=== PATIENT | male | born 1985 | race Caucasian/White ===

== ENCOUNTER 2017-11-11 13:06 | Emergency (ER) | payer BC ==
[2017-11-11 13:37] LABS: HEMATOCRIT 45.4 % (42.0-52.0); MEAN CORPUSCULAR HGB CONC 35.2 g/dl (32.0-36.5); MEAN CORPUSCULAR VOLUME 85.2 fl (80.0-96.0); PLATELET COUNT, AUTOMATED 325 10^3/uL (150-450); RED BLOOD COUNT 5.33 10^6/uL (4.30-6.10); RED CELL DISTRIBUTION WIDTH 12.7 % (11.5-14.5); WHITE BLOOD COUNT 10.6 10^3/uL (4.0-10.0)
[2017-11-11] MEDS: NS 1,000 ML IV ×4 (13:43→15:37)
[2017-11-11 14:16] LABS: ALBUMIN 4.2 GM/DL (3.2-5.2); ALKALINE PHOSPHATASE 101 U/L (45-117); ALT/SGPT 58 U/L (12-78); ANION GAP 7 MEQ/L (8-16); AST/SGOT 39 U/L (7-37); BILIRUBIN,TOTAL 0.4 MG/DL (0.2-1.0); BLOOD UREA NITROGEN 13 MG/DL (7-18); CALCIUM LEVEL 8.9 MG/DL (8.5-10.1); CARBON DIOXIDE LEVEL 27 MEQ/L (21-32); CHLORIDE LEVEL 105 MEQ/L (98-107); CREATININE FOR GFR 0.81 MG/DL (0.70-1.30); GLOMERULAR FILTRATION RATE > 60.0 (>60); GLUCOSE, FASTING 146 MG/DL (70-100); POTASSIUM SERUM 4.1 MEQ/L (3.5-5.1); SODIUM LEVEL 139 MEQ/L (136-145); TOTAL PROTEIN 7.2 GM/DL (6.4-8.2)
[2017-11-11 15:15] LABS: FREE THYROXINE INDEX 3.4 % (1.4-3.8); MAGNESIUM LEVEL 2.2 MG/DL (1.8-2.4); T UPTAKE 32 % (33-40); THYROXINE (T4) 10.7 UG/DL (4.5-12.0)
[2017-11-11 17:28] LABS: ESTIMATED AVERAGE GLUCOSE 123 MG/DL (60-110); HEMOGLOBIN A1c 5.9 %
== END 2017-11-11 17:09 | disposition home or self-care (01) ==
LOC: M ED 13:06
DX: I49.1 Atrial premature depolarization (principal); R42 Dizziness and giddiness; R94.31 Abnormal electrocardiogram [ECG] [EKG]; Z91.030 Bee allergy status; Z79.899 Other long term (current) drug therapy
CPT/HCPCS: 93005

== ENCOUNTER → 2017-11-13 | Outpatient (CLI) | payer BC | LOC: M EKG 10:58 | DX: R00.2 Palpitations (principal) | CPT/HCPCS: 93225 ==

== ENCOUNTER → 2018-10-01 | Outpatient (CLI) | payer BC ==
[~2018-10-01] MED LIST: AFRI0.056; ATOR40TA75 PO; FLON1SPR; LISI10TA4 PO
--- NOTE | 2018-10-01 15:42 | REP ---
THORACIC SPINE, THREE VIEWS: HISTORY: Upper back pain. There is no acute fracture or subluxation. There is loss of height of several mid and lower thoracic intervertebral discs. Osteophytes are present in the mid and lower thoracic spine. IMPRESSION: Degenerative change as described above. Electronically Signed by Julián Alaniz MD 10/01/2018 03:43 P
--- NOTE | 2018-10-01 15:42 | REP ---
CERVICAL SPINE, SEVEN VIEWS: HISTORY: Neck pain. The cervical spine is visualized from C1 to the C6-7 level in the lateral radiographs. There is no acute fracture or subluxation. The intervertebral discs are normal in height. The neural foramina are patent. IMPRESSION:There is no acute fracture or subluxation. Electronically Signed by Julián Alaniz MD 10/01/2018 03:44 P
== END ==
LOC: M WUC 14:27
PROVIDERS: ATTEND Physician Assistant
DX: M25.78 Osteophyte, vertebrae (principal); M51.34 Other intervertebral disc degeneration, thoracic region; M54.2 Cervicalgia; M54.5 Low back pain

== ENCOUNTER → 2018-11-27 | Outpatient (REF) | payer BC | LOC: M SFHCLERA 16:27 | PROVIDERS: ATTEND Physician Assistant | DX: R10.2 Pelvic and perineal pain (principal) ==

== ENCOUNTER 2019-04-11 11:21 | Emergency (ER) | payer BC, OTHER ==
[~2019-04-11] VITALS: Ht 193 cm; Wt 118.2 kg
[2019-04-11] MEDS ORDERED: CYCL10TA (11:27)
[2019-04-11 11:58] LABS: BASO # 0.1 10^3/uL (0.0-0.2); EOS # 0.1 10^3/uL (0.0-0.50); EOS % 1.6 % (0.0-3.0); HEMATOCRIT 45.3 % (42.0-52.0); HEMOGLOBIN 15.8 g/dl (13.5-17.5); LYMPH % 36.7 % (24.0-44.0); MEAN CORPUSCULAR HEMOGLOBIN 31.5 pg (27.0-33.0); MEAN CORPUSCULAR HGB CONC 34.9 g/dl (32.0-36.5); MEAN CORPUSCULAR VOLUME 90.2 fl (80.0-96.0); MONO # 0.8 10^3/uL (0.0-0.8); MONO % 9.4 % (0.0-5.0); NEUTROPHILS # 4.1 10^3/uL (1.8-7.7); NEUTROPHILS % 50.8 % (36.0-66.0); PLATELET COUNT, AUTOMATED 298 10^3/uL (150-450); RED BLOOD COUNT 5.02 10^6/uL (4.30-6.10); WHITE BLOOD COUNT 8.1 10^3/uL (4.0-10.0)
[2019-04-11 12:25] LABS: ALBUMIN 4.5 GM/DL (3.2-5.2); BILIRUBIN,DIRECT 0.1 MG/DL (0.0-0.2); BILIRUBIN,TOTAL 0.5 MG/DL (0.2-1.0); TOTAL PROTEIN 7.5 GM/DL (6.4-8.2)
[2019-04-11] MEDS ORDERED: KETOROLAC 30 MG/ML VIAL (J1885) IV ONE (14:00)
[2019-04-11] MEDS ORDERED: NS 1,000 ML IV ONE (14:00)
[2019-04-11] MEDS ORDERED: ISOVUE-370 76% 100ML VIAL (Q9967) As Ordered ONE (14:15)
[2019-04-11 14:29] VITALS: BP 136/87
[2019-04-11] MEDS ORDERED: CIPROFLOXACIN 500 MG TAB PO ONE (14:45)
[2019-04-11] MEDS ORDERED: metroNIDAZOLE (FLAGYL) 500 MG TAB PO ONE (14:45)
[2019-04-11] MEDS ORDERED: CIPR-249 PO (14:52)
[2019-04-11] MEDS ORDERED: FLAG500T PO (14:52)
--- NOTE | 2019-04-11 15:47 | REP ---
CT ABDOMEN AND PELVIS WITH IV CONTRAST: Visualized lung bases demonstrate no infiltrate. The liver, spleen, adrenals, pancreas, and kidneys are unremarkable. There is no abdominal aortic aneurysm. There is no adenopathy. There is no free air or free fluid. There is no appendicitis, a normal appendix is visualized. There are multiple sigmoid diverticula present. There is surrounding pericolonic inflammation of the fat, consistent with diverticulitis. The urinary bladder appears unremarkable. No abscess is seen. There does appear to be a 1 cm hypodensity in the upper right kidney and another in the lower left kidney probably representing cysts. Recommend renal ultrasound for further evaluation. IMPRESSION: Sigmoid diverticulitis. No free air or abscess. No other acute finding. There does appear to be a 1 cm hypodensity in the upper right kidney and another in the lower left kidney probably representing cysts. Recommend renal ultrasound for further evaluation. Electronically Signed by José Miguel Waterman MD 04/12/2019 11:31 P
--- NOTE | 2019-04-13 09:40 | ED PDOC ---
Post-Departure Follow-Up dr zayas faxed formal report of ct abd/p for fu Caryn Cueva MD Apr 13, 2019 09:40
== END 2019-04-11 15:28 | disposition home or self-care (01) ==
LOC: M ED 11:21
DX: K57.32 Diverticulitis of large intestine without perforation or abscess without bleeding (principal); N28.1 Cyst of kidney, acquired; I10 Essential (primary) hypertension; E78.5 Hyperlipidemia, unspecified; Z87.448 Personal history of other diseases of urinary system; J30.89 Other allergic rhinitis; Z79.899 Other long term (current) drug therapy; Z91.030 Bee allergy status
CPT/HCPCS: 74177; 80047; 80076; 81001; 83690; 85025; 96361; 96374; 99284; J1885; Q9967

== ENCOUNTER → 2019-05-16 | Outpatient (CLI) | payer OTHER ==
[~2019-05-16] MED LIST changes: +CIPR-249 PO; +CYCL10TA PO; +FLAG500T PO; +MULTCAP PO
--- NOTE | 2019-05-16 17:12 | REP ---
Renal ultrasound: Comparison is the abdomen/pelvis CT dated 04/11/2019. Identifying a right renal upper pole hypodensity and a left renal lower pole hypo density. The right kidney measures 12.2 x 6.7 x 6.9 cm. Left kidney measures 11.6 x 6.6 x 5.7 cm. The kidneys are normal size. There are two echogenic foci in the right kidney, one in the midline upper pole measuring 13.3 mm and the other in the lateral lower pole measuring 8.1 mm, likely nonobstructive renal calculi. There are too echogenic foci in the left kidney, one in the midline lower pole measuring 5.8 mm and the other in the medial lower pole measuring 6.9 mm, likely nonobstructive calculi. No solid renal masses are identified. There is a dromedary hump at the mid pole of the left kidney as an anatomic variant. There are two cysts in the right kidney. One is parapelvic measuring 2.5 x 2.2 x 1.5 cm. The other is parapelvic measuring 2.4 x 1.6 x 1.8 cm. No cysts are identified in the left kidney by ultrasound. Impression: Two right renal parapelvic cysts are identified by ultrasound. No left renal cysts are identified by ultrasound. There are no solid renal masses by ultrasound. There is a left renal dromedary hump as an anatomic variant. There are bilateral nonobstructive renal calculi as described. There is no hydronephrosis. Bladder: With color Doppler assessment of the left ureteral jet can be identified. The right ureteral jet cannot be identified, however, there is no hydronephrosis. Electronically Signed by José Miguel Bay MD 05/16/2019 05:04 P
== END ==
LOC: M RAD 16:05
PROVIDERS: ATTEND Nurse Practitioner Family
DX: N28.9 Disorder of kidney and ureter, unspecified (principal)

== ENCOUNTER 2019-09-02 06:37 | Day surgery (SDC) | payer OTHER ==
[~2019-09-02] VITALS: Ht 193 cm; Wt 128.8 kg
[~2019-09-02 06:37] MED LIST changes: +NS 1,000 ML IV ONE
[2019-09-02] MEDS ORDERED: NS 1,000 ML IV ONE (07:00)
[2019-09-02] MEDS ORDERED: CYCL10TA PO (07:09)
--- NOTE | 2019-09-02 08:12 | ROOR ---
Patient Name: Mekhi Madrid Procedure Date: 09/02/2019 7:37 AM Date of : 1985 Age: 34 Room: [facility] Gender: Male Note Status: Finalized Procedure: Colonoscopy Indications: Follow-up of diverticulitis Providers: Moisés Zacarias MD Referring MD: EMILEE HALL MD Requesting Provider: Medicines: Monitored Anesthesia Care Complications: No immediate complications. Procedure: Pre-Anesthesia Assessment: - Prior to the procedure, a History and Physical was performed, and patient medications and allergies were reviewed. The patient is competent. The risks and benefits of the procedure and the sedation options and risks were discussed with the patient. All questions were answered and informed consent was obtained. Patient identification and proposed procedure were verified by the physician, the nurse and the anesthesiologist in the procedure room. Mental Status Examination: alert and oriented. Airway Examination: normal oropharyngeal airway and neck mobility. Respiratory Examination: clear to auscultation. CV Examination: normal. Prophylactic Antibiotics: The patient does not require prophylactic antibiotics. Prior Anticoagulants: The patient has taken no previous anticoagulant or antiplatelet agents. ASA Grade Assessment: III - A patient with severe systemic disease. After reviewing the risks and benefits, the patient was deemed in satisfactory condition to undergo the procedure. The anesthesia plan was to use monitored anesthesia care (MAC). Immediately prior to administration of medications, the patient was re-assessed for adequacy to receive sedatives. The heart rate, respiratory rate, oxygen saturations, blood pressure, adequacy of pulmonary ventilation, and response to care were monitored throughout the procedure. The physical status of the patient was re-assessed after the procedure. The Colonoscope was introduced through the anus and advanced to the terminal ileum, with identification of the appendiceal orifice and IC valve. The colonoscopy was performed without difficulty. The patient tolerated the procedure well. The quality of the bowel preparation was good. The terminal ileum, ileocecal valve, appendiceal orifice, and rectum were photographed. Scope insertion time was 3 minutes. Scope withdrawal time was 9 minutes. The total duration of the procedure was 12 minutes. Findings: The perianal and digital rectal examinations were normal. The terminal ileum appeared normal. Multiple small and large-mouthed diverticula were found in the sigmoid colon. There was no evidence of diverticular bleeding. Moderate mucosal changes characterized by erosions, erythema, friability and granularity were found in the recto-sigmoid colon and in the descending colon. Biopsies were taken with a cold forceps for histology. Verification of patient identification for the specimen was done by the physician and nurse using the patient's name, date and medical record number. Estimated blood loss was minimal. Non-bleeding external and internal hemorrhoids were found during retroflexion. The hemorrhoids were small. Impression: - The examined portion of the ileum was normal. - Moderate diverticulosis in the sigmoid colon. There was no evidence of diverticular bleeding. - Moderate mucosal changes were found in the recto-sigmoid colon and in the descending colon secondary to left-sided colitis. Biopsied. - Non-bleeding external and internal hemorrhoids. Recommendation: - Patient has a contact number available for emergencies. The signs and symptoms of potential delayed complications were discussed with the patient. Return to normal activities tomorrow. Written discharge instructions were provided to the patient. - High fiber diet. - Continue present medications. - Use fiber, for example Citrucel, Fibercon, Konsyl or Metamucil. - Await pathology results. - Repeat colonoscopy at age 52 for screening purposes. - Telephone GI clinic for pathology results in 2 weeks. - Return to primary care physician. Moisés Zacarias MD Moisés Zacarias MD 09/02/2019 8:11:45 AM Electronically signed by Moisés Zacarias MD Number of Addenda: 0 Note Initiated On: 09/02/2019 7:37 AM Estimated Blood Loss: Estimated blood loss was minimal.
[2019-09-02 08:20] VITALS: BP 140/87
[2019-09-02] MEDS ORDERED: propofoL 200 MG/20 ML VIAL As Ordered ONE (08:54)
[2019-09-02] MEDS ORDERED: LIDOCAINE 2% INJ 100 MG/5 ML SDV (FOR ANES.) As Ordered ONE (08:54)
== END 2019-09-02 08:45 | disposition home or self-care (01) ==
LOC: M OPP 06:37
PROVIDERS: ATTEND Internal Medicine Gastroenterology
DX: K64.8 Other hemorrhoids (principal); K51.50 Left sided colitis without complications; K57.32 Diverticulitis of large intestine without perforation or abscess without bleeding; K57.30 Diverticulosis of large intestine without perforation or abscess without bleeding; Z79.891 Long term (current) use of opiate analgesic; Z79.899 Other long term (current) drug therapy; Z91.030 Bee allergy status; Z87.891 Personal history of nicotine dependence

== ENCOUNTER → 2020-01-20 | Outpatient (CLI) | payer OTHER ==
[~2020-01-20] MED LIST changes: +CYCL-707 PO; -CYCL10TA PO; -NS 1,000 ML IV ONE
[2020-01-20 17:21] LABS: BASO # 0.1 10^3/uL (0.0-0.2); BASO % 0.8 % (0.0-1.0); EOS # 0.1 10^3/uL (0.0-0.5); EOS % 0.7 % (0.0-3.0); HEMATOCRIT 44.7 % (42.0-52.0); LYMPH # 2.2 10^3/uL (1.5-5.0); LYMPH % 29.8 % (24.0-44.0); MEAN CORPUSCULAR HEMOGLOBIN 29.7 pg (27.0-33.0); MEAN CORPUSCULAR HGB CONC 33.6 g/dl (32.0-36.5); MEAN CORPUSCULAR VOLUME 88.5 fl (80.0-96.0); MONO # 0.5 10^3/uL (0.0-0.8); MONO % 6.4 % (0.0-5.0); NEUTROPHILS # 4.6 10^3/uL (1.5-8.5); NEUTROPHILS % 61.8 % (36.0-66.0); PLATELET COUNT, AUTOMATED 328 10^3/uL (150-450); RED BLOOD COUNT 5.05 10^6/uL (4.30-6.10); WHITE BLOOD COUNT 7.4 10^3/uL (4.0-10.0)
[2020-01-20 17:48] LABS: ALBUMIN 4.3 GM/DL (3.2-5.2); ALT/SGPT 52 U/L (12-78); BILIRUBIN,TOTAL 0.4 MG/DL (0.2-1.0); BLOOD UREA NITROGEN 11 MG/DL (7-18); CALCIUM LEVEL 9.1 MG/DL (8.5-10.1); CARBON DIOXIDE LEVEL 23 MEQ/L (21-32); CHLORIDE LEVEL 105 MEQ/L (98-107); CREATININE FOR GFR 0.93 MG/DL (0.70-1.30); FREE T4 1.19 NG/DL (0.76-1.46); GLOMERULAR FILTRATION RATE > 60.0 (>60); GLUCOSE, FASTING 128 MG/DL (70-100); POTASSIUM SERUM 4.4 MEQ/L (3.5-5.1); SODIUM LEVEL 139 MEQ/L (136-145); TOTAL PROTEIN 7.1 GM/DL (6.4-8.2)
[2020-01-20 18:29] LABS: ERYTHROCYTE SEDIMENTATION RATE 4 mm/hr (0-15)
== END ==
LOC: M WUC 13:38
PROVIDERS: ATTEND Physician Assistant
DX: R42 Dizziness and giddiness (principal)

== ENCOUNTER → 2020-03-07 | Outpatient (CLI) | payer OTHER ==
[~2020-03-07] MED LIST changes: +AUGM875T28 PO; +ENAL-36; +GABA-843; +KETO10TAB PO; +MELO15TA28; +ROSU10TA6; +TRAM100T36; +TRAZ1TAB11; +VITA50005
--- NOTE | 2020-03-07 09:43 | REPVR ---
PROCEDURE INFORMATION: Exam: MR Lumbar Spine Without Contrast. Exam date and time: 03/07/2020 7:53 AM Age: 35 years old Clinical indication: Low back pain; Patient HX: Lbp; Additional info: Disc disorders with radiculopathy TECHNIQUE: Imaging protocol: Multiplanar magnetic resonance images of the lumbar spine without intravenous contrast. COMPARISON: CR Spine. Lumbosacral, complete 07/31/2016 2:55 PM FINDINGS: Vertebrae: Vertebral body heights normal. There is minimal grade 1 retrolisthesis of L4 on L5. Straightening of lordosis may be positional or related to muscular spasm. Correlate clinically. Vertebral body marrow signal is unremarkable. Spinal cord: Conus terminates at T12-L1 and appears normal in signal intensity without intrinsic or extrinsic lesion. 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 L1-L2: There is no significant disc bulge. There is mild facet degeneration. There is no significant spinal stenosis. There is no significant neural foraminal narrowing. L2-L3: There is no significant disc bulge. There is mild facet degeneration. There is no significant spinal stenosis. There is no significant neural foraminal narrowing. L3-L4: There is mild to moderate generalized disc bulge. There is right posterior annular tear. There is approximately 3 mm anterior-posterior dimension broad-based protrusion extending from the right L4 subarticular recess into the right neural foramen. This moderately narrows the right L4 subarticular recess and moderately narrows the right L3 neural foramen. This appears to contact both nerve roots. There is mild facet degeneration. There is no significant overall spinal stenosis. There is no significant left neural foraminal narrowing. L4-L5: There is moderate to moderate generalized disc bulge. There is approximately 4.5 mm anterior-posterior dimension broad-based central disc protrusion with annular fissure. This lateralizes slightly to the left and extends slightly below the disc space level. This severely narrows left L5 subarticular recess and moderately narrows right L5 subarticular recess. There is mild thickening of ligamentum flavum and facet degeneration. There is no significant spinal stenosis. There is no significant neural foraminal narrowing. L5-S1: There is mild generalized disc bulge. There is approximately 5 mm anterior-posterior dimension central and left subarticular recess protrusion and annular fissure. This severely narrows the left S1 subarticular recess and S1 nerve root is posteriorly displaced. There is mild facet degeneration. There is no significant overall spinal stenosis. There is no significant neural foraminal narrowing. Soft tissues: Unremarkable. IMPRESSION: Multiple disc protrusions as above. Largest at L5-S1 compresses and displaces the left S1 nerve root at level subarticular recess. L3-L4 is broad-based protrusion extending from right L4 subarticular recess into right L3 neural foramen narrowing the subarticular recess and neural foramen. L4-L5 is broad-based central protrusion but slightly greater to left causing left greater than right L5 subarticular recess narrowing. Electronically signed by: Irene Peralta On 03/07/2020 09:42:38 AM
== END ==
LOC: M RAD 06:38
PROVIDERS: ATTEND Physician Assistant
DX: M51.17 Intervertebral disc disorders with radiculopathy, lumbosacral region (principal); M51.26 Other intervertebral disc displacement, lumbar region; M51.27 Other intervertebral disc displacement, lumbosacral region

== ENCOUNTER → 2020-03-14 | Outpatient (CLI) | payer OTHER ==
--- NOTE | 2020-04-30 08:46 | SLEEPHOME ---
[facility] DOWNTIME REPORT NAME: LINDA [facility] WT ID#: [id number] : 1985 JOB: [id number] NAVARRO: 03/14/2020 DOCTOR: Hiro Verdugo M.D. HOME SLEEP TEST DATE: 03/14/2020 ORDERED BY: PANKAJ Arellano Diagnostic home sleep testing was performed due to concern for the obstructive sleep apnea syndrome in this patient with a history of hypersomnia. For testing, a nocturnal T3 respiratory monitoring device was used. Continuous record was made of pulse, oxygen saturation, air flow, chest and abdominal strain, and body position. There was 9 hours and 28 minutes of data reviewed. There was 8 hours and 20 minutes marked as time in bed. During the interval marked time in bed, there were 145 respiratory events identified of 10 seconds in duration or greater for a respiratory event index of 17.4. The events were primarily obstructive. There were six mixed and central apneas. Baseline pulse rate 65 beats per minute. Pulse rate ranged 47-96. Baseline saturation was 92%. Saturations fell to 76%. Testing was performed in both the supine and non-supine positions. IMPRESSION: Abnormal home sleep testing with repetitive respiratory events and oxygen desaturations to 76% with a respiratory event index of 17.4 is consistent with the obstructive sleep apnea syndrome. RECOMMENDATION: The patient should be encouraged to undergo a formal sleep evaluation. /htsru cc: PANKAJ Arellano MTDD
== END ==
LOC: M SLEEP HO 10:20
PROVIDERS: ATTEND Physician Assistant
DX: G47.10 Hypersomnia, unspecified (principal)

== ENCOUNTER → 2020-04-06 | Outpatient (CLI) | payer OTHER ==
[2020-04-06 08:02] LABS: BASO # 0.1 10^3/uL (0.0-0.2); BASO % 0.8 % (0.0-1.0); EOS # 0.1 10^3/uL (0.0-0.5); EOS % 0.8 % (0.0-3.0); HEMATOCRIT 45.7 % (42.0-52.0); HEMOGLOBIN 15.5 g/dl (13.5-17.5); LYMPH # 3.1 10^3/uL (1.5-5.0); LYMPH % 31.4 % (24.0-44.0); MEAN CORPUSCULAR HEMOGLOBIN 29.5 pg (27.0-33.0); MEAN CORPUSCULAR HGB CONC 33.9 g/dl (32.0-36.5); MONO # 0.8 10^3/uL (0.0-0.8); MONO % 8.1 % (0.0-5.0); NEUTROPHILS # 5.9 10^3/uL (1.5-8.5); NEUTROPHILS % 58.7 % (36.0-66.0); PLATELET COUNT, AUTOMATED 321 10^3/uL (150-450); RED BLOOD COUNT 5.25 10^6/uL (4.30-6.10)
[2020-04-06 08:25] LABS: HEMOGLOBIN A1c 6.2 %
[2020-04-06 08:31] LABS: ALT/SGPT 40 U/L (12-78); BILIRUBIN,TOTAL 0.4 MG/DL (0.2-1.0); BLOOD UREA NITROGEN 14 MG/DL (7-18); CALCIUM LEVEL 9.3 MG/DL (8.5-10.1); CARBON DIOXIDE LEVEL 29 MEQ/L (21-32); CHLORIDE LEVEL 105 MEQ/L (98-107); CHOLESTEROL LEVEL 303 MG/DL (<200); CHOLESTEROL RISK RATIO 6.312 (<5); CREATININE FOR GFR 0.91 MG/DL (0.70-1.30); FREE T4 1.06 NG/DL (0.76-1.46); GLOMERULAR FILTRATION RATE > 60.0 (>60); GLUCOSE, FASTING 95 MG/DL (70-100); HDL CHOLESTEROL 48 MG/DL (>40); LDL CHOLESTEROL 212 MG/DL (<100); NON-HDL-C 255 MG/DL; POTASSIUM SERUM 4.3 MEQ/L (3.5-5.1); SODIUM LEVEL 138 MEQ/L (136-145); TOTAL PROTEIN 7.1 GM/DL (6.4-8.2); TRIGLYCERIDES LEVEL 216 MG/DL (<150)
[2020-04-06 10:01] LABS: TOTAL 25(OH) VITAMIN D 30.9 NG/ML (30.0-100.0)
== END ==
LOC: M LAB 06:34
PROVIDERS: ATTEND Physician Assistant
DX: E78.5 Hyperlipidemia, unspecified (principal); Z13.29 Encounter for screening for other suspected endocrine disorder

== ENCOUNTER 2020-05-26 06:59 | Emergency (ER) | payer OTHER ==
[~2020-05-26] VITALS: Ht 193 cm; Wt 132.4 kg
[~2020-05-26 06:59] MED LIST changes: -AUGM875T28 PO; -ENAL-36; -GABA-843; -KETO10TAB PO; -MELO15TA28; -ROSU10TA6; -TRAM100T36; -TRAZ1TAB11; -VITA50005
[2020-05-26] MEDS ORDERED: TRAM100T36 (07:09)
[2020-05-26] MEDS ORDERED: VITA50005 (07:09)
[2020-05-26] MEDS ORDERED: TRAZ1TAB11 (07:09)
[2020-05-26] MEDS ORDERED: MELO15TA28 (07:09)
[2020-05-26] MEDS ORDERED: GABA-843 (07:09)
[2020-05-26] MEDS ORDERED: ROSU10TA6 (07:09)
[2020-05-26] MEDS ORDERED: ENAL-36 (07:09)
[2020-05-26] MEDS ORDERED: ONDANSETRON 4MG/2ML VIAL IV ONE (07:30)
[2020-05-26] MEDS ORDERED: NS 1,000 ML IV ONE (07:30)
[2020-05-26] MEDS ORDERED: KETOROLAC 30 MG/ML 1ML VIAL IV ONE (07:45)
[2020-05-26 07:54] LABS: BASO # 0.1 10^3/uL (0.0-0.2); BASO % 0.9 % (0.0-1.0); EOS # 0.1 10^3/uL (0.0-0.5); EOS % 0.5 % (0.0-3.0); HEMATOCRIT 45.4 % (42.0-52.0); HEMOGLOBIN 15.2 g/dl (13.5-17.5); LYMPH # 1.9 10^3/uL (1.5-5.0); MEAN CORPUSCULAR HEMOGLOBIN 28.8 pg (27.0-33.0); MEAN CORPUSCULAR HGB CONC 33.5 g/dl (32.0-36.5); MEAN CORPUSCULAR VOLUME 86.1 fl (80.0-96.0); MONO # 0.9 10^3/uL (0.0-0.8); MONO % 7.4 % (0.0-5.0); NEUTROPHILS # 9.5 10^3/uL (1.5-8.5); NEUTROPHILS % 75.7 % (36.0-66.0); PLATELET COUNT, AUTOMATED 315 10^3/uL (150-450); RED BLOOD COUNT 5.27 10^6/uL (4.30-6.10); WHITE BLOOD COUNT 12.6 10^3/uL (4.0-10.0)
[2020-05-26] MEDS ORDERED: ISOVUE-370 76% 100ML VIAL As Ordered ONE (07:56)
[2020-05-26 08:16] LABS: ALBUMIN 4.2 GM/DL (3.2-5.2); BILIRUBIN,DIRECT 0.2 MG/DL (0.0-0.2); BILIRUBIN,TOTAL 0.8 MG/DL (0.2-1.0); TOTAL PROTEIN 7.3 GM/DL (6.4-8.2)
--- NOTE | 2020-05-26 08:38 | REPVR ---
PROCEDURE INFORMATION: Exam: CT Abdomen And Pelvis With Contrast Exam date and time: 05/26/2020 8:14 AM Age: 35 years old Clinical indication: Abdominal pain; Localized; Left lower quadrant (llq); Additional info: Llq abd pain, h/o diverticulitis TECHNIQUE: Imaging protocol: Computed tomography of the abdomen and pelvis with intravenous contrast. Radiation optimization: All CT scans at this facility use at least one of these dose optimization techniques: automated exposure control; mA and/or kV adjustment per patient size (includes targeted exams where dose is matched to clinical indication); or iterative reconstruction. Contrast material: ISOVUE 370; Contrast volume: 100 ml; Contrast route: INTRAVENOUS (IV); COMPARISON: CT ABD/PEL W/IV CONTRAST ONLY 04/11/2019 2:19 PM FINDINGS: Liver: Normal. No mass. Gallbladder and bile ducts: Normal. No calcified stones. No ductal dilation. Pancreas: Normal. No ductal dilation. Spleen: Normal. No splenomegaly. Adrenals: Normal. No mass. Kidneys and ureters: Circumscribed hypodense lesion in the lower pole of left kidney measuring 1.0 cm. No hydronephrosis bilaterally. Focal scarring in the midpole of the left kidney. Stomach and bowel: Segmental thickening of the sigmoid colon. Sigmoid diverticulosis associated mild pericolonic edema. No abnormal bowel dilatation. Appendix: Appendix is normal. Intraperitoneal space: Unremarkable. No free air. No significant fluid collection. Vasculature: Unremarkable. No abdominal aortic aneurysm. Lymph nodes: No enlarged lymph nodes. Multiple small perisigmoid nodes. Urinary bladder: Unremarkable as visualized. Reproductive: Prostate is normal in size. Bones/joints: Unremarkable. No acute fracture. Soft tissues: Small umbilical hernia containing fat. There is no evidence of strangulation. IMPRESSION: 1. Findings consistent with acute sigmoid diverticulitis. 2. No bowel perforation. 3. Circumscribed hypodense lesion in left kidney. Consistent with benign cyst. No follow-up is necessary. 4. Additional findings as described. Electronically signed by: Konstantin Laughlin On 05/26/2020 08:38:09 AM
[2020-05-26] MEDS ORDERED: MORPHINE 4 MG/ML 1ML VIAL/SYRINGE (J2270) IV ONE (08:45)
[2020-05-26 09:08] VITALS: BP 133/71
[2020-05-26] MEDS ORDERED: KETO10TAB PO (09:12)
[2020-05-26] MEDS ORDERED: AUGM875T28 PO (09:16)
== END 2020-05-26 09:25 | disposition home or self-care (01) ==
LOC: M ED 06:59
DX: K57.32 Diverticulitis of large intestine without perforation or abscess without bleeding (principal); N28.1 Cyst of kidney, acquired; K42.9 Umbilical hernia without obstruction or gangrene; I10 Essential (primary) hypertension; E78.5 Hyperlipidemia, unspecified; Z91.030 Bee allergy status; Z79.899 Other long term (current) drug therapy
CPT/HCPCS: 74177; 80047; 80076; 81001; 83690; 85025; 96361; 96374; 96375; 99284; J1885; J2270; J2405; Q9967

== ENCOUNTER 2020-07-06 13:51 | Emergency (ER) | payer OTHER ==
[~2020-07-06] VITALS: Ht 193 cm; Wt 127.9 kg
[~2020-07-06 13:51] MED LIST changes: +AUGM875T28 PO; +ENAL-36; +GABA-843; +KETO10TAB PO; +MELO15TA28; +ROSU10TA6; +TRAM100T36; +TRAZ1TAB11; +VITA50005
[2020-07-06] MEDS ORDERED: CYCLOBENZAPRINE 10MG TABLET PO ONE (14:45)
[2020-07-06] MEDS ORDERED: KETOROLAC 60MG 2ML VIAL IM ONE (14:45)
--- NOTE | 2020-07-06 15:33 | REP ---
INDICATION: injury. COMPARISON: 10/01/2018. TECHNIQUE: AP and lateral views obtained of the thoracic spine. FINDINGS: There is no compression fracture. There is normal thoracic kyphosis. There is mild diffuse spurring. The posterior elements appear intact. IMPRESSION: Mild spurring with no compression fracture. No malalignment. <Electronically signed by José Miguel Waterman > 07/06/20 [id number]
--- NOTE | 2020-07-06 15:33 | REP ---
INDICATION: injury COMPARISON: None. TECHNIQUE: AP, lateral, flexion/extension, bilateral oblique, and coned-down views. FINDINGS: Alignment and lordosis is maintained. The vertebral bodies including transverse process and spinous processes are intact and normal. There is no evidence for acute fracture / compression injury or subluxation. No evidence for spondylolysis or spondylolisthesis. No significant degenerative change is noted. IMPRESSION: Normal lumbosacral spine radiograph series. <Electronically signed by Camilo Polanco > 07/06/20 [id number]
[2020-07-06] MEDS ORDERED: CYCL5TAB PO (15:49)
[2020-07-06] MEDS ORDERED: NAPR-837 PO (15:49)
[2020-07-06 16:07] VITALS: BP 115/52
== END 2020-07-06 16:14 | disposition home or self-care (01) ==
LOC: M ED 13:51
DX: M54.42 Lumbago with sciatica, left side (principal); X50.0XXA Overexertion from strenuous movement or load, initial encounter; Y92.9 Unspecified place or not applicable; Y99.0 Civilian activity done for income or pay; I10 Essential (primary) hypertension; E78.5 Hyperlipidemia, unspecified; K57.32 Diverticulitis of large intestine without perforation or abscess without bleeding; Z91.030 Bee allergy status; Z79.899 Other long term (current) drug therapy
CPT/HCPCS: 72072; 72114; 96372; 99283; J1885

== ENCOUNTER → 2020-07-23 | Outpatient (CLI) | payer OTHER ==
[~2020-07-23] MED LIST changes: +CYCL5TAB PO; +NAPR-837 PO
--- NOTE | 2020-07-28 00:50 | ECWPNPC ---
PATIENT NAME: LINDA KENT : 1985 GENDER: MALE VISIT DATE: 07/23/2020 DISCHARGE DATE: 07/23/20 0959 VISIT LOCKED DATE TIME: PHYSICIAN: WENDY DINH RESOURCE: WENDY DINH REASON FOR APPOINTMENT 1. DDD/HERNIATED DISC/LOW BACK HISTORY OF PRESENT ILLNESS DEPRESSION SCREENING: PHQ-2 (2015 EDITION) LITTLE INTEREST OR PLEASURE IN DOING THINGS?NOT AT ALL FEELING DOWN, DEPRESSED, OR HOPELESS?NOT AT ALL TOTAL SCORE0 GENERAL: 35-YEAR-OLD GENTLEMAN BEING REFERRED BY PRIMARY CARE FOR EVALUATION OF PERSISTENT LOW BACK PAIN WITH BILATERAL LEG RADICULAR SYMPTOMS. 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 PAIN SEEMED TO GET BETTER WITH INTERMITTENT FLAREUPS THAT HE COULD HANDLE UP UNTIL ABOUT ONE YEAR AGO. BEGAN PHYSICAL THERAPY AND MEDICATION FOR INCREASING PAIN APPROXIMATELY ONE YEAR AGO. REPORTS 1 MONTH AGO HE WAS LIFTING A HEAVY PERSON AND BEGAN TO HAVE SEVERE LOW BACK PAIN AND BILATERAL LEG PAIN. HE WENT TO THE EMERGENCY ROOM. ALSO STATES THAT HE WAS A PATIENT OF DR. GENTILE AT [facility] IN [place] AND UNDERWENT LUMBAR EPIDURAL STEROID INJECTION WITH LAST INJECTION BEING DONE THIS PAST SUMMER. STATES LAST INJECTION WAS VERY PAINFUL AND REFUSES TO GO BACK TO THAT PRACTICE. STATES FIRST 2 INJECTIONS WERE VERY HELPFUL. REPORTS CHRONIC INTERMITTENT TESTICULAR PAIN RIGHT GREATER THAN LEFT. THIS HAS BEEN GOING ON FOR SEVERAL YEARS PER PATIENT. DENIES BOWEL OR BLADDER INCONTINENCE. CURRENTLY USING HYDROCODONE 5/325 AND FINDS IT INEFFECTIVE AT REDUCING PAIN. FEELS GABAPENTIN AND TIZANIDINE THAT HE IS TAKING IS HELPFUL. REVIEWED MRI OF THE LS-SPINE AND DISCUSSED TREATMENT PLAN. - - -. FALL RISK SCREENING: SCREENING :TWO OR MORE FALLS WITH INJURY IN THE PAST YEAR PAIN SCREENING: PATIENT HAS A COMPLAINT OF ACUTE OR CHRONIC PAIN :YES LOCATION OF PAIN:MID BACK, LOW BACK, LEG(S), THIGH(S) INTENSITY OF PAIN (SCALE OF 1 TO 10):4 WHAT DOES YOUR PAIN FEEL LIKE:SHARP, OTHER PULLING DURATION:INTERMITTENT PAIN IS INCREASED BY:ACTIVITIES, PROLONGED STANDING PAIN IS DECREASED BY:USE OF PAIN MEDICATIONS, OTHERS LYING DOWN NURSING NOTE: - - -. PAIN CENTER INTAKE QUESTIONS: DO YOU HAVE A HISTORY OF MRSA? :NO DO YOU TAKE A BLOOD THINNERS? :NO DO YOU HAVE ANY BLEEDING DISORDERS? :NO ANY NEW NUMBNESS OR WEAKNESS IN YOUR LEGS OR ARMS? :YES BOTH FEET AND CALVES FOR PAST 3 YEARS, WORSE PAST FEW MONTHS. STATES HAS NOTIFIED HIS PRIMARY CARE PROVIDER. ANY PACEMAKER,DEFIBRILLATOR, OR DORSAL COLUMN STIMULATOR? :NO DO YOU HAVE ANY RASHES OR OPEN SORES? :NO ARE YOU ALLERGIC TO IV DYE? :NO ARE YOU DIABETIC? :NO ANY NEW PROBLEMS WITH YOUR MEDICATIONS? :NO HAVE YOU RECEIVED A VACCINE IN THE PAST 30 DAYS? :NO DO YOU PLAN TO RECEIVE A VACCINE IN THE NEXT 21 DAYS? :NO DO YOU NEED ANY PRESCRIPTION? :NO DO YOU TAKE ANY IMMUNOSUPPRESSIVE MEDICATIONS? :NO CURRENT MEDICATIONS TAKING CRESTOR 10 MG TABLET 1 TABLET ORALLY ONCE A DAY TAKING CYMBALTA 30 MG CAPSULE DELAYED RELEASE PARTICLES 1 CAPSULE ORALLY ONCE A DAY AT BEDTIME TAKING ENALAPRIL MALEATE 10 MG TABLET 1 TABLET ORALLY ONCE A DAY TAKING GABAPENTIN 600 MG TABLET 1 TABLET ORALLY 3 TIMES A DAY TAKING MOBIC 15 MG TABLET 1 TABLET ORALLY ONCE A DAY TAKING HYDROCODONE-ACETAMINOPHEN 5-325 MG TABLET 1 TABLET NEEDED ORALLY EVERY 6 HRS TAKING TRAMADOL HCL 100 MG TABLET 1 TABLET NEEDED ORALLY EVERY 8 HOURS NEEDED TAKING TRAZODONE HCL 100 MG TABLET 1 TABLET AT BEDTIME ORALLY ONCE A DAY TAKING VITAMIN D (ERGOCALCIFEROL) 1.25 MG (06617 UT) CAPSULE 1 CAPSULE ORALLY ONCE A WEEK TAKING ZANAFLEX 4 MG CAPSULE 1 CAPSULE NEEDED ORALLY TWO TIMES A DAY TAKING ZOFRAN 4 MG TABLET 1 TABLET ORALLY EVERY 4 HOURS NEEDED TAKING EPINEPHRINE (ANAPHYLAXIS) 1 MG/ML SOLUTION DIRECTED INJECTION NOT-TAKING LISINOPRIL 10 MG TABLET 1 TABLET ORALLY ONCE A DAY NOT-TAKING SIMVASTATIN 20 MG TABLET 1 TABLET IN THE EVENING ORALLY ONCE A DAY NOT-TAKING MOTRIN 800 MG TABLET 1 TABLET WITH FOOD OR MILK NEEDED ORALLY THREE TIMES A DAY NOT-TAKING PENICILLIN V POTASSIUM 500 MG TABLET 1 TABLET ORALLY FOUR TIMES A DAY NOT-TAKING KETOROLAC TROMETHAMINE 10 MG TABLET 1 TABLET WITH FOOD OR MILK NEEDED ORALLY EVERY 6 HRS NOT-TAKING FLEXERIL 10 MG TABLET 1 TABLET ORALLY ONCE A DAY NOT-TAKING BACTRIM DS 800-160 MG TABLET 1 TABLET ORALLY TWICE A DAY NOT-TAKING VICODIN 5-500 MG TABLET 1 TABLET NEEDED ORALLY PRN, NOTES: PRN NOT-TAKING SUDAFED 30 MG TABLET 1 TABLET NEEDED ORALLY EVERY 6 HRS NOT-TAKING FLONASE 50 MCG/ACT SUSPENSION 1 SPRAY IN EACH NOSTRIL NASALLY TWICE A DAY NOT-TAKING SALINE NASAL SPRAY 0.65 % SOLUTION 2 DROPS IN EACH NOSTRIL NEEDED NASALLY EVERY 2 HRS NOT-TAKING GUAIFENESIN 200 MG TABLET 1 TABLET NEEDED ORALLY EVERY 4 HRS NOT-TAKING LIPITOR 20 MG TABLET 1 TABLET ORALLY ONCE A DAY NOT-TAKING ETODOLAC 500 MG TABLET 1 TABLET ORALLY TWICE A DAY MEDICATION LIST REVIEWED AND RECONCILED WITH THE PATIENT PAST MEDICAL HISTORY CYST ON LEFT AND RIGHT KIDNEY SLEEP APNEA HYPERCHOLESTEROLEMIA HYPERTENSION DEGENERATED DISC DISEASE PTSD ANXIETY DIVERTICULOSIS ALLERGIES BEE STING: ANAPHYLAXIS HORNETS: ANAPHYLAXIS SURGICAL HISTORY TONSILLECTOMY AND ADENOIDECTOMY 1993 COLONOSCOPY 08/2018 WISDOM TEETH EXTRACTION 2002 FAMILY HISTORY FATHER: 25 YRS, MVA MOTHER: ALIVE 51 YRS, DIVERTICULOSIS, ANXIETY 1 BROTHER(S) , 1 SISTER(S) - HEALTHY. 1DAUGHTER(S) - HEALTHY. NO KNOWN FAMILY UROLOGICAL ISSUES. SOCIAL HISTORY GENERAL: TOBACCO USE ARE YOU A:NEVER SMOKER LATEX QUESTIONNAIRE LATEX ALLERGY : HAVE YOU EVER DEVELOPED ANY TYPE OF REACTION AFTER HANDLING LATEX PRODUCTS SUCH RUBBER GLOVES, CONDOMS, DIAPHRAGMS, BALLOONS, SOCKS, OR UNDERWEAR?NO LATEX ALLERGY : HAVE YOU EVER DEVELOPED ANY TYPE OF REACTION DURING OR AFTER DENTAL APPOINTMENT, VAGINAL/RECTAL EXAMINATION, SURGICAL PROCEDURE, OR ANY OTHER EXPOSURE?NO LATEX RISK : HAVE YOU EVER HAD ANY DIFFICULTY BREATHING OR HIVES AFTER EATING OR HANDLING ANY FRUITS, OR VEGETABLES; SUCH KIWI, BANANAS, STONE FRUITS, OR CHESTNUTSNO LATEX RISK : DO YOU HAVE A PREVIOUS PERSONAL HISTORY OF MORE THAN NINE SURGERIES, SPINA BIFIDA, OR REPEATED CATHERIZATIONS? NO LATEX RISK : ARE YOU FREQUENTLY EXPOSED TO LATEX PRODUCTS IN YOUR OCCUPATION?NO DATE ASKED : 07/23/2020 BMI CARE GOAL FOLLOW-UP ABOVE NORMAL BMI FOLLOW-UPDIETARY MANAGEMENT EDUCATION, GUIDANCE, AND COUNSELING ALCOHOL SCREENING DID YOU HAVE A DRINK CONTAINING ALCOHOL IN THE PAST YEAR?YES HOW OFTEN DID YOU HAVE A DRINK CONTAINING ALCOHOL IN THE PAST YEAR?MONTHLY OR LESS (1 POINT) HOW MANY DRINKS DID YOU HAVE ON A TYPICAL DAY WHEN YOU WERE DRINKING IN THE PAST YEAR?1 OR 2 (0 POINTS) HOW OFTEN DID YOU HAVE SIX OR MORE DRINKS ON ONE OCCASION IN THE PAST YEAR?NEVER (0 POINTS) POINTS1 INTERPRETATIONNEGATIVE RECREATIONAL DRUG USE DRUG USE?NO CAFFEINE CAFFEINE USE?YES 1-2 CUPS / DAY HIV / HEP-C SCREENING HIV TEST OFFERED TO PATIENT:YES DATE OFFERED:02/10/2018 TEST ACCEPTED:NO HEP-C TEST OFFERED TO PATIENT:NO REASON:PATIENT DECLINED BROCHURE PROVIDED TO PATIENTYES LANGUAGE LANGUAGES SPOKEN:BRITISH VIRGIN ISLANDER LEARNING BARRIERS / SPECIAL NEEDS CHANGE FROM LAST VISIT?NO BARRIERS TO LEARNING?NO HEARING IMPAIRED?NO VISION IMPAIRED?YES :CORRECTIVE LENSES COGNITIVELY IMPAIRED?NO READINESS TO LEARN?YES LEARNING PREFERENCES?NO LEARNING CAPABILITIES PRESENT?YES EMOTIONAL BARRIERS?NO SPECIAL DEVICES?NO TEXTURE ARTIST NEEDED?NO 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 PAIN CLINIC PFS, CLERGY, PUBLIC HEALTH REFERRALS HAS THE PATIENT BEEN EDUCATED REGARDING HIS/HER PLAN OF CARE?YES HAS THE PATIENT BEEN EDUCATED REGARDING PAIN, THE RISK FOR PAIN, THE IMPORTANCE OF EFFECTIVE PAIN MANAGEMENT, AND THE PAIN ASSESSMENT PROCESS?YES ADVANCE DIRECTIVE ADVANCE DIRECTIVE DISCUSSED WITH PATIENT:YES INFORMATION OFFERED AND DECLINED. HOSPITALIZATION/MAJOR DIAGNOSTIC PROCEDURE DENIES PAST HOSPITALIZATION REVIEW OF SYSTEMS CONSTITUTIONAL: ANY RECENT FEVER NO . CHILLS NO . WEIGHT CHANGE OF UNKNOWN REASONS NO . MUSCULOSKELETAL: ANY UNUSUAL JOINT PAIN OR SWELLING NOT MENTIONED NO . SYSTEMIC LUPUS NO . ANY NEUROMUSCULAR DISORDER NOT MENTIONED NO . LYME DISEASE NO . GASTROENTEROLOGY: ANY NEW CHANGE IN BOWEL CONTROL? NO . HISTORY OF LIVER DISORDER NOT MENTIONED NO . HISTORY OF UNUSUAL ABDOMINAL PAIN OR CRAMPING NOT MENTIONED NO . NO CONSTIPATION. GENITOURINARY: ANY NEW CHANGE IN BLADDER CONTROL? NO . ANY RENAL/KIDNEY CONDITON NOT MENTIONED NO . NEUROLOGY: HISTORY OF TBI NOT MENTIONED NO . OTHER NEW NUMBNESS OR PAIN PATTERNS NOT MENTIONED NO . NEW ONSET DIZZINESS OR NEUROLOGICAL CHANGES NOT MENTIONED NO . HISTORY OF SEVERE HEADACHES NOT MENTIONED NO . HISTORY OF STROKE OR NEUROLOGICAL DISORDER NOT MENTIONED NO . CARDIOLOGY: HEART SURGERY NO . CONGESTIVE HEART FAILURE/FLUID OVERLOAD NOT MENTIONED NO . HISTORY OF CHEST PAIN,IRREGULAR HEART BEAT NOT MENTIONED NO . RESPIRATORY: SHORTNESS OF BREATH ON EXERTION, WHEEZES, UNUSUAL COUGH NOT MENTIONED NO . ENDOCRINOLOGY: ADRENAL GLAND OR THYROID DISORDERS NOT MENTIONED NO . UNUSUAL URINATION, DIZZINESS OR LETHARGY NOT MENTIONED NO . VITAL SIGNS WT 288 LBS, HT 76 IN, BMI 35.05 INDEX, BP 143/75 MM HG, HR 78 /MIN, RR 18 /MIN, TEMP 97.1 F, OXYGEN SAT % 96%, SAFE IN ENV? (Y/N) YES, NA INITIALS [place] 08:[id number] 0914 REVIEWED. Ana HANCOCK RN. EXAMINATION GENERAL EXAMINATION: GENERALNO ACUTE DISTRESS, WELL NOURISHED AND HYDRATED. PSYCHFLAT AFFECT . FACE:UNREMARKABLE. NECK:NO LYMPHADENOPATHY, SUPPLE. LUNGS:CLEAR TO AUSCULTATION BILATERALLY, NO WHEEZES, RHONCHI, RALES. HEART:NO MURMURS, REGULAR RATE AND RHYTHM. MUSCULOSKELETAL: MUSCLE STRENGTH TESTING 5/5 BILATERAL LOWER EXTREMITIES, TRIGGER POINTS:, ELICITED WITH PALPATION OVER LUMBAR PARAVERTEBRAL MUSCLES R>L. INCREASED PAIN NOTED WITH RANGE OF JOINT MOTION OF THE SPINE.. DIAGNOSTIC TESTS REVIEWEDMRI L/S SPINE 02/2020 . ASSESSMENTS MYALGIA, OTHER SITE - M79.18 (PRIMARY) PROTRUSION OF LUMBAR INTERVERTEBRAL DISC - M51.26 TREATMENT MYALGIA, OTHER SITE CONTINUE MOBIC TABLET, 15 MG, 1 TABLET, ORALLY, ONCE A DAY STOP HYDROCODONE-ACETAMINOPHEN TABLET, 5-325 MG, 1 TABLET NEEDED, ORALLY, EVERY 6 HRS STOP TRAMADOL HCL TABLET, 100 MG, 1 TABLET NEEDED, ORALLY, EVERY 8 HOURS NEEDED CONTINUE ZANAFLEX CAPSULE, 4 MG, 1 CAPSULE NEEDED, ORALLY, TWO TIMES A DAY START PERCOCET TABLET, 5-325 MG, 1 TABLET NEEDED, ORALLY, Q8H PRN MDD3 #45 TABS SHOULD LAST 30 DAYS, 30 DAYS, 45, REFILLS 0 NOTES: SIGNED RECORDS RELEASE TO GET INFORMATION FROM DR. GENTILE, PAIN SOLUTIONS, [facility] TRIGGER POINT INJECTION BILATERAL LOWER BACK RIGHT GREATER THAN LEFT , [facility] NARCOTIC AGREEMENT WAS REVIEWED AND SIGNED TODAY BY THE PATIENT. SEE ATTACHED DOCUMENT FOR FULL DETAILS; SPECIFIC ISSUES WERE REVIEWED: 1) KEEP PAIN MEDS IN THEIR ORIGINAL BOTTLES AND ANY WEEKLY PLANNERS ARE TO BE BROUGHT TO THE PAIN CENTER AT EVERY VISIT. 2) THE PATIENT IS NOT TO INCREASE DOSING OR TIMING OF THEIR PAIN MEDICATION WITHOUT SPECIFIC DIRECTION OF THEIR PAIN CENTERPROVIDER (NOT ER OR OTHER PROVIDERS). 3) ALL PAIN MEDS ARE TO BE KEPT SECURED, IN A LOCKED BOX. 4) NO PAIN MEDS ARE TO BE SHARED WITH ANY OTHER PERSON FOR ANY REASON. 5) NO PAIN MEDS MAY BE TAKEN FROM ANY FRIENDS OR RELATIVES FOR ANY REASON 6) NO MEDS OR SUBSTANCES WHICH ARE NOT LEGAL ARE TO BE USED- NO MARIJUANA, NO COCAINE, AMPHETAMINES, HEROIN, OR OTHERS ARE EVER TO BE USED. 7)URINE TESTING IS DONE TO ACCOUNT FOR MEDS AND SUBSTANCES BEING TAKEN AND WILL BE DONE RANDOMLY. , RISKS OF NARCOTIC/OPIOD MEDICATIONS INCLUDES BUT IS NOT LIMITED TO RISK OF DEPENDANCE/DEVELOPMENT OF ADDICTION, MOOD DISTURBANCE AND DEPRESSION, OSTEOPOROSIS, HORMONAL AND LABIDAL CHANGES, RESPIRATORY DEPRESSION AND . PATIENT IS ADVISED NOT TO DRIVE OR DRINK ALCOHOL WHILE ON THESE MEDICATIONS. PROCEDURE CODES FA211 ESTABILISHED PATIENT [facility] CHARGE DISPOSITION & COMMUNICATION FOLLOW UP POSTPROCEDURE (REASON: TRIGGER POINT INJECTION BILATERAL LOWER BACK RIGHT GREATER THAN LEFT) ELECTRONICALLY SIGNED BY KATHLEEN DAMON ON 07/27/2020 AT 11:02 AM EST DISCLAIMER : THIS IS A VISIT SUMMARY EXTRACTED FROM THE [employer] CHART. IT IS NOT A COPY OF THE [employer] PROGRESS NOTE. LUCAS
== END ==
LOC: M PAIN 08:30
PROVIDERS: ATTEND Nurse Practitioner Family
DX: M79.18 Myalgia, other site (principal); M51.26 Other intervertebral disc displacement, lumbar region; G47.30 Sleep apnea, unspecified; Z86.59 Personal history of other mental and behavioral disorders; Z91.030 Bee allergy status; Z79.899 Other long term (current) drug therapy

== ENCOUNTER → 2020-08-22 | Outpatient (CLI) | payer OTHER ==
--- NOTE | 2020-08-22 20:11 | REPVR ---
PROCEDURE INFORMATION: Exam: MR Thoracic Spine Without Contrast Exam date and time: 08/22/2020 7:40 PM Age: 35 years old Clinical indication: Pain in thoracic spine; With radiculopathy; Bilateral TECHNIQUE: Imaging protocol: Multiplanar magnetic resonance images of the thoracic spine without contrast. COMPARISON: CR Spine, Thoracic 3 VIEWS 07/06/2020 2:45 PM FINDINGS: Vertebrae: Unremarkable. Spinal cord: Small posterior disc protrusion T8-T9 effaces the ventral subarachnoid space with mild cord impingement. Broad posterior disc protrusion at T9-10 effaces the ventral subarachnoid space with mild cord impingement. Discs/Spinal canal/Neural foramina: No significant disc disease. No significant spinal canal stenosis. Soft tissues: Unremarkable. IMPRESSION: Small posterior disc protrusions at T8-9 and T9-10 mild cord impingement. Electronically signed by: Nilay Alvarado On 08/22/2020 20:11:40 PM
--- NOTE | 2020-08-22 20:18 | REPVR ---
PROCEDURE INFORMATION: Exam: MR Lumbar Spine Without Contrast. Exam date and time: 08/22/2020 7:40 PM Age: 35 years old Clinical indication: Low back pain; Additional info: Intervertebral disc disorder w/ radiculopathy, l/s region TECHNIQUE: Imaging protocol: Multiplanar magnetic resonance images of the lumbar spine without intravenous contrast. COMPARISON: MRI-Spine, L.S. without con 03/07/2020 7:08 AM FINDINGS: Vertebrae: See "L4-L5" finding. Spinal cord: Normal signal. No cord compression. L1-L2: Mild diffuse annular bulge L1-L2 without neural compromise. L2-L3: No significant disc disease. No significant spinal canal stenosis. No neural foraminal stenosis. L3-L4: There is a moderate central spinal stenosis at L3-L4 secondary to diffuse annular bulging, thickened ligamentum flavum with mild age facet joint arthropathy. Disc desiccation demonstrated. A foraminal protrusion on the right may compress the exiting ipsilateral L3 nerve root and mildly posterior displaces the traversing L4 nerve root. Fluid in both facet joints consistent with synovitis. L4-L5: Diffusely bulging annulus with a central disc protrusion at L4-L5 effaces the ventral subarachnoid space and results in a moderate to severe central spinal stenosis. Disc desiccation and loss of disc height demonstrated. There is compression of both L5 traversing nerve roots. Fluid in both facet joints consistent with a synovitis. L5-S1: Bulging annulus and left posterolateral disc protrusion at L5-S1 asymmetrically effaces the left side of the thecal sac, impinges on the exiting L5 nerve root and posteriorly displaces the S1 nerve root as it arises from the thecal sac. Disc desiccation and loss of disc height demonstrated. Bilateral facet joint arthropathy. Soft tissues: Unremarkable. IMPRESSION: 1. Moderate central spinal stenosis L3-L4. 2. Bulging annulus and central disc protrusion L4-L5 resulting in a moderate to severe central spinal stenosis with compression of the L5 traversing nerve roots. 3. Large left posterolateral disc protrusion L5-S1 impinges on the ipsilateral exiting L5 nerve root and ipsilateral S1 nerve root as well. 4. Bilateral synovitis at L3-L4 and L4-L5. Electronically signed by: Nilay Alvarado On 08/22/2020 20:18:27 PM
== END ==
LOC: M RAD 17:28
PROVIDERS: ATTEND Physician Assistant
DX: M51.17 Intervertebral disc disorders with radiculopathy, lumbosacral region (principal); M48.061 Spinal stenosis, lumbar region without neurogenic claudication; M51.26 Other intervertebral disc displacement, lumbar region; M51.27 Other intervertebral disc displacement, lumbosacral region; M51.24 Other intervertebral disc displacement, thoracic region

== ENCOUNTER → 2020-08-25 | Outpatient (CLI) | payer OTHER | LOC: M LABSMTC 11:32 | PROVIDERS: ATTEND Anesthesiology | DX: Z20.822 Contact with and (suspected) exposure to COVID-19 (principal) ==

== ENCOUNTER → 2020-08-30 | Outpatient (CLI) | payer OTHER ==
[~2020-08-30] MED LIST changes: +BUPIVACAINE HCL 0.25% 10ML VIAL As Ordered ONE; +BUPIVACAINE HCL 0.25% 30ML VIAL As Ordered ONE; +GABA-282; -GABA-843; +TRIAMCINOLONE ACETONIDE SUSP 40 MG/ML VIAL (J3301) As Ordered ONE; +diazePAM 5MG TABLET As Ordered ONE; +oxyCODONE 5MG TAB As Ordered ONE
--- NOTE | 2020-09-01 02:31 | ECWPNPC ---
PATIENT NAME: LINDA KENT : 1985 GENDER: MALE VISIT DATE: 08/30/2020 DISCHARGE DATE: 08/30/20 1603 VISIT LOCKED DATE TIME: PHYSICIAN: LAZARO CAMPOS MD RESOURCE: LAZARO CAMPOS MD REASON FOR APPOINTMENT 1. TRIGGER POINT INJECTIONS BILATERAL LOWER BACK HISTORY OF PRESENT ILLNESS GENERAL: -. FALL RISK SCREENING: SCREENING :ONE FALL WITH INJURY IN THE PAST YEAR PAIN SCREENING: PATIENT HAS A COMPLAINT OF ACUTE OR CHRONIC PAIN :YES LOCATION OF PAIN:LOW BACK, LEFT HIP, RIGHT HIP, LEG(S) INTENSITY OF PAIN (SCALE OF 1 TO 10):9 WHAT DOES YOUR PAIN FEEL LIKE:ACHING, CONTINOUS, SHARP, THROBBING DURATION:CONTINOUS, CONSTANT PAIN IS INCREASED BY:ACTIVITIES, PROLONGED STANDING PAIN IS DECREASED BY:USE OF PAIN MEDICATIONS, OTHERS TENS UNIT NURSING NOTE: -. PAIN CENTER INTAKE QUESTIONS: DO YOU HAVE A HISTORY OF MRSA? :NO DO YOU TAKE A BLOOD THINNERS? :NO DO YOU HAVE ANY BLEEDING DISORDERS? :NO ANY NEW NUMBNESS OR WEAKNESS IN YOUR LEGS OR ARMS? :YES PAIN IN LOW BACK, NUMBNESS HAS INCREASED BACK TO ANY PACEMAKER,DEFIBRILLATOR, OR DORSAL COLUMN STIMULATOR? :NO DO YOU HAVE ANY RASHES OR OPEN SORES? :NO ARE YOU ALLERGIC TO IV DYE? :NO ARE YOU DIABETIC? :NO ANY NEW PROBLEMS WITH YOUR MEDICATIONS? :NO HAVE YOU RECEIVED A VACCINE IN THE PAST 30 DAYS? :YES IF SO WHAT VACCINE AND WHEN? COVID 08/15 DO YOU PLAN TO RECEIVE A VACCINE IN THE NEXT 21 DAYS? :NO DO YOU TAKE ANY IMMUNOSUPPRESSIVE MEDICATIONS? :NO ANY HISTORY OF SEIZURES? :NO ANY HISTORY OF CARDIAC ISSUES OR EVENTS? :NO DO YOU HAVE SLEEP APNEA? :YES DO YOU WEAR A CPAP?YES ANY RECENT HEAD INJURY? :NO DO YOU HAVE ANY NEW INFECTIONS? :NO IS THERE A CHANCE YOU COULD BE ? :NO ARE YOU BREAST FEEDING? :NO WHEN DID YOU LAST EAT? : -08/30 0800 WHEN DID YOU LAST DRINK? : -08/30 1000 WHAT DID YOU LAST DRINK? : -WATER NAME OF PERSON DRIVING YOU HOME? : -RENITA DO YOU HAVE ANY OTHER QUESTIONS OR CONCERNS? : - CURRENT MEDICATIONS TAKING CRESTOR 10 MG TABLET 1 TABLET ORALLY ONCE A DAY TAKING CYMBALTA 60 MG CAPSULE DELAYED RELEASE PARTICLES 1 CAPSULE ORALLY ONCE A DAY AT BEDTIME TAKING ENALAPRIL MALEATE 10 MG TABLET 1 TABLET ORALLY ONCE A DAY, NOTES: 08/30 0800 TAKING GABAPENTIN 600 MG TABLET 1 TABLET ORALLY 3 TIMES A DAY TAKING TRAZODONE HCL 100 MG TABLET 1 TABLET AT BEDTIME ORALLY ONCE A DAY, NOTES: 08/30 299 TAKING VITAMIN D (ERGOCALCIFEROL) 1.25 MG (01013 UT) CAPSULE 1 CAPSULE ORALLY ONCE A WEEK TAKING ZOFRAN 4 MG TABLET 1 TABLET ORALLY EVERY 4 HOURS NEEDED TAKING EPINEPHRINE (ANAPHYLAXIS) 1 MG/ML SOLUTION DIRECTED INJECTION TAKING MOBIC 15 MG TABLET 1 TABLET ORALLY ONCE A DAY TAKING ZANAFLEX 4 MG CAPSULE 1 CAPSULE NEEDED ORALLY TWO TIMES A DAY, NOTES: 08/30 299 TAKING PERCOCET 5-325 MG TABLET 1 TABLET NEEDED ORALLY Q8H PRN MDD3 #45 TABS SHOULD LAST 30 DAYS, NOTES: 08/30 0800 NOT-TAKING LISINOPRIL 10 MG TABLET 1 TABLET ORALLY ONCE A DAY NOT-TAKING SIMVASTATIN 20 MG TABLET 1 TABLET IN THE EVENING ORALLY ONCE A DAY NOT-TAKING MOTRIN 800 MG TABLET 1 TABLET WITH FOOD OR MILK NEEDED ORALLY THREE TIMES A DAY NOT-TAKING PENICILLIN V POTASSIUM 500 MG TABLET 1 TABLET ORALLY FOUR TIMES A DAY NOT-TAKING KETOROLAC TROMETHAMINE 10 MG TABLET 1 TABLET WITH FOOD OR MILK NEEDED ORALLY EVERY 6 HRS NOT-TAKING FLEXERIL 10 MG TABLET 1 TABLET ORALLY ONCE A DAY NOT-TAKING BACTRIM DS 800-160 MG TABLET 1 TABLET ORALLY TWICE A DAY NOT-TAKING VICODIN 5-500 MG TABLET 1 TABLET NEEDED ORALLY PRN, NOTES: PRN NOT-TAKING SUDAFED 30 MG TABLET 1 TABLET NEEDED ORALLY EVERY 6 HRS NOT-TAKING FLONASE 50 MCG/ACT SUSPENSION 1 SPRAY IN EACH NOSTRIL NASALLY TWICE A DAY NOT-TAKING SALINE NASAL SPRAY 0.65 % SOLUTION 2 DROPS IN EACH NOSTRIL NEEDED NASALLY EVERY 2 HRS NOT-TAKING GUAIFENESIN 200 MG TABLET 1 TABLET NEEDED ORALLY EVERY 4 HRS NOT-TAKING LIPITOR 20 MG TABLET 1 TABLET ORALLY ONCE A DAY NOT-TAKING ETODOLAC 500 MG TABLET 1 TABLET ORALLY TWICE A DAY MEDICATION LIST REVIEWED AND RECONCILED WITH THE PATIENT PAST MEDICAL HISTORY CYST ON LEFT AND RIGHT KIDNEY SLEEP APNEA HYPERCHOLESTEROLEMIA HYPERTENSION DEGENERATED DISC DISEASE PTSD ANXIETY DIVERTICULOSIS ALLERGIES BEE STING: ANAPHYLAXIS HORNETS: ANAPHYLAXIS SURGICAL HISTORY TONSILLECTOMY AND ADENOIDECTOMY 1993 COLONOSCOPY 08/2018 WISDOM TEETH EXTRACTION 2002 FAMILY HISTORY FATHER: 25 YRS, MVA MOTHER: ALIVE 51 YRS, DIVERTICULOSIS, ANXIETY 1 BROTHER(S) , 1 SISTER(S) - HEALTHY. 1DAUGHTER(S) - HEALTHY. NO KNOWN FAMILY UROLOGICAL ISSUES. SOCIAL HISTORY GENERAL: TOBACCO USE ARE YOU A:NEVER SMOKER LATEX QUESTIONNAIRE LATEX ALLERGY : HAVE YOU EVER DEVELOPED ANY TYPE OF REACTION AFTER HANDLING LATEX PRODUCTS SUCH RUBBER GLOVES, CONDOMS, DIAPHRAGMS, BALLOONS, SOCKS, OR UNDERWEAR?NO LATEX ALLERGY : HAVE YOU EVER DEVELOPED ANY TYPE OF REACTION DURING OR AFTER DENTAL APPOINTMENT, VAGINAL/RECTAL EXAMINATION, SURGICAL PROCEDURE, OR ANY OTHER EXPOSURE?NO LATEX RISK : HAVE YOU EVER HAD ANY DIFFICULTY BREATHING OR HIVES AFTER EATING OR HANDLING ANY FRUITS, OR VEGETABLES; SUCH KIWI, BANANAS, STONE FRUITS, OR CHESTNUTSNO LATEX RISK : DO YOU HAVE A PREVIOUS PERSONAL HISTORY OF MORE THAN NINE SURGERIES, SPINA BIFIDA, OR REPEATED CATHERIZATIONS? NO LATEX RISK : ARE YOU FREQUENTLY EXPOSED TO LATEX PRODUCTS IN YOUR OCCUPATION?NO DATE ASKED : 08/29/2020 BMI CARE GOAL FOLLOW-UP ABOVE NORMAL BMI FOLLOW-UPDIETARY MANAGEMENT EDUCATION, GUIDANCE, AND COUNSELING ALCOHOL SCREENING DID YOU HAVE A DRINK CONTAINING ALCOHOL IN THE PAST YEAR?YES HOW OFTEN DID YOU HAVE SIX OR MORE DRINKS ON ONE OCCASION IN THE PAST YEAR?NEVER (0 POINTS) HOW MANY DRINKS DID YOU HAVE ON A TYPICAL DAY WHEN YOU WERE DRINKING IN THE PAST YEAR?1 OR 2 (0 POINTS) HOW OFTEN DID YOU HAVE A DRINK CONTAINING ALCOHOL IN THE PAST YEAR?MONTHLY OR LESS (1 POINT) POINTS1 INTERPRETATIONNEGATIVE RECREATIONAL DRUG USE DRUG USE?NO CAFFEINE CAFFEINE USE?YES 1-2 CUPS / DAY HIV / HEP-C SCREENING HIV TEST OFFERED TO PATIENT:YES DATE OFFERED:02/10/2018 TEST ACCEPTED:NO HEP-C TEST OFFERED TO PATIENT:NO REASON:PATIENT DECLINED BROCHURE PROVIDED TO PATIENTYES LANGUAGE LANGUAGES SPOKEN:SWEDISH LEARNING BARRIERS / SPECIAL NEEDS CHANGE FROM LAST VISIT?NO BARRIERS TO LEARNING?NO HEARING IMPAIRED?NO VISION IMPAIRED?YES :CORRECTIVE LENSES COGNITIVELY IMPAIRED?NO READINESS TO LEARN?YES LEARNING PREFERENCES?NO LEARNING CAPABILITIES PRESENT?YES EMOTIONAL BARRIERS?NO SPECIAL DEVICES?NO DATABASE TESTER NEEDED?NO 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 PAIN CLINIC PFS, CLERGY, PUBLIC HEALTH REFERRALS HAS THE PATIENT BEEN EDUCATED REGARDING HIS/HER PLAN OF CARE?YES HAS THE PATIENT BEEN EDUCATED REGARDING PAIN, THE RISK FOR PAIN, THE IMPORTANCE OF EFFECTIVE PAIN MANAGEMENT, AND THE PAIN ASSESSMENT PROCESS?YES ADVANCE DIRECTIVE ADVANCE DIRECTIVE DISCUSSED WITH PATIENT:YES INFORMATION OFFERED AND DECLINED. HOSPITALIZATION/MAJOR DIAGNOSTIC PROCEDURE NO HOSPITALIZATION HISTORY. VITAL SIGNS WT 289.8 LBS, HT 76 IN, BMI 35.27 INDEX, BP 141/95 MM HG, HR 103 /MIN, RR 16 /MIN, TEMP 97.5 F, OXYGEN SAT % 94%, SAFE IN ENV? (Y/N) YES, REVIEWED BY: GUME RN. ASSESSMENTS MYALGIA, OTHER SITE - M79.18 (PRIMARY) TREATMENT MYALGIA, OTHER SITE MEDICATION: VALIUM TAB 10MG ORALLY (DIAZEPAM)NERY CRUZ 08/30/2020 3:13:10 PM > LOT# [id number]. EXPIRATION DATE 04/06. BONIFACIO LIM 08/30/2020 3:15:55 PM > VERIFIED NERY CRUZ 08/30/2020 3:18:29 PM > ADMINISTERED MEDICATION: OXYCODONE HCL TAB 10MG ORALLYCHERYLTYRA,NERY 08/30/2020 3:14:27 PM > LOT# [id number]. EXPIRATION DATE 09/2021 BONIFACIO LIM 08/30/2020 3:16:11 PM > VERIFIED NERY CRUZ 08/30/2020 3:19:01 PM > ADMINISTERED NOTES: DISCHARGE INSTRUCTIONS REVIEWED AND PATIENT VERBALIZED UNDERSTANDING,. OTHERS NOTES: PAT COMPLETED 08/29/20 Sonia CRUZ RN. PROCEDURES PAIN NURSING RECORD PROCEDURE IN ROOM 1440, PHYSICIAN IN ROOM 1535, START 1538, FINISH 1541, PHYSICIAN OUT OF ROOM 1543, ECG N/A, PATIENT SHIELDED N/A, SAFETY STRAP N/A, PREP ALCOHOL BY DR CAMPOS, DRESSING TEGADERM BY Sonia CRUZ RN LOC: NERY CRUZ 08/30/2020 3:06:04 PM > , 1. ALERT, ORIENTED RESP: NERY CRUZ 08/30/2020 3:06:09 PM > , 1. REGULAR, NO DYSPNEA COLOR: NEYR CRUZ 08/30/2020 3:06:15 PM > , 1. PINK SKIN: NERY CRUZ 08/30/2020 3:06:20 PM > , 1. WARM, DRY POSITION: NERY CRUZ 08/30/2020 3:06:26 PM > , 5. SITTING VITALS: NERY CRUZ 08/30/2020 3:47:55 PM > 143/87 92 16 96% R/A D/C V/S DISCHARGE: POST PAIN 6, DRESSING SITE DRY AND INTACT, IV N/A, GAIT STEADY, TEACHING COMPLETED, PATIENT ACKNOWLEDGES UNDERSTANDING YES, PATIENT DISCHARGED AT 1555 PN TRIGGER POINT INJECTION WITH STEROIDS PRE PROCEDURE DIAGNOSIS 1. MYALGIA 2. PAIN AT BILATERAL LOWER BACK AREA POST PROCEDURE DIAGNOSIS 1. MYALGIA 2. PAIN AT BILATERAL LOWER BACK AREA PROCEDURE TRIGGER POINT INJECTION AT BILATERAL LOWER BACK AREA SURGEON DR. LAZARO CAMPOS CONTRACT ADMINISTRATION SPECIALIST NONE ANESTHESIA LOCAL PRE PROCEDURE NOTE THE PATIENT HAS A HISTORY OF CHRONIC PAIN AT THE RIGHT AND LEFT LOWER BACK AREA. I EVALUATED THE PATIENT AND REVIEWED THE CHART. THERE IS EVIDENCE OF BANDS OF TISSUE WITH RESTRICTION OF MOVEMENT AND PRESENCE OF TRIGGER POINT AT THE RIGHT AND LEFT LOWER BACK AREA. I WENT OVER THE RISKS, ALTERNATIVES, AND BENEFITS ASSOCIATED WITH THIS PROCEDURE. THE PATIENT WOULD LIKE TO PROCEED AND GIVE CONSENT TO PERFORMED THE PROCEDURE. THE PATIENT DENIES UNEXPLAINABLE WEIGHT LOSS, FEVER, CHILLS, OR NEW CHANGES IN URINARY OR BOWEL CONTROL. THE PATIENT IS COVID-19 NEGATIVE DESCRIPTION OF PROCEDURE THE PATIENT WAS BROUGHT TO THE PROCEDURE ROOM AND PLACED IN THE SITTING POSITION. THE AREA WAS CLEANED WITH ALCOHOL. THE PROCEDURE WAS DONE USING ASEPTIC STERILE TECHNIQUE. A TIMEOUT WAS PERFORMED WHERE LATERALITY AND THE SITE OF THE PROCEDURE WERE CHECKED AND CONFIRMED WITH EVERYONE IN THE ROOM. USING A 25-GAUGE NEEDLE, TRIGGER POINTS WERE INJECTED AT THE RIGHT AND LEFT LOWER BACK AREA WITH A TOTAL OF 40 ML OF BUPIVACAINE 0.25% AND KENALOG 40 MG. THE MEDICATIONS WERE VERIFIED WITH THE NURSE. THERE WAS NO EVIDENCE OF BLOOD OR PARESTHESIA DURING THE PROCEDURE. THE PATIENT WAS SENT TO THE RECOVERY ROOM. THE PATIENT WAS MOVING THE EXTREMITIES AND DOING WELL. THERE WERE NO COMPLICATIONS DURING THE PROCEDURE. ESTIMATED BLOOD LOSS WAS LESS THAN 5 ML POST PROCEDURE NOTE DEPENDING ON THE RESULTS, CONSIDER A LUMBAR EPIDURAL STEROID INJECTION. THE PROCEDURE DONE WAS DISCUSSED WITH THE PATIENT. THE PATIENT WILL BE SEEN IN A FOLLOW UP IN THE NEXT FEW WEEKS. I AM LOOKING FOR LONG LASTING PAIN RELIEF FOR THE PATIENT WITH THIS INTERVENTION. INSTRUCTIONS WERE GIVEN, QUESTIONS WERE ANSWERED, AND THE PATIENT EXPRESSED UNDERSTANDING AND AGREES WITH THE PLAN. I, MARIE RUANO, DOCUMENTED THE ABOVE INFORMATION ACTING A SCRIBE FOR DR. CAMPOS. I HAVE REVIEWED THE ABOVE DOCUMENT, WRITTEN BY MARIE RUANO, DEPUTY CHIEF EXECUTIVE, AND I VERIFY THAT IT IS ACCURATE PROCEDURE CODES 72309 INJ TRIGGER POINT 08/18 MUSCL DISPOSITION & COMMUNICATION FOLLOW UP FOLLOW UP WITH SPACE AND MISSILE OPERATIONS (REASON: POST TRIGGER POINT INJECTIONS BILATERAL LOWER BACK) ELECTRONICALLY SIGNED BY LAZARO CAMPOS MD, MD ON 08/31/2020 AT 01:24 PM EST DISCLAIMER : THIS IS A VISIT SUMMARY EXTRACTED FROM THE [employer] CHART. IT IS NOT A COPY OF THE [employer] PROGRESS NOTE. MTDD
== END ==
LOC: M PAIN 14:30
PROVIDERS: ATTEND Anesthesiology
DX: M79.18 Myalgia, other site (principal); G47.30 Sleep apnea, unspecified; Z86.59 Personal history of other mental and behavioral disorders; Z91.030 Bee allergy status; Z79.899 Other long term (current) drug therapy
CPT/HCPCS: 20552; J3301

== ENCOUNTER → 2020-09-04 | Outpatient (CLI) | payer OTHER ==
[~2020-09-04] MED LIST changes: -BUPIVACAINE HCL 0.25% 10ML VIAL As Ordered ONE; -BUPIVACAINE HCL 0.25% 30ML VIAL As Ordered ONE; +CYMB60CA3 PO; +LISI10TA22 PO; -LISI10TA4 PO; +TRAZ1TAB11 PO; -TRIAMCINOLONE ACETONIDE SUSP 40 MG/ML VIAL (J3301) As Ordered ONE; -diazePAM 5MG TABLET As Ordered ONE; -oxyCODONE 5MG TAB As Ordered ONE
--- NOTE | 2020-09-07 00:28 | ECWPNPC ---
PATIENT NAME: LINDA KENT : 1985 GENDER: MALE VISIT DATE: 09/04/2020 DISCHARGE DATE: 09/04/20 1203 VISIT LOCKED DATE TIME: PHYSICIAN: WENDY DINH RESOURCE: WENDY DINH REASON FOR APPOINTMENT 1. 30 MIN NBP THORACIC BACK HISTORY OF PRESENT ILLNESS GENERAL: HERE FOR EVALUATION OF PERSISTENT MID THORACIC BACK PAIN THAT RADIATES ANTERIORLY. PAIN IS INCREASED IN THIS AREA WITH USE OF HIS ARMS ABOVE HIS HEAD OR PUSHING WITH HIS ARMS. MRI OF THE THORACIC SPINE THAT WAS DONE RECENTLY IS REVIEWED. SHOWING DISC PROTRUSION WITH POTENTIAL NERVE IMPINGEMENT. DISCUSSED THORACIC EPIDURAL STEROID INJECTION. PATIENT CONTINUES TO BENEFIT FROM TRIGGER POINT INJECTIONS ACROSS HIS LOWER BACK ALTHOUGH HE FEELS PAIN MAY BE RETURNING. STATES INTENSITY OF PAIN IN HIS LOWER BACK IS NOT BAD IT WAS BEFORE THE PROCEDURE. STATES DR. CAMPOS HAD TALKED TO HIM ABOUT POSSIBLY DOING A LUMBAR EPIDURAL STEROID INJECTION IN THE FUTURE. -. FALL RISK SCREENING: SCREENING :ONE FALL WITHOUT INJURY IN THE PAST YEAR PAIN SCREENING: PATIENT HAS A COMPLAINT OF ACUTE OR CHRONIC PAIN :YES LOCATION OF PAIN:MID BACK INTENSITY OF PAIN (SCALE OF 1 TO 10):5 WHAT DOES YOUR PAIN FEEL LIKE:SHARP, THROBBING DURATION:CONTINOUS, CONSTANT PAIN IS INCREASED BY:ACTIVITIES PAIN IS DECREASED BY:USE OF PAIN MEDICATIONS TREATMENT/MEDICATIONS USED TO MANAGE PAIN:OPIOIDS LEVEL OF RELIEF FROM PAIN TREATMENTS IN THE PAST:75% PAIN HAS INTERFERED WITH THE FOLLOWING:BATHING/DRESSING, WALKING ABILITY, HOUSEWORK, SLEEP, TRANSPORTATION, TOILETING NURSING NOTE: -. PAIN CENTER INTAKE QUESTIONS: DO YOU HAVE A HISTORY OF MRSA? :NO DO YOU TAKE A BLOOD THINNERS? :NO DO YOU HAVE ANY BLEEDING DISORDERS? :NO ANY NEW NUMBNESS OR WEAKNESS IN YOUR LEGS OR ARMS? :NO ANY PACEMAKER,DEFIBRILLATOR, OR DORSAL COLUMN STIMULATOR? :NO DO YOU HAVE ANY RASHES OR OPEN SORES? :NO ARE YOU ALLERGIC TO IV DYE? :NO ARE YOU DIABETIC? :NO ANY NEW PROBLEMS WITH YOUR MEDICATIONS? :YES PT ASKING FOR MORE DOSES IN THE DAY FOR OXY, IT CONTROLS PAIN X 2 HOURS ON BAD DAYS, ON GOOD DAYS, MAYBE NEED IT ONCE OR TWICE/DAY HAVE YOU RECEIVED A VACCINE IN THE PAST 30 DAYS? :YES IF SO WHAT VACCINE AND WHEN? COVID VACCINE 12/30/20 DO YOU PLAN TO RECEIVE A VACCINE IN THE NEXT 21 DAYS? :YES IF SO WHAT VACCINE AND WHEN? 09/12/20 COVID VACCINE DO YOU NEED ANY PRESCRIPTION? :NO DO YOU TAKE ANY IMMUNOSUPPRESSIVE MEDICATIONS? :NO IS THERE A CHANCE YOU COULD BE ? :NO ARE YOU BREAST FEEDING? :NO CURRENT MEDICATIONS TAKING CRESTOR 10 MG TABLET 1 TABLET ORALLY ONCE A DAY TAKING CYMBALTA 60 MG CAPSULE DELAYED RELEASE PARTICLES 1 CAPSULE ORALLY ONCE A DAY AT BEDTIME TAKING ENALAPRIL MALEATE 10 MG TABLET 1 TABLET ORALLY ONCE A DAY TAKING GABAPENTIN 600 MG TABLET 1 TABLET ORALLY 3 TIMES A DAY TAKING TRAZODONE HCL 100 MG TABLET 1 TABLET AT BEDTIME ORALLY ONCE A DAY TAKING VITAMIN D (ERGOCALCIFEROL) 1.25 MG (04039 UT) CAPSULE 1 CAPSULE ORALLY ONCE A WEEK TAKING ZOFRAN 4 MG TABLET 1 TABLET ORALLY EVERY 4 HOURS NEEDED TAKING EPINEPHRINE (ANAPHYLAXIS) 1 MG/ML SOLUTION DIRECTED INJECTION TAKING MOBIC 15 MG TABLET 1 TABLET ORALLY ONCE A DAY TAKING ZANAFLEX 4 MG CAPSULE 1 CAPSULE NEEDED ORALLY TWO TIMES A DAY TAKING PERCOCET 5-325 MG TABLET 1 TABLET NEEDED ORALLY Q8H PRN MDD3 #45 TABS SHOULD LAST 30 DAYS NOT-TAKING LISINOPRIL 10 MG TABLET 1 TABLET ORALLY ONCE A DAY NOT-TAKING SIMVASTATIN 20 MG TABLET 1 TABLET IN THE EVENING ORALLY ONCE A DAY NOT-TAKING MOTRIN 800 MG TABLET 1 TABLET WITH FOOD OR MILK NEEDED ORALLY THREE TIMES A DAY NOT-TAKING PENICILLIN V POTASSIUM 500 MG TABLET 1 TABLET ORALLY FOUR TIMES A DAY NOT-TAKING KETOROLAC TROMETHAMINE 10 MG TABLET 1 TABLET WITH FOOD OR MILK NEEDED ORALLY EVERY 6 HRS NOT-TAKING FLEXERIL 10 MG TABLET 1 TABLET ORALLY ONCE A DAY NOT-TAKING BACTRIM DS 800-160 MG TABLET 1 TABLET ORALLY TWICE A DAY NOT-TAKING VICODIN 5-500 MG TABLET 1 TABLET NEEDED ORALLY PRN, NOTES: PRN NOT-TAKING SUDAFED 30 MG TABLET 1 TABLET NEEDED ORALLY EVERY 6 HRS NOT-TAKING FLONASE 50 MCG/ACT SUSPENSION 1 SPRAY IN EACH NOSTRIL NASALLY TWICE A DAY NOT-TAKING SALINE NASAL SPRAY 0.65 % SOLUTION 2 DROPS IN EACH NOSTRIL NEEDED NASALLY EVERY 2 HRS NOT-TAKING GUAIFENESIN 200 MG TABLET 1 TABLET NEEDED ORALLY EVERY 4 HRS NOT-TAKING LIPITOR 20 MG TABLET 1 TABLET ORALLY ONCE A DAY NOT-TAKING ETODOLAC 500 MG TABLET 1 TABLET ORALLY TWICE A DAY MEDICATION LIST REVIEWED AND RECONCILED WITH THE PATIENT PAST MEDICAL HISTORY CYST ON LEFT AND RIGHT KIDNEY SLEEP APNEA HYPERCHOLESTEROLEMIA HYPERTENSION DEGENERATED DISC DISEASE PTSD ANXIETY DIVERTICULOSIS ALLERGIES BEE STING: ANAPHYLAXIS HORNETS: ANAPHYLAXIS SURGICAL HISTORY TONSILLECTOMY AND ADENOIDECTOMY 1994 COLONOSCOPY 08/2018 WISDOM TEETH EXTRACTION 2002 REVIEW OF SYSTEMS CONSTITUTIONAL: ANY RECENT FEVER NO . CHILLS NO . WEIGHT CHANGE OF UNKNOWN REASONS NO . GASTROENTEROLOGY: NEW UNEXPLAINABLE CHANGES IN BOWEL CONTROL NO . CONSTIPATION NO . GENITOURINARY: ANY NEW CHANGE IN BLADDER CONTROL? NO . NEUROLOGY: NEW ONSET DIZZINESS OR NEUROLOGICAL CHANGES NOT MENTIONED NO . NEW NUMBNESS OR PAIN PATTERNS NOT MENTIONED AND PERTINENT TO TODAY'S VISIT NO . CARDIOLOGY: NEW CHEST PRESSURE NO . NEW CHEST PAIN NO . RESPIRATORY: UNEXPLAINABLE COUGH NO . NEW SHORTNESS OF BREATH NO . VITAL SIGNS WT 291 LBS, HT 76 IN, BMI 35.42 INDEX, BP 145/80 MM HG, HR 89 /MIN, RR 16 /MIN, TEMP 97.6 F, OXYGEN SAT % 96, SAFE IN ENV? (Y/N) Y, REVIEWED BY: EM. EXAMINATION GENERAL EXAMINATION: GENERALNO ACUTE DISTRESS, WELL NOURISHED AND HYDRATED. PSYCHAPPROPRIATE MOOD AND AFFECT . LUNGS:CLEAR TO AUSCULTATION BILATERALLY, NO WHEEZES, RHONCHI, RALES. HEART:NO MURMURS, REGULAR RATE AND RHYTHM. THORACIC SPINE:TENDERNESS WITH PALPATION OVER THORACIC SPINE T6-7. THROUGH T11/12. REPORTS DISCOMFORT OVER THORACIC PARASPINAL WHICH IS AGGRAVATED BY RANGE OF JOINT MOTION OF HIS ARMS.. 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 ADVISED HIM TO USE THIS PERIODICALLY AND NOT DAILY FOR SEVERE PAIN EPISODES. BRINGS IN PAIN MEDICATION WHICH IS APPROPRIATE FOR WHAT WAS DISPENSED. URINE FOR TOXICOLOGY TODAY THORACIC EPIDURAL STEROID INJECTION T8-9 ISTOP REGISTRY REVIEWED-DEMONSTRATES COMPLIANCE. PROCEDURE CODES FA211 ESTABILISHED PATIENT [facility] F[facility] CHARGE DISPOSITION & COMMUNICATION FOLLOW UP POST PROCEDURE (REASON: THORACIC EPIDURAL STEROID INJECTION T8-9) ELECTRONICALLY SIGNED BY KATHLEEN DAMON ON 09/06/2020 AT 11:32 AM EST DISCLAIMER : THIS IS A VISIT SUMMARY EXTRACTED FROM THE [employer] CHART. IT IS NOT A COPY OF THE [employer] PROGRESS NOTE. JENNIFERD
== END ==
LOC: M PAIN 11:00
PROVIDERS: ATTEND Nurse Practitioner Family
DX: M51.24 Other intervertebral disc displacement, thoracic region (principal); G89.29 Other chronic pain; G47.30 Sleep apnea, unspecified; Z86.59 Personal history of other mental and behavioral disorders; Z91.030 Bee allergy status; Z79.899 Other long term (current) drug therapy

== ENCOUNTER 2020-09-15 19:39 | Emergency (ER) | payer OTHER ==
[~2020-09-15] VITALS: Ht 193 cm; Wt 122.7 kg
[~2020-09-15 19:39] MED LIST changes: -CYMB60CA3 PO; -TRAZ1TAB11 PO
--- OUTSIDE RECORDS SUMMARY | 2020-09-15 19:47 | CCD ---
Author Author [facility] Organization [facility] Address Unknown Phone Unavailable Care Team Providers Care Fire Ranger Name Role Phone Brooks Maria Unavailable PROBLEMS Type Condition ICD9-CM Code [id number] Code Onset Dates Condition S tatus SNOMED Code Notes Problem Protrusion of lumbar intervertebral disc M51.26 Active [id number] ALLERGIES Allergen (clinical drug ingredient) Drug/Non Drug Allergy do cumented on EMR Reaction Allergy Type Onset Date Status Hornets Anaphylaxis Non Drug Allergy Active Bee sting Anaphylaxis Non Drug Allergy Active ENCOUNTERS from 1985 to 2020-08-30 Encounter Location Date Provider Diagnosis [facility] [address] [place] [phone] Aug, Brooks Maria IMMUNIZATIONS Vaccine Route Administration Date Status Influenza (6mo & up) Fluzone Unknown Sep 22, 2014 Adm inistered SOCIAL HISTORY Tobacco Use: Social History Observation Description Date Details (start date - stop date) never smoker Sex Assigned At : Social History Observation Description Sex Assigned At Unknown Language: Question Answer Notes Languages spoken: Citizen Of [place] Alcohol Screening: Question Answer Notes Did you have a drink containing alcohol in the past year? Ye s Points 1 Interpretation Negative How often did you have six or more drinks on one occas ion in the past year? Never (0 points) How many drinks did you have on a typica l day when you were drinking in the past year? 1 or 2 (0 points) How often did you have a drink containing alcohol in t he past year? Monthly or less (1 point) BMI Care Goal Follow-Up Question Answer Notes Above Normal BMI Follow-Up Dietary management educatio n, guidance, and counseling Tobacco Use: Question Answer Notes Are you a: never smoker REASON FOR REFERRAL No Information VITAL SIGNS No information MEDICATIONS Medication SIG (Take, Route, Frequency, Duration) Notes Start Da te End Date Status Zanaflex 4 MG 1 capsule as needed Orally two times a day Active Flexeril 10 MG 1 tablet Orally Once a day for 30 day(s) Not-Taking EPINEPHrine (Anaphylaxis) 1 MG/ML as directed Injection Active Penicillin V Potassium 500 MG 1 tablet Orally Four times a day f or 10 day(s) Oct, Not-Taking Lisinopril 10 mg 1 tablet Orally Once a day Not-Taking Mobic 15 MG 1 tablet Orally Once a day Active Crestor 10 MG 1 tablet Orally Once a day for 30 day(s) Active Percocet 5-325 MG 1 tablet as needed Orally q8 h prn mdd3 #45 tabs should last 30 days for 30 Days Aug, Active Bactrim DS 800-160 MG 1 tablet Orally Twice a day for 10 day(s) Nov, Not-Taking Zofran 4 MG 1 tablet Orally every 4 hours as needed Active Enalapril Maleate 10 MG 1 tablet Orally Once a day for 30 day(s) Active Sudafed 30 MG 1 tablet as needed Orally every 6 hrs for 10 days May, Not-Taking Simvastatin 20 MG 1 tablet in the evening Orally Once a day Not-Taking TraZODone HCl 100 MG 1 tablet at bedtime Orally Once a day for 30 day (s) Active Vitamin D (Ergocalciferol) 1.25 MG (78127 UT) 1 capsule Orally once a week Active Motrin 800 MG 1 tablet with food or milk a s needed Orally Three times a day for 7 day(s) Nov, Not-Taking Ketorolac Tromethamine 10 MG 1 tablet with food or mil k as needed Orally every 6 hrs for 5 day(s) Oct, Not-Taking Cymbalta 60 MG 1 capsule Orally Once a day at bedtime Active Vicodin 5-500 MG 1 tablet as needed Orally prn Not-Taking Gabapentin 600 MG 1 tablet Orally 3 times a day Active Etodolac 500 mg 1 tablet Orally Twice a day for 5 days Sep, Not-Taking Lipitor 20 mg 1 tablet Orally Once a day Not-Taking Guaifenesin 200 MG 1 tablet as needed Orally every 4 hrs for 10 days May, Not-Taking Flonase 50 MCG/ACT 1 spray in each nostril Nasally twice a day f or 30 day(s) May, Not-Taking Saline Nasal [place] 0.65 % 2 drops in each nostril as n eeded Nasally every 2 hrs for 10 days May, Not-Taking PROCEDURES No Information RESULTS No Results REASON FOR VISIT PAT MEDICAL (GENERAL) HISTORY Type Description Date Medical History cyst on left and right kidney Medical History sleep apnea Medical History hypercholesterolemia Medical History hypertension Medical History degenerated disc disease Medical History PTSD Medical History anxiety Medical History diverticulosis Surgical History Tonsillectomy and adenoidectomy 1993 Surgical History colonoscopy 08/2018 Surgical History wisdom teeth extraction 2003 Goals Section No Information Health Concerns No Information MEDICAL EQUIPMENT No Information MENTAL STATUS No Information FUNCTIONAL STATUS No Information ASSESSMENTS No Information PLAN OF TREATMENT Next Appt Details Provider Name:Jennifer Mackey, 2020-09-04 11 :00:00 AM, [address] [place] [address], [phone], Provider Name:Jennifer Mackey, 2020-09-13 11 :30:00 AM, [address] [place] [address], [phone], Insurance Providers Payer Name Payer Address Payer Phone Insured Name Patient Relati onship to Insured Coverage Start Date Coverage End Date [facility] [place] [address] [facility] [id number] KENT self
--- OUTSIDE RECORDS SUMMARY | 2020-09-15 19:47 | CCD | Continuity of Care Document ---
Author Author Mekhi MIRANDA [place] [address] Phone [phone] Care Team Providers Care Tubing Tester Name Role Phone Pina Thompson D.O. 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 PANKAJ Johnson Onset: 02/29/2020 Hyperlipidemia PANKAJ Johnson Onset: 02/29/2020 Posttraumatic stress disorder PANKAJ Johnson Onset: Obstructive sleep apnea syndrome PANKAJ Johnson Onset: 04/09/2020 Generalized anxiety disorder PANKAJ Johnson Onset: 06/18 Social History Type Date Description Comments Sex Unknown ETOH Use Denies alcohol use Tobacco Use Start: Unknown End: Unknown Patient is a former smoker Recreational Drug Use Denies Drug Use Exercise Type/Frequency Exercises regularly Sun Exposure Does not use sunscreen Seat Belt/Car Seat Always uses seat belt Allergies, Adverse Reactions, Alerts Active Allergies Reaction Severity Comments Date Honey Bee Venom anaphylaxis 02/23/2020 Medications Active Medications SIG Qnty Indications Ordering Provide r Date Cymbalta 30mg Caps DR Part 1 by mouth every night 90caps F41.1 Pina Thompson D.O. 07/10 [place] 5-325mg Tablets take 1 tablets every six hours as needed for pain 90tabs K57.32 Johnson DyerOPablo 06/01/2020 Zofran 4mg Tablets 1-2 tablets by mouth every 6 hours as needed for nausea 45tabs K57.32 Iveth Saleh.OPablo 06/01/2020 Tramadol HCL 100mg Tablets one tablet by mouth every 8 hours as needed for pain 90tabs Johnson WaltersOPablo 05/08/2020 Vitamin D (Ergocalciferol) 1.25mg (71241 Ut) Capsules 1 capsule weekly for 12 weeks 12caps Johnson PerezOPablo 04/15/2020 Crestor 10mg Tablets 1 by mouth every day 90tabs Johnson ElOPablo 04/15/2020 Trazodone HCL 100mg Tablets take 1 tablet by mouth every night at bedtime 90tabs F43.12 Johnson SappOPablo 04/09/2020 Apap With [facility] [place] Supplies/Equipment Duration: 99 Pr ognosis: good. Pressure 4 cm h20 - 20 cm h20 1units G47.33 Johnson ElOPablo Gabapentin 600mg Tablets take one tablet by mouth three times a day 270tabs M51.17 Johnson ElOPablo 03/08/2020 Enalapril Maleate 10mg Tablets 1 by mouth every day 90tabs I10 Johnson ElOPablo 02/28 Meloxicam 15mg Tablets take one tablet by mouth daily as needed 90tabs M51.17 Iveth El.OPablo 02/29/2020 Zanaflex 4mg Capsules 1 tab by mouth two times a day muscle spasm 60caps Iveth El .O. History Medications Lipitor 40mg Tablets 1 by mouth every night 90tabs E78.5 Johnson ElOPablo 04/09 - 06/01/2020 Prednisone 20mg Tablets take two tablets once a day by mouth for five days 10tabs M51.17 Pina Dawkins D.O. 04/05/2020 - 04/09/2020 Cpap With Mask, Humidifier And Other Neccessary Suppli es. Duration: 99 Prognosis: good. 1units G47.33 Pina Thompson D.O. 08/0 02/2020 - 03/23/2020 Tramadol HCL 50mg Tablets take one tablet by mouth every 6 hours for pain 120tabs Pina rendon D.O. 03/15/2020 - 05/08/2020 Prednisone 10mg Tablets -take 6 tab for 7 days, -then to take 5 tab for 2 days, -4 tab for 2 days, -then 3 tabs for 1 day, -2 tab for 1 day, 65tabs M51.17 Pina Thompson D.O. - 04/05/2020 Gabapentin 300mg Capsules one cap by mouth every 8 hours 270caps M51.17 Pina Thmopson D.O. 02/28 - 03/08/2020 Trazodone HCL 50mg Tablets take 1-2 tablet by mouth every night at bedtime 180tabs F43.12 Pina rendon D.O. 02/29/2020 - 04/09/2020 [facility] Home Sleep Study Increased daytime fatigue 1units G47.10 Pina Dawkins D.O. 02/29/2020 - 04/09/2020 Immunizations Description No Information Available Vital Signs Date Vital Result Comment 07/10/2020 1:55pm BP Systolic 124 mmHg BP Diastolic 88 mmHg Height 74.6 inches 6'2.60" Weight 284.25 lb BMI (Body Mass Index) 35.9 kg/m2 Heart Rate 106 /min Respiratory Rate 18 /min Body Temperature 97.8 F O2 % BldC Oximetry 98 % [place] Body Weight 190 lb 06/01/2020 9:57am BP Systolic 128 mmHg BP Diastolic 78 mmHg Height 74.6 inches 6'2.60" Weight 285.38 lb BMI (Body Mass Index) 36.0 kg/m2 Heart Rate 86 /min Respiratory Rate 18 /min Body Temperature 98.0 F O2 % BldC Oximetry 98 % [place] Body Weight 190 lb Results Test Acquired Date Facility Test Result H/L Range Note Istat Chem8+ Panel 05/26/2020 [facility] Outpatient Testi ng (Registration) [address] [place] [address] [phone] iSTAT HCT 46.0 % Normal 38.0-51.0 iSTAT Glucose 131 mg/dL High 70-105 iSTAT Sodium 137 mEq/L Normal 136-145 iSTAT Potassium 4.2 mEq/L Normal 3.5-5.1 iSTAT CA++ 4.9 mg/dL Normal 4.5-5.3 iSTAT Chloride 101 mEq/L Normal 98-109 iSTAT Co2 22.0 MM/L Low 23.0-27.0 iSTAT BUN 14 mg/dL Normal 8-26 iSTAT Creatinine 0.9 mg/dL Normal 0.6-1.3 CBC With Differential 04/06/[address] [address] [phone] White Blood Count 10.0 10 Normal 4.0-10.0 Red Blood Count 5.25 10 Normal 4.30-6.10 Hemoglobin 15.5 g/dL Normal 13.5-17.5 Hematocrit 45.7 % Normal 42.0-52.0 Mean Corpuscular Volume 87.0 fl Normal 80.0-96.0 Mean Corpuscular Hemoglobin 29.5 pg Normal 27.0-33.0 Mean Corpuscular HGB Conc 33.9 g/dL Normal 32.0-36.5 Red Cell Distribution Width 12.2 % Normal 11.5-14.5 Platelet Count, Automated 321 10 Normal 150-450 Neutrophils % 58.7 % Normal 36.0-66.0 Lymph % 31.4 % Normal 24.0-44.0 [place] % 8.1 % High 0.0-5.0 Eos % 0.8 % Normal 0.0-3.0 Baso % 0.8 % Normal 0.0-1.0 Immature Granulocyte % 0.2 % Normal 0-3.0 Nucleated Red Blood Cell % 0.0 % Normal 0-0 Neutrophils # 5.9 10 Normal 1.5-8.5 Lymph # 3.1 10 Normal 1.5-5.0 [place] # 0.8 10 Normal 0.0-0.8 Eos # 0.1 10 Normal 0.0-0.5 Baso # 0.1 10 Normal 0.0-0.2 Comprehensive Metabolic Profil 04/06/[address] [address] [phone] Glucose, Fasting 95 mg/dL Normal 70-100 Blood Urea Nitrogen 14 mg/dL Normal 7-18 Creatinine For GFR 0.91 mg/dL Normal 0.70-1.30 Glomerular Filtration Rate > 60.0 Normal >60 1 Sodium Level 138 mEq/L Normal 136-145 Potassium Serum 4.3 mEq/L Normal 3.5-5.1 Chloride Level 105 mEq/L Normal 98-107 Carbon Dioxide Level 29 mEq/L Normal 21-32 Anion Gap 4 mEq/L Low 8-16 Calcium Level 9.3 mg/dL Normal 8.5-10.1 Ast/Sgot 19 U/L Normal 7-37 Alt/SGPT 40 U/L Normal 12-78 Alkaline Phosphatase 93 U/L Normal 45-117 Bilirubin,Total 0.4 mg/dL Normal 0.2-1.0 Total Protein 7.1 GM/DL Normal 6.4-8.2 Albumin 4.0 GM/DL Normal 3.2-5.2 Albumin/Globulin Ratio 1.3 Normal Lipid Panel 04/06/[address] [address] [phone] Triglycerides Level 216 mg/dL High <150 Cholesterol Level 303 mg/dL High <200 HDL Cholesterol 48 mg/dL Normal >40 LDL Cholesterol 212 mg/dL High <100 Non-HDL-C 255 mg/dL Normal Cholesterol Risk Ratio 6.312 High <5 FT4&TSH Panel 04/06/2020 [facility] [address] [place] [address] [phone] Thyroid Stimulating Hormone 1.190 uIU/ML Normal 0. 358-3.740 Free T4 1.06 ng/dL Normal 0.76-1.46 Hemoglobin A1c 04/06/[address] [facility] [address] [address] [phone] Hemoglobin A1c 6.2 % Normal 2 Estimated Average Glucose 131 mg/dL High 60-110 Laboratory test finding 04/06/[address] [place] [address] [phone] Total 25(Oh) Vitamin D 30.9 NG/ML Normal 30.0-100. 0 1 Units are mL/min/1.73 m2 Chronic Kidney Disease Staging per NKF: Stage I & II GFR >=60 Normal to Mildly Decreased Stage III GFR 30-59 Moderately Decreased Stage IV GFR 15-29 Severely Decreased Stage V GFR <15 Very Little GFR Left ESRD GFR <15 on DOOR CLOSER MECHANIC 2 REFERENCE RANGES: <=5.6% NORMAL 5.7-6.4% SUGGESTS IMPAIRED GLUCOSE META BOLISM/PREDIABETIC >= 6.5% ABNORMAL Procedures Description No Information Available Medical Devices Description No Information Available Encounters Type Date Location Provider Dx Diagnosis Office Visit 07/10/2020 1:45p Family [facility] PANKAJ Johnson M51.17 Intvrt disc disorders w radi culopathy, lumbosacral region E78.5 Hyperlipidemia, unspecified I10 Essential (primary) hyperten karime G47.33 Obstructive sleep apnea (prosper lt) (pediatric) F43.12 Post-traumatic stress disord er, chronic F41.1 Generalized anxiety disorder Office Visit 06/01/2020 9:40a Family [facility] PANKAJ Johnson K57.32 Dvtrcli of lg int w/o perfor ation or abscess w/o bleeding Office Visit 04/09/2020 2:30p [facility] PANKAJ Johnson M51.17 Intvrt disc disorders w radi culopathy, lumbosacral region E78.5 Hyperlipidemia, unspecified I10 Essential (primary) hyperten karime G47.33 Obstructive sleep apnea (prosper lt) (pediatric) Office Visit 03/08/2020 2:40p Family [facility] PANKAJ Johnson M51.17 Intvrt disc disorders w radi culopathy, lumbosacral region Office Visit 02/29/2020 10:30a [facility] PANKAJ Johnson M51.17 Intvrt disc disorders w radi culopathy, lumbosacral region E78.5 Hyperlipidemia, unspecified I10 Essential (primary) hyperten karime G47.10 Hypersomnia, unspecified F43.12 Post-traumatic stress disord er, chronic Z13.29 Encounter for screening for oth suspected endocrine disorder Assessments Date Code Description Provider 07/10/2020 M51.17 Intervertebral disc disorders with radiculopathy, lumbosacral region PANKAJ Johnson 07/10/2020 E78.5 Hyperlipidemia, unspecified PANKAJ Mccall 07/10/2020 I10 Essential (primary) hypertension PANKAJ Johnson 07/10/2020 G47.33 Obstructive sleep apnea (adult) (pediatric) PANKAJ Johnson 07/10/2020 F43.12 Post-traumatic stress disorder, chronic PANKAJ Johnson 07/10/2020 F41.1 Generalized anxiety disorder PANKAJ Copeland 06/01/2020 K57.32 Diverticulitis of la rge intestine without perforation or abscess without bleeding PANKAJ Johnson 04/09/2020 M51.17 Intervertebral disc disorders with radiculopathy, lumbosacral region PANKAJ Johnson 04/09/2020 E78.5 Hyperlipidemia, unspecified PANKAJ Mccall 04/09/2020 I10 Essential (primary) hypertension PANKAJ Johnson 04/09/2020 G47.33 Obstructive sleep apnea (adult) (pediatric) PANKAJ Johnson 03/08/2020 M51.17 Intervertebral disc disorders with radiculopathy, lumbosacral region PANKAJ Johnson 02/29/2020 M51.17 Intervertebral disc disorders with radiculopathy, lumbosacral region PANKAJ Johnson 02/29/2020 E78.5 Hyperlipidemia, unspecified PANKAJ Mccall 02/29/2020 I10 Essential (primary) hypertension PANKAJ Johnson 02/29/2020 G47.10 Hypersomnia, unspecified PANKAJ Johnson 02/29/2020 F43.12 Post-traumatic stress disorder, chronic PANKAJ Johnson 02/29/2020 Z13.29 Encounter for screen ing for other suspected endocrine disorder PANKAJ Johnson Plan of Treatment Future Appointment(s):* 10/10/2020 2:30 pm - PANKAJ Johnson at [facility] Functional Status Description No Information Available Mental Status Description No Information Available Referrals Refer to Reason for Referral Status Appt Date Brooks Rahman MD Matt has DDD and herniated d isc in the lower back 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 please evaluate for pain control [facility] [address] [place] [address] [phone] Mohan Tovar MD Closed [address] [place] [address] [phone]
--- OUTSIDE RECORDS SUMMARY | 2020-09-15 19:47 | CCD ---
Author Author [facility] Syst ems Organization [facility] Syst ems Address Unknown Phone Unavailable Care Team Providers Care Stone Gang Sawyer Name Role Phone MackeyGinger yon Unavailable PROBLEMS Type Condition ICD9-CM Code [id number] Code Onset Dates Condition S tatus SNOMED Code Notes Problem Protrusion of lumbar intervertebral disc M51.26 Active 790760489 ALLERGIES Allergen (clinical drug ingredient) Drug/Non Drug Allergy do cumented on EMR Reaction Allergy Type Onset Date Status Hornets Anaphylaxis Non Drug Allergy Active Bee sting Anaphylaxis Non Drug Allergy Active ENCOUNTERS from 1987 to 2020-08-22 Encounter Location Date Provider Diagnosis [facility] [address] [place] [phone] Aug, Jennifer Mackey IMMUNIZATIONS Vaccine Route Administration Date Status Influenza (6mo & up) Fluzone Unknown Sep 22, 2014 Adm inistered SOCIAL HISTORY Tobacco Use: Social History Observation Description Date Details (start date - stop date) never smoker Sex Assigned At : Social History Observation Description Sex Assigned At Unknown Language: Question Answer Notes Languages spoken: Sierra Leonean Alcohol Screening: Question Answer Notes Did you [...] Notes Start Da te End Date Status Enalapril Maleate 10 MG 1 tablet Orally Once a day for 30 day(s) Active Vicodin 5-500 MG 1 tablet as needed Orally prn Not-Taking Etodolac 500 mg 1 tablet Orally Twice a day for 5 days Sep, Not-Taking Sudafed 30 MG 1 tablet as needed Orally every 6 hrs for 10 days May, Not-Taking Cymbalta 30 MG 1 capsule Orally Once a day at bedtime Active Lipitor 20 mg 1 tablet Orally Once a day Not-Taking Bactrim DS 800-160 MG 1 tablet Orally Twice a day for 10 day(s) Nov, Not-Taking Guaifenesin 200 MG 1 tablet as needed Orally every 4 hrs for 10 days May, Not-Taking Vitamin D (Ergocalciferol) 1.25 MG (69458 UT) 1 capsule Orally once a week Active Mobic 15 MG 1 tablet Orally Once a day Active Lisinopril 10 mg 1 tablet Orally Once a day Not-Taking Zanaflex 4 MG 1 capsule as needed Orally two times a day Active Saline Nasal [place] 0.65 % 2 drops in each nostril as n eeded Nasally every 2 hrs for 10 days May, Not-Taking EPINEPHrine (Anaphylaxis) 1 MG/ML as directed Injection Active TraZODone HCl 100 MG 1 tablet at bedtime Orally Once a day for 30 day (s) Active Crestor 10 MG 1 tablet Orally Once a day for 30 day(s) Active Flonase 50 MCG/ACT 1 spray in each nostril Nasally twice a day f or 30 day(s) May, Not-Taking Percocet 5-325 MG 1 tablet as needed Orally q8 h prn mdd3 #45 tabs should last 30 days for 30 Days Aug, Active Gabapentin 600 MG 1 tablet Orally 3 times a day Active Zofran 4 MG 1 tablet Orally every 4 hours as needed Active Simvastatin 20 MG 1 tablet in the evening Orally Once a day Not-Taking Penicillin V Potassium 500 MG 1 tablet Orally Four times a day f or 10 day(s) Oct, Not-Taking Motrin 800 MG 1 tablet with food or milk a s needed Orally Three times a day for 7 day(s) Nov, Not-Taking Ketorolac Tromethamine 10 MG 1 tablet with food or mil k as needed Orally every 6 hrs for 5 day(s) Oct, Not-Taking Flexeril 10 MG 1 tablet Orally Once a day for 30 day(s) Not-Taking PROCEDURES No Information RESULTS No Results REASON FOR VISIT New Refill Request MEDICAL (GENERAL) HISTORY Type Description Date Medical [...] Information ASSESSMENTS No Information PLAN OF TREATMENT Medication Medication Name Sig Start Date Stop Date Mobic 15 MG 1 tablet Orally Once a day Percocet 5-325 MG 1 tablet as needed Orally q8 h prn mdd3 #45 tabs should last 30 days for 30 Days Aug, Zanaflex 4 MG 1 capsule as needed Orally two times a day Next Appt Details Provider Name:Brooks Maria, 2020-08-30 02:30:00 PM, [address] [place] [address], [phone], Provider Name:Jennifer Mackey, 2020-09-13 11 :30:00 AM, [address] [place] [address], [phone], Insurance Providers Payer Name Payer Address Payer Phone Insured Name Patient Relati onship to Insured Coverage Start Date Coverage End Date [facility] [employer] [address] [address] [facility] [id number] self
--- OUTSIDE RECORDS SUMMARY | 2020-09-15 19:47 | CCD ---
Author Author [facility] Syst ems Organization [facility] Syst ems Address Unknown Phone Unavailable Care Team Providers Care Flight Control Tower Operator Name Role Phone Brooks Maria Unavailable PROBLEMS Type Condition ICD9-CM Code [id number] Code Onset Dates Condition S tatus SNOMED Code Notes Problem Protrusion of lumbar intervertebral disc M51.26 Active 657365099 ALLERGIES Allergen (clinical drug ingredient) Drug/Non Drug Allergy do cumented on EMR Reaction Allergy Type Onset Date Status Hornets Anaphylaxis Non Drug Allergy Active Bee sting Anaphylaxis Non Drug Allergy Active ENCOUNTERS from 1987 to 2020-08-31 Encounter Location Date Provider Diagnosis [facility] [address] [place] [address] Aug, Brooks Maria Myalgia, other site M79.18 IMMUNIZATIONS Vaccine Route Administration Date Status Influenza (6mo & up) Fluzone Unknown Sep 22, 2014 Adm inistered SOCIAL HISTORY Tobacco Use: Social History Observation Description Date Details (start date - stop date) never smoker Sex Assigned At : Social History Observation Description Sex Assigned At Unknown Language: Question Answer Notes Languages spoken: Senegalese Alcohol Screening: Question Answer Notes Did you [...] REASON FOR REFERRAL No Information VITAL SIGNS Weight 289.8 lbs Aug, Height 76 in Aug, BMI 35.27 kg/m2 Aug, Heart Rate 103 /min Aug, Respiratory Rate 16 /min Aug, Temperature 97.5 degrees Fahrenheit Aug, Oximetry 94% Aug, Blood pressure systolic 141 mm Hg Aug, Blood pressure diastolic 95 mm Hg Aug, MEDICATIONS Medication SIG (Take, Route, Frequency, Duration) [...] (s) Active Vitamin D (Ergocalciferol) 1.25 MG (54538 UT) 1 capsule Orally once a week [...] or 30 day(s) May, Not-Taking Saline Nasal [place] 0.65 % 2 drops in each nostril as n eeded Nasally every 2 hrs for 10 days May, Not-Taking PROCEDURES from 1987 to 2020-08-31 Procedure Date Ordered Result Body Site Medication: Valium Tab 10mg Orally (Diazepam) 2020-08-30 N/ A Medication: Oxycodone HCL Tab 10mg Orally 2020-08-30 N/A RESULTS No Results REASON FOR VISIT Trigger point injections bilateral lower back MEDICAL (GENERAL) HISTORY Type Description Date Medical [...] No Information FUNCTIONAL STATUS No Information ASSESSMENTS Encounter Date Diagnosis Assessment Notes Treatment Notes Treatm ent Clinical Notes Aug, Myalgia, other site (ICD-10 - M79.18) Discharge instructions reviewed and patient verbalized understanding, Aug, Other PAT completed 08/29/20 Sonia romeo RN PLAN OF TREATMENT Treatment Notes Assessment Notes Clinical Notes Myalgia, other site Discharge instructions revie wed and patient verbalized understanding, Next Appt Details Follow up with HYDROMETEOROLOGY TEACHER Reason:Post trigger po int injections bilateral lower back Provider Name:Jennifer Mackey, 2020-09-04 11 :00:00 AM, [address] [place] [address], [phone], Provider Name:Jennifer Mackey 2020-09-13 11 :30:00 AM, [address] [place], [phone], Follow Up:Follow up with NPPost trigger point injections bilateral lower back Insurance Providers Payer Name Payer Address Payer Phone Insured Name Patient Relati onship to Insured Coverage Start Date Coverage End Date [facility] [id number] [facility] [id number] self
--- OUTSIDE RECORDS SUMMARY | 2020-09-15 19:47 | CCD ---
Author Author [facility] Organization [employer] [facility] Address Unknown Phone Unavailable Care Team Providers Care Fight Manager Name Role Phone Jennifer Mackey Unavailable PROBLEMS Type Condition ICD9-CM Code [id number] Code Onset Dates Condition S tatus SNOMED Code Notes Problem Protrusion of lumbar intervertebral disc M51.26 Active [id number] ALLERGIES Allergen (clinical drug ingredient) Drug/Non Drug Allergy do cumented on EMR Reaction Allergy Type Onset Date Status Hornets Anaphylaxis Non Drug Allergy Active Bee sting Anaphylaxis Non Drug Allergy Active ENCOUNTERS from 1987 to 2020-08-23 Encounter Location Date Provider Diagnosis [facility] [address] [place] [phone] Aug, Jennifer Mackey Myalgia, other site M79.18 IMMUNIZATIONS Vaccine Route Administration Date Status Influenza (6mo & up) Fluzone Unknown Sep 22, 2014 Adm inistered SOCIAL HISTORY Tobacco Use: Social History Observation Description Date Details (start date - stop date) never smoker Sex Assigned At : Social History Observation Description Sex Assigned At Unknown Language: Question Answer Notes Languages spoken: Armenian Alcohol Screening: Question Answer Notes Did you [...] May, Not-Taking Vitamin D (Ergocalciferol) 1.25 MG (46738 UT) 1 capsule Orally once a week Active Mobic 15 MG 1 tablet Orally Once a day Active Lisinopril 10 mg 1 tablet Orally Once a day Not-Taking Zanaflex 4 MG 1 capsule as needed Orally two times a day Active Saline Nasal [place] 0.65 % 2 drops in each nostril [...] Three times a day for 7 day(s) 13 Nov, 2018 Not-Taking Ketorolac Tromethamine 10 MG 1 tablet with food or mil k as needed Orally every 6 hrs for 5 day(s) Oct, Not-Taking Flexeril 10 MG 1 tablet Orally Once a day for 30 day(s) Not-Taking PROCEDURES No Information RESULTS No Results REASON FOR VISIT refill Percocet MEDICAL (GENERAL) HISTORY Type Description Date Medical History cyst on left and right kidney Medical History sleep apnea Medical History hypercholesterolemia Medical History hypertension Medical History degenerated disc disease Medical History PTSD Medical History anxiety Medical History diverticulosis Surgical History Tonsillectomy and adenoidectomy 1993 Surgical History colonoscopy 08/2018 Surgical History wisdom teeth extraction 2002 Goals Section No Information Health Concerns No Information MEDICAL EQUIPMENT No Information MENTAL STATUS No Information FUNCTIONAL STATUS No Information ASSESSMENTS Encounter Date Diagnosis Assessment Notes Treatment Notes Treatm ent Clinical Notes Aug, Myalgia, other site (ICD-10 - M79.18) PLAN OF TREATMENT Medication Medication Name Sig Start Date Stop Date Mobic 15 MG 1 tablet Orally Once a day Percocet 5-325 MG 1 tablet as needed Orally q8 h prn mdd3 #45 tabs should last 30 days for 30 Days Aug, Zanaflex 4 MG 1 capsule as needed Orally two times a day Next Appt Details Provider Name:Brooks Maria, 2020-08-30 02:30:00 PM, [address] [place] [address], [phone], Provider Name:Jennifer Mackey, 2020-09-13 11 :30:00 AM, [address] [place] [address], [phone], Insurance Providers Payer Name Payer Address Payer Phone Insured Name Patient Relati onship to Insured Coverage Start Date Coverage End Date [facility] [address] [id number] [facility] [id number] self
--- OUTSIDE RECORDS SUMMARY | 2020-09-15 19:47 | CCD ---
Author Author [facility] Organization [facility] Address Unknown Phone Unavailable Care Team Providers Care Printer Technician Name Role Phone Brooks Maria Unavailable PROBLEMS Type Condition ICD9-CM Code [id number] Code Onset Dates Condition S tatus SNOMED Code Notes Problem Protrusion of thoracic intervertebral disc M51.24 Active 42265824 Problem Other chronic pain G89.29 Active 17571098 Problem Protrusion of lumbar intervertebral disc M51.26 Active 967815529 ALLERGIES Allergen (clinical drug ingredient) Drug/Non Drug Allergy do cumented on EMR Reaction Allergy Type Onset Date Status Hornets Anaphylaxis Non Drug Allergy Active Bee sting Anaphylaxis Non Drug Allergy Active ENCOUNTERS from 1987 to 2020-09-12 Encounter Location Date Provider Diagnosis [facility] [address] [place] [phone] Aug, Brooks Maria IMMUNIZATIONS Vaccine Route Administration Date Status Influenza (6mo & up) Fluzone Unknown Sep 22, 2014 Adm inistered SOCIAL HISTORY Tobacco Use: Social History Observation Description Date Details (start date - stop date) never smoker Sex Assigned At : Social History Observation Description Sex Assigned At Unknown Language: Question Answer Notes Languages spoken: Guamanian Alcohol Screening: Question Answer Notes Did you [...] Notes Start Da te End Date Status Saline Nasal [place] 0.65 % 2 drops in each nostril as n eeded Nasally every 2 hrs for 10 days May, Not-Taking Simvastatin 20 MG 1 tablet in the evening Orally Once a day Not-Taking Flonase 50 MCG/ACT 1 spray in each nostril Nasally twice a day f or 30 day(s) May, Not-Taking Lisinopril 10 mg 1 tablet Orally Once a day Not-Taking Penicillin V Potassium 500 MG 1 tablet Orally Four times a day f or 10 day(s) Oct, Not-Taking Motrin 800 MG 1 tablet with food or milk a s needed Orally Three times a day for 7 day(s) Nov, Not-Taking Zanaflex 4 MG 1 capsule as needed Orally two times a day Active EPINEPHrine (Anaphylaxis) 1 MG/ML as directed Injection Active Crestor 10 MG 1 tablet Orally Once a day for 30 day(s) Active Bactrim DS 800-160 MG 1 tablet Orally Twice a day for 10 day(s) Nov, Not-Taking Vicodin 5-500 MG 1 tablet as needed Orally prn Not-Taking Cymbalta 60 MG 1 capsule Orally Once a day at bedtime Active Vitamin D (Ergocalciferol) 1.25 MG (41674 UT) 1 capsule Orally once a week Active Percocet 5-325 MG 1 tablet as needed Orally q8 h prn mdd3 #45 tabs should last 30 days for 30 Days Aug, Active Guaifenesin 200 MG 1 tablet as needed Orally every 4 hrs for 10 days May, Not-Taking Mobic 15 MG 1 tablet Orally Once a day Active Zofran 4 MG 1 tablet Orally every 4 hours as needed Active Sudafed 30 MG 1 tablet as needed Orally every 6 hrs for 10 days May, Not-Taking Lipitor 20 mg 1 tablet Orally Once a day Not-Taking Flexeril 10 MG 1 tablet Orally Once a day for 30 day(s) Not-Taking Ketorolac Tromethamine 10 MG 1 tablet with food or mil k as needed Orally every 6 hrs for 5 day(s) Oct, Not-Taking Etodolac 500 mg 1 tablet Orally Twice a day for 5 days Sep, Not-Taking Gabapentin 600 MG 1 tablet Orally 3 times a day Active Enalapril Maleate 10 MG 1 tablet Orally Once a day for 30 day(s) Active TraZODone HCl 100 MG 1 tablet at bedtime Orally Once a day for 30 day (s) Active PROCEDURES No Information RESULTS No Results REASON FOR VISIT PUSH PROCEDURE APPT D/T COVID VACCINE MEDICAL (GENERAL) HISTORY Type Description Date Medical [...] Medication Name Sig Start Date Stop Date Percocet 5-325 MG 1 tablet as needed Orally q8 h prn mdd3 #45 tabs should last 30 days for 30 Days Aug, Next Appt Details Provider Name:Brooks Maria, 2020-10-02 02:00:00 PM, [address] [place] [address], [phone], Provider Name:Jennifer Mackey, 2020-10-18 10 :15:00 AM, [address] [place] [address], [phone], Insurance Providers Payer Name Payer Address Payer Phone Insured Name Patient Relati onship to Insured Coverage Start Date Coverage End Date [facility] [address] [address] [place] [address] self
--- OUTSIDE RECORDS SUMMARY | 2020-09-15 19:47 | CCD ---
Author Author [facility] Organization [facility] Address Unknown Phone Unavailable Care Team Providers Care Health Equipment Servicer Name Role Phone Jennifer Mackey Unavailable PROBLEMS Type Condition ICD9-CM Code VPV02-GT Code Onset Dates Condition S tatus SNOMED Code Notes Problem Protrusion of lumbar intervertebral disc M51.26 Active 325179419 ALLERGIES Allergen (clinical drug ingredient) Drug/Non Drug Allergy do cumented on EMR Reaction Allergy Type Onset Date Status Hornets Anaphylaxis Non Drug Allergy Active Bee sting Anaphylaxis Non Drug Allergy Active ENCOUNTERS from 1987 to 2020-07-28 Encounter Location Date Provider Diagnosis [facility] [address] [place] [phone] Jul, Jennifer Mackey Myalgia, other site M79.18 and Protrusio n of lumbar intervertebral disc M51.26 IMMUNIZATIONS Vaccine Route Administration Date Status Influenza (6mo & up) Fluzone Unknown Sep 22, 2014 Adm inistered SOCIAL HISTORY Tobacco Use: Social History Observation Description Date Details (start date - stop date) never smoker Sex Assigned At : Social History Observation Description Sex Assigned At Unknown Language: Question Answer Notes Languages spoken: American Alcohol Screening: Question Answer Notes Did you [...] FOR REFERRAL No Information VITAL SIGNS Weight 288 lbs Jul, Height 76 in Jul, BMI 35.05 kg/m2 Jul, Heart Rate 78 /min Jul, Respiratory Rate 18 /min Jul, Temperature 97.1 degrees Fahrenheit Jul, Oximetry 96% Jul, Blood pressure systolic 143 mm Hg Jul, Blood pressure diastolic 75 mm Hg Jul, MEDICATIONS Medication SIG (Take, Route, Frequency, Duration) Notes Start Da te End Date Status Lipitor 20 mg 1 tablet Orally Once a day Not-Taking Percocet 5-325 MG 1 tablet as needed Orally q8 h prn mdd3 #45 tabs should last 30 days for 30 Days Jul, Active Enalapril Maleate 10 MG 1 tablet Orally Once a day for 30 day(s) Active Vicodin 5-500 MG 1 tablet as needed Orally prn Not-Taking Guaifenesin 200 MG 1 tablet as needed Orally every 4 hrs for 10 days May, Not-Taking Cymbalta 30 MG 1 capsule Orally Once a day at bedtime Active Bactrim DS 800-160 MG 1 tablet Orally Twice a day for 10 day(s) Nov, Not-Taking Crestor 10 MG 1 tablet Orally Once a day for 30 day(s) Active TraZODone HCl 100 MG 1 tablet at bedtime Orally Once a day for 30 day (s) Active Vitamin D (Ergocalciferol) 1.25 MG (13960 UT) 1 capsule Orally once a week Active Lisinopril 10 mg 1 tablet Orally Once a day Not-Taking Gabapentin 600 MG 1 tablet Orally 3 times a day Active Flonase 50 MCG/ACT 1 spray in each nostril Nasally twice a day f or 30 day(s) May, Not-Taking Zofran 4 MG 1 tablet Orally every 4 hours as needed Active Zanaflex 4 MG 1 capsule as needed Orally two times a day Active Saline Nasal [place] 0.65 % 2 drops in each nostril as n eeded Nasally every 2 hrs for 10 days May, Not-Taking Sudafed 30 MG 1 tablet as needed Orally every 6 hrs for 10 days May, Not-Taking EPINEPHrine (Anaphylaxis) 1 MG/ML as directed Injection Active Etodolac 500 mg 1 tablet Orally Twice a day for 5 days Sep, Not-Taking Mobic 15 MG 1 tablet Orally Once a day Active Simvastatin 20 MG 1 tablet in [...] Information RESULTS No Results REASON FOR VISIT DDD/HERNIATED DISC/LOW BACK MEDICAL (GENERAL) HISTORY Type Description Date Medical [...] Notes Treatment Notes Treatm ent Clinical Notes Jul, Myalgia, other site (ICD-10 - M79.18) Signed records release to get information from Dr. Sanders, [facility], [facility] Trigger point injection bilateral lower back right greater than left , [facility] Narcotic agreement was reviewed and signed today by the patient. See attached document for full details; Specific issues were reviewed: 1) Keep pain meds in their original bottles and any weekly planners are to be brought to the pain center at EVERY VISIT. 2) The patient is NOT to increase dosing or timing of their pain medication without specific direction of their Pain CenterProvider (not ER or other providers). 3) All pain meds are to be kept secured, in a locked box. 4) No pain meds are to be shared with any other person for any reason. 5) No pain meds may be taken from any friends or relatives for any reason 6) No meds or substances which are not legal are to be used- no marijuana, no cocaine, amphetamines, heroin, or others are ever to be used. 7)Urine testing is done to account for meds and substances being taken and will be done randomly. , Risks of narcotic/opiod medications includes but is not limited to risk of dependance/development of addiction, mood disturbance and depression, osteoporosis, hormonal and labidal changes, respiratory depression and . Patient is advised NOT to DRIVE or drink ALCOHOL while on these medications Jul, Protrusion of lumbar intervertebral disc (ICD-10 - M51.26) PLAN OF TREATMENT Medication Medication Name Sig Start Date Stop Date Zanaflex 4 MG 1 capsule as needed Orally two times a day Mobic 15 MG 1 tablet Orally Once a day Percocet 5-325 MG 1 tablet as needed Orally q8 h prn mdd3 #45 tabs should last 30 days for 30 Days Jul, Treatment Notes Assessment Notes Clinical Notes Myalgia, other site Signed records release to [email or web address] information [facility] Dr. Sanders, [facility], [facility] lower back right greater than left, [facility] Narcotic agreement was reviewed and signed today by the patient. See attached document for full details; Specific issues were reviewed: 1) Keep pain meds in their original bottles and any weekly planners are to be brought to the pain center at EVERY VISIT. 2) The patient is NOT to increase dosing or timing of their pain medication without specific direction of their Pain CenterProvider (not ER or other providers). 3) All pain meds are to be kept secured, in a locked box. 4) No pain meds are to be shared with any other person for any reason. 5) No pain meds may be taken from any friends or relatives for any reason 6) No meds or substances which are not legal are to be used- no marijuana, no cocaine, amphetamines, heroin, or others are ever to be used. 7)Urine testing is done to account for meds and substances being taken and will be done randomly., Risks of narcotic/opiod medications includes but is not limited to risk of dependance/development of addiction, mood disturbance and depression, osteoporosis, hormonal and labidal changes, respiratory depression and . Patient is advised NOT to DRIVE or drink ALCOHOL while on these medications Next Appt Details postprocedure Reason:Trigger point injec tion bilateral lower back right greater than left Follow Up:postprocedureTrigger point injection bilateral lower back right greater than left Insurance Providers Payer Name Payer Address Payer Phone Insured Name Patient Relati onship to Insured Coverage Start Date Coverage End Date [facility] [id number] [facility] [phone] self
--- OUTSIDE RECORDS SUMMARY | 2020-09-15 19:47 | CCD | Continuity of Care Document ---
Author Author [facility] [place] [address] Phone [phone] Care Team Providers Care Upper Inspector Name Role Phone Pina Thompson D.O. AUTM Mohan Tovar MD AUTM [phone] [place] AUTM [phone] Brooks Rahman MD AUTM [phone] Problems Active Problems Provider Date Essential hypertension [...] Qnty Indications Ordering Provide r Date Cymbalta 60mg Caps DR Part 1 by mouth every night 90caps F41.1 Pina Thompson D.O. 08/01 Zofran 4mg Tablets 1-2 tablets by mouth every 6 hours as needed for nausea 45tabs K57.32 Johnson SalehOPablo 06/01/2020 Vitamin D (Ergocalciferol) 1.25mg (27532 Ut) Capsules 1 capsule weekly for 12 weeks 12caps Johnson PerezOPablo 04/15/2020 Crestor 10mg Tablets 1 by mouth every day 90tabs Johnson ElOPablo 04/15/2020 Trazodone HCL 100mg Tablets take 1 tablet by mouth every night at bedtime 90tabs F43.12 Johnson SappOPablo 04/09/2020 [facility] Supplies/Equipment Duration: 99 Pr ognosis: good. Pressure 4 cm h20 - 20 cm h20 1units G47.33 Johnson ElOPablo Gabapentin 600mg Tablets take one tablet by mouth three times a day 270tabs M51.17 Johnson ElOPablo 03/08/2020 Meloxicam 15mg Tablets take one tablet by mouth daily as needed 90tabs M51.17 Johnson ElOPablo 02/29/2020 Enalapril Maleate 10mg Tablets 1 by mouth every day 90tabs I10 Johnson ElOPablo 02/28 Zanaflex 4mg Capsules 1 tab by mouth two times a day muscle spasm 60caps Iveth ElOPablo Oxycodone-Acetaminophen 5-325mg Tablets Jennifer Mackey Crna History Medications Cymbalta 30mg Caps DR [place] 1 by mouth every night 90caps F41.1 Johnson ElOPablo 07/10 - 08/01/2020 [place] 5-325mg Tablets take 1 tablets every six hours as needed for pain 90tabs K57.32 Pina casarez D.O. 06/01/2020 - 08/01/2020 Tramadol HCL 100mg Tablets one tablet by mouth every 8 hours as needed for pain 90tabs Johnson WaltersOPablo 05/08/2020 - 08/01/2020 Lipitor 40mg Tablets 1 by mouth every night 90tabs E78.5 Pina Thompson D.O. 04/09 - 06/01/2020 Prednisone 20mg Tablets take two tablets once a day by mouth for five days 10tabs M51.17 Johnson BennettOPablo 04/05/2020 - 04/09/2020 Cpap With Mask, Humidifier [...] by mouth every 8 hours 270caps M51.17 Pian Thompson D.O. 02/28 - 03/08/2020 Trazodone HCL 50mg Tablets take 1-2 tablet by mouth every night at bedtime 180tabs F43.12 Pina rendon D.O. 02/29/2020 - 04/09/2020 [facility] Home Sleep Study Increased daytime fatigue 1units G47.10 Pina Dawkins D.O. 02/29/2020 - 04/09/2020 Immunizations Description No Information Available Vital Signs Date Vital Result Comment 08/01/2020 1:06pm BP Systolic 132 mmHg BP Diastolic 84 mmHg Height 74.6 inches 6'2.60" Weight 256.06 lb BMI (Body Mass Index) 32.3 kg/m2 Heart Rate 78 /min Respiratory Rate 18 /min Body Temperature 98.3 F O2 % BldC Oximetry 98 % [place] Body Weight 190 lb 07/10/2020 1:55pm BP Systolic 124 mmHg BP Diastolic 88 mmHg Height 74.6 inches 6'2.60" Weight 284.25 lb BMI (Body Mass Index) 35.9 kg/m2 Heart Rate 106 /min Respiratory Rate 18 /min Body Temperature 97.8 F O2 % BldC Oximetry 98 % [place] Body Weight 190 lb Results Test Acquired Date Facility Test Result H/L Range Note Istat Chem8+ Panel 05/26/2020 [facility] Outpatient Testi ng (Registration) [address] [place] [address] [phone] iSTAT HCT 46.0 % Normal 38.0-51.0 iSTAT Glucose 131 mg/dL High 70-105 iSTAT Sodium 137 mEq/L Normal 136-145 iSTAT Potassium 4.2 mEq/L Normal 3.5-5.1 iSTAT CA++ 4.9 mg/dL Normal 4.5-5.3 iSTAT Chloride 101 mEq/L Normal 98-109 iSTAT Co2 22.0 MM/L Low 23.0-27.0 iSTAT BUN 14 mg/dL Normal 8-26 iSTAT Creatinine 0.9 mg/dL Normal 0.6-1.3 CBC With Differential 04/06/[address] [address] [phone] White Blood Count 10.0 10 Normal 4.0-10.0 [...] 36.0-66.0 Lymph % 31.4 % Normal 24.0-44.0 [place] % 8.1 % High 0.0-5.0 Eos % 0.8 % Normal 0.0-3.0 Baso % 0.8 % Normal 0.0-1.0 Immature Granulocyte % 0.2 % Normal 0-3.0 Nucleated Red Blood Cell % 0.0 % Normal 0-0 Neutrophils # 5.9 10 Normal 1.5-8.5 Lymph # 3.1 10 Normal 1.5-5.0 [place] # 0.8 10 Normal 0.0-0.8 Eos # 0.1 10 Normal 0.0-0.5 Baso # 0.1 10 Normal 0.0-0.2 Comprehensive Metabolic Profil 04/06/[address] [address] [phone] Glucose, Fasting 95 mg/dL Normal 70-100 Blood [...] Albumin/Globulin Ratio 1.3 Normal Lipid Panel 04/06/2020 [facility] [address] [address] [phone] Triglycerides Level 216 mg/dL High <150 Cholesterol Level 303 mg/dL High <200 HDL Cholesterol 48 mg/dL Normal >40 LDL Cholesterol 212 mg/dL High <100 Non-HDL-C 255 mg/dL Normal Cholesterol Risk Ratio 6.312 High <5 FT4&TSH Panel 04/06/[address] [address] [phone] Thyroid Stimulating Hormone 1.190 uIU/ML Normal 0. 358-3.740 Free T4 1.06 ng/dL Normal 0.76-1.46 Hemoglobin A1c 04/06/2020 [facility] [address]ter [address] [place] [address] [phone] Hemoglobin A1c 6.2 % Normal 2 Estimated Average Glucose 131 mg/dL High 60-110 Laboratory test finding 04/06/2020 [facility] [address] [place] [address] [phone] Total 25(Oh) Vitamin D 30.9 NG/ML Normal 30.0-100. 0 1 Units are mL/min/1.73 m2 Chronic Kidney Disease Staging per NKF: Stage I & II GFR >=60 Normal to Mildly Decreased Stage III GFR 30-59 Moderately Decreased Stage IV GFR 15-29 Severely Decreased Stage V GFR <15 Very Little GFR Left ESRD GFR <[address]ANT [address] REFERENCE RANGES: <=5.6% NORMAL 5.7-6.4% SUGGESTS IMPAIRED GLUCOSE META BOLISM/PREDIABETIC >= 6.5% ABNORMAL Procedures Description No Information Available Medical Devices Description No Information Available Encounters Type Date Location Provider Dx Diagnosis Office Visit 07/10/2020 1:45p Family [facility] PANKAJ Johnson M51.17 Intvrt disc disorders w radi culopathy, lumbosacral region E78.5 Hyperlipidemia, unspecified I10 Essential (primary) hyperten karime G47.33 Obstructive sleep apnea (prosper lt) (pediatric) F43.12 Post-traumatic stress disord er, chronic F41.1 Generalized anxiety disorder Office Visit 06/01/2020 9:40a Family [facility] PANKAJ Johnson K57.32 Dvtrcli of lg int w/o perfor ation or abscess w/o bleeding Office Visit 04/09/2020 2:30p Family [facility] PANKAJ Johnson M51.17 Intvrt disc disorders w radi culopathy, lumbosacral region E78.5 Hyperlipidemia, unspecified I10 Essential (primary) hyperten karime G47.33 Obstructive sleep apnea (prosper lt) (pediatric) Office Visit 03/08/2020 2:40p [facility] PANKAJ Johnson M51.17 Intvrt disc disorders w radi culopathy, lumbosacral region Office Visit 02/29/2020 10:30a [facility] PANKAJ Johnson M51.17 Intvrt disc disorders w radi culopathy, lumbosacral region E78.5 Hyperlipidemia, unspecified I10 Essential (primary) hyperten karime G47.10 Hypersomnia, unspecified F43.12 Post-traumatic stress disord er, chronic Z13.29 Encounter for screening for oth suspected endocrine disorder Assessments Date Code Description Provider 08/01/2020 M51.17 Intervertebral disc disorders with radiculopathy, lumbosacral region PANKAJ Johnson 08/01/2020 F41.1 Generalized anxiety disorder PANKAJ Copeland 08/01/2020 M54.6 Pain in thoracic spine PANKAJ Archer 07/10/2020 M51.17 Intervertebral disc disorders with radiculopathy, [...] region PANKAJ Johnson 02/29/2020 E78.5 Hyperlipidemia, unspecified Jermaine ael PANKAJ Valerio 02/29/2020 I10 Essential (primary) hypertension PANKAJ Johnson 02/29/2020 G47.10 Hypersomnia, unspecified PANKAJ Johnson 02/29/2020 F43.12 Post-traumatic stress disorder, chronic PANKAJ Johnson 02/29/2020 Z13.29 Encounter for screen ing for other suspected endocrine disorder PANKAJ Johnson Plan of Treatment Future Appointment(s):* 10/10/2020 2:30 pm - PANKAJ Johnson at [facility] 08/01/2020 - PANKAJ Johnson* M51.17 Intervertebral disc disorders with radiculopathy, lumbosacral region* New Xrays:* MRI Lumbar Spine W/O Contrast, Scheduled: 08/01/20 * F41.1 Generalized anxiety disorder* New Medication:* Cymbalta 60 mg - 1 by mouth every night * Comments:* We will increase your Cymbalta from 30 mg to 60 mg to help with your anxiety and other neurological pain. 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 please evaluate for pain control Patient Notified 07/23/2020 [facility] [address] [place] [address] [phone] Mohan Tovar MD Closed [address] [facility] [place] [address] [phone]
--- OUTSIDE RECORDS SUMMARY | 2020-09-15 19:47 | CCD ---
Author Author [facility] Organization [facility] Address Unknown Phone Unavailable Care Team Providers Care Endoscopy Support Specialist Name Role Phone Jennifer Mackey Unavailable PROBLEMS Type Condition ICD9-CM Code TWD40-AS Code Onset Dates Condition S tatus SNOMED Code Notes Problem Protrusion of thoracic intervertebral disc M51.24 Active 46333454 Problem Other chronic pain G89.29 Active 61211251 Problem Protrusion of lumbar intervertebral disc M51.26 Active 078069843 ALLERGIES Allergen (clinical drug ingredient) Drug/Non Drug Allergy do cumented on EMR Reaction Allergy Type Onset Date Status Hornets Anaphylaxis Non Drug Allergy Active Bee sting Anaphylaxis Non Drug Allergy Active ENCOUNTERS from 1987 to 2020-09-08 Encounter Location Date Provider Diagnosis [facility] [address] [place] [phone] Aug, Jennifer Mackey Other chronic pain G89.29 and Protrusion of thoracic intervertebral disc M51.24 IMMUNIZATIONS Vaccine Route Administration Date Status Influenza (6mo & up) Fluzone Unknown Sep 22, 2014 Adm inistered SOCIAL HISTORY Tobacco Use: Social History Observation Description Date Details (start date - stop date) never smoker Sex Assigned At : Social History Observation Description Sex Assigned At Unknown Language: Question Answer Notes Languages spoken: Syriac Alcohol Screening: Question Answer Notes Did you [...] FOR REFERRAL No Information VITAL SIGNS Weight 291 lbs Aug, Height 76 in Aug, BMI 35.42 kg/m2 Aug, Heart Rate 89 /min Aug, Respiratory Rate 16 /min Aug, Temperature 97.6 degrees Fahrenheit Aug, Oximetry 96 Aug, Blood pressure systolic 145 mm Hg Aug, Blood pressure diastolic 80 mm Hg Aug, MEDICATIONS Medication SIG (Take, Route, Frequency, Duration) Notes Start Da te End Date Status Saline Nasal [place] 0.65 % 2 drops in each nostril [...] bedtime Active Vitamin D (Ergocalciferol) 1.25 MG (38414 UT) 1 capsule Orally once a week [...] day for 30 day (s) Active PROCEDURES from 1987 to 2020-09-08 Procedure Date Ordered Result Body Site Pain Procedure Log 2020-09-04 N/A RESULTS No Results REASON FOR VISIT 30 MIN NBP THORACIC BACK MEDICAL (GENERAL) HISTORY Type Description Date [...] Treatment Notes Treatm ent Clinical Notes Aug, Other chronic pain (ICD-10 - G89.29) Finds oxycodone 5/325 effective at reducing pain. Advised him to use this periodically and not daily for severe pain episodes. Brings in pain medication which is appropriate for what was dispensed. Urine for Toxicology Today Thoracic epidural steroid injection T8-9 ISTOP REGISTRY REVIEWED-DEMONSTRATES COMPLIANCE Aug, Protrusion of thoracic intervertebral disc (ICD- 10 - M51.24) PLAN OF TREATMENT Medication Medication Name Sig Start Date Stop Date Percocet 5-325 MG 1 tablet as needed Orally q8 h prn mdd3 #45 tabs should last 30 days for 30 Days Aug, Treatment Notes Assessment Notes Clinical Notes Other chronic pain Finds oxycodone 5/325 effec tive at reducing pain. Advised him to use this periodically and not daily for severe pain episodes. Brings in pain medication which is appropriate for what was dispensed.Urine for Toxicology TodayThoracic epidural steroid injection T8-9ISTOP REGISTRY REVIEWED- DEMONSTRATES COMPLIANCE Next Appt Details post procedure Reason:Thoracic epidural steroid injection T8-9 Provider Name:Jennifer Mackey, 2020-09-13 11 :30:00 AM, [address] [place] [address], [phone], Follow Up:post procedureThoracic epidural steroid injection T8-9 Insurance Providers Payer Name Payer Address Payer Phone Insured Name Patient Relati onship to Insured Coverage Start Date Coverage End Date [facility] [place] [address] [facility] [id number] self
--- OUTSIDE RECORDS SUMMARY | 2020-09-15 19:48 | CCD ---
Author Author [facility] Organization [facility] Address Unknown Phone Unavailable Care Team Providers Care Broadcast Operations Manager Name Role Phone Jumalon, M Becca WRAPPER HAND Unavailable Unavailable Jumalon, M Becca WRAPPER HAND Unavailable Unavailable Jumalon, M Becca WRAPPER HAND Unavailable Unavailable Jumalon, M Becca WRAPPER HAND Unavailable Unavailable Jumalon, M Becca WRAPPER HAND Unavailable Unavailable Jumalon, M Becca WRAPPER HAND Unavailable Unavailable Jumalon, M Becca WRAPPER HAND Unavailable Unavailable Jumalon, M Becca WRAPPER HAND Unavailable Unavailable Jumalon, M Becca WRAPPER HAND Unavailable Unavailable Jumalon, M Becca WRAPPER HAND Unavailable Unavailable Jumalon, M Becca WRAPPER HAND Unavailable Unavailable Jumalon, M Becca WRAPPER HAND Unavailable Unavailable Jumalon, M Becca WRAPPER HAND Unavailable Unavailable Jumalon, M Becca WRAPPER HAND Unavailable Unavailable Jumalon, M Becca WRAPPER HAND Unavailable Unavailable Jumalon, M Becca WRAPPER HAND Unavailable Unavailable Jumalon, M Becca WRAPPER HAND Unavailable Unavailable Jumalon, M Becca WRAPPER HAND Unavailable Unavailable Jumalon, M Becca WRAPPER HAND Unavailable Unavailable Jumalon, M Becca WRAPPER HAND Unavailable Unavailable Jumalon, M Becca WRAPPER HAND Unavailable Unavailable Jumalon, M Becca WRAPPER HAND Unavailable Unavailable Jumalon, M Becca WRAPPER HAND Unavailable Unavailable Jumalon, M Becca WRAPPER HAND Unavailable Unavailable Jumalon, M Becca WRAPPER HAND Unavailable Unavailable Jumalon, M Becca WRAPPER HAND Unavailable Unavailable Jumalon, M Becca WRAPPER HAND Unavailable Unavailable Jumalon, M Becca WRAPPER HAND Unavailable Unavailable Iveth Bojorquez MD Unavailable Unavailable Vaneenaleshiaam, Iveth Nava MD Unavailable Unavailable Vaneenenaam, Iveth Nava MD Unavailable Unavailable Vaneenaleshiaam, Iveth Nava MD Unavailable Unavailable VanIveth melo MD Unavailable Unavailable Vanlorie, Iveth Nava MD Unavailable Unavailable Vanlorie, Iveth Nava MD Unavailable Unavailable Vanlorie, Iveth Nava MD Unavailable Unavailable Vanlorie, Iveth Nava MD Unavailable Unavailable Vanlorie, Iveth Nava MD Unavailable Unavailable Iveth Bojorquez MD Unavailable Unavailable Iveth Bojorquez MD Unavailable Unavailable Iveth Bojorquez MD Unavailable Unavailable Vanlorie, Iveth Nava MD Unavailable Unavailable VanIveth melo MD Unavailable Unavailable VanIveth melo MD Unavailable Unavailable Iveth Bojorquez MD Unavailable Unavailable Iveth Bojorquez MD Unavailable Unavailable Iveth Bojorquez MD Unavailable Unavailable Iveth Bojorquez MD Unavailable Unavailable Iveth Bojorquez MD Unavailable Unavailable Iveth Bojorquez MD Unavailable Unavailable Iveth Bojorquez MD Unavailable Unavailable Iveth Bojorquez MD Unavailable Unavailable Iveth Bojorquez MD Unavailable Unavailable Iveth Bojorquez MD Unavailable Unavailable Iveth Bojorquez MD Unavailable Unavailable Iveth Bojorquez MD Unavailable Unavailable VanIveth melo MD Unavailable Unavailable Iveth Bojorquez MD Unavailable Unavailable Iveth Bojorquez MD Unavailable Unavailable Iveth Bojorquez MD Unavailable Unavailable Iveth Bojorquez MD Unavailable Unavailable Iveth Bojorquez MD Unavailable Unavailable Iveth Bojorquez MD Unavailable Unavailable Iveth Bojorquez MD Unavailable Unavailable Iveth Bojorquez MD Unavailable Unavailable Iveth Bojorquez MD Unavailable Unavailable Iveth Bojorquez MD Unavailable Unavailable VanIveth melo MD Unavailable Unavailable VanbeckIveth baldwin MD Unavailable Unavailable Vansaraenaam, D Peter MD Unavailable Unavailable Umanzor, Yeny SENIOR BEHAVIORAL SCIENTIST Unavailable Unavailable Umanzor, Yeny SENIOR BEHAVIORAL SCIENTIST Unavailable Unavailable Umanzor, Yeny SENIOR BEHAVIORAL SCIENTIST Unavailable Unavailable Umanzor, Yeny SENIOR BEHAVIORAL SCIENTIST Unavailable Unavailable Umanzor, Yeny SENIOR BEHAVIORAL SCIENTIST Unavailable Unavailable Umanzor, Yeny SENIOR BEHAVIORAL SCIENTIST Unavailable Unavailable Umanzor, Yeny SENIOR BEHAVIORAL SCIENTIST Unavailable Unavailable Umanzor, Yeny SENIOR BEHAVIORAL SCIENTIST Unavailable Unavailable Umanzor, Yeny SENIOR BEHAVIORAL SCIENTIST Unavailable Unavailable Umanzor, Yeny SENIOR BEHAVIORAL SCIENTIST Unavailable Unavailable Umanzor, Yeny SENIOR BEHAVIORAL SCIENTIST Unavailable Unavailable BolNiyah gonzalez MD Unavailable Unavailable BolNiyah gonzalez MD Unavailable Unavailable BolNiyah gonzalez MD Unavailable Unavailable BolNiyah gonzalez MD Unavailable Unavailable BolNiyah gonzalez MD Unavailable Unavailable Niyah Sanders MD Unavailable Unavailable BolNiyah gonzalez MD Unavailable Unavailable Niyah Sanders MD Unavailable Unavailable BolNiyah gonzalez MD Unavailable Unavailable BolNiyah gonzalez MD Unavailable Unavailable BolNiyah gonzalez MD Unavailable Unavailable Niyah Sanders MD Unavailable Unavailable BolNiyah gonzalez MD Unavailable Unavailable Niyah Sanders MD Unavailable Unavailable BolNiyah gonzalez MD Unavailable Unavailable Niyah Sanders MD Unavailable Unavailable Niyah Sanders MD Unavailable Unavailable Niyah Sanders MD Unavailable Unavailable Niyah Sanders MD Unavailable Unavailable Niyah Sanders MD Unavailable Unavailable Niyah Sanders MD Unavailable Unavailable Niyah Sanders MD Unavailable Unavailable Niyah Sanders MD Unavailable Unavailable Niyah Sanders MD Unavailable Unavailable Niyah Sanders MD Unavailable Unavailable BolNiyah gonzalez MD Unavailable Unavailable Niyah Sanders MD Unavailable Unavailable Niyah Sanders MD Unavailable Unavailable Niyah Sanders MD Unavailable Unavailable Niyah Sanders MD Unavailable Unavailable Niyah Sanders MD Unavailable Unavailable Niyah Sanders MD Unavailable Unavailable BolNiyah gonzalez MD Unavailable Unavailable Niyah Sanders MD Unavailable Unavailable BolNiyah gonzalez MD Unavailable Unavailable BolNiyah gonzalez MD Unavailable Unavailable BolNiyah gonzalez MD Unavailable Unavailable BolNiyah gonzalez MD Unavailable Unavailable Bolcarlos, S Lloyd GALLO Unavailable Unavailable Bolla, S Lloyd GALLO Unavailable Unavailable Bolla, S Lloyd GALLO Unavailable Unavailable Bolla, S Lloyd GALLO Unavailable Unavailable Bolla, S Lloyd GALLO Unavailable Unavailable Bolla, S Lloyd GALLO Unavailable Unavailable Bolla, S Lloyd GALLO Unavailable Unavailable Bolla, S Lloyd GALLO Unavailable Unavailable Bolla, S Llyod GALLO Unavailable Unavailable Bolla, S Lloyd GALLO Unavailable Unavailable O'katelynn, A Carlita PA Unavailable Unavailable O'katelynn, A Carlita PA Unavailable Unavailable O'katelynn, A Carlita PA Unavailable Unavailable O'katelynn, A Carlita PA Unavailable Unavailable O'katelynn, A Carlita PA Unavailable Unavailable O'katelynn, A Carlita PA Unavailable Unavailable O'katelynn, A Carlita PA Unavailable Unavailable O'katelynn, A Carlita PA Unavailable Unavailable O'katelynn, A Carlita PA Unavailable Unavailable O'katelynn, A Carlita PA Unavailable Unavailable O'katelynn, A Carlita PA Unavailable Unavailable O'katelynn, A Carlita PA Unavailable Unavailable O'katelynn, A Carlita PA Unavailable Unavailable O'katelynn, A Carlita PA Unavailable Unavailable O'katelynn, A Carlita PA Unavailable Unavailable O'katelynn, A Carlita PA Unavailable Unavailable O'katelynn, A Carlita PA Unavailable Unavailable O'katelynn, A Carlita PA Unavailable Unavailable O'katelynn, A Carlita PA Unavailable Unavailable O'katelynn, A Carlita PA Unavailable Unavailable O'katelynn, A Carlita PA Unavailable Unavailable O'katelynn, A Carlita PA Unavailable Unavailable O'katelynn, A Carlita PA Unavailable Unavailable O'katelynn, A Carlita PA Unavailable Unavailable O'katelynn, A Carlita PA Unavailable Unavailable O'katelynn, A Carlita PA Unavailable Unavailable O'katelynn, A Carlita PA Unavailable Unavailable O'katelynn, A Carlita PA Unavailable Unavailable O'kaetlynn, A Carlita PA Unavailable Unavailable O'katelynn, A Carlita PA Unavailable Unavailable O'katelynn, A Carlita PA Unavailable Unavailable O'katelynn, A Carlita PA Unavailable Unavailable LETTIERE, A CARLITA PA Unavailable Unavailable LETTIERE, A CARLITA PA Unavailable Unavailable LETTIERE, A CARLITA PA Unavailable Unavailable LETTIERE, A CARLITA PA Unavailable Unavailable LETTIERE, A CARLITA PA Unavailable Unavailable LETTIERE, A CARLITA PA Unavailable Unavailable LETTIERE, A CARLITA PA Unavailable Unavailable LETTIERE, A CARLITA PA Unavailable Unavailable LETTIERE, A CARLITA PA Unavailable Unavailable LETTIERE, A CARLITA PA Unavailable Unavailable LETTIERE, A CARLITA PA Unavailable Unavailable LETTIERE, A CARLITA PA Unavailable Unavailable LETTIERE, A CARLITA PA Unavailable Unavailable LETTIERE, A CARLITA PA Unavailable Unavailable LETTIERE, A CARLITA PA Unavailable Unavailable LETTIERE, A CARLITA PA Unavailable Unavailable LETTIERE, A CARLITA PA Unavailable Unavailable LETTIERE, A CARLITA PA Unavailable Unavailable LETTIERE, A CARLITA PA Unavailable Unavailable LETTIERE, A CARLITA PA Unavailable Unavailable LETTIERE, A CARLITA PA Unavailable Unavailable LETTIERE, A CARLITA PA Unavailable Unavailable LETTIERE, A CARLITA PA Unavailable Unavailable LETTIERE, A CARLITA PA Unavailable Unavailable LETTIERE, A CARLITA PA Unavailable Unavailable LETTIERE, A CARLITA PA Unavailable Unavailable LETTIERE, A CARLITA PA Unavailable Unavailable LETTIERE, A CARLITA PA Unavailable Unavailable LETTIERE, A CARLITA PA Unavailable Unavailable Adam BAY MD Unavailable Unavailable Adam BAY MD Unavailable Unavailable Adam BAY MD Unavailable Unavailable Adam BAY MD Unavailable Unavailable Adam BAY MD Unavailable Unavailable Adam BAY MD Unavailable Unavailable Adam BAY MD Unavailable Unavailable Adam BAY MD Unavailable Unavailable Adam BAY MD Unavailable Unavailable Adam BAY MD Unavailable Unavailable Adam BAY MD Unavailable Unavailable Adam BAY MD Unavailable Unavailable Adam BAY MD Unavailable Unavailable Adam BAY MD Unavailable Unavailable Adam BAY MD Unavailable Unavailable Adam BAY MD Unavailable Unavailable Adam BAY MD Unavailable Unavailable Adam BAY MD Unavailable Unavailable Adam BAY MD Unavailable Unavailable Adam BAY MD Unavailable Unavailable Adam BAY MD Unavailable Unavailable Adam BAY MD Unavailable Unavailable Adam BAY MD Unavailable Unavailable Adam BAY MD Unavailable Unavailable Adam BAY MD Unavailable Unavailable Adam BAY MD Unavailable Unavailable Adam BAY MD Unavailable Unavailable Adam BAY MD Unavailable Unavailable Adam BAY MD Unavailable Unavailable Adam BAY MD Unavailable Unavailable Adam BAY MD Unavailable Unavailable Adam BAY MD Unavailable Unavailable Adam BAY MD Unavailable Unavailable Adam BAY MD Unavailable Unavailable Adam BAY MD Unavailable Unavailable Adam BAY MD Unavailable Unavailable Adam BAY MD Unavailable Unavailable Adam BAY MD Unavailable Unavailable Adam BAY MD Unavailable Unavailable Adam BAY MD Unavailable Unavailable Adam BAY MD Unavailable Unavailable Adam BAY MD Unavailable Unavailable Adam BAY MD Unavailable Unavailable Adam BAY MD Unavailable Unavailable Adam BAY MD Unavailable Unavailable Adam BAY MD Unavailable Unavailable Adam BAY MD Unavailable Unavailable Adam BAY MD Unavailable Unavailable Adam BAY MD Unavailable Unavailable Adam BAY MD Unavailable Unavailable Adam BAY MD Unavailable Unavailable Adam BAY MD Unavailable Unavailable Adam BAY MD Unavailable Unavailable Adam BAY MD Unavailable Unavailable Adam BAY MD Unavailable Unavailable Adam BAY MD Unavailable Unavailable Adam BAY MD Unavailable Unavailable Adam BAY MD Unavailable Unavailable Adam BAY MD Unavailable Unavailable Adam BAY MD Unavailable Unavailable Adam BAY MD Unavailable Unavailable Adam BAY MD Unavailable Unavailable Adam BAY MD Unavailable Unavailable Adma BAY MD Unavailable Unavailable Adam BAY MD Unavailable Unavailable Adam BAY MD Unavailable Unavailable Adam BAY MD Unavailable Unavailable Adam BAY MD Unavailable Unavailable Adam BAY MD Unavailable Unavailable Adam BAY MD Unavailable Unavailable Adam BAY MD Unavailable Unavailable Adam BAY MD Unavailable Unavailable Adam BAY MD Unavailable Unavailable Adam BAY MD Unavailable Unavailable Adam BAY MD Unavailable Unavailable Adam BAY MD Unavailable Unavailable Adam BAY MD Unavailable Unavailable Adam BAY MD Unavailable Unavailable Adam BAY MD Unavailable Unavailable Adam BAY MD Unavailable Unavailable Adam BAY MD Unavailable Unavailable Adam BAY MD Unavailable Unavailable Adam BAY MD Unavailable Unavailable Adam BAY MD Unavailable Unavailable Adam BAY MD Unavailable Unavailable Adam BAY MD Unavailable Unavailable Adam BAY MD Unavailable Unavailable Adam BAY MD Unavailable Unavailable Adam BAY MD Unavailable Unavailable Adam BAY MD Unavailable Unavailable Adam BAY MD Unavailable Unavailable Adam BAY MD Unavailable Unavailable Adam BAY MD Unavailable Unavailable Adam BAY MD Unavailable Unavailable Adam BAY MD Unavailable Unavailable Adam BAY MD Unavailable Unavailable Re-disclosure Warning The records that you are about to access may contain information from federally-assisted alcohol or drug abuse programs. If such information is present, then the following federally mandated warning applies: This information has been disclosed to you from records protected by federal confidentiality rules (42 CFR part 2). The federal rules prohibit you from making any further disclosure of this information unless further disclosure is expressly permitted by the written consent of the person to whom it pertains or as otherwise permitted by 42 CFR part 2. A general authorization for the release of medical or other information is NOT sufficient for this purpose. The Federal rules restrict any use of the information to criminally investigate or prosecute any alcohol or drug abuse patient.The records that you are about to access may contain highly sensitive health information, the redisclosure of which is protected by Article 27-F of the [facility] Public Health law. If you continue you may have access to information: Regarding HIV / AIDS; Provided by facilities licensed or operated by the [facility] Office of Mental Health; or Provided by the [facility] Office for People With Developmental Disabilities. If such information is present, then the following [facility] mandated warning applies: This information has been disclosed to you from confidential records which are protected by state law. State law prohibits you from making any further disclosure of this information without the specific written consent of the person to whom it pertains, or as otherwise permitted by law. Any unauthorized further disclosure in violation of state law may result in a fine or chcf sentence or both. A general authorization for the release of medical or other information is NOT sufficient authorization for further disc losure. Allergies and Adverse Reactions Type Description Substance Reaction Status Data Source(s ) Bee sting Bee sting Bee sting Unknown Active eCW1 ([facility]) Family History Family Member Name Family Member Gender Family Member Status Date o f Status Description Data Source(s) Unknown Unknown Problem MEDENT ([facility]) Unknown Male Problem MEDENT ([facility]) at age late 20's Unknown Female Problem MEDENT ([facility]) Encounters Encounter Providers Location Date Indications Data Source(s ) Recurring Patient Referrer: Carlita LIRA 09/13/2020 06:31:45 AM EST [facility] Recurring Patient Referrer: Carlita LIRA 09/12/2020 03:50:46 PM EST [facility] Unknown [address] [facility] [id number] 09/10/2020 12:00:00 AM EST eCW1 ([facility]) Outpatient Attender: MOHAN BAY MDReferrer: Carlita LIRA 09/06/2020 05:17:31 PM EST [facility] Outpatient [address] [facility] [id number] 09/04/2020 12:00:00 AM EST eCW1 ([facility]) (PN Proc 45) Pain Procedure 45 [address] [place] [address] 08/30/2020 12:00:00 AM EST eCW1 ([facility]) Unknown [address] [facility] [id number] 08/29/2020 12:00:00 AM EST eCW1 ([facility]) Unknown [address] [facility] [id number] 08/21/2020 12:00:00 AM EST eCW1 ([facility]) Unknown [address] [facility] [id number] 08/21/2020 12:00:00 AM EST eCW1 ([facility]) Outpatient [address] [facility] [id number] 07/23/2020 12:00:00 AM EST eCW1 ([facility]) Outpatient Attender: Carlita LIRA [facility] 07/10/2020 12:45:00 PM EST MEDENT ([facility]) Outpatient Attender: MOHAN BAY MDReferrer: Carlita LIRA 06/08/2020 07:49:33 AM EDT [facility] Recurring Patient Referrer: Carlita LIRA 06/07/2020 01:36:17 PM EDT [facility] Outpatient Attender: Carlita LIRA [facility] 06/01/2020 09:40:00 AM EDT MEDENT ([facility]) Outpatient Attender: Carlita LIRA [facility] 04/09/2020 02:30:00 PM EDT MEDENT ([facility]) Recurring Patient Referrer: Carlita LIRA 04/06/2020 08:20:56 AM EDT [facility] Recurring Patient Referrer: Carlita LIRA 03/29/2020 01:20:32 PM EDT [facility] Outpatient Attender: MOHAN BAY MDReferrer: Carlita LIRA 03/29/2020 11:54:51 AM EDT [facility] Recurring Patient Referrer: Carlita LIRA 03/29/2020 10:51:03 AM EDT [facility] Recurring Patient Referrer: Carlita LIRA 03/16/2020 01:09:41 PM EDT [facility] Recurring Patient Referrer: Carlita LIRA 03/15/2020 02:04:51 PM EDT [facility] Recurring Patient Referrer: Carlita LIRA 03/14/2020 02:02:57 PM EDT [facility] Outpatient Attender: Carlita LIRA [facility] 03/08/2020 02:40:00 PM EDT MEDENT ([facility]) Outpatient Attender: Carlita LIRA [facility] 02/29/2020 10:30:00 AM EDT MEDENT ([facility]) Outpatient Attender: CARLITA anthony 01/20/2020 12:45:00 PM EDT MEDENT ([facility] [address] [address] 11/05/2019 12:00:00 AM EDT eCW1 ([facility]) OFFICE OUTPATIENT NEW 30 MINUTES Attender: Iveth Arechiga am, MD Physical Therapy 10/25/2019 09:00:00 AM EDT MEDENT ([facility] ) Outpatient Attender: Yeny fisher 10/20/2019 10:30:00 AM EST MEDENT ([facility] Lloyd Sanders MD: [id number], [place] [address], Ph. Attender: Lloyd Sanders MD DC - [facility] Office 10/05/2019 12:00:00 AM EST NAVJOT ([facility]) Lloyd Sanders MD: [address], [address], [place] [address], Ph. Attender: Lloyd Sanders MD DC - [facility] Office 08/25/2019 12:00:00 AM EST NAVJOT ([facility]) Lloyd Sanders MD: [address], [address], [place] [address], Ph. Attender: Lloyd Sanders MD DC - [facility] Office 08/25/2019 12:00:00 AM EST NAVJOT ([facility]) Lloyd Sanders MD: [address], [place], [place] [phone], Ph. Attender: Lloyd Sanders MD DC - [facility] Office 08/25/2019 12:00:00 AM EST NAVJOT ([facility]) Becca Dunham, LEONILA: [address], [place] [address], Ph. Attender: Becca WANG DC - [facility] 07/26/2019 12:00:00 AM EST ATHE NA ([facility]) Becca Dunham SENIOR BEHAVIORAL SCIENTIST: [address], [place] [address], Ph. Attender: Becca Dunham [facility] 07/26/2019 12:00:00 AM EST ATHE NA ([facility]) Becca Dunham, SENIOR BEHAVIORAL SCIENTIST: [address], [place] [address], Ph. Attender: Becca Dunham [facility] 07/26/2019 12:00:00 AM EST ATHE NA ([facility]) Becca Dunham, SENIOR BEHAVIORAL SCIENTIST: [address], [place] [address], Ph. Attender: [facility] 07/26/2019 12:00:00 AM EST ATHE NA ([facility]) Medications Medication Brand Name Start Date Product Form Dose Route Admi nistrative Instructions Pharmacy Instructions Status Indications Reaction Description Data Source(s) Acetaminophen 325 MG / Oxycodone Hydroch loride 5 MG Oral Tablet [Percocet] Percocet 5-325 MG Percocet 5-325 MG 09/04/2020 12:00:00 AM EST 1 .0 {tablet_as_needed} active Percocet 5-32 5 MG eCW1 ([facility]) Acetaminophen 325 MG / Oxycodone Hydroch loride 5 MG Oral Tablet [Percocet] Percocet 5-325 MG Percocet 5-325 MG 09/04/2020 12:00:00 AM EST 1 .0 {tablet_as_needed} active Percocet 5-32 5 MG eCW1 ([facility]) Acetaminophen 325 MG / Oxycodone Hydroch loride 5 MG Oral Tablet [Percocet] Percocet 5-325 MG Percocet 5-325 MG 08/22/2020 12:00:00 AM EST 1 .0 {tablet_as_needed} active Percocet 5-32 5 MG eCW1 ([facility]) Acetaminophen 325 MG / Oxycodone Hydroch loride 5 MG Oral Tablet [Percocet] Percocet 5-325 MG Percocet 5-325 MG 08/22/2020 12:00:00 AM EST 1 .0 {tablet_as_needed} active Percocet 5-32 5 MG eCW1 ([facility]) Acetaminophen 325 MG / Oxycodone Hydroch loride 5 MG Oral Tablet [Percocet] Percocet 5-325 MG Percocet 5-325 MG 08/22/2020 12:00:00 AM EST 1 .0 {tablet_as_needed} active Percocet 5-32 5 MG eCW1 ([facility]) Acetaminophen 325 MG / Oxycodone Hydroch loride 5 MG Oral Tablet [Percocet] Percocet 5-325 MG Percocet 5-325 MG 08/22/2020 12:00:00 AM EST 1 .0 {tablet_as_needed} active Percocet 5-32 5 MG eCW1 ([facility]) duloxetine 60 MG Delayed Release Oral Capsule [Cymbalta] Cym michelle 08/01/2020 12:00:00 AM EST ORAL active M EDENT ([facility]) Acetaminophen 325 MG / Oxycodone Hydroch loride 5 MG Oral Tablet [Percocet] Percocet 5-325 MG Percocet 5-325 MG 07/23/2020 12:00:00 AM EST 1 .0 {tablet_as_needed} active Percocet 5-32 5 MG eCW1 ([facility]) duloxetine 30 MG Delayed Release Oral Capsule [Cymbalta] [facility]ym michelle 07/10/2020 12:00:00 AM EST ORAL completed MEDENT ([facility]) Ondansetron 4 MG Oral Tablet [Zofran] Zofran 06/01/2020 12:00:00 AM EDT ORAL active MEDENT ([facility]) Acetaminophen 325 MG / Hydrocodone Bitartrate 5 MG Oral Tabl et [Monroe] Monroe 06/01/2020 12:00:00 AM EDT completed MEDENT ([facility]) Tramadol HCL Tramadol HCL 05/08/2020 12:00:00 AM EDT ORAL completed MEDENT ([facility]) Ergocalciferol 56075 UNT Oral Capsule Vitamin D (Ergocalcife rol) 04/15/2020 12:00:00 AM EDT active EDENT ([facility]) Rosuvastatin calcium 10 MG Oral Tablet [Crestor] Crestor 04/15/2020 12:00:00 AM EDT ORAL active MEDENT ([facility]) Trazodone Hydrochloride 100 MG Oral Tablet Trazodone HCL 04/09/2020 12:00:00 AM EDT ORAL active MEDENT ([facility]) atorvastatin 40 MG Oral Tablet [Lipitor] Lipitor 04/09/2020 12:00: 00 AM EDT ORAL completed MEDENT ([facility]) Prednisone 20 MG Oral Tablet Prednisone 04/05/2020 12:00:00 AM EDT ORAL completed MEDENT ([facility]) Apap With Neccesary Supplies/Equipment 03/23/2020 12:00:00 AM ED T active [facility] ([facility]) Cpap With Mask, Humidifier And Other Neccessary Supplies. 03/23/2020 12:00:00 AM EDT completed [facility] ([facility]) tramadol hydrochloride 50 MG Oral Tablet Tramadol HCL 03/15/2020 12:00:00 AM EDT ORAL completed [facility] ([facility]) gabapentin 600 MG Oral Tablet Gabapentin 03/08/2020 12:00:00 AM EDT ORAL active [facility] ([facility]) Prednisone 10 MG Oral Tablet Prednisone 03/08/2020 12:00:00 AM EDT completed [facility] ([facility]) gabapentin 300 MG Oral Capsule Gabapentin 02/29/2020 12:00:00 AM EDT ORAL completed [facility] ([facility]) Trazodone Hydrochloride 50 MG Oral Tablet Trazodone HCL 02/29/2020 12:00:00 AM EDT ORAL completed [facility] ([facility]) Enalapril Maleate 10 MG Oral Tablet Enalapril Maleate 02/14 12:00:00 AM EDT ORAL active [facility] ([facility]) meloxicam 15 MG Oral Tablet Meloxicam 02/29/2020 12:00:00 AM EDT ORAL active [facility] ([facility]) [facility] Home Sleep Study 02/29/2020 12:00:00 AM EDT completed [facility] ([facility]) Ketorolac Tromethamine 10 MG Oral Tablet Ketorolac Trometham ine 10 MG 11/05/2019 12:00:00 AM EDT suspended Keto rolac Tromethamine 10 MG eCW1 ([facility]) Penicillin V Potassium 500 MG Oral Tablet Penicillin V Potas sium 500 MG 11/05/2019 12:00:00 AM EDT 1.0 {tablet} suspende d Penicillin V Potassium 500 MG eCW1 ([facility]) Ketorolac Tromethamine 10 MG Oral Tablet Ketorolac Trometham ine 10 MG 11/05/2019 12:00:00 AM EDT suspended Keto rolac Tromethamine 10 MG eCW1 ([facility]) Ketorolac Tromethamine 10 MG Oral Tablet Ketorolac Trometham ine 10 MG 11/05/2019 12:00:00 AM EDT active 1 table t with food or milk as needed eCW1 ([facility]) Penicillin V Potassium 500 MG Oral Tablet Penicillin V Potas sium 500 MG 11/05/2019 12:00:00 AM EDT 1.0 {tablet} suspende d Penicillin V Potassium 500 MG eCW1 ([facility]) Penicillin V Potassium 500 MG Oral Tablet Penicillin V Potas sium 500 MG 11/05/2019 12:00:00 AM EDT 1.0 {tablet} suspende d Penicillin V Potassium 500 MG eCW1 ([facility]) Penicillin V Potassium 500 MG Oral Tablet Penicillin V Potas sium 500 MG 11/05/2019 12:00:00 AM EDT active 1 tablet eCW1 ([facility]) Ketorolac Tromethamine 10 MG Oral Tablet Ketorolac Trometham ine 10 MG 11/05/2019 12:00:00 AM EDT suspended Keto rolac Tromethamine 10 MG eCW1 ([facility]) Penicillin V Potassium 500 MG Oral Tablet Penicillin V Potas sium 500 MG 11/05/2019 12:00:00 AM EDT 1.0 {tablet} suspende d Penicillin V Potassium 500 MG eCW1 ([facility]) Ketorolac Tromethamine 10 MG Oral Tablet Ketorolac Trometham ine 10 MG 11/05/2019 12:00:00 AM EDT suspended Keto rolac Tromethamine 10 MG eCW1 ([facility]) Ketorolac Tromethamine 10 MG Oral Tablet Ketorolac Trometham ine 10 MG 11/05/2019 12:00:00 AM EDT suspended Keto rolac Tromethamine 10 MG eCW1 ([facility]) Penicillin V Potassium 500 MG Oral Tablet Penicillin V Potas sium 500 MG 11/05/2019 12:00:00 AM EDT 1.0 {tablet} suspende d Penicillin V Potassium 500 MG eCW1 ([facility]) Penicillin V Potassium 500 MG Oral Tablet Penicillin V Potas sium 500 MG 11/05/2019 12:00:00 AM EDT 1.0 {tablet} suspende d Penicillin V Potassium 500 MG eCW1 ([facility]) Ketorolac Tromethamine 10 MG Oral Tablet Ketorolac Trometham ine 10 MG 11/05/2019 12:00:00 AM EDT suspended Keto rolac Tromethamine 10 MG eCW1 ([facility]) Penicillin V Potassium 500 MG Oral Tablet Penicillin V Potas sium 500 MG 11/05/2019 12:00:00 AM EDT 1.0 {tablet} suspende d Penicillin V Potassium 500 MG eCW1 ([facility]) Ketorolac Tromethamine 10 MG Oral Tablet Ketorolac Trometham ine 10 MG 11/05/2019 12:00:00 AM EDT suspended Keto rolac Tromethamine 10 MG eCW1 ([facility]) Medrol Medrol 10/24/2019 12:00:00 AM EDT completed [facility] ([facility]) Ibuprofen 800 MG Oral Tablet Ibuprofen 10/20/2019 12:00:00 AM EST ORAL completed [facility] ([facility]) tizanidine 4 MG Oral Capsule Tizanidine HCL 10/20/2019 12:00:00 AM EST ORAL completed [facility] ([facility]) Prednisone 20 MG Oral Tablet Prednisone 10/20/2019 12:00:00 AM EST completed [facility] ([facility]) Acetaminophen 325 MG / Oxycodone Hydroch loride 5 MG Oral Tablet oxycodone- acetaminophen 5 mg-325 mg tablet oxycodone-acetaminophen 5 mg-325 mg tablet completed Acetaminop hen 325 MG / Oxycodone Hydrochloride 5 MG Oral Tablet [facility] ([facility]) Amoxicillin 500 MG Oral Capsule amoxicillin 500 mg cap grisel amoxicillin 500 mg capsule completed Amoxicillin 50 0 MG Oral Capsule [facility] ([facility]) Acetaminophen 325 MG / Hydrocodone Shannon trate 5 MG Oral Tablet hydrocodone 5 mg- acetaminophen 325 mg tablet as needed ( very rarely uses) hydrocodone 5 mg- acetaminophen 325 mg tablet as needed ( very rarely uses) completed Acetaminophen 325 MG / Hydrocodone Shannon trate 5 MG Oral Tablet [facility] ([facility]) Amoxicillin 500 MG Oral Capsule amoxicillin 500 mg cap grisel amoxicillin 500 mg capsule completed Amoxicillin 50 0 MG Oral Capsule [facility] ([facility]) Acetaminophen 325 MG / Oxycodone Hydroch loride 5 MG Oral Tablet oxycodone- acetaminophen 5 mg-325 mg tablet oxycodone-acetaminophen 5 mg-325 mg tablet completed Acetaminop hen 325 MG / Oxycodone Hydrochloride 5 MG Oral Tablet [facility] ([facility]) Amoxicillin 500 MG Oral Capsule amoxicillin 500 mg cap grisel amoxicillin 500 mg capsule completed Amoxicillin 50 0 MG Oral Capsule [facility] ([facility]) Acetaminophen 325 MG / Oxycodone Hydroch loride 5 MG Oral Tablet oxycodone- acetaminophen 5 mg-325 mg tablet oxycodone-acetaminophen 5 mg-325 mg tablet completed Acetaminop hen 325 MG / Oxycodone Hydrochloride 5 MG Oral Tablet [facility] ([facility]) Acetaminophen 325 MG / Hydrocodone Shannon trate 5 MG Oral Tablet hydrocodone 5 mg- acetaminophen 325 mg tablet as needed ( very rarely uses) hydrocodone 5 mg- acetaminophen 325 mg tablet as needed ( very rarely uses) completed Acetaminophen 325 MG / Hydrocodone Shannon trate 5 MG Oral Tablet [facility] ([facility]) Acetaminophen 325 MG / Hydrocodone Shannon trate 5 MG Oral Tablet hydrocodone 5 mg- acetaminophen 325 mg tablet as needed ( very rarely uses) hydrocodone 5 mg- acetaminophen 325 mg tablet as needed ( very rarely uses) completed Acetaminophen 325 MG / Hydrocodone Shannon trate 5 MG Oral Tablet [facility] ([facility]) Insurance Providers Payer name Policy type / Coverage type Policy ID Covered alliance party ID Covered alliance party's relationship to wiley Policy Wiley Plan Information [employer] [place] CHOICE PLUS [id number] SP [id number] [facility] Gage Health Plans F [id number] SPOUSE [id number] [facility] O [id number] S [id number] [facility] INSURANCE [facility] [id number] SP [id number] EXCELLUS BCBS B [id number] P VYS [id number] [facility] Health Plans F [id number] SPOUSE [id number] [facility] Services F [id number] SPOUS E [id number] [facility] COMMERCIAL [id number] BC[place] 306/806 [id number] [place] [id number] [facility] Commercial Health Maintenance Organization (HMO) [id number] Self [id number] Blue Cross Blue Shield CL Commercial [id number] Family Dep endent [id number] BLUE CROSS BLUE SHIELD CL BS [id number] 01 [id number] BLUE CROSS BLUE SHIELD -O/P BS [id number] 01 [id number] Blue Cross Blue Shield CL Commercial [id number] Self [id number] ANSI-Commercial [id number] BCBS [place] PPO 302/307 [id number] [place] [id number] Blue Cross Blue Shield CL Commercial [id number] Self [id number] BCBS/[place]cellus Medigap Part B [id number] Family Dependent [id number] [place] Commercial [id number] Self [id number] [facility] Commercial 500 Self 500 ANSI-Commercial [id number] BCBS [place] Ppo U/W Commercial [id number] Family Depende nt [id number] Blue Cross Blue Shield CL Commercial [id number] Self [id number] Blue Cross Blue Shield CL Commercial [id number] Self [id number] BCBS [place] PPO 302/307 [id number] [place] [id number] BC[place] 306/806 [id number] [place] [id number] BLUE CROSS BLUE SHIELD-CLINIC [id number] 01 [id number] BLUE CROSS BLUE SHIELD-CLINIC [id number] 01 [id number] Blue Cross Blue Shield CL Commercial Self BCBS Federal Plan Medigap Part B Family Dependent [place] Commercial Self [facility] Commercial Self BS/W/Id#Prefix/W ALL #'S Commercial Family Depende nt SELF PAY UNAVAILABLE SP UNAVAILA BLE PGBA [facility] [id number] [place]2 [id number] PGBA [facility] [id number] [facility] PARTB [id number] WI2 [id number] ACTIVE DUTY [id number] SP [id number] Problems, Conditions, and Diagnoses Code Display Name Description Problem Type Effective Dates Data Source(s) G89.29 Chronic pain Other chronic pain Problem 09/04/2020 12:0 0:00 AM EST eCW1 ([facility]) M51.24 96691740 Protrusion of thoracic intervertebral dis c Problem 09/04/2020 12:00:00 AM EST eCW1 ([facility]) M51.26 [id number] Protrusion of lumbar intervertebral disc Problem 07/23/2020 12:00:00 AM EST eCW1 ([facility]) [id number] Generalized anxiety disorder Generalized anxiety disor alexei Problem 07/10/2020 12:00:00 AM EST [facility] ([facility]) [id number] Obstructive sleep apnea syndrome Obstructive sle ep apnea syndrome Problem 04/09/2020 12:00:00 AM EDT [facility] ([facility]) 29529948 Posttraumatic stress disorder Posttraumatic stress dis order Problem 02/29/2020 12:00:00 AM EDT [facility] ([facility]) [id number] Hyperlipidemia Hyperlipidemia Problem 02/29/2020 12:00: 00 AM EDT [facility] (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) 87353172 Essential hypertension Essential hypertension Problem 02/20/2020 12:00:00 AM EDT [facility] ([facility]) 07449606 Essential hypertension Essential hypertension Problem 10/25/2019 12:00:00 AM EDT [facility] ([facility] ) [id number] Pure hypercholesterolemia Pure hypercholesterolemia Pr oblem 10/25/2019 12:00:00 AM EDT [facility] ([facility] ) Surgeries/Procedures Procedure Description Date Indications Data Source(s) Pain Procedure Log 09/04/2020 12:00:00 AM EST eCW1 ([facility]) Medication: Oxycodone HCL Tab 10mg Orally 08/30/2020 1 2:00:00 AM EST eCW1 ([facility]) Unclassified drugs 08/30/2020 12:00:00 AM EST eCW1 ([facility]) RADEX SHOULDER COMPLETE MINIMUM 2 VIEWS 10/25/2019 12: 00:00 AM EDT [facility] ([facility] ) X-Ray Humerus Two Views 10/25/2019 12:00:00 AM EDT [facility] ([facility] ) Results ID Date Data Source [id number] 09/06/2020 05:17:31 PM EST [facility] PCName: Linda KentDOB: 1985Provider: Verena Bay: 09/06/2020 Reason For VisitMattsung Kent is an established patient here for follow up and Linda Kent is here for evaluation of MRI results. MRI's and Xrays were transferred from [facility]. Other DOI/DOO: 2007. Patient states the injury occurred from lifting. (EMT). 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 History of Present IllnessThoracic back painLower back painBilateral L5 radiculopathyLeft S1 radiculopathyMain problem is his radicular symptoms/painPhysical therapy May 2020 through August 2020-minimal benefit The patient complains of pain in the thoracic spine. The pain does not radiate to the chest wall. The patient denies signs of bladder dysfunction, bowel dysfunction, cancer/metastasis, infection and myelopathy . Patient's pain is achy . The pain severity is rated 3-4 out of 10. The pain is aggravated by activity . There is no numbness or weakness. The patient complains of pain in the lumbar spine . The pain radiates to both, buttock(s), thigh(s), leg(s) and L5 distribution . The pain radiates to the left, posterior, lateral, buttock(s), thigh(s), leg(s) and S1 distribution . The patient denies signs of bladder dysfunction, bowel dysfunction, cancer/metastasis, infection and myelopathy . The pain is achy . The pain severity is rated 5-9 out of 10. Pain is aggravated by periods of activity . There is numbness involving both and anterior leg(s). The numbness is intermittent. Results/Data OtherBelow diagnostic testing were independently reviewed as well as reviewed the official corresponding reports:MRI thoracic [facility] 08/22/2020: Small T8-9 and T9-10 protrusions. No significant stenosis to my review.MRI lumbar [facility] 08/22/2020: L3-4 moderate stenosis. L4-5 central protrusion with moderate to severe stenosis; large left L5-S1 protrusionReviewed in detail the results of the diagnostic testing. Reviewed the pertinent applicable clinical implications relating to the patient. Also provided a copy of the results for their personal records. Assessment 1. Herniated nucleus pulposus, L5-S1 (722.10) (M51.27) 2. Low back pain (724.2) (M54.5) 3. Spinal stenosis of lumbar region with neurogenic claudication (724.03) (M48.062) Condition: Chronicetiology: age-related spine/joint degenerationlevels: L3-4, L4-5 and L5-S1 PlanLong discussion reviewing the different treatment conservative options(observation, medication(s), physical therapy, nonfarm animal caretaker, acupuncture, pain clinic, home exercise program, another Orthopedic/spine opinion, additional testing, etc.)--- with pros and cons, potential risks/potential benefits of each option, as well as the chances of successes/failures of each option.Also discussed the option of surgery with pros and cons, risks and benefits as well as the risks of not having surgery. Also discussed the option of getting a second surgical opinion, if desired.At this time, they wish to proceed with:Lumbar surgery-lumbar decompression This document was dictated and electronically signed using [employer] software. A reasonable attempt at proof reading has been made to minimize errors. Please call with any questions. Signatures Electronically signed by : Mohan Bay M.D.; Sep 06 2020 5:17PM EST (Author) Name Value Range Interpretation Code Description Data Lorri rce(s) Supporting Document(s) ID Date Data Source [id number] 08/25/2020 12:00:00 PM EST [facility] Name Value Range Interpretation Code Description Data Lorri rce(s) Supporting Document(s) SARS coronavirus 2 RNA Not Detected [facility] This lab was ordered by [facility] and reported by [facility]. ID Date Data Source [id number] 06/08/2020 07:49:33 AM EDT [facility] PCName: Linda KentAYESHA: 1985Provider: Verena Bay: 06/07/2020 Reason For VisitMattsung Kent is here today for Lumbar Spine. Linda Kent is an established patient here for follow up. Pt. states he has had 3-4 sessions of PT so far - seeing some improvement. Other DOI/DOO: 2007. Patient states the injury occurred from lifting. The patient has not had a course of physical therapy for greater than 4 weeks. The patient has had a course of NSAIDs for greater than 4 weeks. NSAIDs usage has been effective. NSAID Name: Mobic. The patient's pain is managed by PCP - PANKAJ Nicole. (EMT). 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 History of Present IllnessHas started physical therapy-approximate 4 visits thus far, seeing some improvement Also states now seeing Dr. Maria for pain management Recent history of diverticulitis with hospitalization Chronic low back painEpisodic left L5 radiculopathyAlso episodic left S1 radiculopathy[address] seeing Dr. Sanders for pain managementInjections 2018 and 2019-temporary relief The patient complains of pain in the lumbar spine . The patient states that the timing of the pain is continuous . The pain radiates to the left, lateral, buttock(s), thigh(s), leg(s) and L5 distribution . The patient states that the timing of the pain is intermittent . The patient denies signs of bladder dysfunction, bowel dysfunction, cancer/metastasis, infection and myelopathy . The pain is achy . The pain severity is rated 2-8 out of 10. Pain is aggravated by periods of activity . There is numbness involving the left foot. The numbness is intermittent. --Heel and sole of the foot Results/Data [facility] 03/07/2020: L3-4 DDD with small right L3-4 protrusion; left L4-5 protrusion; left L5-S1 protrusionReviewed in detail the results of the diagnostic testing. Reviewed the pertinent applicable clinical implications relating to the patient. Also provided a copy of the results for their personal records. Assessment 1. Herniated nucleus pulposus, L5-S1 (722.10) (M51.27) 2. Low back pain (724.2) (M54.5) 3. HNP (herniated nucleus pulposus), lumbar (722.10) (M51.26) Condition: Chronicetiology: age-related spine/joint degenerationlevels: L3-4 and L4-5 and L5-S1 PlanPlan, Assessment and Recommendation(s) Return if conservative measures have not been successful and wishes to discuss surgical options. The various alternatives and treatment options were discussed with pros and cons, risks, and potential benefits of each option reviewed. He wishes to proceed with physical therapy and pain manage ment. I will continue with current therapy program. The patient will continue with pain management for pain management. This document was dictated and electronically signed using [employer] software. A reasonable attempt at proof reading has been made to minimize errors. Please call with any questions. Signatures Electronically signed by : Mohan Bay M.D.; Jun 08 2020 7:49AM EST (Author) Name Value Range Interpretation Code Description Data Lorri rce(s) Supporting Document(s) ID Date Data Source [id number] 05/26/2020 07:37:00 AM EDT [facility]) Name Value Range Interpretation Code Description Data Lorri rce(s) Supporting Document(s) Laboratory test finding (navigational concept) 46.0 % 3 8.0-51.0 Normal (applies to non-numeric results) [facility] ([facility]) Laboratory test finding (navigational concept) 131 mg/dL 7 0-105 Above high normal [facility] ([facility]) Laboratory test finding (navigational concept) 4.2 meq/L 3 .5-5.1 Normal (applies to non-numeric results) [facility] ([facility]) Laboratory test finding (navigational concept) 4.9 mg/dL 4 .5-5.3 Normal (applies to non-numeric results) [facility] ([facility]) Laboratory test finding (navigational concept) 137 meq/L 1 36-145 Normal (applies to non-numeric results) [facility] ([facility]) Laboratory test finding (navigational concept) 22.0 MM/L 2 3.0-27.0 Below low normal [facility] ([facility]) Laboratory test finding (navigational concept) 14 mg/dL 8 -26 Normal (applies to non-numeric results) [facility]) Laboratory test finding (navigational concept) 101 meq/L 9 8-109 Normal (applies to non-numeric results) [facility] ([facility]) Laboratory test finding (navigational concept) 0.9 mg/dL 0 .6-1.3 Normal (applies to non-numeric results) [facility] ([facility]) ID Date Data Source [id number] 04/06/2020 06:43:00 AM EDT [facility] ([facility]) Name Value Range Interpretation Code Description Data Lorri rce(s) Supporting Document(s) Calcidiol [Mass/volume] in Serum or Plasma 30.9 ng/mL 30.0- 100.0 Normal (applies to non-numeric results) [facility] ([facility]) ID Date Data Source [id number] 04/06/2020 06:43:00 AM EDT [facility] ([facility]) Name Value Range Interpretation Code Description Data Lorri rce(s) Supporting Document(s) Hemoglobin A1c 6.2 % Normal (applies to non-numeric r esults) [facility] ([facility]) <content>REFERENCE RANGES:</content><br/ ><content></content>
<content><=5.6% NORMAL</content>
<content>5.7-6.4% SUGGESTS IMPAIRED GLUCOSE METABOLISM/PREDIABETIC</content>
<content>>= 6.5% ABNORMAL</content>
<content></content> Estimated Average Glucose 131 mg/dL 60-110 Above high normal [facility] ID Date Data Source [id number] 04/06/2020 06:43:00 AM EDT [facility] ([facility]) Name Value Range Interpretation Code Description Data Lorri rce(s) Supporting Document(s) Thyroid Stimulating Hormone 1.190 uIU/ML 0.358-3.740 Norm al (applies to non- numeric results) [facility]) Free T4 1.06 ng/dL 0.76-1.46 Normal (applies to non-numeric resul ts) [facility] ([facility]) ID Date Data Source [id number] 04/06/2020 06:43:00 AM EDT [facility] ([facility]) Name Value Range Interpretation Code Description Data Lorri rce(s) Supporting Document(s) Triglycerides Level 216 mg/dL Above high normal [facility] ([facility]) HDL Cholesterol 48 mg/dL Normal (applies to non-numeric results) [facility] ([facility]) LDL Cholesterol 212 mg/dL Above high normal [facility] ([facility]) Cholesterol Level 303 mg/dL Above high normal [facility] Cholesterol Risk Ratio 6.312 Above high normal [facility] ([facility]) Non-HDL-C 255 mg/dL Normal (applies to non-numeric resul ts) [facility] ([facility]) ID Date Data Source [id number] 04/06/2020 06:43:00 AM EDT [facility] ([facility]) Name Value Range Interpretation Code Description Data Lorri rce(s) Supporting Document(s) Creatinine For GFR 0.91 mg/dL 0.70-1.30 Normal (applies to non -numeric results) [facility] ([facility]) Glucose, Fasting 95 mg/dL 70-100 Normal (applies to non-numeric results) [facility] ([facility]) Blood Urea Nitrogen 14 mg/dL 7-18 Normal (applies to non-nume usama results) [facility] ([facility]) Sodium Level 138 meq/L 136-145 Normal (applies to non-numeric res ults) [facility] ([facility]) Glomerular Filtration Rate Laboratory test result Normal (applies to non- numeric results) [facility] ([facility]) <content>Units are mL/min/1.73 m2</content>
<content></content>
<content>Chronic Kidney Disease Staging per NKF:</content>
<content></content>
<content>Stage I & II GFR >=60 Normal to Mildly Decreased</content>
<content>Stage III GFR 30- 59 Moderately Decreased</content>
<content>Stage IV GFR 15-29 Severely Decreased</content>
<content>Stage V GFR <15 Very Little GFR Left</content>
<content>ESRD GFR <15 on DIRECTOR OF ANNUAL GIVING</content>
<content></content> Potassium Serum 4.3 meq/L 3.5-5.1 Normal (applies to non-numeric results) [facility] Chloride Level 105 meq/L 98-107 Normal (applies to non-numeric r esults) [facility] ([facility]) Calcium Level 9.3 mg/dL 8.5-10.1 Normal (applies to non-numeric re sults) [facility] ([facility]) Carbon Dioxide Level 29 meq/L 21-32 Normal (applies to non-num keon results) [facility] ([facility]) Anion Gap 4 meq/L 8-16 Below low normal [facility] ( [facility]) Ast/Sgot 19 U/L 7-37 Normal (applies to non-numeric resul ts) [facility] ([facility]) Alkaline Phosphatase 93 U/L 45-117 Normal (applies to non-num keon results) [facility] ([facility]) Alt/SGPT 40 U/L 12-78 Normal (applies to non-numeric resul ts) [facility] ([facility]) Albumin 4.0 GM/DL 3.2-5.2 Normal (applies to non-numeric resul ts) [facility] ([facility]) Bilirubin,Total 0.4 mg/dL 0.2-1.0 Normal (applies to non-numeric results) [facility] ([facility]) Total Protein 7.1 GM/DL 6.4-8.2 Normal (applies to non-numeric re sults) [facility] ([facility]) Albumin/Globulin Ratio 1.3 Normal (applies to non-n umeric results) [facility] ([facility]) ID Date Data Source [id number] 04/06/2020 06:43:00 AM EDT [facility] ([facility]) Name Value Range Interpretation Code Description Data Lorri rce(s) Supporting Document(s) White Blood Count 10.0 10 4.0-10.0 Normal (applies to non-numeri c results) [facility] ([facility]) Red Blood Count 5.25 10 4.30-6.10 Normal (applies to non-numeric results) [facility] ([facility]) Hemoglobin 15.5 g/dL 13.5-17.5 Normal (applies to non-numeric resul ts) [facility] ([facility]) Hematocrit 45.7 % 42.0-52.0 Normal (applies to non-numeric resul ts) [facility] ([facility]) Mean Corpuscular Hemoglobin 29.5 pg 27.0-33.0 Norm al (applies to non-numeric results) [facility] ([facility]) Mean Corpuscular HGB Conc 33.9 g/dL 32.0-36.5 Normal (applies to non-numeric results) [facility] ([facility]) Mean Corpuscular Volume 87.0 fl 80.0-96.0 Normal ( applies to non-numeric results) [facility] ([facility]) Platelet Count, Automated 321 10 150-450 Normal (applies to non-numeric results) [facility] ([facility]) Neutrophils % 58.7 % 36.0-66.0 Normal (applies to non-numeric re sults) [facility] ([facility]) Red Cell Distribution Width 12.2 % 11.5-14.5 Norm al (applies to non-numeric results) [facility] ([facility]) Eos % 0.8 % 0.0-3.0 Normal (applies to non-numeric resul ts) [facility] ([facility]) Lymph % 31.4 % 24.0-44.0 Normal (applies to non-numeric resul ts) [facility] ([facility]) [place] % 8.1 % 0.0-5.0 Above high normal [facility] ([facility]) Baso % 0.8 % 0.0-1.0 Normal (applies to non-numeric resul ts) [facility] ([facility]) Immature Granulocyte % 0.2 % 0-3.0 Normal (applies to non-n umeric results) [facility] ([facility]) Nucleated Red Blood Cell % 0.0 % 0-0 Normal (applies to n on-numeric results) [facility] ([facility]) Neutrophils # 5.9 10 1.5-8.5 Normal (applies to non-numeric re sults) [facility] ([facility]) Eos # 0.1 10 0.0-0.5 Normal (applies to non-numeric resul ts) [facility] ([facility]) [place] # 0.8 10 0.0-0.8 Normal (applies to non-numeric resul ts) [facility] ([facility]) Lymph # 3.1 10 1.5-5.0 Normal (applies to non-numeric resul ts) [facility] ([facility]) Baso # 0.1 10 0.0-0.2 Normal (applies to non-numeric resul ts) [facility] ([facility]) ID Date Data Source [id number] 03/29/2020 11:54:51 AM EDT [facility] PCName: Linda KellerB: 1985Provider: Mohan BayDOS: 03/29/2020 History of Present IllnessChronic low back painEpisodic left L5 radiculopathyAlso episodic left S1 radiculopathySeeing Dr. Sanders for pain managementInjections 2018 and 2019-temporary relief The patient complains of pain in the lumbar spine . The patient states that the timing of the pain is continuous . The pain radiates to the left, lateral, buttock(s), thigh(s), leg(s) and L5 distribution . The patient states that the timing of the pain is intermittent . The patient denies signs of bladder dysfunction, bowel dysfunction, cancer/metastasis, infection and myelopathy . The pain is achy . The pain severity is rated 2-8 out of 10. Pain is aggravated by periods of activity . There is numbness involving the left foot. The numbness is intermittent. --Heel and sole of the foot Results/Data [facility] 03/07/2020: L3-4 DDD with small right L3-4 protrusion; left L4-5 protrusion; left L5-S1 protrusionReviewed in detail the results of the diagnostic testing. Reviewed the pertinent applicable clinical implications relating to the patient. Also provided a copy of the results for their personal records. Assessment 1. Low back pain (724.2) (M54.5) 2. Herniated nucleus pulposus, L5-S1 (722.10) (M51.27) 3. HNP (herniated nucleus pulposus), lumbar (722.10) (M51.26) Condition: Chronicetiology: age-related spine/joint degenerationlevels: L3-4 and L4-5 and L5-S1 Plan Physical Therapy (SOS) - Spinal Physical Therapy Evaluation and Treatment Status:Complete Done: 13Aug2 020 Ordered;For: Low back pain, Lumbar hernia; Ordered By: Mohan Bay Performed: Due: [id number]; Last Updated By: Nicole Rider; 03/29/2020 11:13:16 AMDuration: : Four WeeksPT Frequency : Two or three times a weekSOS ROM and Strength : Range of motion and strengthening exercises.Heat Ultra and Modalities : Heat Ultrasound and modalities as indicatedEvaluate and Treat: : Please evaluate and treat as indicated. Plan, Assessment and Recommendation(s) Schedule appointment: in 4-6 weeks. The various alternatives and treatment options were discussed with pros and cons, risks, and potential benefits of each option reviewed. He wishes to proceed with physical therapy and pain management. I will send the patient for formal physical therapy. The patient will continue with pain management for pain management. This document was dictated and electronically signed using [employer] software. A reasonable attempt at proof reading has been made to minimize errors. Please call with any questions. Signatures Electronically signed by : Mohan Bay M.D.; Mar 29 2020 11:54AM EST (Author) Name Value Range Interpretation Code Description Data Lorri rce(s) Supporting Document(s) ID Date Data Source [id number] 01/20/2020 01:41:00 PM EDT [facility] ([facility]) Name Value Range Interpretation Code Description Data Lorri rce(s) Supporting Document(s) Thyrotropin [Units/volume] in Serum or Plasma 2.050 uIU/ML 0.358-3.74 0 [facility] ([facility]) See Progress note Erythrocyte sedimentation rate by 2H Westergren method 4 mm/hr 0-1 5 [facility] ([facility]) See Progress note Thyroxine (T4) free [Mass/volume] in Serum or Plasma 1.19 ng/dL 0.76- 1.46 [facility] ([facility]) See Progress note ID Date Data Source [id number] 01/20/2020 01:41:00 PM EDT [facility] ([facility]) Name Value Range Interpretation Code Description Data [facility] rce(s) Supporting Document(s) Glucose, Fasting 128 mg/dL 70-100 [facility] ([facility]) See Progress note Blood Urea Nitrogen 11 mg/dL 7-18 [facility] ([facility]) See Progress note Creatinine For GFR 0.93 mg/dL 0.70-1.30 [facility] ([facility]) See Progress note Glomerular Filtration Rate Laboratory test result [facility] ([facility]) See Progress note Sodium Level 139 meq/L 136-145 [facility] ([facility]) See Progress note Potassium Serum 4.4 meq/L 3.5-5.1 [facility] See Progress note Chloride Level 105 meq/L 98-107 [facility] ([facility], [facility]) See Progress note Carbon Dioxide Level 23 meq/L 21-32 [facility] See Progress note Calcium Level 9.1 mg/dL 8.5-10.1 [facility] See Progress note Anion Gap 11 meq/L 8-16 [facility] ([facility]) See Progress note Ast/Sgot 29 U/L 7-37 [facility] ([facility]) See Progress note Alt/SGPT 52 U/L 12-78 [facility] ([facility]) See Progress note Alkaline Phosphatase 98 U/L 45-117 [facility] ( [facility] See Progress note Bilirubin,Total 0.4 mg/dL 0.2-1.0 [facility] ([facility] See Progress note Albumin 4.3 GM/DL 3.2-5.2 [facility] ([facility], [facility]) See Progress note Total Protein 7.1 GM/DL 6.4-8.2 [facility] ([facility], [facility]) See Progress note Albumin/Globulin Ratio 1.5 [facility] ([facility], [facility]) See Progress note ID Date Data Source [id number] 01/20/2020 01:41:00 PM EDT [facility] ([facility], [facility]) Name Value Range Interpretation Code Description Data Lorri rce(s) Supporting Document(s) Hemoglobin 15.0 g/dL 13.5-17.5 [facility] ([facility]) See Progress note White Blood Count 7.4 10 4.0-10.0 [facility] See Progress note Red Blood Count 5.05 10 4.30-6.10 [facility] ([facility] See Progress note Mean Corpuscular Volume 88.5 fl 80.0-96.0 M EDENT ([facility], [facility]) See Progress note Hematocrit 44.7 % 42.0-52.0 [facility] ([facility]) See Progress note Mean Corpuscular Hemoglobin 29.7 pg 27.0-33.0 [facility] ([facility], [facility]) See Progress note Mean Corpuscular HGB Conc 33.6 g/dL 32.0-36.5 [facility] ([facility], [facility]) See Progress note Red Cell Distribution Width 12.6 % 11.5-14.5 [facility] ([facility], [facility]) See Progress note Neutrophils % 61.8 % 36.0-66.0 [facility] ([facility], [facility]) See Progress note Platelet Count, Automated 328 10 150-450 [facility] ([facility], [facility]) See Progress note Lymph % 29.8 % 24.0-44.0 [facility] ([facility], [facility]) See Progress note [place] % 6.4 % 0.0-5.0 [facility] ([facility], [facility]) See Progress note Eos % 0.7 % 0.0-3.0 [facility] ([facility], [facility]) See Progress note Baso % 0.8 % 0.0-1.0 [facility] ([facility], [facility]) See Progress note Immature Granulocyte % 0.5 % 0-3.0 [facility] ([facility], [facility]) See Progress note Nucleated Red Blood Cell % 0.0 % 0-0 [facility] ([facility], [facility]) See Progress note Neutrophils # 4.6 10 1.5-8.5 [facility] See Progress note Lymph # 2.2 10 1.5-5.0 [facility] ([facility], [facility]) See Progress note [place] # 0.5 10 0.0-0.8 [facility] ([facility], [facility]) See Progress note Eos # 0.1 10 0.0-0.5 [facility] ([facility], [facility]) See Progress note Baso # 0.1 10 0.0-0.2 [facility] ([facility], [facility]) See Progress note Procedure Social History Code Duration Value Status Description Data Source(s ) Smoking 09/04/2020 12:00:00 AM EST UNK completed eCW1 ([facility]) Smoking 09/04/2020 12:00:00 AM EST UNK completed eCW1 ([facility]) Smoking 08/30/2020 12:00:00 AM EST UNK completed eCW1 ([facility]) Smoking 08/30/2020 12:00:00 AM EST UNK completed eCW1 ([facility]) Smoking 07/23/2020 12:00:00 AM EST UNK completed eCW1 ([facility]) Smoking 07/23/2020 12:00:00 AM EST UNK completed eCW1 ([facility]) Smoking 07/23/2020 12:00:00 AM EST UNK completed eCW1 ([facility]) Smoking 01/20/2020 12:00:00 AM EDT Patient has never smoked co mpleted Patient has never smoked [facility] ([facility]) Vital Signs ID Date Data Source UNK Name Value Range Interpretation Code Description Data Source(s) Diastolic blood pressure 80 mm[Hg] 80 mm[Hg] eCW1 ([facility]) Systolic blood pressure 145 mm[Hg] 145 mm[Hg] e CW1 ([facility]) Body temperature 97.6 [degF] 97.6 [degF] eCW1 ( [facility]) Respiratory rate 16 /min 16 /min eCW1 ([facility]) Heart rate 89 /min 89 /min eCW1 ([facility]) Body mass index (BMI) [Ratio] 35.42 kg/m2 35.42 kg/m2 eCW1 ([facility]) Body height 76 [in_i] 76 [in_i] W1 ([facility]) Body weight 291 [lb_av] 291 [lb_av] eCW1 ([facility]) Diastolic blood pressure 95 mm[Hg] 95 mm[Hg] eCW1 ([facility]) Systolic blood pressure 141 mm[Hg] 141 mm[Hg] e CW1 ([facility]) Body temperature 97.5 [degF] 97.5 [degF] eCW1 ( [facility]) Respiratory rate 16 /min 16 /min eCW1 ([facility]) Heart rate 103 /min 103 /min eCW1 ([facility]) Body mass index (BMI) [Ratio] 35.27 kg/m2 35.27 kg/m2 eCW1 ([facility]) Body height 76 [in_i] 76 [in_i] eCW1 ([facility]) Body weight 289.8 [lb_av] 289.8 [lb_av] eCW1 ([facility]) [place] body weight 190 [lb_av] 190 [lb_av] [facility] ([facility]) Oxygen saturation in Arterial blood by Pulse oximetry 98 % 98 % [facility] ([facility]) Body temperature 98.3 [degF] 98.3 [degF] [facility] ([facility]) Respiratory rate 18 /min 18 /min [facility] ( [facility]) Heart rate 78 /min 78 /min [facility] ([facility]) Body mass index (BMI) [Ratio] 32.3 kg/m2 32.3 k g/m2 [facility] ([facility]) Body weight 256.06 [lb_av] 256.06 [lb_av] [facility] ([facility]) Body height 74.6 [in_i] 74.6 [in_i] [facility] ([facility]) 6'2.60" Diastolic blood pressure 84 mm[Hg] 84 mm[Hg] [facility] ([facility]) Systolic blood pressure 132 mm[Hg] 132 mm[Hg] M EDENT ([facility]) Diastolic blood pressure 75 mm[Hg] 75 mm[Hg] eCW1 ([facility]) Systolic blood pressure 143 mm[Hg] 143 mm[Hg] e CW1 ([facility]) Body temperature 97.1 [degF] 97.1 [degF] eCW1 ( [facility]) Respiratory rate 18 /min 18 /min eCW1 ([facility]) Heart rate 78 /min 78 /min eCW1 ([facility]) Body mass index (BMI) [Ratio] 35.05 kg/m2 35.05 kg/m2 eCW1 ([facility]) Body height 76 [in_i] 76 [in_i] eCW1 ([facility]) Body weight 288 [lb_av] 288 [lb_av] eCW1 ([facility]) [place] body weight 190 [lb_av] 190 [lb_av] [facility] ([facility]) Oxygen saturation in Arterial blood by Pulse oximetry 98 % 98 % [facility] ([facility]) Body temperature 97.8 [degF] 97.8 [degF] [facility] ([facility]) Respiratory rate 18 /min 18 /min [facility] ( [facility]) Heart rate 106 /min 106 /min [facility] ([facility]) Body mass index (BMI) [Ratio] 35.9 kg/m2 35.9 k g/m2 [facility] ([facility]) Body weight 284.25 [lb_av] 284.25 [lb_av] [facility] T ([facility]) Body height 74.6 [in_i] 74.6 [in_i] [facility] ([facility]) 6'2.60" Diastolic blood pressure 88 mm[Hg] 88 mm[Hg] [facility] ([facility]) Systolic blood pressure 124 mm[Hg] 124 mm[Hg] M EDENT ([facility]) [place] body weight 190 [lb_av] 190 [lb_av] [facility] ([facility]) Oxygen saturation in Arterial blood by Pulse oximetry 98 % 98 % [facility] ([facility]) Body temperature 98.0 [degF] 98.0 [degF] [facility] ([facility]) Respiratory rate 18 /min 18 /min [facility] ( [facility]) Heart rate 86 /min 86 /min [facility] ([facility]) Body mass index (BMI) [Ratio] 36.0 kg/m2 36.0 k g/m2 [facility] ([facility]) Body weight 285.38 [lb_av] 285.38 [lb_av] [facility] ([facility]) Body height 74.6 [in_i] 74.6 [in_i] [facility] ([facility]) 6'2.60" Diastolic blood pressure 78 mm[Hg] 78 mm[Hg] [facility] ([facility]) Systolic blood pressure 128 mm[Hg] 128 mm[Hg] M [facility]ENT ([facility]) [place] body weight 190 [lb_av] 190 [lb_av] [facility] ([facility]) Oxygen saturation in Arterial blood by Pulse oximetry 96 % 96 % [facility] ([facility]) Body temperature 97.9 [degF] 97.9 [degF] [facility] ([facility]) Heart rate 105 /min 105 /min [facility] ([facility]) Body mass index (BMI) [Ratio] 36.4 kg/m2 36.4 k g/m2 [facility] ([facility]) Body weight 288.38 [lb_av] 288.38 [lb_av] [facility] ([facility]) Body height 74.6 [in_i] 74.6 [in_i] [facility] ([facility]) 6'2.60" Diastolic blood pressure 78 mm[Hg] 78 mm[Hg] [facility] ([facility]) Systolic blood pressure 126 mm[Hg] 126 mm[Hg] M EDENT ([facility]) Oxygen saturation in Arterial blood by Pulse oximetry 96 % 96 % [facility] ([facility]) Body temperature 98.9 [degF] 98.9 [degF] [facility] ([facility]) Respiratory rate 20 /min 20 /min [facility] ( [facility]) Heart rate 113 /min 113 /min [facility] ([facility]) Body mass index (BMI) [Ratio] 36.4 kg/m2 36.4 k g/m2 [facility] ([facility]) Body weight 288.00 [lb_av] 288.00 [lb_av] [facility] T ([facility]) Body height 74.6 [in_i] 74.6 [in_i] [facility] ([facility]) 6'2.60" Diastolic blood pressure 90 mm[Hg] 90 mm[Hg] [facility] ([facility]) Systolic blood pressure 138 mm[Hg] 138 mm[Hg] M [facility]ENT ([facility]) Oxygen saturation in Arterial blood by Pulse oximetry 98 % 98 % [facility] ([facility]) Body temperature 97.9 [degF] 97.9 [degF] [facility] ([facility]) Respiratory rate 18 /min 18 /min [facility] ( [facility]) Heart rate 89 /min 89 /min [facility] ([facility]) Body mass index (BMI) [Ratio] 35.7 kg/m2 35.7 k g/m2 [facility] ([facility]) Body weight 283.00 [lb_av] 283.00 [lb_av] [facility] T ([facility]) Body height 74.6 [in_i] 74.6 [in_i] [facility] ([facility]) 6'2.60" Diastolic blood pressure 80 mm[Hg] 80 mm[Hg] [facility] ([facility]) Systolic blood pressure 138 mm[Hg] 138 mm[Hg] M [facility]ENT ([facility]) Body mass index (BMI) [Ratio] 32.9 kg/m2 32.9 k g/m2 [facility] ([facility]) Body height 76 [in_i] 76 [in_i] [facility] ([facility] 6'4" Body weight 270.00 [lb_av] 270.00 [lb_av] [facility] T ([facility], [facility]) Body temperature 98.2 [degF] 98.2 [degF] [facility] ([facility], [facility]) Oxygen saturation in Arterial blood by Pulse oximetry 98 % 98 % [facility] ([facility], [facility]) Respiratory rate 17 /min 17 /min [facility] ( [facility]) Heart rate 98 /min 98 /min [facility] ([facility], [facility]) Diastolic blood pressure 90 mm[Hg] 90 mm[Hg] [facility] ([facility], [facility]) Systolic blood pressure 148 mm[Hg] 148 mm[Hg] M EDENT ([facility] [facility], [facility]) Diastolic blood pressure 100 mm[Hg] 100 mm[Hg] eCW1 ([facility]) Systolic blood pressure 158 mm[Hg] 158 mm[Hg] e CW1 ([facility]) Body temperature 97.8 [degF] 97.8 [degF] eCW1 ( [facility]) Respiratory rate 18 /min 18 /min eCW1 ([facility]) Heart rate 77 /min 77 /min eCW1 ([facility]) Body mass index (BMI) [Ratio] 35.30 kg/m2 35.30 kg/m2 eCW1 ([facility]) Body height 76 [in_us] 76 [in_us] eCW1 ([facility]) Body weight Measured 290 [lb_av] 290 [lb_av] eC W1 ([facility]) Body mass index (BMI) [Ratio] 36.9 kg/m2 36.9 k g/m2 [facility] ([facility] Body weight 287.25 [lb_av] 287.25 [lb_av] MED[facility] T ([facility] ) Body height 74 [in_i] 74 [in_i] [facility] ([facility] ) 6'2" Body temperature 97.2 [degF] 97.2 [degF] [facility] ([facility] ) Body mass index (BMI) [Ratio] 33.5 kg/m2 33.5 k g/m2 [facility] ([facility], [facility]) Body height 76 [in_i] 76 [in_i] [facility] ([facility], [facility]) 6'4" Body weight 275.00 [lb_av] 275.00 [lb_av] MED[facility] T ([facility], [facility]) Body temperature 98.3 [degF] 98.3 [degF] [facility] ([facility], [facility]) Oxygen saturation in Arterial blood by Pulse oximetry 97 % 97 % MEDENT ([facility], [facility]) Respiratory rate 16 /min 16 /min MEDENT ( [facility], [facility]) Heart rate 90 /min 90 /min MEDENT ([facility], [facility]) Diastolic blood pressure 101 mm[Hg] 101 mm[Hg] MEDENT ([facility], [facility]) Systolic blood pressure 147 mm[Hg] 147 mm[Hg] M EDENT ([facility], [facility]) Body weight 280 [lb_av] 280 [lb_av] NAVJOT ([facility]) Systolic blood pressure 155 mm[Hg] 155 mm[Hg] A THENA ([facility]) Body mass index (BMI) [Ratio] 34.1 kg/m2 34.1 k g/m2 NAVJOT ([facility]) Body height 76 [in_i] 76 [in_i] NAVJOT ([facility]) Diastolic blood pressure 94 mm[Hg] 94 mm[Hg] NAVJOT ([facility]) Body weight 280 [lb_av] 280 [lb_av] NAVJOT ([facility]) Systolic blood pressure 155 mm[Hg] 155 mm[Hg] A THENA ([facility]) Body mass index (BMI) [Ratio] 34.1 kg/m2 34.1 k g/m2 NAVJOT ([facility]) Body height 76 [in_i] 76 [in_i] NAVJOT ([facility]) Diastolic blood pressure 94 mm[Hg] 94 mm[Hg] NAVJOT ([facility]) Body weight 280 [lb_av] 280 [lb_av] NAVJOT ([facility]) Systolic blood pressure 155 mm[Hg] 155 mm[Hg] A THENA ([facility]) Body mass index (BMI) [Ratio] 34.1 kg/m2 34.1 k g/m2 NAVJOT ([facility]) Body height 76 [in_i] 76 [in_i] NAVJOT ([facility]) Diastolic blood pressure 94 mm[Hg] 94 mm[Hg] NAVJOT ([facility]) Body weight 280 [lb_av] 280 [lb_av] NAVJOT ([facility]) Systolic blood pressure 155 mm[Hg] 155 mm[Hg] A THENA ([facility]) Body mass index (BMI) [Ratio] 34.1 kg/m2 34.1 k g/m2 NAVJOT ([facility]) Body height 76 [in_i] 76 [in_i] NAVJOT ([facility]) Diastolic blood pressure 94 mm[Hg] 94 mm[Hg] NAVJOT ([facility]) Patient Treatment Plan of Care Planned Activity Planned Date Details Description Data Source (s) Acetaminophen 325 MG / Oxycodone Hydrochloride 5 MG Or al Tablet [Percocet] 09/04/2020 12:00:00 AM EST eCW1 ([facility]) Acetaminophen 325 MG / Oxycodone Hydrochloride 5 MG Or al Tablet [Percocet] 09/04/2020 12:00:00 AM EST eCW1 ([facility]) Acetaminophen 325 MG / Oxycodone Hydrochloride 5 MG Or al Tablet [Percocet] 08/22/2020 12:00:00 AM EST eCW1 ([facility]) Acetaminophen 325 MG / Oxycodone Hydrochloride 5 MG Or al Tablet [Percocet] 08/22/2020 12:00:00 AM EST eCW1 ([facility]) Acetaminophen 325 MG / Oxycodone Hydrochloride 5 MG Or al Tablet [Percocet] 07/23/2020 12:00:00 AM EST eCW1 ([facility]) Penicillin V Potassium 500 MG Oral Tablet 11/05/2019 12:00:00 AM ED T eCW1 ([facility]) Ketorolac Tromethamine 10 MG Oral Tablet 11/05/2019 12:00:00 AM EDT eCW1 ([facility]) Acetaminophen 325 MG / Oxycodone Hydrochloride 5 MG Oral Tablet NAVJOT ([facility]) Acetaminophen 325 MG / Hydrocodone Bitartrate 5 MG Oral Tablet NAVJOT ([facility]) Amoxicillin 500 MG Oral Capsule NAVJOT ([facility]) Acetaminophen 325 MG / Oxycodone Hydrochloride 5 MG Oral Tablet NAVJOT ([facility]) Acetaminophen 325 MG / Hydrocodone Bitartrate 5 MG Oral Tablet NAVJOT ([facility]) Amoxicillin 500 MG Oral Capsule NAVJOT ([facility]) Acetaminophen 325 MG / Oxycodone Hydrochloride 5 MG Oral Tablet NAVJOT ([facility]) Acetaminophen 325 MG / Hydrocodone Bitartrate 5 MG Oral Tablet NAVJOT ([facility]) Amoxicillin 500 MG Oral Capsule NAVJOT ([facility])
--- OUTSIDE RECORDS SUMMARY | 2020-09-15 19:48 | CCD | Continuity of Care Document ---
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 AUTM Mohan Tovar MD AUTM [phone] [place] AUTM [phone] Brooks Rahman MD AUTM [phone] Problems Active Problems Provider Date Essential hypertension [...] night 90caps F41.1 Pina Thompson D.O. 07/10 Hewlett 5-325mg Tablets take 1 tablets every six hours as needed for pain 90tabs K57.32 Johnson DyerOPablo 06/01/2020 Zofran 4mg Tablets 1-2 tablets by mouth every 6 hours as needed for nausea 45tabs K57.32 Iveth Saleh.OPablo 06/01/2020 Tramadol HCL 100mg Tablets one tablet by mouth every 8 hours as needed for pain 90tabs Johnson WaltersOPablo 05/08/2020 Vitamin D (Ergocalciferol) 1.25mg (59087 Ut) Capsules 1 capsule weekly for 12 weeks 12caps Johnson PerezOPablo 04/15/2020 Crestor 10mg Tablets 1 by mouth every day 90tabs Johnson ElOPablo 04/15/2020 Trazodone HCL 100mg Tablets take 1 tablet by mouth every night at bedtime 90tabs F43.12 Johnson SappOPablo 04/09/2020 Apap With [facility] Supplies/Equipment Duration: 99 Pr ognosis: good. Pressure [...] mouth every 8 hours 270caps M51.17 Pina Thompson D.O. 02/28 - 03/08/2020 Trazodone HCL 50mg Tablets take 1-2 tablet by mouth every night at bedtime 180tabs F43.12 Pina rendon D.O. 02/29/2020 - 04/09/2020 [facility] Home Sleep Study Increased daytime fatigue [...] F O2 % BldC Oximetry 98 % [place] Body Weight 190 lb 06/01/2020 9:57am BP Systolic 128 mmHg BP Diastolic 78 mmHg Height 74.6 inches 6'2.60" Weight 285.38 lb BMI (Body Mass Index) 36.0 kg/m2 Heart Rate 86 /min Respiratory Rate 18 /min Body Temperature 98.0 F O2 % BldC Oximetry 98 % [place] Body Weight 190 lb Results Test Acquired Date Facility Test Result H/L Range Note Istat Chem8+ Panel 05/26/2020 [facility] Outpatient Testi ng (Registration) [address] [place] [address] [phone] iSTAT HCT 46.0 % Normal 38.0-51.0 iSTAT Glucose 131 mg/dL High 70-105 iSTAT Sodium 137 mEq/L Normal 136-145 iSTAT Potassium 4.2 mEq/L Normal 3.5-5.1 iSTAT CA++ 4.9 mg/dL Normal 4.5-5.3 iSTAT Chloride 101 mEq/L Normal 98-109 iSTAT Co2 22.0 MM/L Low 23.0-27.0 iSTAT BUN 14 mg/dL Normal 8-26 iSTAT Creatinine 0.9 mg/dL Normal 0.6-1.3 CBC With Differential 04/06/[address] [address] [phone] White Blood Count 10.0 10 Normal 4.0-10.0 [...] 36.0-66.0 Lymph % 31.4 % Normal 24.0-44.0 [place] % 8.1 % High 0.0-5.0 Eos % 0.8 % Normal 0.0-3.0 Baso % 0.8 % Normal 0.0-1.0 Immature Granulocyte % 0.2 % Normal 0-3.0 Nucleated Red Blood Cell % 0.0 % Normal 0-0 Neutrophils # 5.9 10 Normal 1.5-8.5 Lymph # 3.1 10 Normal 1.5-5.0 [place] # 0.8 10 Normal 0.0-0.8 Eos # 0.1 10 Normal 0.0-0.5 Baso # 0.1 10 Normal 0.0-0.2 Comprehensive Metabolic Profil 04/06/[address] [address] [phone] Glucose, Fasting 95 mg/dL Normal 70-100 Blood [...] Albumin/Globulin Ratio 1.3 Normal Lipid Panel 04/06/[address] [address] [phone] Triglycerides Level 216 mg/dL High <150 Cholesterol Level 303 mg/dL High <200 HDL Cholesterol 48 mg/dL Normal >40 LDL Cholesterol 212 mg/dL High <100 Non-HDL-C 255 mg/dL Normal Cholesterol Risk Ratio 6.312 High <5 FT4&TSH Panel 04/06/2020 [facility] nter [address] [place] [address] [phone] Thyroid Stimulating Hormone 1.190 uIU/ML Normal 0. 358-3.740 Free T4 1.06 ng/dL Normal 0.76-1.46 Hemoglobin A1c 04/06/2020 [facility] [address] [address] [phone] Hemoglobin A1c 6.2 % Normal 2 Estimated Average Glucose 131 mg/dL High 60-110 Laboratory test finding 04/06/[address] [place] [address] [phone] Total 25(Oh) Vitamin D 30.9 NG/ML Normal 30.0-100. 0 1 Units are mL/min/1.73 m2 Chronic Kidney Disease Staging per NKF: Stage I & II GFR >=60 Normal to Mildly Decreased Stage III GFR 30-59 Moderately Decreased Stage IV GFR 15-29 Severely Decreased Stage V GFR <15 Very Little GFR Left ESRD GFR <15 on DENIAL RESOLUTION SPECIALIST 2 REFERENCE RANGES: <=5.6% NORMAL 5.7-6.4% SUGGESTS IMPAIRED GLUCOSE META BOLISM/PREDIABETIC >= 6.5% ABNORMAL Procedures Description No Information Available Medical Devices Description No Information Available Encounters Type Date Location Provider Dx Diagnosis Office Visit 06/01/2020 9:40a Family [facility] PANKAJ Johnson K57.32 Dvtrcli of 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 perfor ation or abscess w/o bleeding Office Visit 04/09/2020 2:30p [facility] PANKAJ Johnson M51.17 Intvrt disc disorders w radi culopathy, lumbosacral region E78.5 Hyperlipidemia, unspecified I10 Essential (primary) hyperten karime G47.33 Obstructive sleep apnea (prosper lt) (pediatric) Office Visit 03/08/2020 2:40p [facility] PANKAJ Johnson M51.17 Intvrt disc disorders w radi culopathy, lumbosacral region Office Visit 02/29/2020 10:30a [facility] PANKAJ Johnson M51.17 Intvrt disc disorders w radi culopathy, lumbosacral region E78.5 Hyperlipidemia, unspecified I10 Essential (primary) hyperten karime G47.10 Hypersomnia, unspecified F43.12 Post-traumatic stress disord er, chronic Z13.29 Encounter for screening for oth suspected endocrine disorder Assessments Date Code Description Provider 07/10/2020 M51.17 Intervertebral disc disorders with radiculopathy, lumbosacral region PANKAJ Johnson 07/10/2020 E78.5 Hyperlipidemia, unspecified Jermaine aePANKAJ Peterson 07/10/2020 I10 Essential (primary) hypertension PANKAJ Johnson [...] 10/10/2020 2:30 pm - PANKAJ Johnson at [facility] 07/10/2020 - PANKAJ Johnson* M51.17 Intervertebral disc disorders with radiculopathy, lumbosacral region * E78.5 Hyperlipidemia, unspecified * I10 Essential (primary) hypertension * G47.33 Obstructive sleep apnea (adult) (pediatric) * F43.12 Post-traumatic stress disorder, chronic* Comments:* Trazodone is effective at helping you fall asleep. 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 please evaluate for pain control [facility] [address] [place] [address] [phone] Mohan Tovar MD Closed [address] [facility] [place] [address] [phone]
[2020-09-15] MEDS ORDERED: TRAZ1TAB11 PO (19:58)
[2020-09-15] MEDS ORDERED: CYMB60CA3 PO (19:58)
[2020-09-15] MEDS ORDERED: ONDANSETRON 4MG/2ML VIAL IV ONE (20:00)
[2020-09-15] MEDS ORDERED: NS 1,000 ML IV ONE ×2 (20:00)
[2020-09-15 20:08] LABS: BASO # 0.1 10^3/uL (0.0-0.2); BASO % 0.8 % (0.0-1.0); EOS # 0.2 10^3/uL (0.0-0.5); EOS % 2.3 % (0.0-3.0); HEMATOCRIT 46.9 % (42.0-52.0); HEMOGLOBIN 15.5 g/dl (13.5-17.5); LYMPH # 3.4 10^3/uL (1.5-5.0); LYMPH % 31.7 % (24.0-44.0); MEAN CORPUSCULAR HEMOGLOBIN 28.4 pg (27.0-33.0); MEAN CORPUSCULAR VOLUME 85.9 fl (80.0-96.0); MONO # 1.1 10^3/uL (0.0-0.8); MONO % 10.1 % (0.0-5.0); NEUTROPHILS # 5.8 10^3/uL (1.5-8.5); NEUTROPHILS % 54.6 % (36.0-66.0); PLATELET COUNT, AUTOMATED 305 10^3/uL (150-450); RED BLOOD COUNT 5.46 10^6/uL (4.30-6.10); WHITE BLOOD COUNT 10.6 10^3/uL (4.0-10.0)
--- OUTSIDE RECORDS SUMMARY | 2020-09-15 20:21 | CCD ---
Author Author [facility] Organization [facility] Address Unknown Phone Unavailable Care Team Providers Care Unloader Name Role Phone Jumalon, M Becca CAR DROPPER Unavailable Unavailable Jumalon, M Becca CAR DROPPER Unavailable Unavailable Jumalon, M Becca CAR DROPPER Unavailable Unavailable Jumalon, M Becca CAR DROPPER Unavailable Unavailable Jumalon, M Becca CAR DROPPER Unavailable Unavailable Jumalon, M Becca CAR DROPPER Unavailable Unavailable Jumalon, M Becca CAR DROPPER Unavailable Unavailable Jumalon, M Becca CAR DROPPER Unavailable Unavailable Jumalon, M Becca CAR DROPPER Unavailable Unavailable Jumalon, M Becca CAR DROPPER Unavailable Unavailable Jumalon, M Becca CAR DROPPER Unavailable Unavailable Jumalon, M Becca CAR DROPPER Unavailable Unavailable Jumalon, M Becca CAR DROPPER Unavailable Unavailable Jumalon, M Becca CAR DROPPER Unavailable Unavailable Jumalon, M Becca CAR DROPPER Unavailable Unavailable Jumalon, M Becca CAR DROPPER Unavailable Unavailable Jumalon, M Becca CAR DROPPER Unavailable Unavailable Jumalon, M Becca CAR DROPPER Unavailable Unavailable Jumalon, M Becca CAR DROPPER Unavailable Unavailable Jumalon, M Becca CAR DROPPER Unavailable Unavailable Jumalon, M Becca CAR DROPPER Unavailable Unavailable Jumalon, M Becca CAR DROPPER Unavailable Unavailable Jumalon, M Becca CAR DROPPER Unavailable Unavailable Jumalon, M Becca CAR DROPPER Unavailable Unavailable Jumalon, M Becca CAR DROPPER Unavailable Unavailable Jumalon, M Becca CAR DROPPER Unavailable Unavailable Jumalon, M Becca CAR DROPPER Unavailable Unavailable Jumalon, M Becca CAR DROPPER Unavailable Unavailable Iveth Bojorquez MD Unavailable Unavailable [...] Unavailable Iveth Bojorquez MD Unavailable Unavailable Iveth Bojroquez MD Unavailable Unavailable Iveth Bojorquez MD Unavailable Unavailable Iveth Bojorquez MD Unavailable Unavailable Iveth Bojorquez MD Unavailable Unavailable Iveth Bojorquez MD Unavailable Unavailable Iveth Bojorquez MD Unavailable Unavailable Iveth Bojorquez MD Unavailable Unavailable VanIveth melo MD Unavailable Unavailable VanbeckIveth baldwin MD Unavailable Unavailable Vansaraenaam, D Peter MD Unavailable Unavailable Umanzor, Yeny METAL FINISHER Unavailable Unavailable Umanzor, Yeny METAL FINISHER Unavailable Unavailable Umanzor, Yeny METAL FINISHER Unavailable Unavailable Umanzor, Yeny METAL FINISHER Unavailable Unavailable Umanzor, Yeny METAL FINISHER Unavailable Unavailable Umanzor, Yeny METAL FINISHER Unavailable Unavailable Umanzor, Yeny METAL FINISHER Unavailable Unavailable Umanzor, Yney METAL FINISHER Unavailable Unavailable Umanzor, Yeny METAL FINISHER Unavailable Unavailable Umanzor, Yeny METAL FINISHER Unavailable Unavailable Umanzor, Yeny METAL FINISHER Unavailable Unavailable BolNiyah gonzalez MD Unavailable Unavailable [...] Unavailable O'katelynn, A Carlita PA Unavailable Unavailable O'kateylnn, A Carlita PA Unavailable Unavailable O'katelynn, A [...] A CARLITA PA Unavailable Unavailable LETTIERE, A CARLTIA PA Unavailable Unavailable LETTIERE, A CARLITA PA [...] Unavailable Adam BAY MD Unavailable Unavailable Adam ABY MD Unavailable Unavailable Adam BAY MD Unavailable [...] is protected by Article 27-F of the [facility] Public Health law. If you continue you may have access to information: Regarding HIV / AIDS; Provided by facilities licensed or operated by the [facility] Office of Mental Health; or Provided by the [facility] Office for People With Developmental Disabilities. If such information is present, then the following [facility] mandated warning applies: This information has been [...] law may result in a fine or halfway sentence or both. A general authorization for the release of medical or other information is NOT sufficient authorization for further disc losure. Allergies and Adverse Reactions Type Description Substance Reaction Status Data Source(s ) Bee sting Bee sting Bee sting Unknown Active eCW1 ([facility]) Family History Family Member Name Family Member Gender Family Member Status Date o f Status Description Data Source(s) Unknown Unknown Problem MEDENT ([facility]) Unknown Male Problem MEDENT ([facility]) at age late 20's Unknown Female Problem MEDENT ([facility]) Encounters Encounter Providers Location Date Indications Data Source(s ) Recurring Patient Referrer: Carlita LIRA 09/13/2020 06:31:45 AM EST [facility] Recurring Patient Referrer: Carlita LIRA 09/12/2020 03:50:46 PM EST [facility] Unknown [address] [facility] [id number] 09/10/2020 12:00:00 AM EST eCW1 ([facility]) Outpatient Attender: MOHAN BAY MDReferrer: Carlita LIRA 09/06/2020 05:17:31 PM EST [facility] Outpatient [address] [facility] [address] 09/04/2020 12:00:00 AM EST eCW1 ([facility]) (PN Proc 45) Pain Procedure 45 [address] [place] [address] 08/30/2020 12:00:00 AM EST eCW1 ([facility]) Unknown [address] [facility] [address] 08/29/2020 12:00:00 AM EST eCW1 ([facility]) Unknown [address] [facility] [address] 08/21/2020 12:00:00 AM EST eCW1 ([facility]) Unknown [address] [facility] [address] 08/21/2020 12:00:00 AM EST eCW1 ([facility]) Outpatient [address] [facility] [address] 07/23/2020 12:00:00 AM EST eCW1 ([facility]) Outpatient Attender: Carlita LIRA [facility] 07/10/2020 12:45:00 PM EST MEDENT ([facility]) Outpatient Attender: MOHAN BAY MDReferrer: Carlita LIRA 06/08/2020 07:49:33 AM EDT [facility] Recurring Patient Referrer: Carlita LIRA 06/07/2020 01:36:17 PM EDT [facility] Outpatient Attender: Carlita LIRA [facility] 06/01/2020 09:40:00 AM EDT MEDENT ([facility]) Outpatient Attender: Carlita LIRA [facility] 04/09/2020 02:30:00 PM EDT MEDENT ([facility]) Recurring Patient Referrer: Carlita LIRA 04/06/2020 08:20:56 AM EDT [facility] Recurring Patient Referrer: Carlita LIRA 03/29/2020 01:20:32 PM EDT [facility] Outpatient Attender: MOHAN BAY MDReferrer: Carlita LIRA 03/29/2020 11:54:51 AM EDT [facility] Recurring Patient Referrer: Carlita LIRA 03/29/2020 10:51:03 AM EDT [facility] Recurring Patient Referrer: Carlita LIRA 03/16/2020 01:09:41 PM EDT [facility] Recurring Patient Referrer: Carlita LIRA 03/15/2020 02:04:51 PM EDT [facility] Recurring Patient Referrer: Carlita LIRA 03/14/2020 02:02:57 PM EDT [facility] Outpatient Attender: Carlita LIRA [facility] 03/08/2020 02:40:00 PM EDT MEDENT ([facility]) Outpatient Attender: Carlita LIRA [facility] 02/29/2020 10:30:00 AM EDT MEDENT ([facility]) Outpatient Attender: CARLITA anthony 01/20/2020 12:45:00 PM EDT MEDENT ([facility] [address] [address] 11/05/2019 12:00:00 AM EDT eCW1 ([facility]) OFFICE OUTPATIENT NEW 30 MINUTES Attender: Iveth Arechiga am, MD Physical Therapy 10/25/2019 09:00:00 AM EDT MEDENT ([facility] ) Outpatient Attender: Yeny fisher 10/20/2019 10:30:00 AM EST MEDENT ([facility] Lloyd Sanders MD: [address], [place] [address], Ph. Attender: Lloyd Sanders MD [place] - [facility] - [facility] Office 10/05/2019 12:00:00 AM EST NAVJOT ([facility]) Lloyd Sanders MD: [address], [address], [place] [address], Ph. Attender: Lloyd Sanders MD [place] - [facility] Office 08/25/2019 12:00:00 AM EST NAVJOT ([facility]) Lloyd Sanders MD: [address], [address], [place] [address], Ph. Attender: Lloyd Sanders MD [place] [facility] Office 08/25/2019 12:00:00 AM EST NAVJOT ([facility]) Lloyd Sanders MD: [address], [address] [place], [place] [phone], Ph. Attender: Lloyd Sanders MD [place] [facility] Office 08/25/2019 12:00:00 AM EST NAVJOT ([facility]) Becca Dunham, LEONILA: [address], [place] [address], Ph. Attender: Becca WANG [place] - [facility] Office 07/26/2019 12:00:00 AM EST ATHE NA ([facility]) Becca Dunham METAL FINISHER: [address], [place] [address], Ph. Attender: Becca Dunham [facility] 07/26/2019 12:00:00 AM EST ATHE NA ([facility]) Becca Dunham, METAL FINISHER: [address], [place] [address], Ph. Attender: Becca Dunham [facility] 07/26/2019 12:00:00 AM EST ATHE NA ([facility]) Becca Dunham, METAL FINISHER: [address], [place] [address], Ph. [facility] 07/26/2019 12:00:00 AM EST ATHE NA ([facility]) Medications Medication Brand Name Start Date Product Form Dose Route Admi nistrative Instructions Pharmacy Instructions Status Indications Reaction Description Data Source(s) Acetaminophen 325 MG / Oxycodone Hydroch loride 5 MG Oral Tablet [Percocet] Percocet 5-325 MG Percocet 5-325 MG 09/04/2020 12:00:00 AM EST 1 .0 {tablet_as_needed} active Percocet 5-32 5 MG eCW1 ([facility]) Acetaminophen 325 MG / Oxycodone Hydroch loride 5 MG Oral Tablet [Percocet] Percocet 5-325 MG Percocet 5-325 MG 09/04/2020 12:00:00 AM EST 1 .0 {tablet_as_needed} active Percocet 5-32 5 MG eCW1 ([facility]) Acetaminophen 325 MG / Oxycodone Hydroch loride 5 MG Oral Tablet [Percocet] Percocet 5-325 MG Percocet 5-325 MG 08/22/2020 12:00:00 AM EST 1 .0 {tablet_as_needed} active Percocet 5-32 5 MG eCW1 ([facility]) Acetaminophen 325 MG / Oxycodone Hydroch loride 5 MG Oral Tablet [Percocet] Percocet 5-325 MG Percocet 5-325 MG 08/22/2020 12:00:00 AM EST 1 .0 {tablet_as_needed} active Percocet 5-32 5 MG eCW1 ([facility]) Acetaminophen 325 MG / Oxycodone Hydroch loride 5 MG Oral Tablet [Percocet] Percocet 5-325 MG Percocet 5-325 MG 08/22/2020 12:00:00 AM EST 1 .0 {tablet_as_needed} active Percocet 5-32 5 MG eCW1 ([facility]) Acetaminophen 325 MG / Oxycodone Hydroch loride 5 MG Oral Tablet [Percocet] Percocet 5-325 MG Percocet 5-325 MG 08/22/2020 12:00:00 AM EST 1 .0 {tablet_as_needed} active Percocet 5-32 5 MG eCW1 ([facility]) duloxetine 60 MG Delayed Release Oral Capsule [Cymbalta] Cym michelle 08/01/2020 12:00:00 AM EST ORAL active M EDENT ([facility]) Acetaminophen 325 MG / Oxycodone Hydroch loride 5 MG Oral Tablet [Percocet] Percocet 5-325 MG Percocet 5-325 MG 07/23/2020 12:00:00 AM EST 1 .0 {tablet_as_needed} active Percocet 5-32 5 MG eCW1 ([facility]) duloxetine 30 MG Delayed Release Oral Capsule [Cymbalta] Cym michelle 07/10/2020 12:00:00 AM EST ORAL completed MEDENT ([facility]) Ondansetron 4 MG Oral Tablet [Zofran] Zofran 06/01/2020 12:00:00 AM EDT ORAL active MEDENT ([facility]) Acetaminophen 325 MG / Hydrocodone Bitartrate 5 MG Oral Tabl et [[place]] [place] 06/01/2020 12:00:00 AM EDT completed MEDENT ([facility]) Tramadol HCL Tramadol HCL 05/08/2020 12:00:00 AM EDT ORAL completed MEDENT ([facility]) Ergocalciferol 88855 UNT Oral Capsule Vitamin D (Ergocalcife rol) 04/15/2020 12:00:00 AM EDT active EDENT ([facility]) Rosuvastatin calcium 10 MG Oral Tablet [Crestor] Crestor 04/15/2020 12:00:00 AM EDT ORAL active MEDENT ([facility]) Trazodone Hydrochloride 100 MG Oral Tablet Trazodone HCL 04/09/2020 12:00:00 AM EDT ORAL active MEDENT ([facility]) atorvastatin 40 MG Oral Tablet [Lipitor] Lipitor 04/09/2020 12:00: 00 AM EDT ORAL completed MEDENT ([facility]) Prednisone 20 MG Oral Tablet Prednisone 04/05/2020 12:00:00 AM EDT ORAL completed MEDENT ([facility]) Apap With Neccesary Supplies/Equipment 03/23/2020 12:00:00 AM ED T active MEDENT ([facility]) Cpap With Mask, Humidifier And Other Neccessary Supplies. 03/23/2020 12:00:00 AM EDT completed MEDENT ([facility]) tramadol hydrochloride 50 MG Oral Tablet Tramadol HCL 03/15/2020 12:00:00 AM EDT ORAL completed MEDENT ([facility]) gabapentin 600 MG Oral Tablet Gabapentin 03/08/2020 12:00:00 AM EDT ORAL active MEDENT ([facility]) Prednisone 10 MG Oral Tablet Prednisone 03/08/2020 12:00:00 AM EDT completed MEDENT ([facility]) gabapentin 300 MG Oral Capsule Gabapentin 02/29/2020 12:00:00 AM EDT ORAL completed MEDENT ([facility]) Trazodone Hydrochloride 50 MG Oral Tablet Trazodone HCL 02/29/2020 12:00:00 AM EDT ORAL completed MEDENT ([facility]) Enalapril Maleate 10 MG Oral Tablet Enalapril Maleate 02/14 12:00:00 AM EDT ORAL active MEDENT ([facility]) meloxicam 15 MG Oral Tablet Meloxicam 02/29/2020 12:00:00 AM EDT ORAL active MEDENT ([facility]) [facility] Home Sleep Study 02/29/2020 12:00:00 AM EDT completed MEDENT ([facility]) Ketorolac Tromethamine 10 MG Oral Tablet Ketorolac Trometham ine 10 MG 11/05/2019 12:00:00 AM EDT suspended Keto rolac Tromethamine 10 MG eCW1 ([facility]) Penicillin V Potassium 500 MG Oral Tablet Penicillin V Potas sium 500 MG 11/05/2019 12:00:00 AM EDT 1.0 {tablet} suspende d Penicillin V Potassium 500 MG eCW1 ([facility]) Ketorolac Tromethamine 10 MG Oral Tablet Ketorolac Trometham ine 10 MG 11/05/2019 12:00:00 AM EDT suspended Keto rolac Tromethamine 10 MG eCW1 ([facility]) Ketorolac Tromethamine 10 MG Oral Tablet Ketorolac Trometham ine 10 MG 11/05/2019 12:00:00 AM EDT active 1 table t with food or milk as needed eCW1 ([facility]) Penicillin V Potassium 500 MG Oral Tablet Penicillin V Potas sium 500 MG 11/05/2019 12:00:00 AM EDT 1.0 {tablet} suspende d Penicillin V Potassium 500 MG eCW1 ([facility]) Penicillin V Potassium 500 MG Oral Tablet Penicillin V Potas sium 500 MG 11/05/2019 12:00:00 AM EDT 1.0 {tablet} suspende d Penicillin V Potassium 500 MG eCW1 ([facility]) Penicillin V Potassium 500 MG Oral Tablet Penicillin V Potas sium 500 MG 11/05/2019 12:00:00 AM EDT active 1 tablet eCW1 ([facility]) Ketorolac Tromethamine 10 MG Oral Tablet Ketorolac Trometham ine 10 MG 11/05/2019 12:00:00 AM EDT suspended Keto rolac Tromethamine 10 MG eCW1 ([facility]) Penicillin V Potassium 500 MG Oral Tablet Penicillin V Potas sium 500 MG 11/05/2019 12:00:00 AM EDT 1.0 {tablet} suspende d Penicillin V Potassium 500 MG eCW1 ([facility]) Ketorolac Tromethamine 10 MG Oral Tablet Ketorolac Trometham ine 10 MG 11/05/2019 12:00:00 AM EDT suspended Keto rolac Tromethamine 10 MG eCW1 ([facility]) Ketorolac Tromethamine 10 MG Oral Tablet Ketorolac Trometham ine 10 MG 11/05/2019 12:00:00 AM EDT suspended Keto rolac Tromethamine 10 MG eCW1 ([facility]) Penicillin V Potassium 500 MG Oral Tablet Penicillin V Potas sium 500 MG 11/05/2019 12:00:00 AM EDT 1.0 {tablet} suspende d Penicillin V Potassium 500 MG eCW1 ([facility]) Penicillin V Potassium 500 MG Oral Tablet Penicillin V Potas sium 500 MG 11/05/2019 12:00:00 AM EDT 1.0 {tablet} suspende d Penicillin V Potassium 500 MG eCW1 ([facility]) Ketorolac Tromethamine 10 MG Oral Tablet Ketorolac Trometham ine 10 MG 11/05/2019 12:00:00 AM EDT suspended Keto rolac Tromethamine 10 MG eCW1 ([facility]) Penicillin V Potassium 500 MG Oral Tablet Penicillin V Potas sium 500 MG 11/05/2019 12:00:00 AM EDT 1.0 {tablet} suspende d Penicillin V Potassium 500 MG eCW1 ([facility]) Ketorolac Tromethamine 10 MG Oral Tablet Ketorolac Trometham ine 10 MG 11/05/2019 12:00:00 AM EDT suspended Keto rolac Tromethamine 10 MG eCW1 ([facility]) Medrol Medrol 10/24/2019 12:00:00 AM EDT completed MEDENT ([facility]) Ibuprofen 800 MG Oral Tablet Ibuprofen 10/20/2019 12:00:00 AM EST ORAL completed MEDENT ([facility]) tizanidine 4 MG Oral Capsule Tizanidine HCL 10/20/2019 12:00:00 AM EST ORAL completed MEDENT ([facility]) Prednisone 20 MG Oral Tablet Prednisone 10/20/2019 12:00:00 AM EST completed MEDENT ([facility]) Acetaminophen 325 MG / Oxycodone Hydroch loride 5 MG Oral Tablet oxycodone- acetaminophen 5 mg-325 mg tablet oxycodone-acetaminophen 5 mg-325 mg tablet completed Acetaminop hen 325 MG / Oxycodone Hydrochloride 5 MG Oral Tablet NAVJOT ([facility]) Amoxicillin 500 MG Oral Capsule amoxicillin 500 mg cap grisel amoxicillin 500 mg capsule completed Amoxicillin 50 0 MG Oral Capsule NAVJOT ([facility]) Acetaminophen 325 MG / Hydrocodone Shannon trate 5 MG Oral Tablet hydrocodone 5 mg- acetaminophen 325 mg tablet as needed ( very rarely uses) hydrocodone 5 mg- acetaminophen 325 mg tablet as needed ( very rarely uses) completed Acetaminophen 325 MG / Hydrocodone Shannon trate 5 MG Oral Tablet NAVJOT ([facility]) Amoxicillin 500 MG Oral Capsule amoxicillin 500 mg cap grisel amoxicillin 500 mg capsule completed Amoxicillin 50 0 MG Oral Capsule NAVJOT ([facility]) Acetaminophen 325 MG / Oxycodone Hydroch loride 5 MG Oral Tablet oxycodone- acetaminophen 5 mg-325 mg tablet oxycodone-acetaminophen 5 mg-325 mg tablet completed Acetaminop hen 325 MG / Oxycodone Hydrochloride 5 MG Oral Tablet NAVJOT ([facility]) Amoxicillin 500 MG Oral Capsule amoxicillin 500 mg cap grisel amoxicillin 500 mg capsule completed Amoxicillin 50 0 MG Oral Capsule NAVJOT ([facility]) Acetaminophen 325 MG / Oxycodone Hydroch loride 5 MG Oral Tablet oxycodone- acetaminophen 5 mg-325 mg tablet oxycodone-acetaminophen 5 mg-325 mg tablet completed Acetaminop hen 325 MG / Oxycodone Hydrochloride 5 MG Oral Tablet NAVJOT ([facility]) Acetaminophen 325 MG / Hydrocodone Shannon trate 5 MG Oral Tablet hydrocodone 5 mg- acetaminophen 325 mg tablet as needed ( very rarely uses) hydrocodone 5 mg- acetaminophen 325 mg tablet as needed ( very rarely uses) completed Acetaminophen 325 MG / Hydrocodone Shannon trate 5 MG Oral Tablet NAVJOT ([facility]) Acetaminophen 325 MG / Hydrocodone Shannon trate 5 MG Oral Tablet hydrocodone 5 mg- acetaminophen 325 mg tablet as needed ( very rarely uses) hydrocodone 5 mg- acetaminophen 325 mg tablet as needed ( very rarely uses) completed Acetaminophen 325 MG / Hydrocodone Shannon trate 5 MG Oral Tablet NAVJOT ([facility]) Insurance Providers Payer name Policy type / Coverage type Policy ID Covered republican ID Covered republican's relationship to wiley Policy Wiley Plan Information [employer] [place] CHOICE PLUS [id number] SP [id number] [facility] [facility] Plans F [id number] SPOUSE [id number] [facility] PL[facility] O [id number] S [id number] [facility] INSURANCE [facility] [id number] SP [id number] [place] BCBS B [id number] P VYS [id number] [facility] Health Plans F [id number] SPOUSE [id number] [facility] Services F [id number] SPOUS E [id number] [facility] COMMERCIAL [id number] BC[place] OF [place] 306/[id number] [place] [id number] [facility] Commercial Health Maintenance Organization (HMO) [id number] Self [id number] Blue Cross Blue Shield CL Commercial [id number] Family Dep endent [id number] BLUE CROSS BLUE SHIELD CL BS [id number] 01 [id number] BLUE CROSS BLUE SHIELD -O/P BS [id number] 01 [id number] Blue Cross Blue Shield CL Commercial [id number] Self [id number] ANSI-Commercial [id number] BCBS [place] PPO 302/307 [id number] [place] [id number] Blue Cross Blue Shield CL Commercial [id number] Self [id number] BCBS/[place]cell[place] Medigap Part B [id number] Family Dependent [id number] [place] [employer] Commercial [id number] Self [id number] [facility] Commercial 500 Self 500 ANSI-Commercial [id number] BCBS [place] Ppo U/W Commercial [id number] Family Depende nt [id number] Blue Cross Blue Shield CL Commercial [id number] Self [id number] Blue Cross Blue Shield CL Commercial [id number] Self [id number] [place]BS [place] PPO 302/307 [id number] [place] [id number] [place] 306/806 [id number] [place] [id number] BLUE CROSS BLUE SHIELD-CLINIC [id number] 01 [id number] BLUE CROSS BLUE SHIELD-CLINIC [id number] 01 [id number] Blue Cross Blue Shield CL Commercial Self BCBS Federal Plan Medigap Part B Family Dependent [place] [employer] Commercial Self [facility] Commercial Self BS/W/Id#Prefix/W ALL #'S Commercial Family Depende nt SELF PAY UNAVAILABLE SP UNAVAILA BLE PGBA [facility] [id number] WI2 [id number] PGBA [facility] [id number] [facility] PARTB [id number] WI2 [id number] ACTIVE DUTY [id number] SP [id number] Problems, Conditions, and Diagnoses Code Display Name Description Problem Type Effective Dates Data Source(s) G89.29 Chronic pain Other chronic pain Problem 09/04/2020 12:0 0:00 AM EST eCW1 ([facility]) M51.24 98826928 Protrusion of thoracic intervertebral dis c Problem 09/04/2020 12:00:00 AM EST eCW1 ([facility]) M51.26 [id number] Protrusion of lumbar intervertebral disc Problem 07/23/2020 12:00:00 AM EST eCW1 ([facility]) 99473295 Generalized anxiety disorder Generalized anxiety disor alexei Problem 07/10/2020 12:00:00 AM EST MEDENT ([facility]) 93593501 Obstructive sleep apnea syndrome Obstructive sle ep apnea syndrome Problem 04/09/2020 12:00:00 AM EDT MEDENT ([facility]) 54689903 Posttraumatic stress disorder Posttraumatic stress dis order Problem 02/29/2020 12:00:00 AM EDT MEDENT ([facility]) 82696439 Hyperlipidemia Hyperlipidemia Problem 02/29/2020 12:00: 00 AM EDT MEDENT ([facility]) 06502855 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 Problem 02/29/2020 12:00:00 AM EDT MEDENT ([facility]) 70290616 Essential hypertension Essential hypertension Problem 02/20/2020 12:00:00 AM EDT MEDENT ([facility]) 25971256 Essential hypertension Essential hypertension Problem 10/25/2019 12:00:00 AM EDT MEDENT ([facility] ) 367627160 Pure hypercholesterolemia Pure hypercholesterolemia Pr oblem 10/25/2019 12:00:00 AM EDT MEDENT ([facility] ) Surgeries/Procedures Procedure Description Date Indications Data Source(s) Pain Procedure Log 09/04/2020 12:00:00 AM EST eCW1 ([facility]) Medication: Oxycodone HCL Tab 10mg Orally 08/30/2020 1 2:00:00 AM EST eCW1 ([facility]) Unclassified drugs 08/30/2020 12:00:00 AM EST eCW1 ([facility]) RADEX SHOULDER COMPLETE MINIMUM 2 VIEWS 10/25/2019 12: 00:00 AM EDT MEDENT ([facility] ) X-Ray Humerus Two Views 10/25/2019 12:00:00 AM EDT MEDENT ([facility] ) Results ID Date Data Source [id number] 09/06/2020 05:17:31 PM EST [facility] PCName: Linda KentDOB: 1985Provider: Verena Bay: 09/06/2020 Reason For VisitMattsung Kent is an established patient here for follow up and Linda Kent is here for evaluation of MRI results. MRI's and Xrays were transferred from [facility]. Other DOI/DOO: 2007. Patient states the injury [...] as reviewed the official corresponding reports:MRI thoracic [facility] 08/22/2020: Small T8-9 and T9-10 protrusions. No significant stenosis to my review.MRI lumbar [facility] 08/22/2020: L3-4 moderate stenosis. L4-5 central [...] different treatment conservative options(observation, medication(s), physical therapy, medicare insurance specialist, acupuncture, pain clinic, home exercise program, another [...] document was dictated and electronically signed using [employer]ora[employer] software. A reasonable attempt at proof reading has been made to minimize errors. Please call with any questions. Signatures Electronically signed by : Mohan Bay M.D.; Sep 06 2020 5:17PM EST (Author) Name Value Range Interpretation Code Description Data Lorri rce(s) Supporting Document(s) ID Date Data Source [id number] 08/25/2020 12:00:00 PM EST [facility] Name Value Range Interpretation Code Description Data Lorri rce(s) Supporting Document(s) SARS coronavirus 2 RNA Not Detected [facility] This lab was ordered by [facility] and reported by [facility]. ID Date Data Source [id number] 06/08/2020 07:49:33 AM EDT [facility] PCName: Linda KentAYESHA: 1985Provider: Verena [...] --Heel and sole of the foot Results/Data [facility] 03/07/2020: L3-4 DDD with small right L3-4 [...] document was dictated and electronically signed using [employer] software. A reasonable attempt at proof reading has been made to minimize errors. Please call with any questions. Signatures Electronically signed by : Mohan Bay M.D.; Jun 08 2020 7:49AM EST (Author) Name Value Range Interpretation Code Description Data Lorri rce(s) Supporting Document(s) ID Date Data Source [id number] 05/26/2020 07:37:00 AM EDT [facility] Name Value Range Interpretation Code Description Data Lorri rce(s) Supporting Document(s) Laboratory test finding (navigational concept) 46.0 % 3 8.0-51.0 Normal (applies to non-numeric results) MEDENT ([facility]) Laboratory test finding (navigational concept) 131 mg/dL 7 0-105 Above high normal MEDENT ([facility]) Laboratory test finding (navigational concept) 4.2 meq/L 3 .5-5.1 Normal (applies to non-numeric results) MEDENT ([facility]) Laboratory test finding (navigational concept) 4.9 mg/dL 4 .5-5.3 Normal (applies to non-numeric results) [facility] Laboratory test finding (navigational concept) 137 meq/L 1 36-145 Normal (applies to non-numeric results) [facility] ([facility]) Laboratory test finding (navigational concept) 22.0 MM/L 2 3.0-27.0 Below low normal [facility] ([facility]) Laboratory test finding (navigational concept) 14 mg/dL 8 -26 Normal (applies to non-numeric results) [facility] Laboratory test finding (navigational concept) 101 meq/L 9 8-109 Normal (applies to non-numeric results) [facility] Laboratory test finding (navigational concept) 0.9 mg/dL 0 .6-1.3 Normal (applies to non-numeric results) [facility] ID Date Data Source [id number] 04/06/2020 06:43:00 AM EDT [facility] Name Value Range Interpretation Code Description Data Lorri rce(s) Supporting Document(s) Calcidiol [Mass/volume] in Serum or Plasma 30.9 ng/mL 30.0- 100.0 Normal (applies to non-numeric results) [facility] ID Date Data Source [id number] 04/06/2020 06:43:00 AM EDT [facility] Name Value Range Interpretation Code Description Data Lorri rce(s) Supporting Document(s) Hemoglobin A1c 6.2 % Normal (applies to non-numeric r esults) [facility] <content>REFERENCE RANGES:</content><br/ ><content></content>
<content><=5.6% NORMAL</content>
<content>5.7-6.4% SUGGESTS IMPAIRED GLUCOSE METABOLISM/PREDIABETIC</content>
<content>>= 6.5% ABNORMAL</content>
<content></content> Estimated Average Glucose 131 mg/dL 60-110 Above high normal [facility] ID Date Data Source [id number] 04/06/2020 06:43:00 AM EDT MEDENT ([facility]) Name Value Range Interpretation Code Description Data Lorri rce(s) Supporting Document(s) Thyroid Stimulating Hormone 1.190 uIU/ML 0.358-3.740 Norm al (applies to non- numeric results) [facility] Free T4 1.06 ng/dL 0.76-1.46 Normal (applies to non-numeric resul ts) MEDENT ([facility]) ID Date Data Source [id number] 04/06/2020 06:43:00 AM EDT MEDENT ([facility]) Name Value Range Interpretation Code Description Data Lorri rce(s) Supporting Document(s) Triglycerides Level 216 mg/dL Above high normal MED[facility] ([facility]) HDL Cholesterol 48 mg/dL Normal (applies to non-numeric results) [facility] ([facility]) LDL Cholesterol 212 mg/dL Above high normal [facility] ([facility]) Cholesterol Level 303 mg/dL Above high normal [facility] Cholesterol Risk Ratio 6.312 Above high normal MED[facility] ([facility]) Non-HDL-C 255 mg/dL Normal (applies to non-numeric resul ts) [facility] ([facility]) ID Date Data Source [id number] 04/06/2020 06:43:00 AM EDT MEDENT ([facility]) Name Value Range Interpretation Code Description Data Lorri rce(s) Supporting Document(s) Creatinine For GFR 0.91 mg/dL 0.70-1.30 Normal (applies to non -numeric results) [facility] ([facility]) Glucose, Fasting 95 mg/dL 70-100 Normal (applies to non-numeric results) [facility] ([facility]) Blood Urea Nitrogen 14 mg/dL 7-18 Normal (applies to non-nume usama results) MEDENT ([facility]) Sodium Level 138 meq/L 136-145 Normal (applies to non-numeric res ults) [facility] Glomerular Filtration Rate Laboratory test result Normal (applies to non- numeric results) [facility] ([facility]) <content>Units are mL/min/1.73 m2</content>
<content></content>
<content>Chronic Kidney Disease Staging per NKF:</content>
<content></content>
<content>Stage I & II GFR >=60 Normal to Mildly Decreased</content>
<content>Stage III GFR 30- 59 Moderately Decreased</content>
<content>Stage IV GFR 15-29 Severely Decreased</content>
<content>Stage V GFR <15 Very Little GFR Left</content>
<content>ESRD GFR <15 on SENIOR TECHNICAL RECRUITER</content>
<content></content> Potassium Serum 4.3 meq/L 3.5-5.1 Normal (applies to non-numeric results) [facility] Chloride Level 105 meq/L 98-107 Normal (applies to non-numeric r esults) [facility] ([facility]) Calcium Level 9.3 mg/dL 8.5-10.1 Normal (applies to non-numeric re sults) [facility] ([facility]) Carbon Dioxide Level 29 meq/L 21-32 Normal (applies to non-num keon results) [facility] ([facility]) Anion Gap 4 meq/L 8-16 Below low normal [facility] Ast/Sgot 19 U/L 7-37 Normal (applies to non-numeric resul ts) [facility] ([facility]) Alkaline Phosphatase 93 U/L 45-117 Normal (applies to non-num keon results) [facility] Alt/SGPT 40 U/L 12-78 Normal (applies to non-numeric resul ts) [facility]) Albumin 4.0 GM/DL 3.2-5.2 Normal (applies to non-numeric resul ts) [facility]) Bilirubin,Total 0.4 mg/dL 0.2-1.0 Normal (applies to non-numeric results) [facility] Total Protein 7.1 GM/DL 6.4-8.2 Normal (applies to non-numeric re sults) [facility] ([facility]) Albumin/Globulin Ratio 1.3 Normal (applies to non-n umeric results) [facility] ([facility]) ID Date Data Source [id number] 04/06/2020 06:43:00 AM EDT [facility] Name Value Range Interpretation Code Description Data Lorri rce(s) Supporting Document(s) White Blood Count 10.0 10 4.0-10.0 Normal (applies to non-numeri c results) [facility] ([facility]) Red Blood Count 5.25 10 4.30-6.10 Normal (applies to non-numeric results) [facility] ([facility]) Hemoglobin 15.5 g/dL 13.5-17.5 Normal (applies to non-numeric resul ts) [facility] Hematocrit 45.7 % 42.0-52.0 Normal (applies to non-numeric resul ts) [facility] ([facility]) Mean Corpuscular Hemoglobin 29.5 pg 27.0-33.0 Norm al (applies to non-numeric results) [facility] ([facility]) Mean Corpuscular HGB Conc 33.9 g/dL 32.0-36.5 Normal (applies to non-numeric results) [facility] ([facility]) Mean Corpuscular Volume 87.0 fl 80.0-96.0 Normal ( applies to non-numeric results) [facility] ([facility]) Platelet Count, Automated 321 10 150-450 Normal (applies to non-numeric results) [facility] ([facility]) Neutrophils % 58.7 % 36.0-66.0 Normal (applies to non-numeric re sults) [facility] ([facility]) Red Cell Distribution Width 12.2 % 11.5-14.5 Norm al (applies to non-numeric results) [facility] ([facility]) Eos % 0.8 % 0.0-3.0 Normal (applies to non-numeric resul ts) [facility] ([facility]) Lymph % 31.4 % 24.0-44.0 Normal (applies to non-numeric resul ts) [facility] ([facility]) Martin % 8.1 % 0.0-5.0 Above high normal [facility] ([facility]) Baso % 0.8 % 0.0-1.0 Normal (applies to non-numeric resul ts) [facility] ([facility]) Immature Granulocyte % 0.2 % 0-3.0 Normal (applies to non-n umeric results) [facility] ([facility]) Nucleated Red Blood Cell % 0.0 % 0-0 Normal (applies to n on-numeric results) [facility] ([facility]) Neutrophils # 5.9 10 1.5-8.5 Normal (applies to non-numeric re sults) [facility] ([facility]) Eos # 0.1 10 0.0-0.5 Normal (applies to non-numeric resul ts) [facility] ([facility]) Martin # 0.8 10 0.0-0.8 Normal (applies to non-numeric resul ts) [facility] ([facility]) Lymph # 3.1 10 1.5-5.0 Normal (applies to non-numeric resul ts) [facility] ([facility]) Baso # 0.1 10 0.0-0.2 Normal (applies to non-numeric resul ts) [facility] ([facility]) ID Date Data Source [id number] 03/29/2020 11:54:51 AM EDT [facility] PCName: Linda KellerB: 1985Provider: Mohan [...] --Heel and sole of the foot Results/Data [facility] 03/07/2020: 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 A reasonable attempt at proof reading has been made to minimize errors. Please call with any questions. Signatures Electronically signed by : Mohan Bay M.D.; Mar 29 2020 11:54AM EST (Author) Name Value Range Interpretation Code Description Data Lorri rce(s) Supporting Document(s) ID Date Data Source [id number] 01/20/2020 01:41:00 PM EDT [facility] ([facility]) Name Value Range Interpretation Code Description Data Lorri rce(s) Supporting Document(s) Thyrotropin [Units/volume] in Serum or Plasma 2.050 uIU/ML 0.358-3.74 0 MEDENT ([facility]) See Progress note Erythrocyte sedimentation rate by 2H Westergren method 4 mm/hr 0-1 5 [facility] ([facility]) See Progress note Thyroxine (T4) free [Mass/volume] in Serum or Plasma 1.19 ng/dL 0.76- 1.46 [facility] ([facility]) See Progress note ID Date Data Source [id number] 01/20/2020 01:41:00 PM EDT [facility] ([facility]) Name Value Range Interpretation Code Description Data [facility] rce(s) Supporting Document(s) Glucose, Fasting 128 mg/dL 70-100 [facility] ([facility]) See Progress note Blood Urea Nitrogen 11 mg/dL 7-18 MED[facility] ([facility]) See Progress note Creatinine For GFR 0.93 mg/dL 0.70-1.30 [facility] ([facility]) See Progress note Glomerular Filtration Rate Laboratory test result MED[facility] ([facility]) See Progress note Sodium Level 139 meq/L 136-145 [facility] ([facility]) See Progress note Potassium Serum 4.4 meq/L 3.5-5.1 [facility] See Progress note Chloride Level 105 meq/L 98-107 [facility] ([facility], [facility]) See Progress note Carbon Dioxide Level 23 meq/L 21-32 [facility] See Progress note Calcium Level 9.1 mg/dL 8.5-10.1 [facility] See Progress note Anion Gap 11 meq/L 8-16 [facility] ([facility], [facility]) See Progress note Ast/Sgot 29 U/L 7-37 [facility] ([facility], [facility]) See Progress note Alt/SGPT 52 U/L 12-78 [facility] ([facility], [facility]) See Progress note Alkaline Phosphatase 98 U/L 45-117 [facility] ( [facility] See Progress note Bilirubin,Total 0.4 mg/dL 0.2-1.0 [facility]) See Progress note Albumin 4.3 GM/DL 3.2-5.2 [facility] ([facility], [facility]) See Progress note Total Protein 7.1 GM/DL 6.4-8.2 [facility] ([facility], [facility]) See Progress note Albumin/Globulin Ratio 1.5 [facility] ([facility], [facility]) See Progress note ID Date Data Source [id number] 01/20/2020 01:41:00 PM EDT [facility] ([facility], [facility]) Name Value Range Interpretation Code Description Data Lorri rce(s) Supporting Document(s) Hemoglobin 15.0 g/dL 13.5-17.5 [facility] ([facility]) See Progress note White Blood Count 7.4 10 4.0-10.0 [facility] See Progress note Red Blood Count 5.05 10 4.30-6.10 [facility] ([facility]) See Progress note Mean Corpuscular Volume 88.5 fl 80.0-96.0 M EDENT ([facility], [facility]) See Progress note Hematocrit 44.7 % 42.0-52.0 [facility] ([facility], [facility]) See Progress note Mean Corpuscular Hemoglobin 29.7 pg 27.0-33.0 [facility] ([facility], [facility]) See Progress note Mean Corpuscular HGB Conc 33.6 g/dL 32.0-36.5 [facility] ([facility], [facility]) See Progress note Red Cell Distribution Width 12.6 % 11.5-14.5 MED[facility] ([facility], [facility]) See Progress note Neutrophils % 61.8 % 36.0-66.0 [facility] ([facility], [facility]) See Progress note Platelet Count, Automated 328 10 150-450 MED[facility] ([facility], [facility]) See Progress note Lymph % 29.8 % 24.0-44.0 MED[facility] ([facility], [facility]) See Progress note Martin % 6.4 % 0.0-5.0 MED[facility] ([facility], [facility]) See Progress note Eos % 0.7 % 0.0-3.0 [facility] ([facility], [facility]) See Progress note Baso % 0.8 % 0.0-1.0 MED[facility] ([facility], [facility]) See Progress note Immature Granulocyte % 0.5 % 0-3.0 MED[facility] ([facility], [facility]) See Progress note Nucleated Red Blood Cell % 0.0 % 0-0 MED ENT ([facility], [facility]) See Progress note Neutrophils # 4.6 10 1.5-8.5 [facility]) See Progress note Lymph # 2.2 10 1.5-5.0 [facility] ([facility], [facility]) See Progress note Martin # 0.5 10 0.0-0.8 MED[facility] ([facility], [facility]) See Progress note Eos # 0.1 10 0.0-0.5 [facility] ([facility], [facility]) See Progress note Baso # 0.1 10 0.0-0.2 [facility] ([facility], [facility]) See Progress note Procedure Social History Code Duration Value Status Description Data Source(s ) Smoking 09/04/2020 12:00:00 AM EST UNK completed eCW1 ([facility]) Smoking 09/04/2020 12:00:00 AM EST UNK completed eCW1 ([facility]) Smoking 08/30/2020 12:00:00 AM EST UNK completed eCW1 ([facility]) Smoking 08/30/2020 12:00:00 AM EST UNK completed eCW1 ([facility]) Smoking 07/23/2020 12:00:00 AM EST UNK completed eCW1 ([facility]) Smoking 07/23/2020 12:00:00 AM EST UNK completed eCW1 ([facility]) Smoking 07/23/2020 12:00:00 AM EST UNK completed eCW1 ([facility]) Smoking 01/20/2020 12:00:00 AM EDT Patient has never smoked co mpleted Patient has never smoked MED[facility] ([facility]) Vital Signs ID Date Data Source UNK Name Value Range Interpretation Code Description Data Source(s) Diastolic blood pressure 80 mm[Hg] 80 mm[Hg] eCW1 ([facility]) Systolic blood pressure 145 mm[Hg] 145 mm[Hg] e CW1 ([facility]) Body temperature 97.6 [degF] 97.6 [degF] eCW1 ( [facility]) Respiratory rate 16 /min 16 /min eCW1 ([facility]) Heart rate 89 /min 89 /min eCW1 ([facility]) Body mass index (BMI) [Ratio] 35.42 kg/m2 35.42 kg/m2 eCW1 ([facility]) Body height 76 [in_i] 76 [in_i] W1 ([facility]) Body weight 291 [lb_av] 291 [lb_av] eCW1 ([facility]) Diastolic blood pressure 95 mm[Hg] 95 mm[Hg] eCW1 ([facility]) Systolic blood pressure 141 mm[Hg] 141 mm[Hg] e CW1 ([facility]) Body temperature 97.5 [degF] 97.5 [degF] eCW1 ( [facility]) Respiratory rate 16 /min 16 /min eCW1 ([facility]) Heart rate 103 /min 103 /min eCW1 ([facility]) Body mass index (BMI) [Ratio] 35.27 kg/m2 35.27 kg/m2 eCW1 ([facility]) Body height 76 [in_i] 76 [in_i] eCW1 ([facility]) Body weight 289.8 [lb_av] 289.8 [lb_av] eCW1 ([facility]) [place] body weight 190 [lb_av] 190 [lb_av] MEDEN T ([facility]) Oxygen saturation in Arterial blood by Pulse oximetry 98 % 98 % [facility] ([facility]) Body temperature 98.3 [degF] 98.3 [degF] MED[facility] ([facility]) Respiratory rate 18 /min 18 /min MED[facility] ( [facility]) Heart rate 78 /min 78 /min [facility] ([facility]) Body mass index (BMI) [Ratio] 32.3 kg/m2 32.3 k g/m2 [facility] Body weight 256.06 [lb_av] 256.06 [lb_av] MEDEN T ([facility]) Body height 74.6 [in_i] 74.6 [in_i] MED[facility] ([facility]) 6'2.60" Diastolic blood pressure 84 mm[Hg] 84 mm[Hg] MEDENT ([facility]) Systolic blood pressure 132 mm[Hg] 132 mm[Hg] M EDENT ([facility]) Diastolic blood pressure 75 mm[Hg] 75 mm[Hg] eCW1 ([facility]) Systolic blood pressure 143 mm[Hg] 143 mm[Hg] e CW1 ([facility]) Body temperature 97.1 [degF] 97.1 [degF] eCW1 ( [facility]) Respiratory rate 18 /min 18 /min eCW1 ([facility]) Heart rate 78 /min 78 /min eCW1 ([facility]) Body mass index (BMI) [Ratio] 35.05 kg/m2 35.05 kg/m2 eCW1 ([facility]) Body height 76 [in_i] 76 [in_i] eCW1 ([facility]) Body weight 288 [lb_av] 288 [lb_av] eCW1 ([facility]) [place] body weight 190 [lb_av] 190 [lb_av] MEDEN T ([facility]) Oxygen saturation in Arterial blood by Pulse oximetry 98 % 98 % [facility] ([facility]) Body temperature 97.8 [degF] 97.8 [degF] MED[facility] ([facility]) Respiratory rate 18 /min 18 /min MED[facility] ( [facility]) Heart rate 106 /min 106 /min [facility] ([facility]) Body mass index (BMI) [Ratio] 35.9 kg/m2 35.9 k g/m2 MED[facility] ([facility]) Body weight 284.25 [lb_av] 284.25 [lb_av] MEDEN T ([facility]) Body height 74.6 [in_i] 74.6 [in_i] MED[facility] ([facility]) 6'2.60" Diastolic blood pressure 88 mm[Hg] 88 mm[Hg] MEDENT ([facility]) Systolic blood pressure 124 mm[Hg] 124 mm[Hg] M EDENT ([facility]) [place] body weight 190 [lb_av] 190 [lb_av] MEDEN T ([facility]) Oxygen saturation in Arterial blood by Pulse oximetry 98 % 98 % [facility] ([facility]) Body temperature 98.0 [degF] 98.0 [degF] MED[facility] ([facility]) Respiratory rate 18 /min 18 /min MED[facility] ( [facility]) Heart rate 86 /min 86 /min MED[facility] ([facility]) Body mass index (BMI) [Ratio] 36.0 kg/m2 36.0 k g/m2 MED[facility] ([facility]) Body weight 285.38 [lb_av] 285.38 [lb_av] MEDEN T ([facility]) Body height 74.6 [in_i] 74.6 [in_i] MED[facility] ([facility]) 6'2.60" Diastolic blood pressure 78 mm[Hg] 78 mm[Hg] MED[facility] ([facility]) Systolic blood pressure 128 mm[Hg] 128 mm[Hg] M EDENT ([facility]) [place] body weight 190 [lb_av] 190 [lb_av] MEDEN T ([facility]) Oxygen saturation in Arterial blood by Pulse oximetry 96 % 96 % [facility] ([facility]) Body temperature 97.9 [degF] 97.9 [degF] MED[facility] ([facility]) Heart rate 105 /min 105 /min MED[facility] ([facility]) Body mass index (BMI) [Ratio] 36.4 kg/m2 36.4 k g/m2 MED[facility] ([facility]) Body weight 288.38 [lb_av] 288.38 [lb_av] MEDEN T ([facility]) Body height 74.6 [in_i] 74.6 [in_i] MEDENT ([facility]) 6'2.60" Diastolic blood pressure 78 mm[Hg] 78 mm[Hg] MED[facility] ([facility]) Systolic blood pressure 126 mm[Hg] 126 mm[Hg] M EDENT ([facility]) Oxygen saturation in Arterial blood by Pulse oximetry 96 % 96 % [facility] ([facility]) Body temperature 98.9 [degF] 98.9 [degF] MEDENT ([facility]) Respiratory rate 20 /min 20 /min MEDENT ( [facility]) Heart rate 113 /min 113 /min MEDENT ([facility]) Body mass index (BMI) [Ratio] 36.4 kg/m2 36.4 k g/m2 MEDENT ([facility]) Body weight 288.00 [lb_av] 288.00 [lb_av] MEDEN T ([facility]) Body height 74.6 [in_i] 74.6 [in_i] MEDENT ([facility]) 6'2.60" Diastolic blood pressure 90 mm[Hg] 90 mm[Hg] MEDENT ([facility]) Systolic blood pressure 138 mm[Hg] 138 mm[Hg] M EDENT ([facility]) Oxygen saturation in Arterial blood by Pulse oximetry 98 % 98 % MEDENT ([facility]) Body temperature 97.9 [degF] 97.9 [degF] MEDENT ([facility]) Respiratory rate 18 /min 18 /min MEDENT ( [facility]) Heart rate 89 /min 89 /min MEDENT ([facility]) Body mass index (BMI) [Ratio] 35.7 kg/m2 35.7 k g/m2 MEDENT ([facility]) Body weight 283.00 [lb_av] 283.00 [lb_av] MEDEN T ([facility]) Body height 74.6 [in_i] 74.6 [in_i] MEDENT ([facility]) 6'2.60" Diastolic blood pressure 80 mm[Hg] 80 mm[Hg] MEDENT ([facility]) Systolic blood pressure 138 mm[Hg] 138 mm[Hg] M EDENT ([facility]) Body mass index (BMI) [Ratio] 32.9 kg/m2 32.9 k g/m2 MEDENT ([facility]) Body height 76 [in_i] 76 [in_i] MEDENT ([facility]) 6'4" Body weight 270.00 [lb_av] 270.00 [lb_av] MEDEN T ([facility], [facility]) Body temperature 98.2 [degF] 98.2 [degF] MEDENT ([facility], [facility]) Oxygen saturation in Arterial blood by Pulse oximetry 98 % 98 % MEDENT ([facility], [facility]) Respiratory rate 17 /min 17 /min MEDENT ( [facility], [facility]) Heart rate 98 /min 98 /min MEDENT ([facility], [facility]) Diastolic blood pressure 90 mm[Hg] 90 mm[Hg] MEDENT ([facility], [facility]) Systolic blood pressure 148 mm[Hg] 148 mm[Hg] M EDENT ([facility], [facility]) Diastolic blood pressure 100 mm[Hg] 100 mm[Hg] eCW1 ([facility]) Systolic blood pressure 158 mm[Hg] 158 mm[Hg] e CW1 ([facility]) Body temperature 97.8 [degF] 97.8 [degF] eCW1 ( [facility]) Respiratory rate 18 /min 18 /min eCW1 ([facility]) Heart rate 77 /min 77 /min eCW1 ([facility]) Body mass index (BMI) [Ratio] 35.30 kg/m2 35.30 kg/m2 eCW1 ([facility]) Body height 76 [in_us] 76 [in_us] eCW1 ([facility]) Body weight Measured 290 [lb_av] 290 [lb_av] eC W1 ([facility]) Body mass index (BMI) [Ratio] 36.9 kg/m2 36.9 k g/m2 MEDENT ([facility] ) Body weight 287.25 [lb_av] 287.25 [lb_av] MEDEN T ([facility] ) Body height 74 [in_i] 74 [in_i] MEDENT ([facility] ) 6'2" Body temperature 97.2 [degF] 97.2 [degF] MEDENT ([facility] ) Body mass index (BMI) [Ratio] 33.5 kg/m2 33.5 k g/m2 MEDENT ([facility], [facility]) Body height 76 [in_i] 76 [in_i] MEDENT ([facility], [facility]) 6'4" Body weight 275.00 [lb_av] 275.00 [lb_av] MEDEN T ([facility], [facility]) Body temperature 98.3 [degF] 98.3 [degF] MEDENT ([facility], [facility]) Oxygen saturation in Arterial blood by Pulse oximetry 97 % 97 % MEDENT ([facility], [facility]) Respiratory rate 16 /min 16 /min MEDENT ( [facility], [facility]) Heart rate 90 /min 90 /min MEDENT ([facility], [facility]) Diastolic blood pressure 101 mm[Hg] 101 mm[Hg] MEDENT ([facility], [facility]) Systolic blood pressure 147 mm[Hg] 147 mm[Hg] M EDENT ([facility], [facility]) Body weight 280 [lb_av] 280 [lb_av] NAVJOT ([facility]) Systolic blood pressure 155 mm[Hg] 155 mm[Hg] A THENA ([facility]) Body mass index (BMI) [Ratio] 34.1 kg/m2 34.1 k g/m2 NAVJOT ([facility]) Body height 76 [in_i] 76 [in_i] NAVJOT ([facility]) Diastolic blood pressure 94 mm[Hg] 94 mm[Hg] NAVJOT ([facility]) Body weight 280 [lb_av] 280 [lb_av] NAVJOT ([facility]) Systolic blood pressure 155 mm[Hg] 155 mm[Hg] A THENA ([facility]) Body mass index (BMI) [Ratio] 34.1 kg/m2 34.1 k g/m2 NAVJOT ([facility]) Body height 76 [in_i] 76 [in_i] NAVJOT ([facility]) Diastolic blood pressure 94 mm[Hg] 94 mm[Hg] NAVJOT ([facility]) Body weight 280 [lb_av] 280 [lb_av] NAVJOT ([facility]) Systolic blood pressure 155 mm[Hg] 155 mm[Hg] A THENA ([facility]) Body mass index (BMI) [Ratio] 34.1 kg/m2 34.1 k g/m2 NAVJOT ([facility]) Body height 76 [in_i] 76 [in_i] NAVJOT ([facility]) Diastolic blood pressure 94 mm[Hg] 94 mm[Hg] NAVJOT ([facility]) Body weight 280 [lb_av] 280 [lb_av] NAVJOT ([facility]) Systolic blood pressure 155 mm[Hg] 155 mm[Hg] A THENA ([facility]) Body mass index (BMI) [Ratio] 34.1 kg/m2 34.1 k g/m2 NAVJOT ([facility]) Body height 76 [in_i] 76 [in_i] NAVJOT ([facility]) Diastolic blood pressure 94 mm[Hg] 94 mm[Hg] NAVJOT ([facility]) Patient Treatment Plan of Care Planned Activity Planned Date Details Description Data Source (s) Acetaminophen 325 MG / Oxycodone Hydrochloride 5 MG Or al Tablet [Percocet] 09/04/2020 12:00:00 AM EST eCW1 ([facility]) Acetaminophen 325 MG / Oxycodone Hydrochloride 5 MG Or al Tablet [Percocet] 09/04/2020 12:00:00 AM EST eCW1 ([facility]) Acetaminophen 325 MG / Oxycodone Hydrochloride 5 MG Or al Tablet [Percocet] 08/22/2020 12:00:00 AM EST eCW1 ([facility]) Acetaminophen 325 MG / Oxycodone Hydrochloride 5 MG Or al Tablet [Percocet] 08/22/2020 12:00:00 AM EST eCW1 ([facility]) Acetaminophen 325 MG / Oxycodone Hydrochloride 5 MG Or al Tablet [Percocet] 07/23/2020 12:00:00 AM EST eCW1 ([facility]) Penicillin V Potassium 500 MG Oral Tablet 11/05/2019 12:00:00 AM ED T eCW1 ([facility]) Ketorolac Tromethamine 10 MG Oral Tablet 11/05/2019 12:00:00 AM EDT eCW1 ([facility]) Acetaminophen 325 MG / Oxycodone Hydrochloride 5 MG Oral Tablet NAVJOT ([facility]) Acetaminophen 325 MG / Hydrocodone Bitartrate 5 MG Oral Tablet NAVJOT ([facility]) Amoxicillin 500 MG Oral Capsule NAVJOT ([facility]) Acetaminophen 325 MG / Oxycodone Hydrochloride 5 MG Oral Tablet NAVJOT ([facility]) Acetaminophen 325 MG / Hydrocodone Bitartrate 5 MG Oral Tablet NAVJOT ([facility]) Amoxicillin 500 MG Oral Capsule NAVJOT ([facility]) Acetaminophen 325 MG / Oxycodone Hydrochloride 5 MG Oral Tablet NAVJOT ([facility]) Acetaminophen 325 MG / Hydrocodone Bitartrate 5 MG Oral Tablet NAVJOT ([facility]) Amoxicillin 500 MG Oral Capsule NAVJOT ([facility])
[2020-09-15 20:37] LABS: ALBUMIN 4.4 GM/DL (3.2-5.2); ALT/SGPT 63 U/L (12-78); BILIRUBIN,DIRECT < 0.1 MG/DL (0.0-0.2); BILIRUBIN,TOTAL 0.4 MG/DL (0.2-1.0); BLOOD UREA NITROGEN 18 MG/DL (7-18); CALCIUM LEVEL 9.4 MG/DL (8.5-10.1); CARBON DIOXIDE LEVEL 28 MEQ/L (21-32); CHLORIDE LEVEL 103 MEQ/L (98-107); CK-MB VALUE MASS 1.5 NG/ML (<3.6); CPK CREATINE PHOSPHOKINASE 136 U/L (39-308); GLOMERULAR FILTRATION RATE > 60.0 (>60); GLUCOSE, FASTING 94 MG/DL (70-100); LIPASE 161 U/L (73-393); POTASSIUM SERUM 4.4 MEQ/L (3.5-5.1); SODIUM LEVEL 138 MEQ/L (136-145); TOTAL PROTEIN 7.5 GM/DL (6.4-8.2); TROPONIN I < 0.02 NG/ML (< 0.10)
[2020-09-15] MEDS ORDERED: ISOVUE-370 76% 100ML VIAL As Ordered ONE (22:02)
--- NOTE | 2020-09-15 22:58 | REPVR ---
PROCEDURE INFORMATION: Exam: CT Abdomen And Pelvis With Contrast Exam date and time: 09/15/2020 10:05 PM Age: 35 years old Clinical indication: Abdominal pain; Localized; Left lower quadrant (llq); Additional info: Llq pain; R/O diverticulitis TECHNIQUE: Imaging protocol: Computed tomography of the abdomen and pelvis with contrast. Radiation optimization: All CT scans at this facility use at least one of these dose optimization techniques: automated exposure control; mA and/or kV adjustment per patient size (includes targeted exams where dose is matched to clinical indication); or iterative reconstruction. Contrast material: ISOVUE 370; Contrast volume: 100 ml; Contrast route: INTRAVENOUS (IV); COMPARISON: CT ABD/PEL W/IV CONTRAST ONLY 05/26/2020 8:00 AM FINDINGS: Lungs: There is mild atelectasis in both lower lobes. The lungs were not fully imaged. Heart: No cardiomegaly or pericardial effusion. Diaphragm: The right hemidiaphragm is elevated. Liver: The attenuation of the liver is lower compared to the spleen, which can be seen with fatty liver infiltration. No liver lesion is seen. The contour of the liver is smooth. No hepatomegaly is noted. Gallbladder and bile ducts: No calcified gallstones are noted. No gallbladder wall thickening, pericholecystic fluid, or pericholecystic inflammatory changes are identified. No dilation of the bile ducts is noted. No calcified stones are seen in the common bile duct. Pancreas: Normal. No dilation of the main pancreatic duct is noted. There is no inflammatory fat stranding around the pancreas to suggest acute pancreatitis. Spleen: Normal. No splenomegaly is noted. Incidental note is made of 2 small accessory spleens. Adrenal glands: Normal. No adrenal mass is noted. Kidneys and ureters: There is chronic left renal cortical scarring. There is a 1 cm benign-appearing simple cyst in the upper pole of the right kidney, which is stable compared to the prior CT abdomen and pelvis on 06/05/2020 and for which further follow-up is not necessary. No stones are noted in the kidneys or ureters. There is no hydronephrosis or hydroureter. There are no wedge-shaped areas of low attenuation in the kidneys to suggest pyelonephritis. There is no renal abscess or perinephric fluid collection. Stomach and bowel: The stomach and small bowel are unremarkable. There is colonic diverticulosis and inflammatory fat stranding around a diverticulum arising from the proximal sigmoid colon in the left lower quadrant of the abdomen, which is consistent with sigmoid diverticulitis. No fistula or bowel obstruction is noted. Appendix: Normal. There is no evidence for appendicitis. Intraperitoneal space: No free air. No ascites. No abscess. Retroperitoneal space: No fluid collection. No mass. Vasculature: The abdominal aorta is patent, normal in caliber, and there is no dissection. The iliac arteries, common femoral arteries, renal arteries, celiac artery, superior mesenteric artery, and inferior mesenteric artery are patent. The iliac veins, inferior vena cava, portal veins, splenic vein, superior mesenteric vein, inferior mesenteric vein, and renal veins are patent. Lymph nodes: Normal. No enlarged lymph nodes. Urinary bladder: The distended urinary bladder is normal in appearance. No stones or masses are seen in the bladder. Reproductive: The prostate gland and seminal vesicles are unremarkable. Bones/joints: There is no fracture or dislocation. No suspicious osteolytic or osteoblastic lesion. There are degenerative changes involving the lumbar spine. Soft tissues: There is a small fat containing umbilical hernia, which is similar in appearance compared to the prior CT abdomen and pelvis on 05/26/2020. IMPRESSION: Acute sigmoid diverticulitis. No free air, fistula, or abscess. Electronically signed by: Avery Garcia On 09/15/2020 22:58:25 PM
[2020-09-15] MEDS ORDERED: FLAG500T PO (23:06)
[2020-09-15] MEDS ORDERED: CIPR-249 PO (23:06)
[2020-09-15 23:15] VITALS: BP 147/85
[2020-09-15] MEDS ORDERED: metroNIDAZOLE (FLAGYL) 500MG TABLET PO ONE (23:15)
[2020-09-15] MEDS ORDERED: CIPROFLOXACIN 500MG TABLET PO ONE (23:15)
--- NOTE | 2020-09-16 08:54 | ECGEPIP ---
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
== END 2020-09-15 23:21 | disposition home or self-care (01) ==
LOC: M ED 19:39
DX: K57.92 Diverticulitis of intestine, part unspecified, without perforation or abscess without bleeding (principal); I10 Essential (primary) hypertension; F43.10 Post-traumatic stress disorder, unspecified; Z91.030 Bee allergy status; Z79.899 Other long term (current) drug therapy
CPT/HCPCS: 74177; 80048; 80076; 82550; 82553; 83690; 84484; 85025; 93005; 93041; 96361; 96374; 99285; J2405; Q9967

== ENCOUNTER → 2020-09-27 | Outpatient (CLI) | payer OTHER ==
[~2020-09-27] MED LIST changes: +CYMB60CA3 PO; +TRAZ1TAB11 PO
[2020-09-27 12:51] LABS: APPEARANCE, URINE CLEAR (CLEAR); BACTERIA, URINE AUTO NEGATIVE (NEGATIVE); BILIRUBIN, URINE AUTO NEGATIVE (NEGATIVE); BLOOD, URINE BLOOD NEGATIVE (NEGATIVE); COLOR, URINE YELLOW (YELLOW); GLUCOSE, URINE (UA) AUTO NEGATIVE (NEGATIVE); KETONE, URINE AUTO NEGATIVE (NEGATIVE); LEUKOCYTE ESTERASE, URINE AUTO TRACE (NEGATIVE); MUCUS, URINE SMALL (NEGATIVE); NITRITE, URINE AUTO NEGATIVE (NEGATIVE); PROTEIN, URINE AUTO NEGATIVE (NEGATIVE); RBC, URINE AUTO 0 /HPF (0-3); SPECIFIC GRAVITY URINE AUTO 1.009 (1.002-1.035); SQUAMOUS EPITHELIAL CELL UR AU 0 /HPF (0-6); UROBILINOGEN, URINE AUTO 0.2 mg/dL (0.0-2.0); WBC, URINE AUTO 1 /HPF (0-3)
[2020-09-27 12:53] LABS: BASO # 0.1 10^3/uL (0.0-0.2); BASO % 0.9 % (0.0-1.0); EOS # 0.1 10^3/uL (0.0-0.5); EOS % 0.9 % (0.0-3.0); HEMATOCRIT 45.6 % (42.0-52.0); HEMOGLOBIN 15.6 g/dl (13.5-17.5); LYMPH # 2.5 10^3/uL (1.5-5.0); LYMPH % 28.3 % (24.0-44.0); MEAN CORPUSCULAR HEMOGLOBIN 29.4 pg (27.0-33.0); MEAN CORPUSCULAR HGB CONC 34.2 g/dl (32.0-36.5); MEAN CORPUSCULAR VOLUME 85.9 fl (80.0-96.0); MONO # 0.8 10^3/uL (0.0-0.8); MONO % 8.8 % (0.0-5.0); NEUTROPHILS # 5.3 10^3/uL (1.5-8.5); NEUTROPHILS % 60.8 % (36.0-66.0); PLATELET COUNT, AUTOMATED 347 10^3/uL (150-450); RED BLOOD COUNT 5.31 10^6/uL (4.30-6.10); WHITE BLOOD COUNT 8.7 10^3/uL (4.0-10.0)
[2020-09-27 13:05] LABS: PARTIAL THROMBOPLASTIN TIME 27.3 SECONDS (24.2-38.5)
[2020-09-27 13:09] LABS: INR 0.96
[2020-09-27 13:17] LABS: ALBUMIN 4.4 GM/DL (3.2-5.2); ALT/SGPT 61 U/L (12-78); BILIRUBIN,TOTAL 0.4 MG/DL (0.2-1.0); BLOOD UREA NITROGEN 14 MG/DL (7-18); CALCIUM LEVEL 8.9 MG/DL (8.5-10.1); CARBON DIOXIDE LEVEL 26 MEQ/L (21-32); CHLORIDE LEVEL 104 MEQ/L (98-107); CHOLESTEROL LEVEL 150 MG/DL (<200); CHOLESTEROL RISK RATIO 3.333 (<5); CREATININE FOR GFR 0.88 MG/DL (0.70-1.30); GLOMERULAR FILTRATION RATE > 60.0 (>60); GLUCOSE, FASTING 110 MG/DL (70-100); HDL CHOLESTEROL 45 MG/DL (>40); LDL CHOLESTEROL 68 MG/DL (<100); NON-HDL-C 105 MG/DL; POTASSIUM SERUM 4.4 MEQ/L (3.5-5.1); SODIUM LEVEL 137 MEQ/L (136-145); TOTAL PROTEIN 7.1 GM/DL (6.4-8.2); TRIGLYCERIDES LEVEL 184 MG/DL (<150)
== END ==
LOC: M LAB 11:47
PROVIDERS: ATTEND Physician Assistant
DX: Z01.818 Encounter for other preprocedural examination (principal)

== ENCOUNTER 2021-01-30 21:29 | Emergency (ER) | payer OTHER ==
[~2021-01-30] VITALS: Ht 193 cm; Wt 122.7 kg
[~2021-01-30 21:29] MED LIST changes: +ERGO500029; -VITA50005
[2021-01-30 21:31] VITALS: BP 144/93
[2021-01-30] MEDS ORDERED: TRAZ1TAB14 PO (21:38)
[2021-01-30] MEDS ORDERED: DULO1CAP6 PO (21:38)
[2021-01-30] MEDS ORDERED: KETOROLAC 60MG 2ML VIAL IM ONE (22:35)
--- NOTE | 2021-01-30 22:46 | REPVR ---
PROCEDURE INFORMATION: Exam: XR Right Wrist Exam date and time: 01/30/2021 10:01 PM Age: 36 years old Clinical indication: Other: Trauma; Additional info: Pain after a fall TECHNIQUE: Imaging protocol: XR Right wrist. Views: 3 or more views. COMPARISON: No relevant prior studies available. FINDINGS: Bones/joints: Normal. Soft tissues: Normal. IMPRESSION: No acute findings. Electronically signed by: Jaziel Simon On 01/30/2021 22:45:50 PM
== END 2021-01-30 23:04 | disposition home or self-care (01) ==
LOC: M ED 21:29
DX: S63.521A Sprain of radiocarpal joint of right wrist, initial encounter (principal); S60.211A Contusion of right wrist, initial encounter; W10.8XXA Fall (on) (from) other stairs and steps, initial encounter; Y92.019 Unspecified place in single-family (private) house as the place of occurrence of the external cause; Y93.9 Activity, unspecified; Y99.9 Unspecified external cause status; I10 Essential (primary) hypertension; E78.5 Hyperlipidemia, unspecified; Z87.891 Personal history of nicotine dependence; Z91.030 Bee allergy status; Z79.899 Other long term (current) drug therapy
CPT/HCPCS: 73110; 96372; 99282; J1885

== ENCOUNTER → 2021-04-01 | Outpatient (CLI) | payer OTHER ==
[~2021-04-01] MED LIST changes: +DULO1CAP6 PO; +TRAZ1TAB14 PO
[2021-04-01 15:14] LABS: BLOOD UREA NITROGEN 12 MG/DL (7-18); CREATININE FOR GFR 0.87 MG/DL (0.70-1.30); GLOMERULAR FILTRATION RATE > 60.0 (>60)
== END ==
LOC: M LAB 13:51
PROVIDERS: ATTEND Physician Assistant Medical
DX: Z00.00 Encounter for general adult medical examination without abnormal findings (principal)

== ENCOUNTER 2021-06-12 21:37 | Emergency (ER) | payer BC, OTHER ==
[~2021-06-12] VITALS: Ht 193 cm; Wt 127.3 kg
[~2021-06-12 21:37] MED LIST changes: -CYMB60CA3 PO; +CYMB60CA4 PO
--- OUTSIDE RECORDS SUMMARY | 2021-06-12 21:44 | CCD | Continuity of Care Document ---
Author Author Mekhi VALERIO PA Organization [place] [address] Phone [phone] Care Team Providers Care Sales Service Coordinator Name Role Phone Pina Thompson D.O. AUTM Mohan Tovar MD AUTM [phone] Deep AUTM [phone] Brooks Rahman MD AUTM [phone] [facility]M Problems Active Problems Provider Date Essential hypertension [...] belt Allergies, Adverse Reactions, Alerts Active Allergies Criticality Reaction | Severity Comments Date Honey Bee Venom Unable to assess criticality anaphylaxis 02/23/2020 Steri-Strips Unable to assess criticality Hives, Itching 10/25/2020 Medications Active Medications SIG Qnty Indications Ordering Provide r Date Gabapentin 600mg Tablets Take 1 Capsule By Mouth Every 8 Hours 90tabs M51.17 Pina Thompson D.O. 0 04/10/2021 Morphine Sulfate ER 15mg Tablets E R take one tablet by mouth every 12 hours as needed. 14tabs M25.531 Johnson BennettOPablo 04/10/2021 Epipen 2-Audi 0.3mg/0 .3ML Solution Auto-Inject inject once in anterolateral thigh may r epeat after 5-15 min if symptoms persist 2units Iveth El.OPablo 02/06 Tizanidine HCL 4mg Capsules Take 1 Capsule By Mouth Twice Daily For Muscle Spasm 60caps Iveth Santiago.O. 01/08/[address] [place] 1 by mouth every day 90caps Iveth El.OPablo 12/26 Trazodone HCL 150mg Tablets Take 1 Tablet By Mouth Every Night AT Bedtime 90tabs F43.12 Iveth Sapp.OPablo 10/25/2020 Rosuvastatin Calcium 10mg Tablets Take 1 Tablet By Mouth Every Day 90tabs Johnson ElOPablo 10/21/[address] [place] 1 by mouth every night 90caps F41.1 Johnson ElOPablo 08/01 Zofran 4mg Tablets 1-2 tablets by mouth every 6 hours as needed for nausea 45tabs K57.32 Iveth Saleh.OPablo 06/01/2020 Apap With [facility] Supplies/Equipment Duration: 99 Pr ognosis: good. Pressure 4 cm h20 - 20 cm h20 1units G47.33 Johnson ElOPablo Meloxicam 15mg Tablets Take 1 Tablet Daily as Needed 90tabs M51.17 Johnson ElOPablo 02/28 Enalapril Maleate 10mg Tablets Take 1 Tablet Daily 90tabs I10 Johnson ElOPablo 02/28 History Medications Oxycodone HCL 10mg Tablets take 1 tablets by mouth every 6 hours as needed for pain 28tabs M25.531 Pina Thompson D.O. 02/01/2021 - 04/10/2021 Gabapentin 300mg Capsules Take 1 Capsule By Mouth Every 8 Hours 270caps M51.17 Edmar El 10/25/2020 - 04/10/2021 Immunizations Description No Information Available Vital Signs Date Vital Result Comment 04/10/2021 8:17am BP Systolic 130 mmHg BP Diastolic 78 mmHg Height 74.6 inches 6'2.60" Weight 296.25 lb BMI (Body Mass Index) 37.4 kg/m2 Heart Rate 82 /min Respiratory Rate 14 /min Body Temperature 97.2 F O2 % BldC Oximetry 96 % [place] Body Weight 190 lb 02/01/2021 8:14am BP Systolic 128 mmHg BP Diastolic 74 mmHg Height 74.6 inches 6'2.60" Weight 294.00 lb BMI (Body Mass Index) 37.1 kg/m2 Heart Rate 94 /min Respiratory Rate 18 /min Body Temperature 96.8 F O2 % BldC Oximetry 98 % [place] Body Weight 190 lb Results Test Acquired Date Facility Test Result H/L Range Note Laboratory test finding 04/01/2021 [facility] Outpatient T joseing (Registration) [address] [place] [address] [id number] [phone] Blood Urea Nitrogen 12 mg/dL Normal 7-18 Creatinine With GFR 04/01/2021 [facility] Outpatient Testi ng (Registration) [address] [place] [id number] [phone] Creatinine For GFR 0.87 mg/dL Normal 0.70-1.30 Glomerular Filtration Rate > 60.0 Normal >60 1 1 Units are mL/min/1.73 m2 Chronic Kidney Disease Staging per NKF: Stage I & II GFR >=60 Normal to Mildly Decreased Stage III GFR 30-59 Moderately Decreased Stage IV GFR 15-29 Severely Decreased Stage V GFR <15 Very Little GFR Left ESRD GFR <15 on BACK TENDER FOURDRINIER Procedures Date Code Description Status 04/10/2021 85650 Office/Outpatient Established Mo d MDM 30-39 Min Completed 02/01/2021 96148 Office/Outpatient Established Lo w MDM 20-29 Min Completed 12/11/2020 67610 Office/Outpatient Established Lo w MDM 20-29 Min Completed 10/25/2020 73018 Office/Outpatient Established Mo d MDM 30-39 Min Completed Medical Devices Description No Information Available Encounters Type Date Location Provider Dx Diagnosis Office Visit 04/10/2021 8:15a [facility] PANKAJ Johnson M51.17 Intvrt disc disorders w radi culopathy, lumbosacral region F43.12 Post-traumatic stress disord er, chronic F41.1 Generalized anxiety disorder G47.33 Obstructive sleep apnea (prosper lt) (pediatric) I10 Essential (primary) hyperten karime E78.5 Hyperlipidemia, unspecified Office Visit 02/01/2021 8:15a [facility] PANKAJ Johnson M25.531 Pain in right wrist Office Visit 12/11/2020 10:30a [facility] PANKAJ Johnson M25.572 Pain in left ankle and joint s of left foot Office Visit 10/25/2020 2:30p [facility] PANKAJ Johnson F43.12 Post-traumatic stress disord er, chronic M51.17 Intvrt disc disorders w radi culopathy, lumbosacral region F41.1 Generalized anxiety disorder G47.33 Obstructive sleep apnea (prosper lt) (pediatric) I10 Essential (primary) hyperten karime E78.5 Hyperlipidemia, unspecified Assessments Date Code Description Provider 04/10/2021 M51.17 Intervertebral disc disorders with radiculopathy, lumbosacral region PANKAJ Johnson 04/10/2021 F43.12 Post-traumatic stress disorder, chronic PANKAJ Johnson 04/10/2021 F41.1 Generalized anxiety disorder [facility] PANKAJ Atkinson 04/10/2021 G47.33 Obstructive sleep apnea (adult) (pediatric) PANKAJ Johnson 04/10/2021 I10 Essential (primary) hypertension PANKAJ Johnson 04/10/2021 E78.5 Hyperlipidemia, unspecified Jermaine ael PANKAJ Valerio 02/01/2021 M25.531 Pain in right wrist PANKAJ Spencer 12/11/2020 M25.572 Pain in left ankle and joints of left foot PANKAJ Johnson 10/25/2020 F43.12 Post-traumatic stress disorder, chronic PANKAJ Johnson 10/25/2020 M51.17 Intervertebral disc disorders with radiculopathy, lumbosacral region PANKAJ Johnson 10/25/2020 F41.1 Generalized anxiety disorder [facility] PANKAJ Atkinson 10/25/2020 G47.33 Obstructive sleep apnea (adult) (pediatric) PANKAJ Johnson 10/25/2020 I10 Essential (primary) hypertension PANKAJ Johnson 10/25/2020 E78.5 Hyperlipidemia, unspecified Jermaine ael PANKAJ Valerio Plan of Treatment Future Appointment(s):* 05/01/2021 2:40 pm - PANKAJ Johnson at [facility] Functional Status Description No Information Available Mental Status Description No Information Available Referrals Refer to Reason for Referral Status Appt Date [facility] Shaq Jair has chronic ba ck pain and has failed surgery of his lumbar disc with continued pain. He is following up with [facility] with a plan for a possible fusion of his lumbar spine. Sent [phone]
--- OUTSIDE RECORDS SUMMARY | 2021-06-12 21:44 | CCD | Continuity of Care Document ---
Author Author Mekhi MIRANDA PA Organization [place] [address] Phone [phone] Care Team Providers Care Renewable Energy Project Manager Name Role Phone Pina Thompson D.O. AUTM [phone] Mohan Tovar MD AUTM [phone] [place] AUTM [phone] Brooks Rahman MD AUTM [phone] Problems Active Problems Provider Date Essential hypertension [...] after 5-15 min if symptoms persist 2units Johnson ElOPablo 02/06 Tizanidine HCL 4mg Capsules Take 1 Capsule By Mouth Twice Daily For Muscle Spasm 60caps Iveth Santiago.OPablo 01/08/[address] Pietro Chase by mouth every day 90caps Iveth El.O. 12/26 Trazodone HCL 150mg Tablets Take 1 Tablet By Mouth Every Night AT Bedtime 90tabs F43.12 Johnson SappOPablo 10/25/2020 Rosuvastatin Calcium 10mg Tablets Take 1 Tablet By Mouth Every Day 90tabs Iveth El.OPablo 10/21/[address] Pietro Chase by mouth every night 90caps F41.1 Johnson ElOPablo 08/01 Zofran 4mg Tablets 1-2 tablets by mouth every 6 hours as needed for nausea 45tabs K57.32 Johnson SalehOPablo 06/01/2020 Apap With [facility] Supplies/Equipment Duration: 99 Pr ognosis: good. Pressure [...] hours as needed for pain 28tabs M25.531 Johnson ElO. 02/01/2021 - 04/10/2021 Gabapentin 300mg Capsules Take 1 Capsule By Mouth Every 8 Hours 270caps M51.17 Pina Thompson D.O . 10/25/2020 - 04/10/2021 Immunizations Description No Information Available Vital Signs Date Vital Result Comment 04/10/2021 8:17am BP Systolic 130 mmHg BP Diastolic 78 mmHg Height 74.6 inches 6'2.60" Weight 296.25 lb BMI (Body Mass Index) 37.4 kg/m2 Heart Rate 82 /min Respiratory Rate 14 /min Body Temperature 97.2 F O2 % BldC Oximetry 96 % [place] Body Weight 190 lb 02/01/2021 8:14am BP Systolic 128 mmHg BP Diastolic 74 mmHg Height 74.6 inches 6'2.60" Weight 294.00 lb BMI (Body Mass Index) 37.1 kg/m2 Heart Rate 94 /min Respiratory Rate 18 /min Body Temperature 96.8 F O2 % BldC Oximetry 98 % [place] Body Weight 190 lb Results Test Acquired Date Facility Test Result H/L Range Note Laboratory test finding 04/01/2021 [facility] Outpatient T esting (Registration) [address] [place] [address] [phone] Blood Urea Nitrogen 12 mg/dL Normal 7-18 Creatinine With GFR 04/01/2021 [facility] Outpatient Testi ng (Registration) [address] [place] [address] [id number] [phone] Creatinine For GFR 0.87 mg/dL Normal 0.70-1.30 Glomerular Filtration Rate > 60.0 Normal >60 1 1 Units are mL/min/1.73 m2 Chronic Kidney Disease Staging per NKF: Stage I & II GFR >=60 Normal to Mildly Decreased Stage III GFR 30-59 Moderately Decreased Stage IV GFR 15-29 Severely Decreased Stage V GFR <15 Very Little GFR Left ESRD GFR <15 on CLINICAL SCIENTIST Procedures Date Code Description Status 04/10/2021 16129 Office/Outpatient Established Mo d MDM 30-39 Min Completed 02/01/2021 08173 Office/Outpatient Established Lo w MDM 20-29 Min Completed 12/11/2020 71409 Office/Outpatient Established Lo w MDM 20-29 Min Completed 10/25/2020 39289 Office/Outpatient Established Mo d MDM 30-39 Min Completed Medical Devices Description No Information Available Encounters Type Date Location Provider Dx Diagnosis Office Visit 04/10/2021 8:15a Family [facility] PANKAJ Johnson M51.17 Intvrt disc disorders w radi culopathy, lumbosacral region F43.12 Post-traumatic stress disord er, chronic F41.1 Generalized anxiety disorder G47.33 Obstructive sleep apnea (prosper lt) (pediatric) I10 Essential (primary) hyperten karime E78.5 Hyperlipidemia, unspecified Office Visit 02/01/2021 8:15a Family [facility] PANKAJ Johnson M25.531 Pain in right wrist Office Visit 12/11/2020 10:30a [facility] PANKAJ Johnson M25.572 Pain in left ankle and joint s of left foot Office Visit 10/25/2020 2:30p [facility] PANKAJ Johnson F43.12 Post-traumatic stress disord er, [...] PANKAJ Johnson 04/10/[address]21 F41.[address] [facility] PANKAJ Atkinson 04/10/2021 G47.33 Obstructive sleep apnea (adult) (pediatric) PANKAJ Johnson 04/10/2021 I10 Essential (primary) hypertension PANKAJ Johnson 04/10/2021 E78.5 Hyperlipidemia, unspecified [facility] PANKAJ Huerta 02/01/2021 M25.531 Pain in right wrist PANKAJ Spencer 12/11/2020 M25.572 Pain in left ankle and joints of left foot PANKAJ Johnson 10/25/2020 F43.12 Post-traumatic stress disorder, chronic PANKAJ Johnson 10/25/2020 M51.17 Intervertebral disc disorders with radiculopathy, lumbosacral region PANKAJ Johnson 10/25/2020 F41.1 Generalized anxiety disorder PANKAJ Copeland 10/25/2020 G47.33 Obstructive sleep apnea (adult) (pediatric) PANKAJ Johnson 10/25/2020 I10 Essential (primary) hypertension PANKAJ Johnson 10/25/2020 E78.5 Hyperlipidemia, unspecified [facility] PANKAJ Huerta Plan of Treatment Future Appointment(s):* 05/01/2021 2:40 pm - PANKAJ Johnson at [facility] 04/10/2021 - PANKJA Johnson* M51.17 Intervertebral disc disorders with radiculopathy, lumbosacral region* New Medication:* Gabapentin 600 mg - Take 1 Capsule By Mouth Every 8 Hours * Comments:* Follow up with Dr. Tovar for a possible lumbar fusion after you have tried and failed PT and other pain management options. Follow up with Dr. Rahman, PT and Carol at [facility] for further management of your pain * Referral:* [facility], * F43.12 Post-traumatic stress disorder, chronic* Comments:* Continue with your Trazodone to 150 mg. Consider Prazosin if this does not work. * F41.1 Generalized anxiety disorder* Comments:* Continue with Cymbalta 90 mg to help control your anxiety. * G47.33 Obstructive sleep apnea (adult) (pediatric)* Comments:* Complaint with APAP for at least 6-7 hours with improved fatigue, blood pressure and day time drowsiness. * I10 Essential (primary) hypertension* Comments:* Blood pressure improved with use of Enalapril * E78.5 Hyperlipidemia, unspecified* Comments:* Taking Crestor 10 mg and tolerating well. Functional Status Description No Information Available Mental Status Description No Information Available Referrals Refer to Reason for Referral Status Appt Date [facility] has chronic ba ck pain and has failed surgery of his lumbar disc with continued pain. He is following up with [facility] with a plan for a possible fusion of his lumbar spine. Created [phone]
--- OUTSIDE RECORDS SUMMARY | 2021-06-12 21:44 | CCD ---
Author Author [facility] Organization [facility] Address Unknown Phone Unavailable Care Team Providers Care Machine Cell Tuber Name Role Phone Candace Brooks Unavailable PROBLEMS Type Condition ICD9-CM Code [id number] Code Onset Dates Condition S tatus W/U Status Risk SNOMED Code Notes Problem Protrusion of thoracic intervertebral disc M51.24 Active confirmed [id number] Problem Other chronic pain G89.29 Active confirmed [id number] Problem Protrusion of lumbar intervertebral disc M51.26 Active confirmed [id number] ALLERGIES Allergen (clinical drug ingredient) Drug/Non Drug Allergy do cumented on EMR Reaction Allergy Type Onset Date Status Hornets Anaphylaxis Non Drug Allergy Active Bee sting Anaphylaxis Non Drug Allergy Active ENCOUNTERS from 1987 to 2021-05-17 Encounter Location Date Provider Diagnosis [facility] [address] [phone] [place] [address] May, Brooks Maria IMMUNIZATIONS Vaccine Route Administration Date Status Influenza 6mo & up Fluzone Unknown Sep 22, 2014 Admin istered SOCIAL HISTORY Tobacco Use: Social History Observation Description Date Details (start date - stop date) never smoker Sex Assigned At : Social History Observation Description Sex Assigned At Unknown Language: Question Answer Notes Languages spoken: Estonian Alcohol Screening: Question Answer Notes Did you [...] Notes Start Da te End Date Status Motrin 800 MG 1 tablet with food or milk a s needed Orally Three times a day for 7 day(s) Nov, Not-Taking Percocet 5-325 MG 1 to 2 tab Orally q4-6hr prn pain mdd6 for 10 day(s) Sep, Active Saline Nasal [place] 0.65 % 2 drops in each nostril as n eeded Nasally every 2 hrs for 10 days May, Not-Taking Simvastatin 20 MG 1 tablet in the evening Orally Once a day Not-Taking EPINEPHrine (Anaphylaxis) 1 MG/ML as directed Injection Active Penicillin V Potassium 500 MG 1 tablet Orally Four times a day f or 10 day(s) Oct, Not-Taking Zanaflex 4 MG 1 capsule as needed Orally two times a day Active Mobic 15 MG 1 tablet Orally Once a day Active guaiFENesin 200 MG 1 tablet as needed Orally every 4 hrs for 10 days May, Not-Taking Crestor 10 MG 1 tablet Orally Once a day for 30 day(s) Active Vicodin 5-500 MG 1 tablet as needed Orally prn prn Not-Taking Lipitor 20 mg 1 tablet Orally Once a day Not-Taking Zofran 4 MG 1 tablet Orally every 4 hours as needed Active Flexeril 10 MG 1 tablet Orally Once a day for 30 day(s) Not-Taking Cymbalta 60 MG 1 capsule Orally Once a day at bedtime Active Vitamin D (Ergocalciferol) 1.25 MG (95160 UT) 1 capsule Orally once a week Active Lisinopril 10 mg 1 tablet Orally Once a day Not-Taking Sudafed 30 MG 1 tablet as needed Orally every 6 hrs for 10 days May, Not-Taking Flonase 50 MCG/ACT 1 spray in each nostril Nasally twice a day f or 30 day(s) May, Not-Taking Bactrim DS 800-160 MG 1 tablet Orally Twice a day for 10 day(s) Nov, Not-Taking Ketorolac Tromethamine 10 MG [...] Once a day for 30 day(s) Active traZODone HCl 100 MG 1 tablet at bedtime Orally Once a day for 30 day (s) Active PROCEDURES No Information RESULTS No Results REASON FOR VISIT Cancel Appointment Request MEDICAL (GENERAL) HISTORY Type Description Date [...] Date Stop Date Percocet 5-325 MG 1 to 2 tab Orally q4-6hr prn pain mdd6 f or 10 day(s) 11 Sep, 2020 Insurance Providers Payer Name Payer Address Payer Phone Insured Name Patient Relati onship to Insured Coverage Start Date Coverage End Date [facility] [address] [address] [id number] [facility] [id number] [place] self
--- OUTSIDE RECORDS SUMMARY | 2021-06-12 21:45 | CCD ---
Author Author [facility] Organization [facility] Address Unknown Phone Unavailable Care Team Providers Care Telephone Advice Nurse Name Role Phone Adam BAY MD Unavailable Unavailable Adam BAY [...] Unavailable Unavailable Adam BAY MD Unavailable Unavailable MollisonYomaira MD Unavailable Unavailable MollisonYomaira MD Unavailable Unavailable MollisonYomaira MD Unavailable Unavailable MollisonYomaira MD Unavailable Unavailable MollisonYomaira MD Unavailable Unavailable MollisonYomaira MD Unavailable Unavailable MollisonYomaira MD Unavailable Unavailable MollisonYomaira MD Unavailable Unavailable MollisonYomaira MD Unavailable Unavailable MollisonYomaira MD Unavailable Unavailable MollisonYomaira MD Unavailable Unavailable MollisonYomaira MD Unavailable Unavailable MollisonYomaira MD Unavailable Unavailable MollisonYomaira MD Unavailable Unavailable MollisonYomaira MD Unavailable Unavailable MollisonYomaira MD Unavailable Unavailable MollisonYomaira MD Unavailable Unavailable MollisonYomaira MD Unavailable Unavailable MollisonYomaira MD Unavailable Unavailable MollisonYomaira MD Unavailable Unavailable MollisonYomaira MD Unavailable Unavailable MollisonYomaira MD Unavailable Unavailable MollisonYomaira MD Unavailable Unavailable MollisonYomaira MD Unavailable Unavailable MollisonYomaira MD Unavailable Unavailable MollisonYomaira MD Unavailable Unavailable MollisonYomaira MD Unavailable Unavailable MollisonYomaira MD Unavailable Unavailable MollisonYomaira MD Unavailable Unavailable MollisonYomaira MD Unavailable Unavailable VanArnam JR, W Julius PA Unavailable Unavailable VanArnam JR, W Julius PA Unavailable Unavailable VanArnam JR, W Julius PA Unavailable Unavailable VanArnam JR, W Julius PA Unavailable Unavailable VanArnam JR, W Julius PA Unavailable Unavailable VanArnam JR, W Julius PA Unavailable Unavailable VanArnam JR, W Julius PA Unavailable Unavailable VanArnam JR, W Julius PA Unavailable Unavailable VanArnam JR, W Julius PA Unavailable Unavailable VanArnam JR, W Julius PA Unavailable Unavailable VanArnam JR, W Julius PA Unavailable Unavailable VanArnam JR, W Julius PA Unavailable Unavailable VanArnam JR, W Julius PA Unavailable Unavailable VanArnam JR, W Julius PA Unavailable Unavailable VanArnam JR, W Julius PA Unavailable Unavailable VanArnam JR, W Julius PA Unavailable Unavailable VanArnam JR, W Julius PA Unavailable Unavailable VanArnam JR, W Julius PA Unavailable Unavailable VanArnam JR, W Julius PA Unavailable Unavailable VanArnam JR, W Julius PA Unavailable Unavailable VanArnam JR, W Julius PA Unavailable Unavailable VanArnam JR, W Julius PA Unavailable Unavailable VanArnam JR, W Julius PA Unavailable Unavailable VanArnam JR, W Julius PA Unavailable Unavailable VanArnam JR, W Julius PA Unavailable Unavailable VanArnam JR, W Julius PA Unavailable Unavailable VanArnam JR, W Julius PA Unavailable Unavailable VanArnam JR, W Julius PA Unavailable Unavailable VanArnam JR, W Julius PA Unavailable Unavailable VanArnam JR, W Julius PA Unavailable Unavailable VanArnam JR, W Julius PA Unavailable Unavailable VanArnam JR, W Julius PA Unavailable Unavailable VanArnam JR, W Julius PA Unavailable Unavailable VanArnam JR, W Julius PA Unavailable Unavailable VanArnam JR, W Julius PA Unavailable Unavailable VanArnam JR, W Julius PA Unavailable Unavailable VanArnam JR, W Julius PA Unavailable Unavailable VanArnam JR, W Julius PA Unavailable Unavailable VanArnam JR, W Julius PA Unavailable Unavailable VanArnam JR, W Julius PA Unavailable Unavailable VanArnam JR, W Julius PA Unavailable Unavailable VanArnam JR, W Julius PA Unavailable Unavailable VanArnam JR, W Julius PA Unavailable Unavailable Adam BAY MD Unavailable [...] Unavailable Adam BAY MD Unavailable Unavailable Adam BYA MD Unavailable Unavailable Adam BAY MD Unavailable [...] Unavailable Unavailable Adam BAY MD Unavailable Unavailable O'katelynn, A Tunde PA Unavailable Unavailable O'katelynn, A Tunde PA Unavailable Unavailable O'katelynn, A Tunde PA Unavailable Unavailable O'katelynn, A Tunde PA Unavailable Unavailable O'katelynn, A Tnude PA Unavailable Unavailable O'katelynn, A Tunde PA Unavailable Unavailable O'katelynn, A Tunde PA Unavailable Unavailable O'katelynn, A Tunde PA Unavailable Unavailable O'katelynn, A Tunde PA Unavailable Unavailable O'katelynn, A Tunde PA Unavailable Unavailable O'katelynn, A Tunde PA Unavailable Unavailable O'katelynn, A Tunde PA Unavailable Unavailable O'katelynn, A Tunde PA Unavailable Unavailable O'katelynn, A Tunde PA Unavailable Unavailable O'katelynn, A Tunde PA Unavailable Unavailable O'katelynn, A Tunde PA Unavailable Unavailable O'katelynn, A Tunde PA Unavailable Unavailable O'katelynn, A Tunde PA Unavailable Unavailable O'katelynn, A Tunde PA Unavailable Unavailable O'katelynn, A Tunde PA Unavailable Unavailable O'katelynn, A Tunde PA Unavailable Unavailable O'katelynn, A Tunde PA Unavailable Unavailable O'katelynn, A Tunde PA Unavailable Unavailable O'katelynn, A Tunde PA Unavailable Unavailable O'katelynn, A Tunde PA Unavailable Unavailable O'katelynn, A Tunde PA Unavailable Unavailable O'katelynn, A Tunde PA Unavailable Unavailable O'katelynn, A Tunde PA Unavailable Unavailable O'katelynn, A Tunde PA Unavailable Unavailable O'katelynn, A Tunde PA Unavailable Unavailable O'katelynn, A Tunde PA Unavailable Unavailable O'katelynn, A Tunde PA Unavailable Unavailable O'katelynn, A Tunde PA Unavailable Unavailable Adam TAMEZ MD Unavailable Unavailable Adam TAMEZ MD Unavailable Unavailable Adam TAMEZ MD Unavailable Unavailable Adam TAMEZ MD Unavailable Unavailable Adam TAMEZ MD Unavailable Unavailable Adam TAMEZ MD Unavailable Unavailable Adam TAMEZ MD Unavailable Unavailable Adam TAMEZ MD Unavailable Unavailable Adam TAMEZ MD Unavailable Unavailable Adam TAMEZ MD Unavailable Unavailable Adam TAMEZ MD Unavailable Unavailable Adam TAMEZ MD Unavailable Unavailable Adam TAMEZ MD Unavailable Unavailable Adam TAMEZ MD Unavailable Unavailable Adam TAMEZ MD Unavailable Unavailable Adam TAMEZ MD Unavailable Unavailable Adma TAMEZ MD Unavailable Unavailable Adam TAMEZ MD Unavailable Unavailable Adam TAMEZ MD Unavailable Unavailable Adam TAMEZ MD Unavailable Unavailable Adam TAMEZ MD Unavailable Unavailable Adam TAMEZ MD Unavailable Unavailable Adam TAMEZ MD Unavailable Unavailable Adam TAMEZ MD Unavailable Unavailable Adam TAMEZ MD Unavailable Unavailable Adam TAMEZ MD Unavailable Unavailable Adam TAMEZ MD Unavailable Unavailable Adam TAMEZ MD Unavailable Unavailable Adam TAMEZ MD Unavailable Unavailable Adam TAMEZ MD Unavailable Unavailable Adam TAMEZ MD Unavailable Unavailable Adam TAMEZ MD Unavailable Unavailable Adam TAMEZ MD Unavailable Unavailable Adam TAMEZ MD Unavailable Unavailable Adam TAMEZ MD Unavailable Unavailable Adam TAMEZ MD Unavailable Unavailable Adam TAMEZ MD Unavailable Unavailable Adam TAMEZ MD Unavailable Unavailable Adam TAMEZ MD Unavailable Unavailable Adam TAMEZ MD Unavailable Unavailable Adam TAMEZ MD Unavailable Unavailable Adam TAMEZ MD Unavailable Unavailable Adam TAMEZ MD Unavailable Unavailable Adam TAMEZ MD Unavailable Unavailable Adam TAMEZ MD Unavailable Unavailable Adam TAMEZ MD Unavailable Unavailable Adam TAMEZ MD Unavailable Unavailable Adam TAMEZ MD Unavailable Unavailable Adam TAMEZ MD Unavailable Unavailable Adam TAMEZ MD Unavailable Unavailable Adam TAMEZ MD Unavailable Unavailable Adam TAMEZ MD Unavailable Unavailable Adam TAMEZ MD Unavailable Unavailable Adam TAMEZ MD Unavailable Unavailable Adam TAMEZ MD Unavailable Unavailable Adam TAMEZ MD Unavailable Unavailable Adam TAMEZ MD Unavailable Unavailable Adam TAMEZ MD Unavailable Unavailable Adam TAMEZ MD Unavailable Unavailable Adam TAMEZ MD Unavailable Unavailable Adam TAMEZ MD Unavailable Unavailable Adam TAMEZ MD Unavailable Unavailable Adam TAMEZ MD Unavailable Unavailable Adam TAMEZ MD Unavailable Unavailable Adam TAMEZ MD Unavailable Unavailable Adam TAMEZ MD Unavailable Unavailable Adam TAMEZ MD Unavailable Unavailable Adam TAMEZ MD Unavailable Unavailable Adam TAMEZ MD Unavailable Unavailable Adam TAMEZ MD Unavailable Unavailable Adam TAMEZ MD Unavailable Unavailable Adam TAMEZ MD Unavailable Unavailable Adam TAMEZ MD Unavailable Unavailable Re-disclosure Warning The records [...] is protected by Article 27-F of the [facility] Public Health law. If you continue you may have access to information: Regarding HIV / AIDS; Provided by facilities licensed or operated by the [facility] Office of Mental Health; or Provided by the [facility] Office for People With Developmental Disabilities. If such information is present, then the following [facility] mandated warning applies: This information has been [...] law may result in a fine or detention sentence or both. A general authorization for the release of medical or other information is NOT sufficient authorization for further disc losure. Family History Family Member Name Family Member Gender Family Member Status Date o f Status Description Data Source(s) Unknown Unknown Problem MED[facility] ([facility]) Unknown Male Problem [facility] ([facility]) at age late 20's Unknown Female Problem [facility] ([facility]) Encounters Encounter Providers Location Date Indications Data Source(s ) Unknown [address] [facility] [facility] [address] 05/17/2021 12:00:00 AM EDT eCW1 ([facility]) Outpatient Attender: Tunde LIRA [facility] 04/10/2021 08:15:00 AM EDT MEDENT ([facility]) Outpatient Attender: HIPOLITO BAY MDReferrer: HIPOLITO BAY MD 04/07/2021 10:03:45 AM EDT [facility] Outpatient Attender: Julius Hopper JRReferrer: Tunde LIRA 02/28/2021 02:01:41 PM EDT [facility] Outpatient Attender: Chuckie Steward/Navin/Collin/Re indl 02/04/2021 03:00:00 PM EDT [facility] ([facility] Outpatient Attender: Tunde LIRA [facility] 02/01/2021 08:15:00 AM EDT MEDENT ([facility]) Outpatient Attender: Tunde LIRA [facility] 12/11/2020 10:30:00 AM EDT MED[facility] ([facility]) Outpatient Attender: HIPOLITO BAY MDRgloriaerrer: Tunde LIRA 11/23/2020 11:18:02 AM EDT [facility] Outpatient Attender: Julius Hopper JRReferrer: Tunde LIRA 10/29/2020 01:16:33 PM EDT [facility] Outpatient Attender: Tunde LIRA [facility] 10/25/2020 01:30:00 PM EST MED[facility] ([facility]) Outpatient Attender: Julius Hopper JRReferrer: Tunde LIRA 10/03/2020 02:41:05 PM EST [facility] Recurring Patient Referrer: Tunde LIRA 10/03/2020 12:53:21 PM EST [facility] Outpatient Admitter: HIPOLITO BAY MDReferrer: HIPOLITO BAY MD MOB-MOB.PAT 10/03/2020 11:29:59 AM EST - 10/03/2020 11:30:04 AM EST [facility] Outpatient Attender: HIPOLITO BAY MDAdmitter: HIPOLITO BAY MDReferrer: HIPOLITO BAY MD MOB-MOB.PAT 10/03/2020 12:00:00 AM EST - 10/03/2020 11:45:20 AM EST [facility] Outpatient Attender: Tunde LIRA [facility] 09/27/2020 09:00:00 AM EST MED[facility] ([facility]) Unknown [address] [facility] [id number] 09/27/2020 12:00:00 AM EST eCW1 ([facility]) Inpatient Attender: SYDNEY TAMEZ MDAt tender: HIPOLITO BAY MDAdmitter: HIPOLITO BAY MDReferrer: HIPOLITO BAY MD [id number] 03/2021 10:33:25 AM EST - 10/09/2020 10:54:00 AM EST [facility] Patient discharged. Recurring Patient Referrer: Tunde LIRA 09/13/2020 06:31:45 AM EST [facility] Recurring Patient Referrer: Tunde LIRA 09/12/2020 03:50:46 PM EST [facility] Unknown [address] [facility] [id number] 09/10/2020 12:00:00 AM EST eCW1 ([facility]) Outpatient Attender: HIPOLITO BAY MDReferrer: Tunde LIRA 09/06/2020 05:17:31 PM EST [facility] Outpatient [address] [facility] [id number] 09/04/2020 12:00:00 AM EST eCW1 ([facility]) (PN Proc 45) Pain Procedure 45 [address] [place] [address] 08/30/2020 12:00:00 AM EST eCW1 ([facility]) Unknown [address] [facility] [id number] 08/29/2020 12:00:00 AM EST eCW1 ([facility]) [place] [address] [facility] [address] 08/21/2020 12:00:00 AM EST eCW1 ([facility]) [place] [address] [facility] [address] 08/21/2020 12:00:00 AM EST eCW1 ([facility]) Outpatient Attender: Tunde LIRA [facility] 08/01/2020 12:00:00 PM EST [facility] ([facility]) [place] [address] [facility] [address] 07/23/2020 12:00:00 AM EST eCW1 ([facility]) Outpatient Attender: Tunde LIRA [facility] 07/10/2020 12:45:00 PM EST MED[facility] ([facility]) Outpatient Attender: HIPOLITO BAY MDReferrer: Tunde LIRA 06/08/2020 07:49:33 AM EDT [facility] Recurring Patient Referrer: Tunde LIRA 06/07/2020 01:36:17 PM EDT [facility] Outpatient Attender: Tunde LIRA [facility] 06/01/2020 09:40:00 AM EDT MEDENT ([facility]) Immunizations Vaccine Date Status Description Data Source(s) New in 2011. IIV4 10/09/2020 12:00:00 AM EST completed <t d ID="[id number]">Flu Vaccine =>6MOS Quad Pres-Free</td><td>10/09/2020</td><td></td> [facility] COVID-19 VACCINE Moderna 09/12/2020 12:00:00 AM EST completed [facility] Vaccine Series Complete: YESThis Data wa s Submitted to [facility] Via [facility]. COVID-19 VACCINE Moderna 08/15/2020 12:00:00 AM EST completed [facility] Vaccine Series Complete: NOThis Data was Submitted to [facility] Via [employer]. Medications Medication Brand Name Start Date Product Form Dose Route Admi nistrative Instructions Pharmacy Instructions Status Indications Reaction Description Data Source(s) Morphine Sulfate 15 MG Extended Release Oral Tablet Morphine Sulfate ER 04/10/2021 12:00:00 AM EDT ORAL active MEDENT ([facility]) gabapentin 600 MG Oral Tablet Gabapentin 04/10/2021 12:00:00 AM EDT active MEDENT ([facility]) 0.3 ML Epinephrine 1 MG/ML Auto-Injector [Epipen] Epipen 2-P ak 02/06/2021 12:00:00 AM EDT active EDENT ([facility]) Oxycodone Hydrochloride 10 MG Oral Tablet Oxycodone HCL 02/01/2021 12:00:00 AM EDT ORAL completed MED[facility] ([facility]) tizanidine 4 MG Oral Capsule Tizanidine HCL 01/08/2021 12:00:00 AM EDT active MED[facility] ([facility]) duloxetine 30 MG Delayed Release Oral Capsule [Cymbalta] Cym michelle 12/26/2020 12:00:00 AM EDT ORAL active EDENT ([facility]) Trazodone Hydrochloride 150 MG Oral Tablet Trazodone HCL 10/25/2020 12:00:00 AM EST active MEDENT ([facility]) gabapentin 300 MG Oral Capsule Gabapentin 10/25/2020 12:00:00 AM EST completed MEDENT ([facility]) Rosuvastatin calcium 10 MG Oral Tablet Rosuvastatin Calcium 10/21/2020 12:00:00 AM EST active MED[facility] ([facility]) Bisacodyl 10 MG Rectal Suppository bisacodyl (DULCOLAX ) suppository 10 mg bisacodyl (DULCOLAX) suppository 10 mg 10/10/2020 07:00:00 PM EST 10 mg Rectal active 10 mg, Rectal, Once, Thu10/10/20 at 1900, For 1 dose, Post-op
Post-op day #2 Hold for BM
[facility] Medication administered onsite Influenza Vac Split Quad injection 0.5 mL [id number] 10/09/2020 0 9:00:00 AM EST 0.5 mL Intramuscular completed 0.5 mL , Intramuscular, During hospitalization, Thu10/09/20 at 0900, For 1 dose [facility] Medication administered onsite Magnesium Hydroxide 80 MG/ML Oral Suspen karime magnesium hydroxide (MILK OF MAGNESIA) 400 MG/5ML suspension 30 mL magnesium hydroxide (MILK OF MAGNESIA) 4 00 MG/5ML suspension 30 mL 10/09/2020 09:00:00 AM EST 30 mL Oral active 30 mL, Oral, Daily, First dose on Thu10/09/20 at 0900, Post-op
Start Post-op day #1. Hold for BM
[facility] Medication administered onsite POLYETHYLENE GLYCOL 3350 142 MG/ML Oral Solution polyethylene glycol (GLYCOLAX) packet 17 g polyethylene glycol (GLYCOLAX) packet 17 g 10/09/2020 09:00:00 AM EST 17 g Oral active 17 g, Or al, Daily, First dose on Thu10/09/20 at 0900, Post-op
Start POD #1
[facility] Medication administered onsite atorvastatin 40 MG Oral Tablet atorvastatin (LIPITOR) tablet 40 mg atorvastatin (LIPITOR) tablet 40 mg 10/09/2020 09:00:00 AM EST 40 mg Oral active 40 mg, Oral, Daily, First dose on Thu10/09/20 at 0900, Post-op [facility] Medication administered onsite Oxycodone Hydrochloride 10 MG Oral Tablet Oxycodone HC l TABS 20 mg Oxycodone HCl TABS 20 mg 10/09/2020 07:27:40 AM EST 20 mg Oral active 20 mg, Oral, Every 4 hours PRN, severe pain (7-10), Starting Thu10/09/20 at 0727, For 150 hours, Post-op [facility] Medication administered onsite Oxycodone Hydrochloride 10 MG Oral Tablet Oxycodone HC l TABS 10 mg Oxycodone HCl TABS 10 mg 10/09/2020 07:27:35 AM EST 10 mg Oral active 10 mg, Oral, Every 4 hours PRN, moderate pain (4-6), Starting Thu10/09/20 at 0727, For 150 hours, Post-op [facility] Medication administered onsite Oxycodone Hydrochloride 10 MG Oral Tablet Oxycodone HC l 10 MG TABS Oxycodone HCl 10 MG TABS 10/09/2020 12:00:00 AM EST Oral active Take 1-2 tablets (10-20 mg total) by mouth every 4 (four) hours as needed Max Daily Amount: 120 mg [facility] Bisacodyl 10 MG Rectal Suppository bisacodyl (DULCOLAX ) suppository 10 mg bisacodyl (DULCOLAX) suppository 10 mg 10/09/2020 12:00:00 AM EST 10 mg Rectal active 10 mg, Rectal, Daily PRN, constipation, Starting Thu10/09/20 at 0000, For 4 days, Post-op
For post-op day #1, #3, and #4 Hold for BM
[facility] Medication administered onsite normal saline flush 0.9 % injection 3 mL [id number] 10/08/2020 10:00:00 PM EST 3 mL Intravenous active 3 mL , Intravenous, PROTOCOL, First dose on Thu10/08/20 at 2200, Post-op
When PO taken well
[facility] Medication administered onsite duloxetine 60 MG Delayed Release Oral Ca psule DULoxetine (CYMBALTA) DR capsule 60 mg DULoxetine (CYMBALTA) DR capsule 60 mg 10/08/2020 09:00:00 PM EST 60 mg Oral active 60 mg, Oral, N ightly, First dose on Thu10/08/20 at 2100, Post-op [facility] Medication administered onsite Trazodone Hydrochloride 100 MG Oral Tablet traZODone ( DESYREL) tablet 100 mg traZODone (DESYREL) tablet 100 mg 10/08/2020 09:00:00 PM EST 100 mg Oral active 100 mg, Oral, Nightly, First dos e on Thu10/08/20 at 2100, Post-op [facility] Medication administered onsite Docusate Sodium 50 MG / sennosides, FDC 8.6 MG Oral Tablet senna-docusate (PERICOLACE) 8.6-50 MG 2 tablet senna-docusate (PERICOLACE) 8.6-50 MG 2 tablet 10/08/2020 09:00:00 PM EST 2 {tbl} Oral active 2 tablet, Oral, Nightly, First dose on Thu10/08/20 at 2100, Post-op
hold for loose stools
[facility] Medication administered onsite gabapentin 600 MG Oral Tablet gabapentin (NEURONTIN) t ablet 600 mg gabapentin (NEURONTIN) tablet 600 mg 10/08/2020 03:00:00 PM EST 600 mg Oral active 600 mg, Oral, 3 times daily, First dose on Thu10/08/20 at 1500, Post-op [facility] Medication administered onsite sodium chloride 0.9% (NS) infusion [id number] 10/08/2020 03:00:00 P M EST Intravenous active at 75 mL/hr, Intravenous, Continuous, Starting Thu10/08/20 at 1500, Post-op [facility] Medication administered onsite cefazolin (ANCEF) injection 2 g 10/08/2020 03:00:00 PM EST 2 g Intravenous completed Perioperative Pharmacoprophylaxis 2 g, Intravenous, Administer over 6 Minutes, Every 8 hours (relative), First dose on Thu10/08/20 at 1500, For 3 doses, Post-op
Start 4 hours after pre-op dose, then every 8 hours x 2 doses. Time pre-op dose hun RN may administer IV push or infuse this medication through syringe adapter set ref [id number]. Flush line after use
[facility] Perioperative Pharmacoprophylaxis Medication administered onsite Acetaminophen 500 MG Oral Tablet acetaminophen (TYLENO L) tablet 1,000 mg acetaminophen (TYLENOL) tablet 1,000 mg 10/08/2020 03:00:00 PM EST 1000 mg Oral active 1,000 mg, Oral , Every 6 hours (scheduled), First dose on Thu10/08/20 at 1500, Post-op [facility] Medication administered onsite Methocarbamol 500 MG Oral Tablet methocarbamol (ROBAXI N) tablet 500 mg methocarbamol (ROBAXIN) tablet 500 mg 10/08/2020 02:21:33 PM EST 50 0 mg Oral active 500 mg, Oral, 4 times daily PRN, muscle spasms, Starting Thu10/08/20 at 1421, Post-op [facility] Medication administered onsite Mineral Oil 1000 MG/ML Enema mineral oil enema 1 enema mineral oil enema 1 enema 10/08/2020 02:21:33 PM EST 1 {enema} Rectal active 1 enema, Rectal, Daily PRN, constipation, Starting Thu10/08/20 at 1421, Post-op
hold for loose stools
[facility] Medication administered onsite Ondansetron 4 MG Disintegrating Oral Tab let ondansetron (ZOFRAN-ODT) disintegrating tablet 4 mg ondansetron (ZOFRAN-ODT) disintegrating tablet 4 mg 10/08/2020 02:21:33 PM EST 4 mg Oral active 4 mg, Oral, Every 4 hours PRN, nausea, vomiting, Starting Thu10/08/20 at 1421, Post-op [facility] Medication administered onsite 2 ML Metoclopramide 5 MG/ML Prefilled Sy ringe metoclopramide (REGLAN) injection 10 mg metoclopramide (REGLAN) injection 10 mg 10/08/2020 02:21:[address] 10 mg Intravenous active 10 mg, I ntravenous, Every 6 hours PRN, nausea not relieved by Zofran, Starting Thu10/08/20 at 1421, For 24 hours, Post-op
If nausea not relieved by Zofran; Renal dosing per pharmacy
[facility] Medication administered onsite ondansetron (ZOFRAN) injection 4 mg [id number] 10/08/2020 02:21:3 3 PM EST 4 mg Intravenous active 4 mg, In travenous, Every 4 hours PRN, nausea, vomiting, Starting Thu10/08/20 at 1421, Post-op [facility] Medication administered onsite Oxycodone Hydrochloride 10 MG Oral Tablet Oxycodone HC l TABS 10 mg Oxycodone HCl TABS 10 mg 10/08/2020 02:21:33 PM EST 10 mg Oral aborte d 10 mg, Oral, Every 4 hours PRN, severe pain (7-10), Starting Thu10/08/20 at 1421, For 7 days, Post-op [facility] Medication administered onsite fentaNYL Citrate (PF) (SUBLIMAZE) injection 50 mcg [id number] 10/08/2020 02:21:33 PM EST 50 ug Intravenous active 50 mcg, Intravenous, Every 3 hours PRN, for severe breakthrough pain (7-10) if oral opioid ineffective, Starting Thu10/08/20 at 1421, For 7 days, Post-op [facility] Medication administered onsite ondansetron (ZOFRAN) injection 4 mg [id number] 10/08/2020 12:35:1 7 PM EST 4 mg Intravenous completed 4 mg, In travenous, Once as needed, nausea, vomiting, Starting Thu10/08/20 at 1235, For 1 dose, PACU (only)
If not given in last 4 hours
[facility] Medication administered onsite HYDROmorphone (DILAUDID) injection 0.5 mg [id number] 10/08/2020 12:35:17 PM EST 0.5 mg Intravenous aborted 0.5 mg, Intravenous, Every 5 min PRN, severe pain (7-10), Starting Thu10/08/20 at 1235, For 5 doses, PACU (only) [facility] Medication administered onsite fentaNYL Citrate (PF) (SUBLIMAZE) injection 25 mcg [id number] 10/08/2020 12:35:17 PM EST 25 ug Intravenous aborted 25 mcg, Intravenous, Every 5 min PRN, moderate pain (4-6), moderate pain (4 to 6), Starting Thu10/08/20 at 1235, For 8 doses, PACU (only) [facility] Medication administered onsite ondansetron (ZOFRAN) injection 4 mg [id number] 10/08/2020 09:00:0 0 AM EST 4 mg Intravenous completed 4 mg, In travenous, pharmaceutical operator, Thu10/08/20 at 0900, For 1 dose, Pre-op
To be administered just prior to to transport to operating room
[facility] Medication administered onsite 2 ML Metoclopramide 5 MG/ML Prefilled Sy ringe metoclopramide (REGLAN) injection 10 mg metoclopramide (REGLAN) injection 10 mg 10/08/2020 09:00:[address] 10 mg Intravenous completed 10 mg, I ntravenous, pharmaceutical operator, Thu10/08/20 at 0900, For 1 dose, Pre-op
To be administered just prior to to transport to operating room
[facility] Medication administered onsite Magnesium Chloride 0.76800 MEQ/ML / Pota ssium Chloride 0.0497 MEQ/ML / Sodium Acetate 0.0163 MEQ/ML / Sodium Chloride 0.0899 MEQ/ML / Sodium gluconate 5.02 MG/ML Injectable Solution [Normosol-R] electrolyte-R (NORMOSOL-R/PLASMALYTE-R) solution electrolyte-R (NORMOSOL-R/PLASMALYTE-R) solution 10/08 09:00:00 AM EST Intravenous aborted at 1 00 mL/hr, Intravenous, Continuous, Starting Thu10/08/20 at 0900, Pre-op [facility] Medication administered onsite dexamethasone (DECADRON) injection 4 mg [id number] 10/08/19 09:00:00 AM EST 4 mg Intravenous completed 4 mg, Intr avenous, pharmaceutical operator, Thu10/08/20 at 0900, For 1 dose, Pre-op
To be administered just prior to to transport to operating room. Hold if patient is diabetic or if stress dose steroi ds are ordered
[facility] Medication administered onsite chlorhexidine gluconate 1.2 MG/ML Mouthw ofelia chlorhexidine (PERIDEX) 0.12 % oral solution 15 mL chlorhexidine (PERIDEX) 0.12 % oral solution 15 mL 09:00:00 AM EST 15 mL Mouth/Throat completed 15 mL, Mouth/Throat, pharmaceutical operator, Thu10/08/20 at 0900, For 1 dose, Pre-op
Swish for 30 seconds and spit in pre-induction unit
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
To be administered just prior to to transport to operating room
[facility] Medication administered onsite Acetaminophen 325 MG / Oxycodone Hydroch loride 5 MG Oral Tablet [Percocet] Percocet 5-325 MG Percocet 5-325 MG 09/27/2020 12:00:00 AM EST active Percocet 5-325 MG eCW1 ([facility]) Acetaminophen 325 MG / Oxycodone Hydroch loride 5 MG Oral Tablet [Percocet] Percocet 5-325 MG Percocet 5-325 MG 09/27/2020 12:00:00 AM EST active Percocet 5-325 MG eCW1 (Critical access hospital) Ciprofloxacin 500 MG Oral Tablet [Cipro] Cipro 09/16/2020 12:00:00 AM EST completed [facility] ([facility]) Metronidazole 500 MG Oral Tablet [Flagyl] Flagyl 09/16/2020 12:00 :00 AM EST ORAL completed [facility] ([facility]) Acetaminophen 325 MG / Oxycodone Hydroch loride 5 MG Oral Tablet [Percocet] Percocet 5-325 MG Percocet 5-325 MG 09/04/2020 12:00:00 AM EST 1 .0 {tablet_as_needed} active Percocet 5-32 5 MG eCW1 ([facility]) Acetaminophen 325 MG / Oxycodone Hydroch loride 5 MG Oral Tablet [Percocet] Percocet 5-325 MG Percocet 5-325 MG 09/04/2020 12:00:00 AM EST 1 .0 {tablet_as_needed} active Percocet 5-32 5 MG eCW1 ([facility]) Diazepam 5 MG Oral Tablet [Valium] Valium 08/22/2020 12:00:00 AM EST ORAL completed [facility] ([facility]) Acetaminophen 325 MG / Oxycodone Hydroch loride 5 MG Oral Tablet [Percocet] Percocet 5-325 MG Percocet 5-325 MG 08/22/2020 12:00:00 AM EST 1 .0 {tablet_as_needed} active Percocet 5-32 5 MG eCW1 ([facility]) Acetaminophen 325 MG / Oxycodone Hydroch loride 5 MG Oral Tablet [Percocet] Percocet 5-325 MG Percocet 5-325 MG 08/22/2020 12:00:00 AM EST 1 .0 {tablet_as_needed} active Percocet 5-32 5 MG eCW1 ([facility]) Trazodone Hydrochloride 50 MG Oral Tablet Trazodone HCL 08/22/2020 12:00:00 AM EST completed [facility] ([facility]) Acetaminophen 325 MG / Oxycodone Hydroch loride 5 MG Oral Tablet [Percocet] Percocet 5-325 MG Percocet 5-325 MG 08/22/2020 12:00:00 AM EST 1 .0 {tablet_as_needed} active Percocet 5-32 5 MG eCW1 ([facility]) Acetaminophen 325 MG / Oxycodone Hydroch loride 5 MG Oral Tablet [Percocet] Percocet 5-325 MG Percocet 5-325 MG 08/22/2020 12:00:00 AM EST 1 .0 {tablet_as_needed} active Percocet 5-32 5 MG eCW1 ([facility]) duloxetine 60 MG Delayed Release Oral Capsule [Cymbalta] Cym michelle 08/01/2020 12:00:00 AM EST ORAL active M [facility] ([facility]) Acetaminophen 325 MG / Oxycodone Hydroch loride 5 MG Oral Tablet [Percocet] Percocet 5-325 MG Percocet 5-325 MG 07/23/2020 12:00:00 AM EST 1 .0 {tablet_as_needed} active Percocet 5-32 5 MG eCW1 ([facility]) duloxetine 30 MG Delayed Release Oral Capsule [Cymbalta] Cym michelle 07/10/2020 12:00:00 AM EST ORAL completed [facility] ([facility]) Ondansetron 4 MG Oral Tablet [Zofran] Zofran 06/01/2020 12:00:00 AM EDT ORAL active [facility] ([facility]) Acetaminophen 325 MG / Hydrocodone Bitartrate 5 MG Oral Tabl et [Berkley] Berkley 06/01/2020 12:00:00 AM EDT completed [facility] ([facility]) Tramadol HCL Tramadol HCL 05/08/2020 12:00:00 AM EDT ORAL completed [facility] ([facility]) Rosuvastatin calcium 10 MG Oral Tablet [Crestor] Crestor 04/15/2020 12:00:00 AM EDT ORAL active [facility] ([facility]) Ergocalciferol 94960 UNT Oral Capsule Vitamin D (Ergocalcife rol) 04/15/2020 12:00:00 AM EDT active M [facility] ([facility]) atorvastatin 40 MG Oral Tablet [Lipitor] Lipitor 04/09/2020 12:00: 00 AM EDT ORAL completed [facility] ([facility]) Trazodone Hydrochloride 100 MG Oral Tablet Trazodone HCL 04/09/2020 12:00:00 AM EDT ORAL completed [facility] ([facility]) tramadol hydrochloride 50 MG Oral Tablet Tramadol HCL 03/15/2020 12:00:00 AM EDT ORAL completed [facility] ([facility]) meloxicam 15 MG Oral Tablet meloxicam (MOBIC) 15 MG ta blet meloxicam (MOBIC) 15 MG tablet 15 mg Oral aborted Take 15 mg by mouth daily [facility] Acetaminophen 325 MG / Oxycodone Hydroch loride 5 MG Oral Tablet oxyCODONE- acetaminophen (PERCOCET) 5-325 MG per tablet oxyCODONE-acetaminophen (PERCOCET) 5-325 MG per tablet Oral aborted Take 1-2 tablets by mouth every 4 (four) hours as needed for pain [facility] Insurance Providers Payer name Policy type / Coverage type Policy ID Covered libertarian ID Covered libertarian's relationship to wiley Policy Wiley Plan Information BCBS [place] Ppo U/W Commercial [id number] Family Dependent V [id number] BCBS VIOLET PATEL PPO 302/307 [id number] WI2 [id number] [facility] Health Plans F [id number] SPOUSE [id number] [facility] Services F [id number] SPOUS E [id number] [facility] [place] [facility] Plans F [id number] SPOUSE [id number] [facility] [id number] Spo [id number] [facility] [id number] Spo [id number] [facility] [id number] xxxxxxxxxx [id number] INSURANCE COVID-19 COVID Lisandra C OVID BLUE CROSS BLUE SHIELD -O/P BS [id number] 01 [id number] Blue Cross Blue Shield CL Commercial [id number] Self VY [id number] ANSI-Commercial [id number] Blue Cross Blue Shield CL Commercial [id number] Self VY [id number] BCBS/[place] Medigap Part B [id number] Family Dependent [id number] [place] Commercial [id number] Self [id number] [facility] Commercial [id number] Self 500 ANSI-Commercial [id number] Blue Cross Blue Shield CL Commercial [id number] Self VY [id number] Blue Cross Blue Shield CL Commercial [id number] Self VY [id number] [place]BS [place] PPO 302/307 [id number] [place]2 [id number] BCBS [place] 306/806 [id number] WI2 [id number] BLUE CROSS BLUE SHIELD-CLINIC [id number] 01 [id number] BLUE CROSS BLUE SHIELD-CLINIC [id number] 01 [id number] Blue Cross Blue Shield CL Commercial [id number] Self BCBS Federal Plan Medigap Part B [id number] Family Dependent [place] Commercial [id number] Self [facility] Commercial [id number] Self BS/W/Id#Prefix/W ALL #'S Commercial [id number] Family Depende nt SELF PAY UNAVAILABLE SP UNAVAILA BLE [place] [id number] WI2 [id number] [place] [place] [id number] [facility] [id number] WI2 [id number] [facility] PLUS [id number] SP [id number] ACTIVE DUTY [id number] SP [id number] [facility] O [id number] S [id number] STATE INSURANCE FUND [id number] SP [id number] EXCELLUS BCBS B [id number] P VYS [id number] [facility] COMMERCIAL [id number] BCBS [place] 306/806 [id number] WI2 [id number] [facility] Commercial Health Maintenance Organization (HMO) [id number] Self [id number] Blue Cross Blue Shield CL Commercial [id number] Family Dependent [id number] BLUE CROSS BLUE SHIELD CL BS [id number] Problems, Conditions, and Diagnoses Code Display Name Description Problem Type Effective Dates Data Source(s) M48.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, lumbar region with neur ogenic claudication Spinal stenosis, lumbar region with neur Diagnosis 10/08/2020 08:06:00 AM [facility] M54.5 Low back pain Low back pain Diagnosis 10/08/2020 08:06:00 AM [facility] M51.27 Other intervertebral disc displacement, lumbosacral region Other intervertebral disc displacement, Diagnosis 10/08/2020 08:06:00 AM [facility] U07.1 COVID-19 COVID-19 Diagnosis 10/03/2020 11:29:59 AM [facility] G47.30 Sleep apnea Sleep apnea [id number] 10/08/2020 12:00:00 AM [facility] I10 Hypertension Hypertension [id number] 10/08/2020 12:00:00 A M [facility] E78.5 Hyperlipidemia Hyperlipidemia [id number] 10/08/2020 12:00: 00 AM [facility] F32.9 Depression Depression [id number] 10/08/2020 12:00:00 AM [facility] M51.27 Herniated nucleus pulposus, L5-S1 Herniated nucl eus pulposus, L5-S1 [id number] 10/08/2020 12:00:00 AM [facility] G89.29 Chronic pain Other chronic pain Problem 09/04/2020 12:0 0:00 AM EST [facility] ([facility]) M51.24 [id number] Protrusion of thoracic intervertebral dis c Problem 09/04/2020 12:00:00 AM EST [facility] ([facility]) M51.26 [id number] Protrusion of lumbar intervertebral disc Problem 07/23/2020 12:00:00 AM EST eCW1 ([facility]) F41.1 Generalized anxiety disorder Generalized anxiety disor alexei Problem 07/10/2020 12:00:00 AM EST [facility] ([facility]) Surgeries/Procedures Procedure Description Date Indications Data Source(s) OFFICE OUTPATIENT VISIT 25 MINUTES 04/10/2021 12:00:00 AM EDT [facility] ([facility]) OFFICE OUTPATIENT NEW 30 MINUTES 02/04/2021 12:00:00 A M EDT [facility] ([facility], ) OFFICE OUTPATIENT VISIT 15 MINUTES 02/01/2021 12:00:00 AM EDT [facility] ([facility]) OFFICE OUTPATIENT VISIT 15 MINUTES 12/11/2020 12:00:00 AM EDT [facility] ([facility]) OFFICE OUTPATIENT VISIT 25 MINUTES 10/25/2020 12:00:00 AM EST [facility] ([facility]) BLOOD COUNT COMPLETE AUTOMATED <td>CBC</td><td>Routine </td><td>10/09/2020 5:34 AM EST</td><td></td><td> </td> 10/09/2020 10:34:00 AM EST [facility] BASIC METABOLIC PANEL CALCIUM TOTAL <td>BASIC METABOLI C PANEL</td><td>Routine</td><td>10/09/2020 5:34 AM EST</td><td></td><td> </td> 10/09/2020 10:34:00 AM EST [facility] RADEX SPINE 1 VIEW SPECIFY LEVEL <td>XR OR SPINE LUMBA R CONTINUATION</td><td>STAT</td><td>10/08/2020 11:08 AM EST</td><td></td><td> </td> 10/08/2020 04:08:03 PM EST [facility] XR OR SPINE LUMBAR <td>XR OR SPINE LUMBAR</td>< td>STAT</td><td>10/08/2020 10:54 AM EST</td><td></td><td> </td> 10/08/2020 03:54:21 PM EST [facility] LAMNOTMY INCL W/DCMPRSN NRV ROOT 1 INTRSPC LUMBR <td>L AMINECTOMY, SPINE, THORACOLUMBAR, 2 LEVELS, WITH DECOMPRESSION</td><td></td><td>10/08/2020 10:07 AM EST</td><td> Herniated nucleus pulposus, L5-S1 Low back pain Spinal stenosis of lumbar region with neurogenic claudication</td><td></td> 10/08/2020 03:07:00 PM EST - 10/08/2020 05:56:00 PM EST Spinal stenosis of lumbar region with neurogenic claudicationLow back painHerniated nucleus pulposus, L5-S1 [facility] Spinal stenosis of lumbar region with ne urogenic claudication Low back pain Herniated nucleus pulposus, L5-S1 BLOOD TYPING ABO <td>TYPE AND SCREEN</td><td> Routine</td><td>10/03/2020 11:40 AM EST</td><td> Herniated nucleus pulposus, L5-S1 Low back pain, unspecified back pain laterality, unspecified chronicity, unspecified whether sciatica present Spinal stenosis of lumbar region with neurogenic claudication</td><td> </td> 10/03/2020 04:40:00 PM EST Spinal stenosis of lumbar region with ne urogenic claudicationLow back pain, unspecified back pain laterality, unspecified chronicity, unspecified whether sciatica presentHerniated nucleus pulposus, L5-S1 [facility] Spinal stenosis of lumbar region with ne urogenic claudication Low back pain, unspecified back pain lat erality, unspecified chronicity, unspecified whether sciatica present Herniated nucleus pulposus, L5-S1 HEMOGLOBIN GLYCOSYLATED A1C <td>HEMOGLOBIN A1C</td><td>Routine</td><td>10/03/2020 11:40 AM EST</td><td> Herniated nucleus pulposus, L5-S1 Low back pain, unspecified back pain laterality, unspecified chronicity, unspecified whether sciatica present Spinal stenosis of lumbar region with neurogenic claudication</td><td> </td> 10/03/2020 04:40:00 PM EST Spinal stenosis of lumbar region with ne urogenic claudicationLow back pain, unspecified back pain laterality, unspecified chronicity, unspecified whether sciatica presentHerniated nucleus pulposus, L5-S1 [facility] Spinal stenosis of lumbar region with ne urogenic claudication Low back pain, unspecified back pain lat erality, unspecified chronicity, unspecified whether sciatica present Herniated nucleus pulposus, L5-S1 Electrocardiogram Complete 09/27/2020 12:00:00 AM EST [facility] ([facility]) Pain Procedure Log 09/04/2020 12:00:00 AM EST eCW1 ([facility]) Medication: Oxycodone HCL Tab 10mg Orally 08/30/2020 1 2:00:00 AM EST eCW1 ([facility]) Unclassified drugs 08/30/2020 12:00:00 AM EST eCW1 ([facility]) Results ID Date Data Source [id number] 04/07/2021 10:03:45 AM EDT [facility], PCName: Linda KentDOB: 1985Provider: Hipolito BayDOS: 04/05/2021 Reason For VisitMattsung Kent is here today for Lumbar spine. Linda had his first Covid vaccine on 08/22/2020. Linda had his second Covid vaccine on 09/12/2020. Linda Kent is an established patient here for follow up. Same day MRI follow up. Other DOI/DOO: february 2021. Surgery DOS: 10/08/2020. Surgery Description: Bilateral L4-L5 Decompressive Laminotomy and Foraminotomy and Left L5-S1 Decompressive Laminotomy, and Discectomy.. The patient's pain is managed by PCP. (EMT). Patient is not working at this time due to this problem. History of Present IllnessChronic low back painRecent exacerbation Sandhya 2021Also with radiation left lateral thigh areaAlso with new onset of episodic left foot numbnessDoes have chronic right lateral thigh numbnessPrevious Medrol Dosepak-not helpfulPreviously treated at [facility] pain clinic The patient complains of pain in the lumbar spine . The pain radiates to the left, lateral, buttock(s) and thigh(s) . The patient denies signs of bladder dysfunction, bowel dysfunction, cancer/metastasis, infection and myelopathy . The pain is achy . The pain severity is rated 7 out of 10. Pain is aggravated by periods of activity . There is numbness involving the right and lateral thigh(s). The numbness is constant. [facility]/07/2020: L3-4 DDD with small right L3-4 protrusion; left L4-5 protrusion; left L5-S1 protrusionBelow diagnostic testing were independently reviewed as well as reviewed the official corresponding reports:MRI lumbar SOS 04/05/2021: Postop changes. Recurrent L4-5 disc herniation. Recurrent L5-S1 disc herniation. Right L3-4 protrusionReviewed in detail the results of the diagnostic testing. Reviewed the pertinent applicable clinical implications relating to the patient. Also provided a copy of the results for their personal records. Assessment 1. Herniated nucleus pulposus, L5-S1 (722.10) (M51.27) 2. HNP (herniated nucleus pulposus), lumbar (722.10) (M51.26) Condition: Acute on chronicetiology: age-related spine/joint degenerationlevels: L3-4 and L4-5 and L5-S1 Plan Pain Management (SOS) Referral Treatment Treatment Status: Complete Done:05Apr2021 Ordered;For: Aftercare following surgery of the musculoskeletal system, Low back pain; Ordered By: Hipolito Bay Performed: Order Comments: Releasing patient to pain management Due: 19Apr2021; Last Updated By: Mireya Abel; 04/05/2021 1:48:41 PMLaterality: : _Not Applicable Physical Therapy (SOS) - Spinal Physical Therapy Evaluation and Treatment Status:Complete Done: [id number] Ordered;For: Low back pain; Ordered By: Hipolito Bay Performed: Due: 19Apr2021; Last Updated By: Mireya Abel; 04/05/2021 1:44:32 PMDuration: : Four WeeksPT Frequency : Two or three times a weekSOS ROM and Strength : Range of motion and strengthening exercises.Heat Ultra and Modalities : Heat Ultrasound and modalities as indic atedEvaluate and Treat: : Please evaluate and treat as indicated. Work Note (SOS) Treatment Treatment Status: Complete Done: [id number] Ordered;For: Examination; Ordered By: Hipolito Bay Performed: Due: 19Apr2021; Last Updated By: Mireya Abel; 04/05/2021 1:47:16 PMOut Of Work Until: : further evaluation by pain managementSeen Today for Evaluation and Treatment : The patient was seen today in the office for evaluation and treatment. Plan, Assessment and Recommendation(s) Return if conservative measures have not been successful and wishes to discuss surgical options. 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 A reasonable attempt at proof reading has been made to minimize errors. Please call with any questions. Signatures Electronically signed by : Hipolito Bay M.D.; Apr 07 2021 10:03AM EST (Author) Name Value Range Interpretation Code Description Data Lorri rce(s) Supporting Document(s) ID Date Data Source [id number] 04/05/2021 12:27:00 PM EDT [facility] PATIENT MR#: [id number] NAME: LINDA CHOU DATE OF : 1985REFERRING PHYSICIAN: Hipolito BayEXAM DATE: 1EXAM: LUMBAR SPINE MRI WITHOUT AND WITH GADOLINIUMINDICATION: Status post 10/08/2020 bilateral L4-L5 laminotomy and foraminotomy,and left L5-S1 laminotomy and foraminotomy and microdiscectomy. Chronic lowerback pain. Bilateral leg pain, left to the right. Worsening over the pastmonth.COMPARISON: Lumbar spine radiographs 02/26/2021, MRI lumbar spine 08/22/2020TECHNIQUE: Multiple MRI sequences of the lumbar spine were obtained in thesagittal and axial planes be fore and after administration of IV gadolinium. CONTRAST: 20 ml Clariscan gadolinium IVFINDINGS: There is again mild straightening of the normal lumbar lordosis. Milddegenerative 3 mm retrolisthesis of L4 on L5 and L5 on S1, unchanged. Vertebralbody heights are maintained. Mild to moderate L5-S1 and minimal L4-L5 discspace narrowing, similar to prior. Decreased disc hydration at L5-S1 greaterthan L4-L5 and L3-L4, similar to prior. Mild left L5-S1 chronic fat intensityor endplate degenerative changes, similar to prior. The conus terminates at pauS61-Z3 level.L1-L2: Mild bilateral facet joint hypertrophy. Minimal broad-based posteriordisc bulge, unchanged. No central canal or neural foraminal stenosis.L2-L3: Mild bilateral facet joint hypertrophy. No posterior disc bulge, centralcanal narrowing, or neural foraminal stenosis.L3-L4: There is again a right greater than left posterior disc osteophytecomplex with moderate right and mild left intraforaminal extension. Superimposed right lateral recess posterior disc protrusion again exerts mildmass-effect on the descending right L4 nerve within the right lateral recess. Severe right lateral recess narrowing. Overall borderline mild central canalstenosis. Moderate to severe right and mild left neural foraminal stenosis. Nosignificant change from prior.L4-L5: Interval bilateral laminotomies. There is now enhancing postoperativegranulati on tissue within portions of the previously seen posterior disc bulgeand midline posterior disc protrusion. Overall there is interval decrease innonenhancing posterior disc. There appears to be a persistent midline posteriordisc protrusion that contacts the descending left greater than right L5 nerveswithin the lateral recesses. There is at least mild to moderate bilaterallateral recess narrowing, although this is improved from prior. Improved mildcentral canal stenosis. Bilateral mild intraforaminal endplate spurring andmild bilateral neural foraminal narrowing, similar to prior.L5-S1: Interval bilateral laminotomies. There is now enhancing postoperativegranulation tissue within portions of the previously seen left paracentralposterior disc protrusion. The left posterior disc protrusion is improved,however there may be very mild residual nonenhancing left paracentral posteriordisc protrusion material that very mildly posteriorly displaces the descendingleft S1 nerve within the left lateral recess. There is mild enhancement aroundthe descending left S1 nerve. There remains severe left lateral recessnarrowing. Overall mild central canal narrowing is mildly improved from prior. Mild left intraforaminal disc and endplate spurring and mild left neuralforaminal stenosis, unchanged. The right neural foramen is patent.Limited images of the retroperitoneum are unremarkable.IMPRESSION: Compared to 08/22/2020:1. Interval bilateral L4 and L5 laminotomies and left L5-S1 microdiscectomy.2. L4-L5 improved posterior disc protrusion that now contacts the descendingleft greater than right L5 nerves within the lateral recesses. Improved mildcentral canal stenosis. Mild bilateral neural foraminal narrowing is similar toprior.3. L5-S1 improved left posterior disc protrusion that now very mildlyposteriorly displaces the descending left S1 nerve within the left lateralrecess. Mild left neural foraminal stenosis is unchanged.4. L3-L4 right lateral recess posterior disc protrusion again exerts mildmass-effect on the descending right L4 nerve within the right lateral recess. Moderate to severe right and mild left neural foraminal stenosis is unchanged.Read by: Nicholas Jordan by: Nicholas Jordan Date: 04/05/2021 12:27:56 PMElectronically signed by: Nicholas Kathleen signed: 04/05/2021 12:27:59 PM Name Value Range Interpretation Code Description Data Lorri rce(s) Supporting Document(s) ID Date Data Source [id number] 04/01/2021 02:03:[address] [facility] ([facility]) Name Value Range Interpretation Code Description Data [facility] rce(s) Supporting Document(s) Creatinine For GFR 0.87 mg/dL 0.70-1.30 Normal (applies to non -numeric results) [facility] ([facility]) Glomerular Filtration Rate Laboratory test result Normal (applies to non- numeric results) [facility] ([facility]) <content>Units are mL/min/1.73 m2</content>
<content></content>
<content>Chronic Kidney Disease Staging per NKF:</content>
<content></content>
<content>Stage I & II GFR >=60 Normal to Mildly Decreased</content>
<content>Stage III GFR 30- 59 Moderately Decreased</content>
<content>Stage IV GFR 15-29 Severely Decreased</content>
<content>Stage V GFR <15 Very Little GFR Left</content>
<content>ESRD GFR <15 on UNARMED SECURITY GUARD</content>
<content></content> ID Date Data Source [id number] 04/01/2021 02:03:00 PM EDT [facility] ([facility]) Name Value Range Interpretation Code Description Data Lorri rce(s) Supporting Document(s) Urea nitrogen [Mass/volume] in Serum or Plasma 12 mg/dL 7 -18 Normal (applies to non-numeric results) [facility] ([facility]) ID Date Data Source [id number] 02/28/2021 02:01:41 PM EDT [facility] PCName: Linda KentDOB: 1985Provider: Shaila Carroll: 02/28/2021 Reason For Visit Linda had his first Covid vaccine on 08/22/2020. Linda had his second Covid vaccine on 09/12/2020. Linda Kent is an established patient here for follow up. patient states he has been having lower back pain radiating down right leg and a popping sensation to his groin area. He states this has been for approx. 2 weeks. The patient is currently residing at home. Other DOI/DOO: february 2021. Surgery DOS: 10/08/2020. Surgery Description: Bilateral L4-L5 Decompressive Laminotomy and Foraminotomy and Left L5-S1 Decompressive Laminotomy, and Discectomy.. The patient's pain is managed by PCP. (EMT). 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 History of Present IllnessPatient is a 36-year-old male presents to the office with a chief complaint of low back pain. Onset was about 3 weeks ago after driving to [place]. Denies any specific injury. Pain has been getting progressively worse. Pain is constant across L4-5 and L5-S1. Associated with radiating pain to the lateral aspect of the right thigh with numbness in the same distribution. Has also been having episodic numbness involving the anterior aspect of the left leg. The symptoms have been getting progressively worse despite home exercises he learned in prior physical therapy and meloxicam. Results/DataXRays were ordered, obtained and interpreted today in the office. Indication: pain/dysfunction. Site: Lumbar Spine Views: 2 Views, AP/Lateral Standing Findings:. No fractures, dislocations, or other significant abnormalities. AssessmentAcute on chronic nontraumatic low back painBilateral lumbar radiculitis Plan Start: methylPREDNISolone 4 MG Oral Tablet Therapy Pack (Medrol); Take as directed Rx By: Julius Carroll; Dispense: 0 Days ; #:1 X 21 Tablet Pack; Refill: 0;For: Low back pain; JAMAR = N; Verified Transmission to [facility]; Last Updated By: Dain Hollnis; 02/28/2021 11:42:48 AM Start: oxyCODONE HCl - 10 MG Oral Tablet; 1 tab po Q 6 hours PRN PAIN Reference #:[id number] MDD:4 Rx By: Julius Carroll; Dispense: 0 Days ; #:20 Tablet; Refill: 0;For: Aftercare following surgery of the musculoskeletal system, Low back pain; JAMAR = N; Sent To: [facility]; Last Updated By: Nicole Rider; 02/28/2021 11:44:07 AM BUN ( Blood Urea Nitrogen ); Status:Active; Requested for:[id number]; Perform:Outside Facility; Order Comments:Please Fax results to [facility] at [phone]; Due:[id number]; Last Updated By:Nicole Rider; 02/28/2021 11:35:23 AM;Ordered; For:Health Maintenance, Low back pain; Ordered By:Julius Carroll; Creatinine (CREATININE, GFR, GFR ( AMER), GFR INTERPRETATION);Status:Active; Requested for:[id number]; Perform:Outside Facility; Order Comments:Please Fax results to [facility] at [phone]; Due:[id number]; Last Updated By:Nicole Rider; 02/28/2021 11:35:23 AM;Ordered; For:Health Maintenance, Low back pain; Ordered By:Julius Carroll; X-Ray I Lumbosacral - 2 views (XRays were ordered, obtained and interpreted today inthe office. Indication: pain/dysfunction.); Status:Complete; Done: [id number] Perform:[facility]; Due:[id number]; Last Updated By:Em Jenkins; 02/28/2021 11:09:21 AM;Ordered; For:Low back pain; Ordered By:Julius Carroll; MRI ([facility]) Referral Diagnostic Diagnostic Status: Need Information - FinancialAuthori zation Requested for: 28Feb2021 Ordered;For: Low back pain; Ordered By: Hipolito Bay Performed: Order Comments: Same Day Follow Up, STAT wet read. Due: 14Mar2021; Last Updated By: Nicole Rider; 02/28/2021 11:34:40 AMPatient will follow up with: : Dr. Bay---same day follow up, STAT wet read.MRI Ordered Contrast : 02: without and with Gado IVLaterality: : _Not Applicable Work Note ([facility]) Treatment Treatment Status: Complete Done: [id number] Ordered;For: Health Maintenance; Ordered By: Julius Carroll Performed: Due: 14Mar2021; Last Updated By: Nicole Rider; 02/28/2021 11:37:06 AMNotify Employer of Restrictions : It is your responsibility to advise your employer of these restrictions, please be aware they may or may not be able to accommodate your restrictions. These restrictions apply to this diagnosis only.Restrictions : No lifting greater than 20 lbs. Continue light duty until 04/04/21.Works Status : Light DutySeen Today for Evaluation and Treatment : The patient was seen today in the office for evaluation and treatment. Plan, Assessment and Recommendation(s) The nature of the diagnosis and various treatment alternatives were discussed today, including invasive, operative, and non-operative options. Patient is status post bilateral L4-5 laminotomy and foraminotomies with left L5-S1 laminotomy with foraminotomies in addition to discectomy on 10/08/2020. Low back pain after prolonged driving. This was 3 weeks ago. Symptoms are getting progressively worse. This is despite home exercises learned in prior physical therapy as well as meloxicam. Provided him with a prescription for oxycodone to use very sparingly as needed for severe pain. Also provided prescription for a Medrol Dosepak. Recommend further evaluation with MRI lumbar spine with and without contrast. Follow-up same day to review the results. Work / School NoteThe patient is working at this time. No lifting greater than 20 pounds This document was dictated and electronically signed using Flame[employer]ower software. A reasonable attempt at proof reading has been made to minimize errors. Please call with any questions. Signatures Electronically signed by : Mario Moreno; Feb 28 2021 1:52PM EST (Author) Electronically signed by : Hipolito Bay M.D.; Feb 28 2021 2:01PM EST Name Value Range Interpretation Code Description Data Lorri rce(s) Supporting Document(s) ID Date Data Source [id number] 11/23/2020 11:18:02 AM EDT [facility] PCName: Linda KentDOB: 1985Provider: Verena Bay: 11/23/2020 Reason For VisitMattsung Kent is here today for Lumbar spine. Linda had his first Covid vaccine on 08/22/2020. Linda had his second Covid vaccine on 09/12/2020. Linda Kent is an established patient here for follow up. Surgery DOS: 10/08/2020. Surgery Description: Bilateral L4-L5 Decompressive Laminotomy and Foraminotomy and Left L5-S1 Decompressive Laminotomy, and Discectomy.. (EMT). 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 History of Present IllnessFollow-up lumbar surgeryOccasional low back painOccasional right buttock painPreoperative leg pain is gonePreoperative numbness is goneNo signs of infection Results/Data OtherBelow diagnostic testing were independently reviewed as well as reviewed the official corresponding reports:[facility] 08/22/2020: Small T8-9 and T9-10 protrusions. No significant stenosis to my review.MRI [facility] 08/22/2020: L3-4 moderate stenosis. L4-5 central protrusion with moderate to severe stenosis; large left L5-S1 protrusion Assessment 1. Low back pain (724.2) (M54.5) Condition: Chronicetiology: age- related spine/joint degenerationlevels: L3-4, L4-5 and L5-S1 Plan Work Note ([facility]) Treatment Treatment Status: Complete Done: 23Nov2020 Ordered;For: Health Maintenance; Ordered By: Hipolito Bay Performed: Due: 07Dec2020; Last Updated By: Jarod Robertson; 11/23/2020 11:13:12 AMResume : 11/26/2020Notify Employer of Restrictions : It is your responsibility to advise your employer of these restrictions, please be aware they may or may not be able to accommodate your restrictions. These restrictions apply to this diagnosis only.Restrictions : NoneOut Of Work Until: : 11/26/2020Works Status : Patient to resume full dutySeen Today for Evaluation and Treatment : The patient was seen today in the office for evaluation and treatment. Plan, Assessment and Recommendation(s) Follow up as needed, if not improving, or getting worse. Long discussion reviewing the different treatment conservative options(observation, medication(s), physical therapy, before and after school daycare worker, acupuncture, pain clinic, home exercise program, etc.)--- with pros and cons, potential risks/potential benefits of each option, as well as the chances of successes/failures of each option.At this time, they wish to proceed with:Home exercise program Work / School NoteThe patient is working at this time. Linda will return to work on 11/26/2020. Return to work with no restrictions. This document was dictated and electronically signed using [employer] Speaking software. A reasonable attempt at proof reading has been made to minimize errors. Please call with any questions. Signatures Electronically signed by : Hipolito Bay M.D.; Nov 23 2020 11:18AM EST (Author) Name Value Range Interpretation Code Description Data Lorri rce(s) Supporting Document(s) ID Date Data Source [id number] 10/29/2020 01:16:33 PM EDT [facility] PCName: Linda KentDOB: 1985Provider: Zaid Crawford Shaila: 10/19/2020 Reason For VisitMatthew had his second Covid vaccine on 09-12-2020. Lnida Kent is an established patient here for follow up. The patient is currently residing at home. Other DOI/DOO: 2007. Surgery DOS: 10-08-2020. Surgery Description: Bilateral L4-L5 Decompressive Laminotomy and Foraminotomy and Left L5-S1 Decompressive Laminotomy, and Discectomy. (EMT). Patient is not working at this time due to this problem. History of Present IllnessPatient is a 35-year-old male presents to the office for his first postop visit following lumbar surgery on 10/08/2020. Complaining of low back soreness. Preoperative radicular symptoms improved. Denies any signs of infection. Taking oxycodone postoperatively as needed for pain however when he tried weaning off of the oxycodone he felt he was having withdrawal type symptoms including nausea and mood swings. Currently taking oxycodone 5 mg every 8 hours. AssessmentLow back painAftercare following musculoskeletal surgery Plan Start: diazePAM 5 MG Oral Tablet (Valium); 1 po q 8 hrs prn MDD:3 Rx By: Julius Carroll; Dispense: 0 Days ; #:20 Tablet; Refill: 0;For: Aftercare following surgery of the musculoskeletal system, Low back pain; JAMAR = N; Verified Transmission to [facility]; Last Updated By: Factery; 10/19/2020 12:35:17 PM Start: oxyCODONE HCl - 5 MG Oral Tablet; 1 po tid x 7days then 1 po bid x 7 daysthen 1 po qd x 7 days Rx By: Julius Carroll; Dispense: 0 Days ; #:42 Tablet; Refill: 0;For: Aftercare following surgery of the musculoskeletal system, Low back pain; JAMAR = N; Verified Transmission to [facility]; Last Updated By: Factery; 10/19/2020 12:35:16 PM Work Note ([facility]) Treatment Treatment Status: Complete Done: 19Oct2020 Ordered;For: Health Maintenance; Ordered By: Julius Carroll Performed: Due: 02Nov2020; Last Updated By: Maria Isabel Orr; 10/19/2020 11:01:02 AMNotify Employer of Restrictions : It is your responsibility to advise your employer of these restrictions, please be aware they may or may not be able to accommodate your restrictions. These restrictions apply to this diagnosis only.Restrictions : no lifting > 10 lbs ; desk work onlyWorks Status : Light DutySeen Today for Evaluation and Treatment : The patient was seen today in the office for evaluation and treatment. Patient is status post bilateral L4-5 laminotomy and foraminotomies with left L5-S1 laminotomy with foraminotomies in addition to discectomy on 10/08/2020. In regards to his preoperative symptoms he is clinically doing very well. I encouraged him to continue with normal ADLs and focus on walking. We will assist him with weaning off of the oxycodone. Provided prescription for oxycodone 5 mg 1 p.o. every 8 hours for 7 days then 1 p.o. every 12 hours for 7 days and then 1 p.o. daily for 7 days. I also provided him with a prescription for Valium 5 mg p.o. every 8 hours to assist with any possible withdrawal type symptoms. He is asking for a light duty work note which I will provide. Follow- up in 4 weeks. Work / School NoteThe patient is not working at this time. Linda will return to work on 10/19/20. No lifting greater than 10 pounds and desk work only DisclaimersThis document was dictated and electronically signed using FlameStower software. A reasonable attempt at proof reading has been made to minimize errors. Please call with any questions. Signatures Electronically signed by : Mario Moreno; Oct 28 2020 10:33PM EST (Author) Electronically signed by : Hipolito Bay M.D.; Oct 29 2020 1:16PM EST Name Value Range Interpretation Code Description Data Lorri rce(s) Supporting Document(s) ID Date Data Source [id number] 10/10/2020 04:50:51 PM EST [facility]PAT[facility] NT INFORMATIONPatient MRN Name Date of Age Gend*PT [id number] Linda Kent 1985 35 years M SDCXPT Location Admission Date/Time Visit ID Attending [id number] 10/08/20 0806 --- --- EPI ID CSN Admitting Provider [id number] Hipolito Bay MD([id number])Operative ReportPatient Name: Linda Kent of : 1985 Age 35 yearsPrimary Physician: PANKAJ De Santiago PCP Psut of Surgery: 10/08/2020iagnostic InformationPre- Op Diagnosis: Bilateral L4-5 lateral recess stenosis; bilateral [id number]; left L5-S1 disc herniation; left S1 radiculopathyPost-Op Diagnosis: SameProcedure(s) Procedure(s):BILATERAL LUMBAR 4 5 LAMINOTOMY DISCECTOMY LEFT LUMBAR 5 SACRAL 1 DISCECTOMY(Bilateral)Surgical StaffSurgeon: YESI Diazurgical Staff: OR Legal Paraprofessional: Edil Funes RNOR Relief Legal Paraprofessional: Shiela Bolaños RNOR Relief Scrub: Avery Garza Scrub Person: Braden CarbajalSudawn Electrodynamicist: Elizabeth Swanson Clay Caster is a Physician's Leather Production Machine Operator (PANKAJ), the Orthopedic Resident wasnot availableAnesthesiaAnesthesia Staff: Anesthesiologist: BERTHA BourneRNA: Carlos Phillips CRNAAnesthesia: *Anesthesia ServicesOperative DescriptionProcedure: 1. Right L4-5 laminotomy and foraminotomy with decompression of the rightL5 nerve root.2. Left L4-5 laminotomy and foraminotomy decompression of the left L5 nerveroot3. Left L5-S1 laminotomy with foraminotomy and discectomy decompress the leftS1 nerve root Anesthesia: GeneralEBL minimalFluid: CrystalloidComplications: None Indications: Patient is a 35 years Male with back pain and bilateral leg pain.Evaluation including MRI revealed bilateral L4-5 lateral recess stenosis as wellas a left L5-S1 disc herniation. Patient failed conservative measures. Treatmentoptions were reviewed with risks and benefits with the choice of operativeintervention. No guarantees given. Again did review what the surgery wouldinvolve including risks and benefits as well as the chances of successes andfailures and potential complications. No guarantees given. Antibiotics: Intravenous Kefzol was given within one hour of incision time andordered to be stopped within 24 hours of surgery. Procedure: Patient brought to operating room and received general anesthesia. Receivedantibiotics as above. Next rolled onto the Arsalan table in the prone positionon the Radhames frame. All pressure points checked and padded. Next the patient'sback was prepped and draped in usual fashion using a ChloraPrep system. Pleasenote throughout the procedure, 3.5 loupe magnification was used.Using a skin knife, midline incision from L4 to S1 . Carried deeply to thefascia. Fascia incised bilaterally using electrocautery and carried down tothe level of lamina. Intraoperative x-rays obtained for localization. Next using the Kerrison rongeur, a left L4-5 laminotomy performed by removingsome of the inferior lamina of L4 and superior of L5. Lateral recessdecompressed using a Kerrison rongeurs as well performing a foraminotomy,decompressing the left L5 nerve root.Next using a Kerrison rongeurs, a left L5-S1 laminotomy and foraminotomy wasperformed by removing some of the inferior lamina of L5 and some of the superiorlamina of S1. Also discectomy performed, decompressing the left S1 nerve root.Attention placed towards the right L4-5 interspace. Laminotomy performed byremoving some inferior lamina L4 and superior lamina of L5. Canal entered andagain using the Kerrison rongeurs, lateral recess was decompressed as theperforming foraminotomy--decompressing the right L5 nerve root Wound was copiously irrigated. Wounds hemostatic. Fascia closed using #1Vicryl in a uhnbon-yi-pvnbv, interrupted fashion. Subcutaneous tissuesinjected with 30 cc 1/2 percent marcaine with epinephrine. Subcutaneous softtissue closed using 2-0 Vicryl for subcu and 3-0 Monocryl for skin. Sterile dressing applied. Patient rolled onto stretcher. Extubated. Movingall 4 extremities. Brought to recovery room stable condition.Operative InformationSpecimen(s): @ORSPECMN@Grafts/Implants: * No implants in log *All ta sks completed by the surgeonHipolito Bay MD Name Value Range Interpretation Code Description Data Lorri rce(s) Supporting Document(s) ID Date Data Source [id number] 10/09/2020 09:10:28 AM EST [facility] NT INFORMATIONPatient MRN Name Date of Age Gend*PT [id number] Linda Kent 1985 35 years M SDCXPT Location Admission Date/Time Visit ID Attending [id number] 10/08/20 0806 --- Hipolito Bay MD([id number]) EPI ID CSN Admitting Provider [id number] Hipolito Bay MD([id number]) Attestation signed by Hipolito Bay MD at 10/09/2020 9:10 AMSignature: KISHAN Diazate: October 09, 2020Time: 9:10 AM --ORTHOPEDIC DISCHARGE SUMMARYPatient Name: Linda Kent of : 1985 Age 35 yearsPrimary Physician: PANKAJ De Santiago PCP Ohunhpjqb Date: 10/08/2020 Discharge Date: 10/09/2020dmission Provider: Hipolito Bay MD Discharge Provider: Danna Cruz Diagnoses:Principal Problem: Herniated nucleus pulposus, L5- Q5Rsrpfb Problems: Depression Hyperlipidemia Hypertension Sleep apneaResolved Problems: * No resolved hospital problems. *Surgical Procedures:Procedure(s):BILATERAL LUMBAR 4 5 LAMINOTOMY DISCECTOMY LEFT LUMBAR 5 SACRAL 1 DISCECTOMY(Bilateral)Brief Hospital Course:Patient was admitted through ambulatory unit. Patient underwent procedurewithout any complications. Postoperatively, patient had DVT prophylaxis withMechanical means. Hospital course was uneventful. Patient had physical therapywhile in the hospital. Pain control was maintained with IV and oral painmedications initially and transitioned to only oral when tolerating pain withoutany IV medications. Once discharge criteria was met, the patient was found to bestable for discharge. Please see discharge instructions and medications forfurther details.Discharge disposition: He will be discharged [facility] to home in stable condition.Discharge Weight Bearing Status:WBATDischarge Medications:Patient was instructed to refrain from driving or operating machinery untilcleared by surgeon.Current Discharge Medication ListSTART taking these medications DetailsOxycodone HCl 10 MG TABS Take 1-2 tablets (10-20 mg total) by mouth every 4(four) hours as needed Max Daily Amount: 120 mgQty: 20 tablet, Refills: 0CONTINUE these medications which have NOT CHANGED Detailsenalapril (VASOTEC) 10 MG tablet Take 10 mg by mouth dailygabapentin (NEURONTIN) 600 MG tablet Take 600 mg by mouth 3 (three) times a dayondansetron (ZOFRAN-ODT) 4 MG disint egrating tablet Take 4 mg by mouth daily asneeded for nausearosuvastatin (CRESTOR) 10 MG tablet Take 10 mg by mouth dailytiZANidine (ZANAFLEX) 4 MG tablet Take 4 mg by mouth daily as needed (for musclespasms)traZODone (DESYREL) 100 MG tablet Take 100 mg by mouth nightlyvitamin D, Ergocalciferol, 1.25 MG (06991 UT) CAPS Take 1 capsule by mouth oncea week On Thursdaycalcium carbonate (TUMS) 500 MG chewable tablet Chew 1 tablet daily as neededfor heartburnDULoxetine (CYMBALTA) 60 MG capsule Take 60 mg by mouth nightlySTOP taking these medications meloxicam (MOBIC) 15 MG tablet oxyCODONE-acetaminophen (PERCOCET) 5-325 MG per tabletFollow Up Instructions:An After Visit Summary was printed and given to the patient.Items needing special attention: noneDischarge Exam:Blood Pressure: BP: (P) 132/83 Pulse: Heart Rate: (P) 92Temperature: Temp: (P) 98.3 F Respirations: Resp: (P) 16Admission Weight: Weight: (!) 130.2 kg (287 lb) O2 Saturation: SpO2: (P) 95 %Discharge Weight: Weight: (!) 130.2 kg (287 lb) BMI: Body mass index is 35.87kg/m .Physical ExamGeneral: A/O x 3, NAD.Respiratory: Breathing unlaboredOrthopedic: lumbar spine exam: Dressing clean, dry and intact. Sensation intactbilaterally. Strength intact bilaterally, 5/5 DF/PF bilaterally.Diagnostics:Lab ResultsComponent Value Date WBC 13.4 (H) 10/09/2020 HGB 12.7 (L) 10/09/2020 HCT 38.4 (L) 10/09/2020 MCV 87.9 10/09/2020 PLT 289 10/09/2020No results found for: INR, PROTIMELab ResultsComponent Value Date CREATININE 0.80 10/09/2020 BUN 12 10/09/2020 NA 139 10/09/2020 K 4.3 10/09/2020 CL 105 10/09/2020 CO2 25 10/09/2020 GLU 104 (H) 10/09/2020ignificant Imaging:noneConsults:noneSignature: [phone]: October 09, 2020Time: 8:15 AM Name Value Range Interpretation Code Description Data Lorri rce(s) Supporting Document(s) ID Date Data Source [id number] 10/09/2020 08:14:44 AM EST [facility] Name Value Range Interpretation Code Description Data [facility] rce(s) Supporting Document(s) SODIUM 139 mmol/L (136-145) [facility] POTASSIUM 4.3 mmol/L (3.6-5.2) [facility] CHLORIDE 105 mmol/L (100-108) [facility] CO2 25 mmol/L (22-31) [facility] ANION GAP 9 mmol/L (7-16) [facility] UREA NITROGEN 12 mg/dL (7-24) [facility] CREATININE 0.80 mg/dL (0.80-1.30) [facility] BUN/CREAT RATIO 15.0 RATIO (10.0-20.0) [facility] GLUCOSE 104 mg/dL (70-99) H [facility] CALCIUM 8.8 mg/dL (8.4-10.2) [facility] GFR >60 ml/min/1.73m2 (>59) [facility] GFR ( AMER) >60 ml/min/1.73m2 (>59) [facility] GFR INTERPRETATION [facility] --NORMAL KIDNEY FUNCTION OR MILD DISEASE - GFR >OR= 60CHRONIC KIDNEY DISEASE - GFR 15 - 59RENAL FAILURE - GFR <15 Est. GFR calculation based on the MDRDstudy equation, which assumes a steadystate for creatinine. Est. GFR should notbe used for medication dosing. ID Date Data Source [id number] 10/09/2020 07:35:36 AM EST [facility] Name Value Range Interpretation Code Description Data Lorri rce(s) Supporting Document(s) WBC 13.4 10*3/uL (4.1-11.0) H [facility] RBC 4.37 10*6/uL (4.60-6.10) L [facility] HGB 12.7 g/dL (13.5-18.0) L [facility] HCT 38.4 % (41.0-53.0) L [facility] PERFORMED AT [address] [place] [address] [address] [address] MCV 87.9 fL (80.0-95.0) [facility] MCH 29.1 pg (27.0-32.0) [facility] MCHC 33.1 g/dL (32.0-36.0) [facility] RDW 14.0 % (10.5-14.5) [facility] PLT 289 10*3/uL (150-450) [facility] MPV 8.2 fL (7.1-10.7) [facility] ID Date Data Source [id number] 10/08/2020 11:11:02 AM [place], [place] [address]Patient Name: LINDA KENTAYESHA: 1985Sex: MOrdering Provider: HIPOLITO Reid Prov: HIPOLITO Pena Provider: Procedure Performed: XR OR SPINE LUMBAR CONTINUATIONExam Date: 10/08/2020 11:08MRN: [id number] Number: [id number] Class: InpatientAccount #: [id number] for Exam: Herniated nucleus pulposus, L5-S1 [M51.27]Low back pain [M54.5]Spinal stenosis of lumbar region with neurogenic claudication [M48.062]Technique: Lateral view obtained.Comparison: NoneFindings: Metallic probes positioned posteriorly at the L4-5 and L5 1 disc interspace.IMPRESSION: Metallic probes positioned as above.Report electronically signed by: NICOLE HOLLEY On 10/08/2020 11:11 AMWorkstation ID: [id number] Name Value Range Interpretation Code Description Data Lorri rce(s) Supporting Document(s) ID Date Data Source [id number] 10/08/2020 11:04:45 AM [place], [place] [address]Patient Name: LINDA Napoles JOE: 1985Sex: MOrdering Provider: HIPOLITO Reid Prov: HIPOLITO Pena Provider: Procedure Performed: XR OR SPINE LUMBARExam Date: 10/08/2020 10:54MRN: [id number] Number: [id number] Class: InpatientAccount #: [id number] for Exam: Herniated nucleus pulposus, L5-S1 [M51.27]Low back pain [M54.5]Spinal stenosis of lumbar region with neurogenic claudication [M48.062]Technique: Lateral view obtained.Comparison: NoneFindings: Tip of needles positioned posteriorly at the level of the posterior elements L4 and at the L5-S1 disc interspace.IMPRESSION: Needle markers positioned as above.Report electronically signed by: NICOLE HOLLEY On 10/08/2020 11:04 AMWorkstation ID: [id number] Name Value Range Interpretation Code Description Data Lorri rce(s) Supporting Document(s) ID Date Data Source [id number] 10/08/2020 10:27:22 AM EST [facility] NT INFORMATIONPatient MRN Name Date of Age Gend*PT [id number] Linda Kent 1985 35 years M SDCXPT Location Admission Date/Time Visit ID Attending Provider --- --- --- --- EPI ID CSN Admitting Provider [id number] ---AirwayPatient location during procedure: ORUrgency: electiveDifficult airway: noAdvanced airway equipment used: noStaffingPerformed by: Carlos Phillips CRNAAnesthesiologist: Octaviano Mendiola MDIndications and Patient ConditionIndications for airway management: anesthesiaPreoxygenated: yesPatient position: sniffingIn-line stabilization: noMask ventilation: 1 - vent by maskFinal Airway/ApproachesFinal airway type: ETTNumber of attempts at final approach: 1Number of other approaches attempted: 0Final Airway DetailsFinal ETT airway: ETT - singleCuffed: yesTechnique used for successful ETT placement: direct laryngoscopyCricoid pressure: noRSI: noInsertion site: oralBlade type/size: MAC 3.5ETT size: 8.0 mmMeasured from: lipsETT to lips: 22 cmPlacement verified by: + [id number] view: grade I - full view of glottis Name Value Range Interpretation Code Description Data Lorri rce(s) Supporting Document(s) ID Date Data Source [id number] 10/08/2020 09:54:19 AM EST [facility] NT INFORMATIONPatient MRN Name Date of Age Gend*PT [id number] Linda Kent 1985 35 years M SDCXPT Location Admission Date/[facility] --- Hipolito Bay MD([id number]) EPI ID CSN Admitting Provider [id number] Hipolito Bay MD([id number])Pre-op note/discusson/H&P review:Long discussion today.Options were reviewedProcedure was reviewedRisks/potential complications were reviewedMatthew Yesika Kent wishes to proceed with surgeryNo guarantees givenPlease refer to the patient's H&P completed within 30 days prior to admissionfor details.I have reviewed the patient's H&P and there are no significant changes in thepatient's history nor physical exam.--Hipolito Bay MD Name Value Range Interpretation Code Description Data Lorri rce(s) Supporting Document(s) ID Date Data Source [id number] 10/03/2020 02:41:05 PM EST [facility], PCName: Linda KentDOB: 1985Provider: Shaila Carroll: 10/03/2020 Reason For VisitMatthew had his second Covid vaccine on 09-12-2020. Linda Kent is an established patient here for follow up. The patient is currently residing at home. Other DOI/DOO: 2007. Surgery Description: Bilateral lumbar 4-5 laminotomy/discectomy; left lumbar 5-sacral 1 discectomy. Expected DOS: 10-08-2020. Patient states the injury occurred from lifting. (EMT). 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 History of Present Illness<OBX.5.1><OBX.5.1.1>Patient is a 35-year-old male presents to the office for his preoperative H</OBX.5.1.1><OBX.5.1.2>P. Scheduled for lumbar surgery on 10/08/2020. Complaining of constant radiating pain along the lateral aspect of both lower extremities with radiating pain along the posterior aspect of the left lower extremity. Denies any bowel or bladder dysfunction. Has intermittent numbness in his legs. Denies any lower extremity weakness. </OBX.5.1.2></OBX.5.1> Results/Data OtherBelow diagnostic testing were independently reviewed as well as reviewed the official corresponding reports:MRI thoracic [facility] 08/22/2020: Small T8-9 and T9-10 protrusions. No significant stenosis to my review.MRI lumbar [facility] 08/22/2020: L3-4 moderate stenosis. L4-5 central protrusion with moderate to severe stenosis; large left L5-S1 protrusion AssessmentL4-5 HNP with stenosisLeft L5-S1 HNP PlanPatient is scheduled for bilateral L4-5 laminotomy/discectomy with left L5-S1 discectomy on 10/08/2020. He will follow-up postoperatively. Work / School NoteThe patient is working at this time. This document was dictated and electronically signed using Flame[employer]ower software. A reasonable attempt at proof reading has been made to minimize errors. Please call with any questions. Signatures Electronically signed by : Mario Moreno; Oct 03 2020 1:16PM EST (Author) Electronically signed by : Hipolito Bay M.D.; Oct 03 2020 2:41PM EST Name Value Range Interpretation Code Description Data Lorri rce(s) Supporting Document(s) ID Date Data Source [id number] 10/03/2020 11:53:08 AM EST [facility] NT INFORMATIONPatient MRN Name Date of Age Gend*PT [id number] Linda Kent 1985 35 years M OPPT Location Admission Date/Time Visit ID Attending Provider --- --- --- Hipolito Bay MD([id number]) EPI ID CSN Admitting Provider [id number] Hipolito Bay MD([id number])OUTPATIENT / OBSERVATIONAL SURGICAL OR INVASIVE PROCEDUREName: Linda Kent : 1985 Sex: male Care Provider: Chelsie De Santiago Physician: Dr. BayHISTORY OF PRESENT ILLNESS: Mr. Kent is a 35 years old white male with historyof hypertension, hyperlipidemia, sleep apnea, anxiety, PTSD, and depression whoreports of lower back pain since 2007. He states that he started back painafter lifting heavy object in the . Pain is radiating to bilaterallower extremities with intermittent numbness and tingling. Symptoms have beenprogressively worsening in past several years. He underwent cortisoneinjection, nerve blocks, physical therapy and medication management in past withminimal help. Denies any bowel or bladder dysfunction. Subsequently patientwas referred to Dr. Bay. Options were discussed. He now has elected toundergo surgical intervention.PAST MEDICAL HISTORY:Past Medical History:Diagnosis Date Depression Herniated nucleus pulposus, L5-S1 History of diverticulitis Hyperlipidemia Hypertension Other intervertebral disc disorders, lumbosacral region PTSD (post-traumatic stress disorder) Sleep apnea CPAPPAST SURGICAL HISTORY:Past Surgical History:Procedure Laterality Date ADENOIDECTOMY COLONOSCOPY PANENDOSCOPY TONSILLECTOMY WISDOM TOOTH EXTRACTIONALLERGIES: No Known Drug AllergiesMEDICATIONS:Prior to Admission medicationsMedication Sig Start Date End Date Taking? Authorizing Providercalcium carbonate (TUMS) 500 MG chewable tablet Chew 1 tablet daily as neededfor heartburn Historical Provider, KISHANULoxetine (CYMBALTA) 60 MG capsule Take 60 mg by mouth nightly HistoricalMD Yudyenalapril (VASOTEC) 10 MG tablet Take 10 mg by mouth daily HistoricalProviMD alexeigabapentin (NEURONTIN) 600 MG tablet Take 600 mg by mouth 3 (three) times a dayHistorical Provider, MDmeloxicam (MOBIC) 15 MG tablet Take 15 mg by mouth daily Historical Provider,ondansetron (ZOFRAN-ODT) 4 MG disintegrating tablet Take 4 mg by mouth daily asneeded for nausea Historical Provider, oxyCODONE- acetaminophen (PERCOCET) 5-325 MG per tablet Take 1-2 tablets by mouthevery 4 (four) hours as needed for pain Historical Provider, MDrosuvastatin (CRESTOR) 10 MG tablet Take 10 mg by mouth daily HistoricalMD YudytiZANidine (MICHELLE AFLEX) 4 MG tablet Take 4 mg by mouth daily as needed (for musclespasms) Historical Provider, traZODone (DESYREL) 100 MG tablet Take 100 mg by mouth nightly MD Lonnievitamin D, Ergocalciferol, 1.25 MG (61700 UT) CAPS Take 1 capsule by mouth oncea week On Thursday Historical Provider, YESIocial HistoryTobacco Use Smoking status: Former Smoker Packs/day: 0.50 Years: 1.00 Pack years: 0.50 Last attempt to quit: 2004 Years since quittin.1 Smokeless tobacco: Never UsedSubstance Use Topics Alcohol use: Yes Comment: once a month Drug use: NeverFamily HistoryProblem Relation Age of Onset Malig Hyperthermia Neg HxREVIEW OF SYSTEMS:Respiratory: Denies any shortness of breath, cough, yellow sputum production orwheezing.Cardiovascular: Denies a ny chest pain, pressure or tightness. Denies anyparoxysmal nocturnal dyspnea or orthopnea.GI: Denies nausea, vomiting, diarrhea, constipation or melena.Neurologic: Positive numbness, tingling as above. Denies tremors or syncope.Vascular: Denies any edema. Denies claudication.PHYSICAL EXAM:GENERAL: He is a 35 years old, pleasant white male, in no acute distress at timeof examination. Vitals on arrival to the office are BP 144/90 (BP Location: Leftupper arm, Patient Position: Sitting) | Pulse 109 | Ht 1.905 m (6' 3") | Wt(!) 130.2 kg (287 lb) | SpO2 95% | BMI 35.87 kg/m Body mass index is 35.87kg/m ..Skin is pink, warm, and dry.NECK: He has a grade I airway. Neck is supple, midline, without cervicaladenopathy. No thyromegaly. No carotid bruits.MENTAL / NEUROLOGICAL STATUS: [id number]: Clear to auscultation. No wheezes, rhonchi or crackles.HEART: Rate rhythm regular. S1, S2. No murmur, rub or gallop.ABDOMEN: Bowel sounds positive times four. Soft, non tender. No reboundtenderness. No hepatosplenomegaly. Negative CVAT.EXTREMITIES: Pulses are symmetrical. NO edema.OPERATIVE SITE: Clean dry and intact.Anesthesia complications: DeniesCSHA Frailty Scale :: 3/10 Managing Well (medical problems are well controlled,but are not regularly active beyond routine walking).Stop Bang Questionnaire - Total Score: CPAPASSESSMENT: Primary Diagnosis/Indication: Herniated nucleus pulposus, low backpain, spinal stenosis of lumbar region with neurogenic claudication.PLAN: Procedure: Mr Kent is a 35-year-old male with history of lower backpain. He now has elected to undergo BILATERAL LUMBAR 4 5 LAMINOTOMY DISCECTOMYLEFT LUMBAR 5 SACRAL 1 DISCECTOMY on 11:52 Desiree Ortiz document or parts of this document, were dictated using DigitalPost Interactive speaking software. A reasonable attempt at proofreading has beenmade to minimize errors. Please call with any questions or corrections.* Name Value Range Interpretation Code Description Data Lorri rce(s) Supporting Document(s) ID Date Data Source [id number] 10/04/2020 10:29:54 AM EST [facility] Name Value Range Interpretation Code Description Data Lorri rce(s) Supporting Document(s) SPECIMEN DESCRIPTION [facility] STAPH SCREEN RESULTS (ONEGSA) [facility] COMMENT [facility] GENE TO DETECT STAPH AUREUS. (2) RT-P CR WAS PERFORMED FOR THE mecA AND SCCmec GENES TO DETECT METHICILLIN RESISTANCE IN STAPH AUREUS. ID Date Data Source [id number] 10/03/2020 10:31:07 PM EST Lab [facility] SPEC EXP DATE 10/09/2020ATI ENT ABO/Rh AB POSITIVEANTIBODY SCREEN NEGATIVETESTING SITE PERFORMED AT [address] [place] [address] Name Value Range Interpretation Code Description Data Lorri rce(s) Supporting Document(s) TYPE AND SCREEN [facility] ID Date Data Source [id number] 10/03/2020 03:51:02 PM EST [facility] Name Value Range Interpretation Code Description Data Lorri rce(s) Supporting Document(s) HEMOGLOBIN A1C @ 5.9 % (4.0-6.0) [facility] Performed using Siemens [place] immunoassa y.Care must be taken when interpreting [id number] in patients with a hemoglobin variantor decreased erythrocyte lifespan. Values 5.7 - 6.4% suggest prediabetes.Values >=6.5% are diagnostic for diabetes.REFERENCE: DIABETES CARE 2018: 41(S13-S27). EST AVERAGE GLUCOSE 123 mg/dL Lab [facility]ot [facility] ID Date Data Source [id number] 10/03/2020 09:40:00 AM EST [facility] Name Value Range Interpretation Code Description Data Lorri rce(s) Supporting Document(s) SARS coronavirus 2 RNA Not Detected [facility] This lab was ordered by [facility] and reported by [employer]. ID Date Data Source [id number] 10/04/2020 04:10:28 PM EST Lab [facility] Name Value Range Interpretation Code Description Data [facility](s) Supporting Document(s) SARS-COV-2 [facility] Not DetectedReference range: Not Detecte d This nucleic acid amplification test was developed and its performance characteristics determined by [employer]. Nucleic acid amplification tests include RT-PCR and TMA. This test has not been FDA cleared or approved. This test has been authorized by FDA under an Emergency Use Authorization (EUA). This test is only authorized for the duration of time the declaration that circumstances exist justifying the authorization of the emergency use of in vitro diagnostic tests for detection of SARS-CoV-2 virus and/or diagnosis of COVID-19 infection under section 564(b)(1) of the Act, 21 U.S.C. 360bbb-3(b) (1), unless the authorization is terminated or revoked sooner. When diagnostic testing is negative, the possibility of a false negative result should be considered in the context of a patient's recent exposures and the presence of clinical signs and symptoms consistent with COVID- 19. An individual without symptoms of COVID- 19 and who is not shedding S ARS-CoV-2 virus would expect to have a negative (not detected) result in this assay. Performed At: [employer] [place], [place] [id number] Nico Galvez PhD Ph:[phone] ID Date Data Source [id number] 09/27/2020 12:08:00 PM EST [facility] ([facility]) Name Value Range Interpretation Code Description Data Lorri rce(s) Supporting Document(s) Appearance, Urine Laboratory test result Normal (applies to non-numeric results) [facility] ([facility]) Color, Urine Laboratory test result Normal (applies to non -numeric results) [facility] ([facility]) PH,Urine 5.0 units 5.0-9.0 Normal (applies to non-numeric resul ts) [facility] ([facility]) Protein, Urine Auto Laboratory test result Regi l (applies to non-numeric results) [facility] ([facility]) Specific [place] Urine Auto 1.009 1.002-1.035 Norm al (applies to non-numeric results) [facility]) Glucose, Urine (Ua) Auto Laboratory test result Normal (applies to non-numeric results) [facility] ([facility]) Ketone, Urine Auto Laboratory test result Normal (applies to non-numeric results) [facility] ([facility]) Urobilinogen, Urine Auto 0.2 mg/dL 0.0-2.0 Normal (applies to non-numeric results) [facility]) Bilirubin, Urine Auto Laboratory test result Nor mal (applies to non-numeric results) [facility] ([facility]) Leukocyte Esterase, Urine Auto Laboratory test result Abov e high normal [facility] ([facility]) Blood, Urine Blood Laboratory test result Normal (applies to non-numeric results) [facility] ([facility]) Nitrite, Urine Auto Laboratory test result Regi l (applies to non-numeric results) [facility] ([facility]) RBC, Urine Auto 0 /HPF 0-3 Normal (applies to non-numeric results) [facility] ([facility]) WBC, Urine Auto 1 /HPF 0-3 Normal (applies to non-numeric results) [facility] ([facility]) Bacteria, Urine Auto Laboratory test result Norm al (applies to non-numeric results) [facility] ([facility]) Mucus, Urine Laboratory test result Normal (applies to non -numeric results) [facility]) Squamous Epithelial Cell Ur AU 0 /HPF 0-6 N ormal (applies to non-numeric results) [facility] ([facility]) Hyaline Cast, Urine Auto 0 /LPF 0-1 Normal (applies to non -numeric results) [facility] ([facility]) ID Date Data Source [id number] 09/27/2020 12:04:00 PM EST [facility] ([facility]) Name Value Range Interpretation Code Description Data Lorri rce(s) Supporting Document(s) Red Blood Count 5.31 10 4.30-6.10 Normal (applies to non-numeric results) [facility]) Hemoglobin 15.6 g/dL 13.5-17.5 Normal (applies to non-numeric resul ts) [facility] ([facility]) White Blood Count 8.7 10 4.0-10.0 Normal (applies to non-numeri c results) [facility] ([facility]) Hematocrit 45.6 % 42.0-52.0 Normal (applies to non-numeric resul ts) [facility] ([facility]) Mean Corpuscular Volume 85.9 fl 80.0-96.0 Normal ( applies to non-numeric results) [facility] ([facility]) Mean Corpuscular HGB Conc 34.2 g/dL 32.0-36.5 Normal (applies to non-numeric results) [facility] ([facility]) Mean Corpuscular Hemoglobin 29.4 pg 27.0-33.0 Norm al (applies to non-numeric results) [facility] ([facility]) Red Cell Distribution Width 13.1 % 11.5-14.5 Norm al (applies to non-numeric results) [facility] ([facility]) Platelet Count, Automated 347 10 150-450 Normal (applies to non-numeric results) [facility] ([facility]) Lymph % 28.3 % 24.0-44.0 Normal (applies to non-numeric resul ts) [facility] ([facility]) [place] % 8.8 % 0.0-5.0 Above high normal [facility] ([facility]) Neutrophils % 60.8 % 36.0-66.0 Normal (applies to non-numeric re sults) [facility] ([facility]) Eos % 0.9 % 0.0-3.0 Normal (applies to non-numeric resul ts) [facility] ([facility]) Baso % 0.9 % 0.0-1.0 Normal (applies to non-numeric resul ts) [facility] ([facility]) Immature Granulocyte % 0.3 % 0-3.0 Normal (applies to non-n umeric results) [facility] ([facility]) Nucleated Red Blood Cell % 0.0 % 0-0 Normal (applies to n on-numeric results) [facility] ([facility]) Neutrophils # 5.3 10 1.5-8.5 Normal (applies to non-numeric re sults) [facility] ([facility]) Lymph # 2.5 10 1.5-5.0 Normal (applies to non-numeric resul ts) [facility] ([facility]) [place] # 0.8 10 0.0-0.8 Normal (applies to non-numeric resul ts) [facility] ([facility]) Eos # 0.1 10 0.0-0.5 Normal (applies to non-numeric resul ts) [facility] ([facility]) Baso # 0.1 10 0.0-0.2 Normal (applies to non-numeric resul ts) [facility] ([facility]) ID Date Data Source [id number] 09/27/2020 12:04:00 PM EST [facility] ([facility]) Name Value Range Interpretation Code Description Data Lorri rce(s) Supporting Document(s) Inr 0.96 Normal (applies to non-numeric resul ts) [facility]) THERAPUTIC HUMAN INR VALUES INDICATIONS NORMAL RANGES PROPHYLAXIS/TREATMENT OF: VENOUS THROMBOSIS 2.0-3.0 PULMONARY EMBOLISM 2.0-3.0 PREVENTION OF SYSTEMIC EMBOLISM FROM: TISSUE HEART VALVES 2.0-3.0 ACUTE MYOCARDIAL INFARCTION 2.0-3.0 VALVULAR HEART DISEASE 2.0-3.0 ATRIAL FIBRILLATION 2.0-3.0 MECHANICAL VALVES(HIGH RISK) 2.5-3.5 RECURRENT MYOCARDIAL INFARCTION 2.5-3.5 Prothrombin Time 13.0 s 12.5-14.3 Normal (applies to non-numeric results) [facility] ([facility]) Partial Thromboplastin Time 27.3 s 24.2-38.5 Norm al (applies to non-numeric results) [facility]) ID Date Data Source [id number] 09/27/2020 12:04:00 PM EST [facility] ([facility]) Name Value Range Interpretation Code Description Data Lorri rce(s) Supporting Document(s) Glucose, Fasting 110 mg/dL 70-100 Above high normal [facility] Creatinine For GFR 0.88 mg/dL 0.70-1.30 Normal (applies to non -numeric results) [facility]) Blood Urea Nitrogen 14 mg/dL 7-18 Normal (applies to non-nume usama results) [facility] ([facility]) Glomerular Filtration Rate Laboratory test result Normal (applies to non- numeric results) [facility] ([facility]) <content>Units are mL/min/1.73 m2</content>
<content></content>
<content>Chronic Kidney Disease Staging per NKF:</content>
<content></content>
<content>Stage I & II GFR >=60 Normal to Mildly Decreased</content>
<content>Stage III GFR 30- 59 Moderately Decreased</content>
<content>Stage IV GFR 15-29 Severely Decreased</content>
<content>Stage V GFR <15 Very Little GFR Left</content>
<content>ESRD GFR <15 on UNARMED SECURITY GUARD</content>
<content></content> Sodium Level 137 meq/L 136-145 Normal (applies to non-numeric res ults) [facility] ([facility]) Potassium Serum 4.4 meq/L 3.5-5.1 Normal (applies to non-numeric results) [facility] ([facility]) Chloride Level 104 meq/L 98-107 Normal (applies to non-numeric r esults) [facility] ([facility]) Carbon Dioxide Level 26 meq/L 21-32 Normal (applies to non-num keon results) [facility] ([facility]) Anion Gap 7 meq/L 8-[address] [facility] ( [facility]) Ast/Sgot 26 U/L 7-37 Normal (applies to non-numeric resul ts) [facility] ([facility]) Calcium Level 8.9 mg/dL 8.5-10.1 Normal (applies to non-numeric re sults) [facility] ([facility]) Alt/SGPT 61 U/L 12-78 Normal (applies to non-numeric resul ts) [facility] ([facility]) Alkaline Phosphatase 83 U/L 45-117 Normal (applies to non-num keon results) [facility] ([facility]) Total Protein 7.1 GM/DL 6.4-8.2 Normal (applies to non-numeric re sults) [facility] ([facility]) Bilirubin,Total 0.4 mg/dL 0.2-1.0 Normal (applies to non-numeric results) [facility] ([facility]) Albumin 4.4 GM/DL 3.2-5.2 Normal (applies to non-numeric resul ts) [facility] ([facility]) Albumin/Globulin Ratio 1.6 Normal (applies to non-n umeric results) [facility] ([facility]) ID Date Data Source [id number] 09/27/2020 12:04:00 PM EST [facility] ([facility]) Name Value Range Interpretation Code Description Data Lorri rce(s) Supporting Document(s) Blood Type Laboratory test result Normal (applies to non-n umeric results) [facility]) AB Screen (Indirect Jae)Vis Laboratory test result Normal (applies to non- numeric results) [facility] ([facility]) ID Date Data Source [id number] 09/27/2020 12:04:00 PM EST [facility] ([facility]) Name Value Range Interpretation Code Description Data Lorri rce(s) Supporting Document(s) Triglycerides Level 184 mg/dL Above high normal [facility] ([facility]) HDL Cholesterol 45 mg/dL Normal (applies to non-numeric results) [facility] ([facility]) Cholesterol Level 150 mg/dL Normal (applies to non-numeri c results) [facility] ([facility]) Non-HDL-C 105 mg/dL Normal (applies to non-numeric resul ts) [facility] ([facility]) LDL Cholesterol 68 mg/dL Normal (applies to non-numeric results) [facility] ([facility]) Cholesterol Risk Ratio 3.333 Normal (applies to non-n umeric results) [facility] ([facility]) ID Date Data Source [id number] 09/27/2020 10:45:00 AM EST [facility] ([facility]) Name Value Range Interpretation Code Description Data Lorri rce(s) Supporting Document(s) EKG Laboratory test result [facility] ([facility]) ID Date Data Source [id number] 09/15/2020 07:53:00 PM EST [facility] ([facility]) Name Value Range Interpretation Code Description Data Lorri rce(s) Supporting Document(s) Lipase [Enzymatic activity/volume] in Serum or Plasma 161 U/L 73-393 Normal (applies to non-numeric results) [facility] ([facility]) ID Date Data Source [id number] 09/15/2020 07:53:00 PM EST [facility] ([facility]) Name Value Range Interpretation Code Description Data Lorri rce(s) Supporting Document(s) Glucose, Fasting 94 mg/dL 70-100 Normal (applies to non-numeric results) [facility] ([facility]) Blood Urea Nitrogen 18 mg/dL 7-18 Normal (applies to non-nume usama results) [facility] ([facility]) Glomerular Filtration Rate Laboratory test result Normal (applies to non- numeric results) [facility] ([facility]) <content>Units are mL/min/1.73 m2</content>
<content></content>
<content>Chronic Kidney Disease Staging per NKF:</content>
<content></content>
<content>Stage I & II GFR >=60 Normal to Mildly Decreased</content>
<content>Stage III GFR 30-59 Moderately Decreased</content>
<content>Stage IV GFR 15-29 Severely Decreased</content>
<content>Stage V GFR <15 Very Little GFR Left</content>
<content>ESRD GFR <15 on UNAR[employer]URITY GUARD</content>
<content></content> Creatinine For GFR 1.00 mg/dL 0.70-1.30 Normal (applies to non -numeric results) [facility] ([facility]) Sodium Level 138 meq/L 136-145 Normal (applies to non-numeric res ults) [facility] ([facility]) Chloride Level 103 meq/L 98-107 Normal (applies to non-numeric r esults) [facility] ([facility]) Potassium Serum 4.4 meq/L 3.5-5.1 Normal (applies to non-numeric results) [facility] ([facility]) Carbon Dioxide Level 28 meq/L 21-32 Normal (applies to non-num keon results) [facility] ([facility]) Anion Gap 7 meq/L 8-16 [facility] Calcium Level 9.4 mg/dL 8.5-10.1 Normal (applies to non-numeric re sults) [facility] ([facility]) ID Date Data Source [id number] 09/15/2020 07:53:00 PM EST [facility] ([facility]) Name Value Range Interpretation Code Description Data Lorri rce(s) Supporting Document(s) Ast/Sgot 42 U/L 7-37 Above high normal [facility] Alt/SGPT 63 U/L 12-78 Normal (applies to non-numeric resul ts) [facility] ([facility]) Alkaline Phosphatase 104 U/L 45-117 Normal (applies to non-num keon results) [facility] ([facility]) Bilirubin,Total 0.4 mg/dL 0.2-1.0 Normal (applies to non-numeric results) [facility] ([facility]) Bilirubin,Direct Laboratory test result 0.0-0.2 Normal ( applies to non-numeric results) [facility] ([facility]) Total Protein 7.5 GM/DL 6.4-8.2 Normal (applies to non-numeric re sults) [facility] ([facility]) Albumin 4.4 GM/DL 3.2-5.2 Normal (applies to non-numeric resul ts) [facility] ([facility]) Albumin/Globulin Ratio 1.4 Normal (applies to non-n umeric results) [facility] ([facility]) ID Date Data Source [id number] 09/15/2020 07:53:00 PM EST [facility] ([facility]) Name Value Range Interpretation Code Description Data Lorri rce(s) Supporting Document(s) CPK Creatine Phosphokinase 136 U/L 39-308 Regi l (applies to non-numeric results) [facility] ([facility]) CK-MB Value Mass 1.5 ng/mL Normal (applies to non-numeric results) [facility] ([facility]) MB/CK Relative Index 1.10 Normal (applies to non-num ekon results) [facility] ([facility]) <content>DIAGNOSIS CRITERIA</content>
<content>MMB ng/ml Relative Index (RI)</content>
<content>NON-AMI < or = 5 N/A</content>
<content>[place] ZONE > 5 < or = 4</content>
<content>AMI > 5 > 4</content>
<content></content> Troponin I Laboratory test result Normal (applies to non-n umeric results) [facility] ([facility]) <content>Troponin I Reference Interval f or Siemens [place] LOCI:</content>
<content></content>
<content>99th Percentile= 0.00-0.045 ng/ml</content>
<content></content>
<content>Risk Stratification:</content>
<content><= 0.10 ng/ml Decreased Risk for Adverse Clinical</content>
<content>Events.</content>
<content>0.10-1.50 ng/ml Increased Risk for Adverse Clinical</content>
<content>Events. Evaluation of additional</content>
<content>criterion and/or repeat testing in 2-6</content>
<content>hours is suggested to rule out myocardial</content>
<content>damage.</content>
<content>>= 1.50 ng/ml Indicative of Myocardial Injury.</content>
<content></content> ID Date Data Source [id number] 09/15/2020 07:53:00 PM EST [facility] ([facility]) Name Value Range Interpretation Code Description Data Lorri rce(s) Supporting Document(s) White Blood Count 10.6 10 4.0-10.[address] [facility] ([facility]) Red Blood Count 5.46 10 4.30-6.10 Normal (applies to non-numeric results) [facility] ([facility]) Hemoglobin 15.5 g/dL 13.5-17.5 Normal (applies to non-numeric resul ts) [facility] ([facility]) Hematocrit 46.9 % 42.0-52.0 Normal (applies to non-numeric resul ts) [facility] ([facility]) Mean Corpuscular Volume 85.9 fl 80.0-96.0 Normal ( applies to non-numeric results) [facility] ([facility]) Mean Corpuscular Hemoglobin 28.4 pg 27.0-33.0 Norm al (applies to non-numeric results) [facility] ([facility]) Red Cell Distribution Width 12.9 % 11.5-14.5 Norm al (applies to non-numeric results) [facility] ([facility]) Mean Corpuscular HGB Conc 33.0 g/dL 32.0-36.5 Normal (applies to non-numeric results) [facility] ([facility]) Neutrophils % 54.6 % 36.0-66.0 Normal (applies to non-numeric re sults) [facility] ([facility]) Platelet Count, Automated 305 10 150-450 Normal (applies to non-numeric results) [facility] ([facility]) Lymph % 31.7 % 24.0-44.0 Normal (applies to non-numeric resul ts) [facility] ([facility]) [place] % 10.1 % 0.0-5.0 Above high normal [facility] ([facility]) Eos % 2.3 % 0.0-3.0 Normal (applies to non-numeric resul ts) [facility] ([facility]) Baso % 0.8 % 0.0-1.0 Normal (applies to non-numeric resul ts) [facility] ([facility]) Immature Granulocyte % 0.5 % 0-3.0 Normal (applies to non-n umeric results) [facility] ([facility]) Neutrophils # 5.8 10 1.5-8.5 Normal (applies to non-numeric re sults) [facility] ([facility]) Nucleated Red Blood Cell % 0.0 % 0-0 Normal (applies to n on-numeric results) [facility] ([facility]) Lymph # 3.4 10 1.5-5.0 Normal (applies to non-numeric resul ts) [facility] ([facility]) [place] # 1.1 10 0.0-0.8 Above high normal [facility] ([facility]) Eos # 0.2 10 0.0-0.5 Normal (applies to non-numeric resul ts) [facility] ([facility]) Baso # 0.1 10 0.0-0.2 Normal (applies to non-numeric resul ts) [facility] ([facility]) ID Date Data Source [id number] 09/06/2020 05:17:31 PM EST [facility], PCName: Linda KentDOB: 1985Provider: Verena Bay: 09/06/2020 Reason For VisitMattheyomaira Kent is an established patient here for follow up and Linda Kent is here for evaluation of MRI results. MRI's and Xrays were transferred from [facility]. Other DOI/DOO: 2007. Patient states the injury [...] as reviewed the official corresponding reports:MRI thoracic [facility] 08/22/2020: Small T8-9 and T9-10 protrusions. No significant stenosis to my review.MRI lumbar [facility] 08/22/2020: L3-4 moderate stenosis. L4-5 central protrusion with moderate to severe stenosis; large left L5-S1 protrusionReviewed in detail the results of the diagnostic testing. Reviewed the pertinent applicable clinical implications relating to the patient. Also provided a copy of the results for their personal records. Assessment 1. Herniated nucleus pulposus, L5-S1 (722.10) (M51.27) 2. Low back pain (724.2) (M5 4.5) 3. 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 A reasonable attempt at proof reading has been made to minimize errors. Please call with any questions. Signatures Electronically signed by : Hipolito Bay M.D.; Sep 06 2020 5:17PM EST (Author) Name Value Range Interpretation Code Description Data Lorri rce(s) Supporting Document(s) ID Date Data Source [id number] 08/25/2020 12:00:00 PM EST [facility] Name Value Range Interpretation Code Description Data Lorri rce(s) Supporting Document(s) SARS coronavirus 2 RNA Not Detected [facility] This lab was ordered by [facility] and reported by [facility]. ID Date Data Source [id number] 06/08/2020 07:49:33 AM EDT [facility], PCName: Linda KentDOB: 1985Provider: Verena Bay: 06/07/2020 Reason For VisitMattheyomaira Kent is here today for Lumbar Spine. [...] patient's pain is managed by PCP - PA. Bonnie (EMT). Patient is working at this time [...] --Heel and sole of the foot [facility]-4 DDD with small right L3-4 [...] document was dictated and electronically signed using [employer] software. A reasonable attempt at proof reading has been made to minimize errors. Please call with any questions. Signatures Electronically signed by : Hipolito Bay M.D.; Jun 08 2020 7:49AM EST (Author) Name Value Range Interpretation Code Description Data Lorri rce(s) Supporting Document(s) ID Date Data Source [id number] 05/26/2020 07:37:[address] [facility] ([facility]) Name Value Range Interpretation Code Description Data Lorri rce(s) Supporting Document(s) Laboratory test finding (navigational concept) 46.0 % 3 8.0-51.0 Normal (applies to non-numeric results) [facility] ([facility]) Laboratory test finding (navigational concept) 131 mg/dL 7 0-[address] [facility] ([facility]) Laboratory test finding (navigational concept) 137 meq/L 1 36-145 Normal (applies to non-numeric results) [facility] ([facility]) Laboratory test finding (navigational concept) 4.2 meq/L 3 .5-5.1 Normal (applies to non-numeric results) [facility] ([facility]) Laboratory test finding (navigational concept) 4.9 mg/dL 4 .5-5.3 Normal (applies to non-numeric results) [facility] ([facility]) Laboratory test finding (navigational concept) 101 meq/L 9 8-109 Normal (applies to non-numeric results) [facility] ([facility]) Laboratory test finding (navigational concept) 22.0 MM/L 2 3.0-27.0 Below low normal [facility] ([facility]) Laboratory test finding (navigational concept) 0.9 mg/dL 0 .6-1.3 Normal (applies to non-numeric results) [facility] ([facility]) Laboratory test finding (navigational concept) 14 mg/dL 8 -26 Normal (applies to non-numeric results) [facility] ([facility]) Procedure Social History Code Duration Value Status Description Data Source(s ) Alcohol intake 10/09/2020 12:00:00 AM EST Yes completed [facility] Cigarette pack-years 10/09/2020 12:00:00 AM EST UNK completed [facility] Cigarettes smoked current (pack per day) - Reported 10/09/19 12:00:00 AM EST UNK completed [facility] Smoking 10/09/2020 12:00:00 AM EST Former smoker completed Former smoker [facility] Alcohol intake 10/03/2020 12:00:00 AM EST Yes completed [facility] Cigarette pack-years 10/03/2020 12:00:00 AM EST UNK completed [facility] Cigarettes smoked current (pack per day) - Reported 10/03/19 12:00:00 AM EST UNK completed [facility] Smoking 10/03/2020 12:00:00 AM EST Former smoker completed Former smoker [facility] Smoking 09/04/2020 12:00:00 AM EST UNK completed eCW1 ([facility]) Smoking 09/04/2020 12:00:00 AM EST UNK completed eCW1 ([facility]) Smoking 09/04/2020 12:00:00 AM EST UNK completed eCW1 ([facility]) Smoking 09/04/2020 12:00:00 AM EST UNK completed eCW1 ([facility]) Smoking 08/30/2020 12:00:00 AM EST UNK completed eCW1 ([facility]) Smoking 08/30/2020 12:00:00 AM EST UNK completed eCW1 ([facility]) Smoking 07/23/2020 12:00:00 AM EST UNK completed eCW1 ([facility]) Smoking 07/23/2020 12:00:00 AM EST UNK completed eCW1 ([facility]) Smoking 07/23/2020 12:00:00 AM EST UNK completed eCW1 ([facility]) Vital Signs ID Date Data Source UNK Name Value Range Interpretation Code Description Data Source(s) Systolic blood pressure 130 mm[Hg] 130 mm[Hg] M [facility]ENT ([facility]) Diastolic blood pressure 78 mm[Hg] 78 mm[Hg] [facility] ([facility]) Body height 74.6 [in_i] 74.6 [in_i] [facility] ([facility]) 6'2.60" Body weight 296.25 [lb_av] 296.25 [lb_av] [facility] T ([facility]) Body mass index (BMI) [Ratio] 37.4 kg/m2 37.4 k g/m2 [facility] ([facility]) Heart rate 82 /min 82 /min [facility] ([facility]) Respiratory rate 14 /min 14 /min [facility] ( [facility]) Body temperature 97.2 [degF] 97.2 [degF] [facility] ([facility]) Oxygen saturation in Arterial blood by Pulse oximetry 96 % 96 % [facility] ([facility]) [place] body weight 190 [lb_av] 190 [lb_av] [facility] T ([facility]) Body mass index (BMI) [Ratio] 37.1 kg/m2 37.1 k g/m2 [facility] ([facility]) Heart rate 94 /min 94 /min [facility] ([facility]) Respiratory rate 18 /min 18 /min [facility] ( [facility]) Oxygen saturation in Arterial blood by Pulse oximetry 98 % 98 % [facility] ([facility]) Body weight 294.00 [lb_av] 294.00 [lb_av] [facility] T ([facility]) Systolic blood pressure 128 mm[Hg] 128 mm[Hg] M [facility]ENT ([facility]) Diastolic blood pressure 74 mm[Hg] 74 mm[Hg] [facility] ([facility]) Body height 74.6 [in_i] 74.6 [in_i] [facility] ([facility]) 6'2.60" Body temperature 96.8 [degF] 96.8 [degF] [facility] ([facility]) [place] body weight 190 [lb_av] 190 [lb_av] [facility] T ([facility]) Systolic blood pressure 132 mm[Hg] 132 mm[Hg] [facility] ([facility]) Diastolic blood pressure 76 mm[Hg] 76 mm[Hg] [facility] ([facility]) Body height 74.6 [in_i] 74.6 [in_i] [facility] ([facility]) 6'2.60" Body weight 292.25 [lb_av] 292.25 [lb_av] [facility] T ([facility]) Body mass index (BMI) [Ratio] 36.9 kg/m2 36.9 k g/m2 [facility] ([facility]) Respiratory rate 18 /min 18 /min [facility] ( [facility]) Body temperature 97.9 [degF] 97.9 [degF] [facility] ([facility]) Oxygen saturation in Arterial blood by Pulse oximetry 97 % 97 % [facility]) [place] body weight 190 [lb_av] 190 [lb_av] [facility] T ([facility]) Heart rate 77 /min 77 /min [facility] ([facility]) Systolic blood pressure 128 mm[Hg] 128 mm[Hg] M [facility]ENT ([facility]) Body mass index (BMI) [Ratio] 36.1 kg/m2 36.1 k g/m2 [facility] ([facility]) Diastolic blood pressure 72 mm[Hg] 72 mm[Hg] [facility] ([facility]) Heart rate 96 /min 96 /min [facility] ([facility]) Respiratory rate 16 /min 16 /min [facility] ( [facility]) Body temperature 97.3 [degF] 97.3 [degF] [facility] ([facility]) Oxygen saturation in Arterial blood by Pulse oximetry 98 % 98 % [facility] ([facility]) [place] body weight 190 [lb_av] 190 [[facility]_av] [facility] Body height 74.6 [in_i] 74.6 [in_i] [facility] ([facility]) 6'2.60" Body weight 286.00 [lb_av] 286.00 [lb_av] [facility] Oxygen saturation in Arterial blood by Pulse oximetry 95 % 95 % [facility] Systolic blood pressure 132 mm[Hg] 132 mm[Hg] [facility] Diastolic blood pressure 83 mm[Hg] 83 mm[Hg] [facility] Heart rate 92 /min 92 /min [facility] Body temperature 36.83 Kina 36.83 Kina [facility] Respiratory rate 16 /min 16 /min [facility] Body height 190.5 cm 190.5 cm [facility] Body weight 130.182 kg 130.182 kg [facility] Body mass index (BMI) [Ratio] 35.87 kg/m2 35.87 kg/m2 [facility] Systolic blood pressure 144 mm[Hg] 144 mm[Hg] [facility] Diastolic blood pressure 90 mm[Hg] 90 mm[Hg] [facility] Heart rate 109 /min 109 /min [facility] Body height 190.5 cm 190.5 cm [facility] Body weight 130.182 kg 130.182 kg [facility] Body mass index (BMI) [Ratio] 35.87 kg/m2 35.87 kg/m2 [facility] Oxygen saturation in Arterial blood by Pulse oximetry 95 % 95 % [facility] Body height 74.6 [in_i] 74.6 [in_i] [facility] ([facility]) 6'2.60" Heart rate 119 /min 119 /min [facility] ([facility]) Respiratory rate 18 /min 18 /min [facility] ( [facility]) Body temperature 98.5 [degF] 98.5 [degF] [facility] ([facility]) Oxygen saturation in Arterial blood by Pulse oximetry 95 % 95 % [facility] ([facility]) [place] body weight 190 [lb_av] 190 [lb_av] [facility] T ([facility]) Body weight 285.38 [lb_av] 285.38 [lb_av] [facility] T ([facility]) Body mass index (BMI) [Ratio] 36.0 kg/m2 36.0 k g/m2 [facility] ([facility]) Systolic blood pressure 134 mm[Hg] 134 mm[Hg] M [facility]ENT ([facility]) Diastolic blood pressure 74 mm[Hg] 74 mm[Hg] [facility] ([facility]) Body weight 291 [lb_av] 291 [lb_av] eCW1 ([facility] Body height 76 [in_i] 76 [in_i] eCW1 (Counts include 234 beds at the [facility]) Body mass index (BMI) [Ratio] 35.42 kg/m2 35.42 kg/m2 eCW1 ([facility]) Heart rate 89 /min 89 /min eCW1 ([facility]) Respiratory rate 16 /min 16 /min eCW1 ([facility]) Body temperature 97.6 [degF] 97.6 [degF] eCW1 ( [facility]) Systolic blood pressure 145 mm[Hg] 145 mm[Hg] e CW1 ([facility]) Diastolic blood pressure 80 mm[Hg] 80 mm[Hg] eCW1 ([facility]) Body weight 289.8 [lb_av] 289.8 [lb_av] eCW1 ([facility]) Body height 76 [in_i] 76 [in_i] eCW1 (Counts include 234 beds at the [facility]) Body mass index (BMI) [Ratio] 35.27 kg/m2 35.27 kg/m2 eCW1 ([facility]) Heart rate 103 /min 103 /min eCW1 ([facility]) Respiratory rate 16 /min 16 /min eCW1 ([facility]) Body temperature 97.5 [degF] 97.5 [degF] eCW1 ( [facility]) Systolic blood pressure 141 mm[Hg] 141 mm[Hg] e CW1 ([facility]) Diastolic blood pressure 95 mm[Hg] 95 mm[Hg] eCW1 ([facility]) Respiratory rate 18 /min 18 /min [facility] ( [facility]) Body temperature 98.3 [degF] 98.3 [degF] [facility] ([facility]) Oxygen saturation in Arterial blood by Pulse oximetry 98 % 98 % [facility] ([facility]) [place] body weight 190 [lb_av] 190 [lb_av] [facility] ([facility]) Body height 74.6 [in_i] 74.6 [in_i] [facility] ([facility]) 6'2.60" Body weight 256.06 [lb_av] 256.06 [lb_av] [facility] T ([facility]) Body mass index (BMI) [Ratio] 32.3 kg/m2 32.3 k g/m2 [facility] ([facility]) Heart rate 78 /min 78 /min [facility] ([facility]) Systolic blood pressure 132 mm[Hg] 132 mm[Hg] M [facility]ENT ([facility]) Diastolic blood pressure 84 mm[Hg] 84 mm[Hg] [facility] ([facility]) Body weight 288 [lb_av] 288 [lb_av] eCW1 ([facility]) Body height 76 [in_i] 76 [in_i] eCW1 (Counts include 234 beds at the [facility]) Body mass index (BMI) [Ratio] 35.05 kg/m2 35.05 kg/m2 eCW1 ([facility]) Heart rate 78 /min 78 /min eCW1 ([facility]) Respiratory rate 18 /min 18 /min eCW1 ([facility]) Body temperature 97.1 [degF] 97.1 [degF] eCW1 ( [facility]) Systolic blood pressure 143 mm[Hg] 143 mm[Hg] e CW1 ([facility]) Diastolic blood pressure 75 mm[Hg] 75 mm[Hg] eCW1 ([facility]) Systolic blood pressure 124 mm[Hg] 124 mm[Hg] M EDENT ([facility]) Diastolic blood pressure 88 mm[Hg] 88 mm[Hg] [facility] ([facility]) Body height 74.6 [in_i] 74.6 [in_i] [facility] ([facility]) 6'.60" Body mass index (BMI) [Ratio] 35.9 kg/m2 35.9 k g/m2 [facility] ([facility]) Heart rate 106 /min 106 /min [facility] ([facility]) Respiratory rate 18 /min 18 /min [facility]) Body temperature 97.8 [degF] 97.8 [degF] [facility]) Body weight 284.25 [lb_av] 284.25 [lb_av] [facility] T ([facility]) Oxygen saturation in Arterial blood by Pulse oximetry 98 % 98 % [facility] ([facility]) [place] body weight 190 [lb_av] 190 [lb_av] [facility] T ([facility]) Body height 74.6 [in_i] 74.6 [in_i] [facility] ([facility]) 6'2.60" Body weight 285.38 [lb_av] 285.38 [lb_av] [facility] T ([facility]) Body mass index (BMI) [Ratio] 36.0 kg/m2 36.0 k g/m2 [facility] ([facility]) Heart rate 86 /min 86 /min [facility] ([facility]) Systolic blood pressure 128 mm[Hg] 128 mm[Hg] M EDENT ([facility]) Diastolic blood pressure 78 mm[Hg] 78 mm[Hg] [facility] ([facility]) Respiratory rate 18 /min 18 /min [facility] ( [facility]) Body temperature 98.0 [degF] 98.0 [degF] [facility] ([facility]) Oxygen saturation in Arterial blood by Pulse oximetry 98 % 98 % [facility] ([facility]) [place] body weight 190 [lb_av] 190 [lb_av] [facility] T ([facility]) Patient Treatment Plan of Care Planned Activity Planned Date Details Description Data Source (s) Oxycodone Hydrochloride 10 MG Oral Tablet 10/09/2020 12:00:00 AM [facility] Acetaminophen 325 MG / Oxycodone Hydrochloride 5 MG Or al Tablet [Percocet] 09/27/2020 12:00:00 AM EST eCW1 (Counts include 234 beds at the [facility]) Acetaminophen 325 MG / Oxycodone Hydrochloride 5 MG Or al Tablet [Percocet] 09/27/2020 12:00:00 AM EST eCW1 (Counts include 234 beds at the [facility]) Acetaminophen 325 MG / Oxycodone Hydrochloride 5 MG Or al Tablet [Percocet] 09/04/2020 12:00:00 AM EST eCW1 (Counts include 234 beds at the [facility]) Acetaminophen 325 MG / Oxycodone Hydrochloride 5 MG Or al Tablet [Percocet] 09/04/2020 12:00:00 AM EST eCW1 (Counts include 234 beds at the [facility]) Acetaminophen 325 MG / Oxycodone Hydrochloride 5 MG Or al Tablet [Percocet] 08/22/2020 12:00:00 AM EST eCW1 (Counts include 234 beds at the [facility]) Acetaminophen 325 MG / Oxycodone Hydrochloride 5 MG Or al Tablet [Percocet] 08/22/2020 12:00:00 AM EST eCW1 (Counts include 234 beds at the [facility]) Acetaminophen 325 MG / Oxycodone Hydrochloride 5 MG Or al Tablet [Percocet] 07/23/2020 12:00:00 AM EST eCW1 (Counts include 234 beds at the [facility]) meloxicam 15 MG Oral Tablet [facility] Acetaminophen 325 MG / Oxycodone Hydrochloride 5 MG Oral Tablet [facility]
--- OUTSIDE RECORDS SUMMARY | 2021-06-12 21:45 | CCD | Continuity of Care Document ---
Author Author Mekhi MIRANDA PA Organization [place] [address] Phone [phone] Care Team Providers Care Show Card Letterer Name Role Phone Pina Thompson D.O. AUTM [phone] Mohan Tovar MD AUTM [phone] L[place]jose AUTM [phone] Brooks Rahman MD AUTM [phone] Problems Active Problems Provider Date Essential hypertension [...] SIG Qnty Indications Ordering Provide r Date Epipen 2-Audi 0.3mg/0 .3ML Solution Auto-Inject inject once in anterolateral thigh december r epeat after 5-15 min if symptoms persist 2units Johnson ElOPablo 02/06 Oxycodone HCL 10mg Tablets take 1 tablets by mouth every 6 hours as needed for pain 28tabs M25.531 Iveth El.OPablo 02/01/2021 Tizanidine HCL 4mg Capsules Take 1 Capsule By Mouth Twice Daily For Muscle Spasm 60caps Iveth Santiago.O. 01/08/[address] Part 1 by mouth every day 90caps Iveth El.OPablo 12/26 Gabapentin 300mg Capsules Take 1 Capsule By Mouth Every 8 Hours 270caps M51.17 Iveth El.O Pablo 10/25/2020 Trazodone HCL 150mg Tablets Take 1 Tablet By Mouth Every Night AT Bedtime 90tabs F43.12 Johnson SappOPablo 10/25/2020 Rosuvastatin Calcium 10mg Tablets Take 1 Tablet By Mouth Every Day 90tabs Iveth El.OPablo 10/21/[address] Part 1 by mouth every night 90caps F41.1 Iveth El.OPablo 08/01 Zofran 4mg Tablets 1-2 tablets by mouth every 6 hours as needed for nausea 45tabs K57.32 Johnson SalehOPablo 06/01/2020 Apap With [facility] Supplies/Equipment Duration: 99 Pr ognosis: good. Pressure 4 cm h20 - 20 cm h20 1units G47.33 Johnson ElOPablo Meloxicam 15mg Tablets Take 1 Tablet Daily as Needed 90tabs M51.17 Johnson ElOPablo 02/28 Enalapril Maleate 10mg Tablets Take 1 Tablet Daily 90tabs I10 Johnson ElOPablo 02/28 Immunizations Description No Information Available Vital Signs Date Vital Result Comment 02/01/2021 8:14am BP Systolic 128 mmHg BP Diastolic 74 mmHg Height 74.6 inches 6'2.60" Weight 294.00 lb BMI (Body Mass Index) 37.1 kg/m2 Heart Rate 94 /min Respiratory Rate 18 /min Body Temperature 96.8 F O2 % BldC Oximetry 98 % [place] Body Weight 190 lb 12/11/2020 10:23am BP Systolic 132 mmHg BP Diastolic 76 mmHg Height 74.6 inches 6'2.60" Weight 292.25 lb BMI (Body Mass Index) 36.9 kg/m2 Heart Rate 77 /min Respiratory Rate 18 /min Body Temperature 97.9 F O2 % BldC Oximetry 97 % [place] Body Weight 190 lb Results Test Acquired Date Facility Test Result H/L Range Note Laboratory test finding 04/01/2021 [facility] Outpatient T esting (Registration) [address] [place] [address] [id number] [phone] Blood Urea Nitrogen 12 mg/dL Normal 7-18 Creatinine With GFR 04/01/2021 [facility] Outpatient Testi ng (Registration) [address] [place] [address] [phone] Creatinine For GFR 0.87 mg/dL Normal 0.70-1.30 Glomerular Filtration Rate > 60.0 Normal >60 1 1 Units are mL/min/1.73 m2 Chronic Kidney Disease Staging per NKF: Stage I & II GFR >=60 Normal to Mildly Decreased Stage III GFR 30-59 Moderately Decreased Stage IV GFR 15-29 Severely Decreased Stage V GFR <15 Very Little GFR Left ESRD GFR <15 on COSTUME MISTRESS Procedures Date Code Description Status 02/01/2021 85555 Office/Outpatient Established Lo w MDM 20-29 Min Completed 12/11/2020 97237 Office/Outpatient Established Lo w MDM 20-29 Min Completed 10/25/2020 47470 Office/Outpatient Established Mo d MDM 30-39 Min Completed Medical Devices Description No Information Available Encounters Type Date Location Provider Dx Diagnosis Office Visit 02/01/2021 8:15a Family Medicine [facility] PANKAJ Johnson M25.531 Pain in right wrist Office Visit 12/11/2020 10:30a Family Medicine [facility] PANKAJ Johnson M25.572 Pain in left ankle and joint s of left foot Office Visit 10/25/2020 2:30p [facility] PANKAJ Johnson F43.12 Post-traumatic stress disord er, chronic M51.17 Intvrt disc disorders w radi culopathy, lumbosacral region F41.1 Generalized anxiety disorder G47.33 Obstructive sleep apnea (prosper lt) (pediatric) I10 Essential (primary) hyperten karime E78.5 Hyperlipidemia, unspecified Assessments Date Code Description Provider 02/01/2021 M25.531 Pain in right wrist PANKAJ Spencer 12/11/2020 M25.572 Pain in left ankle and joints of left foot PANKAJ Johnson 10/25/2020 F43.12 Post-traumatic stress disorder, chronic PANKAJ Johnson 10/25/2020 M51.17 Intervertebral disc disorders with radiculopathy, lumbosacral region PANKAJ Johnson 10/25/2020 F41.1 Generalized anxiety disorder [place] PANKAJ Atkinson 10/25/2020 G47.33 Obstructive sleep apnea (adult) (pediatric) PANKAJ Johnson 10/25/2020 I10 Essential (primary) hypertension PANKAJ Johnson 10/25/2020 E78.5 Hyperlipidemia, unspecified [facility] PANKAJ Huerta Plan of Treatment Future Appointment(s):* 05/01/2021 2:40 pm - PANKAJ Johnson at [facility] Functional Status Description No Information Available Mental Status Description No Information Available Referrals Description No Information Available
[2021-06-12] MEDS ORDERED: MORP-69 PO (21:46)
--- OUTSIDE RECORDS SUMMARY | 2021-06-13 01:08 | CCD ---
Author Author [facility] Organization [facility] Address Unknown Phone Unavailable Care Team Providers [employer] Carman Name Role Phone Adam BAY MD Unavailable [...] A Tunde PA Unavailable Unavailable O'katelynn, A Utnde PA Unavailable Unavailable O'katelynn, A Tunde PA [...] Unavailable Adam TAMEZ MD Unavailable Unavailable Adam TMAEZ MD Unavailable Unavailable Adam TAMEZ MD Unavailable [...] Unavailable Unavailable Adam TAMEZ MD Unavailable Unavailable dAam TAMEZ MD Unavailable Unavailable Adam TAMEZ MD [...] is protected by Article 27-F of the [facility] Public Health law. If you continue you may have access to information: Regarding HIV / AIDS; Provided by facilities licensed or operated by the [facility] Office of Mental Health; or Provided by the [facility] Office for People With Developmental Disabilities. If such information is present, then the following [facility] mandated warning applies: This information has been [...] law may result in a fine or penitentiary sentence or both. A general authorization for the release of medical or other information is NOT sufficient authorization for further disc losure. Family History Family Member Name Family Member Gender Family Member Status Date o f Status Description Data Source(s) Unknown Unknown Problem MEDENT ([facility]) Unknown Male Problem [facility] ([facility]) at age late 20's Unknown Female Problem MEDENT ([facility]) Encounters Encounter Providers Location Date Indications Data Source(s ) Unknown [address] [facility] [address] 05/17/2021 12:00:00 AM EDT eCW1 ([facility]) Outpatient Attender: Tunde LIRA [facility] 04/10/2021 08:15:00 AM EDT MEDENT ([facility]) Outpatient Attender: MOHAN BAY MDReferrer: MOHAN BAY MD 04/07/2021 10:03:45 AM EDT [facility] Outpatient Attender: Julius Hopper JRReferrer: Tunde LIRA 02/28/2021 02:01:41 PM EDT [facility] Outpatient Attender: Chuckie Steward/Navin/Collin/Re indl 02/04/2021 03:00:00 PM EDT MEDENT ([facility] Outpatient Attender: Tunde LIRA [facility] 02/01/2021 08:15:00 AM EDT MEDENT ([facility]) Outpatient Attender: Tunde LIRA [facility] 12/11/2020 10:30:00 AM EDT MEDENT ([facility]) Outpatient Attender: MOHAN BAY MDRgloriaerrer: Tunde LIRA 11/23/2020 11:18:02 AM EDT [facility] Outpatient Attender: Julius Hopper JRReferrer: Tunde LIRA 10/29/2020 01:16:33 PM EDT [facility] Outpatient Attender: Tunde LIRA [facility] 10/25/2020 01:30:00 PM EST MEDENT ([facility]) Outpatient Attender: Julius Hopper JRReferrer: Tunde LIRA 10/03/2020 02:41:05 PM EST [facility] Recurring Patient Referrer: Tunde LIRA 10/03/2020 12:53:21 PM EST [facility] Outpatient Admitter: MOHAN BAY MDReferrer: MOHAN BAY MD MOB-MOB.PAT 10/03/2020 11:29:59 AM EST - 10/03/2020 11:30:04 AM EST [facility] Outpatient Attender: MOHAN BAY MDAdmitter: MOHAN BAY MDReferrer: MOHAN BAY MD MOB-MOB.PAT 10/03/2020 12:00:00 AM EST - 10/03/2020 11:45:20 AM EST [facility] Outpatient Attender: Tunde LIRA [facility] 09/27/2020 09:00:00 AM EST MEDENT ([facility]) Unknown [address] [facility] [address] 09/27/2020 12:00:00 AM EST eCW1 ([facility]) Inpatient Attender: SYDNEY TAMEZ MDAt tender: MOHAN BAY MDAdmitter: MOHAN BAY MDReferrer: MOHAN BAY MD [id number] 03/2021 10:33:25 AM EST - 10/09/2020 10:54:00 AM EST [facility] Patient discharged. Recurring Patient Referrer: Tunde LIRA 09/13/2020 06:31:45 AM EST [facility] Recurring Patient Referrer: Tunde LIRA 09/12/2020 03:50:46 PM EST [facility] Unknown [address] [facility] [address] 09/10/2020 12:00:00 AM EST eCW1 ([facility]) Outpatient Attender: MOHAN BAY MDReferrer: Tunde LIRA 09/06/2020 05:17:31 PM EST [facility] Outpatient [address] [facility] [address] 09/04/2020 12:00:00 AM EST eCW1 ([facility]) (PN Proc 45) Pain Procedure 45 [address] [place] [address] 08/30/2020 12:00:00 AM EST eCW1 ([facility]) Unknown [address] [facility] [address] 08/29/2020 12:00:00 AM EST eCW1 ([facility]) Unknown [address] [facility] [address] 08/21/2020 12:00:00 AM EST eCW1 ([facility]) Unknown [address] [facility] [address] 08/21/2020 12:00:00 AM EST eCW1 ([facility]) Outpatient Attender: Tunde LIRA [facility] 08/01/2020 12:00:00 PM EST MED[facility] ([facility]) Outpatient [address] [facility] [address] 07/23/2020 12:00:00 AM EST eCW1 ([facility]) Outpatient Attender: Tunde LIRA [facility] 07/10/2020 12:45:00 PM EST MEDENT ([facility]) Outpatient Attender: MOHAN BAY MDReferrer: Tunde LIRA 06/08/2020 07:49:33 AM EDT [facility] Recurring Patient Referrer: Tunde LIRA 06/07/2020 01:36:17 PM EDT [facility] Outpatient Attender: Tunde LIRA [facility] 06/01/2020 09:40:00 AM EDT MEDENT ([facility]) Immunizations Vaccine Date Status Description Data Source(s) New in 2011. IIV4 10/09/2020 12:00:00 AM EST completed <t d ID="[id number]">Flu Vaccine =>6MOS Quad Pres-Free</td><td>10/09/2020</td><td></td> [facility] COVID-19 VACCINE Moderna 09/12/2020 12:00:00 AM EST completed [facility]SIIS Vaccine Series Complete: YESThis Data wa s Submitted to [facility]. COVID-19 VACCINE Moderna 08/15/2020 12:00:00 AM EST completed [facility]SIIS Vaccine Series Complete: NOThis Data was Submitted to [facility]. Medications Medication Brand Name Start Date Product Form Dose Route Admi nistrative Instructions Pharmacy Instructions Status Indications Reaction Description Data Source(s) Morphine Sulfate 15 MG Extended Release Oral Tablet Morphine Sulfate ER 04/10/2021 12:00:00 AM EDT ORAL active MEDENT ([facility]) gabapentin 600 MG Oral Tablet Gabapentin 04/10/2021 12:00:00 AM EDT active MEDENT ([facility]) 0.3 ML Epinephrine 1 MG/ML Auto-Injector [Epipen] Epipen 2-P ak 02/06/2021 12:00:00 AM EDT active EDENT ([facility]) Oxycodone Hydrochloride 10 MG Oral Tablet Oxycodone HCL 02/01/2021 12:00:00 AM EDT ORAL completed MEDENT ([facility]) tizanidine 4 MG Oral Capsule Tizanidine HCL 01/08/2021 12:00:00 AM EDT active MEDENT ([facility]) duloxetine 30 MG Delayed Release Oral Capsule [Cymbalta] Cym michelle 12/26/2020 12:00:00 AM EDT ORAL active EDENT ([facility]) Trazodone Hydrochloride 150 MG Oral Tablet Trazodone HCL 10/25/2020 12:00:00 AM EST active MEDENT ([facility]) gabapentin 300 MG Oral Capsule Gabapentin 10/25/2020 12:00:00 AM EST completed MEDENT ([facility]) Rosuvastatin calcium 10 MG Oral Tablet Rosuvastatin Calcium 10/21/2020 12:00:00 AM EST active MEDENT ([facility]) Bisacodyl 10 MG Rectal Suppository bisacodyl (DULCOLAX ) suppository 10 mg bisacodyl (DULCOLAX) suppository 10 mg 10/10/2020 07:00:00 PM EST 10 mg Rectal active 10 mg, Rectal, Once, Thu10/10/20 at 1900, For 1 dose, Post-op
Post-op day #2 Hold for BM
[facility] Medication administered onsite Influenza Vac Split Quad injection 0.5 mL [id number] 10/09/2020 0 9:00:00 AM EST 0.5 mL Intramuscular completed 0.5 mL , Intramuscular, During hospitalization, Thu10/09/20 at 0900, For 1 dose [facility] Medication administered onsite Magnesium Hydroxide 80 MG/ML Oral Suspen karime magnesium hydroxide (MILK OF MAGNESIA) 400 MG/5ML suspension 30 mL magnesium hydroxide (MILK OF MAGNESIA) 4 00 MG/5ML suspension 30 mL 10/09/2020 09:00:00 AM EST 30 mL Oral active 30 mL, Oral, Daily, First dose on Thu10/09/20 at 0900, Post-op
Start Post-op day #1. Hold for BM
[facility] Medication administered onsite POLYETHYLENE GLYCOL 3350 142 MG/ML Oral Solution polyethylene glycol (GLYCOLAX) packet 17 g polyethylene glycol (GLYCOLAX) packet 17 g 10/09/2020 09:00:00 AM EST 17 g Oral active 17 g, Or al, Daily, First dose on Thu10/09/20 at 0900, Post-op
Start POD #1
[facility] Medication administered onsite atorvastatin 40 MG Oral Tablet atorvastatin (LIPITOR) tablet 40 mg atorvastatin (LIPITOR) tablet 40 mg 10/09/2020 09:00:00 AM EST 40 mg Oral active 40 mg, Oral, Daily, First dose on Thu10/09/20 at 0900, Post-op [facility] Medication administered onsite Oxycodone Hydrochloride 10 MG Oral Tablet Oxycodone HC l TABS 20 mg Oxycodone HCl TABS 20 mg 10/09/2020 07:27:40 AM EST 20 mg Oral active 20 mg, Oral, Every 4 hours PRN, severe pain (7-10), Starting Thu10/09/20 at 0727, For 150 hours, Post-op [facility] Medication administered onsite Oxycodone Hydrochloride 10 MG Oral Tablet Oxycodone HC l TABS 10 mg Oxycodone HCl TABS 10 mg 10/09/2020 07:27:35 AM EST 10 mg Oral active 10 mg, Oral, Every 4 hours PRN, moderate pain (4-6), Starting Thu10/09/20 at 0727, For 150 hours, Post-op [facility] Medication administered onsite Oxycodone Hydrochloride 10 MG Oral Tablet Oxycodone HC l 10 MG TABS Oxycodone HCl 10 MG TABS 10/09/2020 12:00:00 AM EST Oral active Take 1-2 tablets (10-20 mg total) by mouth every 4 (four) hours as needed Max Daily Amount: 120 mg [facility] Bisacodyl 10 MG Rectal Suppository bisacodyl (DULCOLAX ) suppository 10 mg bisacodyl (DULCOLAX) suppository 10 mg 10/09/2020 12:00:00 AM EST 10 mg Rectal active 10 mg, Rectal, Daily PRN, constipation, Starting Thu10/09/20 at 0000, For 4 days, Post-op
For post-op day #1, #3, and #4 Hold for BM
[facility] Medication administered onsite normal saline flush 0.9 % injection 3 mL 22490-027-23 10/08/2020 10:00:00 PM EST 3 mL Intravenous active 3 mL , Intravenous, PROTOCOL, First dose on Thu10/08/20 at 2200, Post-op
When PO taken well
[facility] Medication administered onsite duloxetine 60 MG Delayed Release Oral Ca psule DULoxetine (CYMBALTA) DR capsule 60 mg DULoxetine (CYMBALTA) DR capsule 60 mg 10/08/2020 09:00:00 PM EST 60 mg Oral active 60 mg, Oral, N ightly, First dose on Thu10/08/20 at 2100, Post-op [facility] Medication administered onsite Trazodone Hydrochloride 100 MG Oral Tablet traZODone ( DESYREL) tablet 100 mg traZODone (DESYREL) tablet 100 mg 10/08/2020 09:00:00 PM EST 100 mg Oral active 100 mg, Oral, Nightly, First dos e on Thu10/08/20 at 2100, Post-op [facility] Medication administered onsite Docusate Sodium 50 MG / sennosides, [facility] 8.6 MG Oral Tablet senna-docusate (PERICOLACE) 8.6-50 MG 2 tablet senna-docusate (PERICOLACE) 8.6-50 MG 2 tablet 10/08/2020 09:00:00 PM EST 2 {tbl} Oral active 2 tablet, Oral, Nightly, First dose on Thu10/08/20 at 2100, Post-op
hold for loose stools
[facility] Medication administered onsite gabapentin 600 MG Oral Tablet gabapentin (NEURONTIN) t ablet 600 mg gabapentin (NEURONTIN) tablet 600 mg 10/08/2020 03:00:00 PM EST 600 mg Oral active 600 mg, Oral, 3 times daily, First dose on Thu10/08/20 at 1500, Post-op [facility] Medication administered onsite sodium chloride 0.9% (NS) infusion 7766-6960-21 10/08/2020 03:00:00 P M EST Intravenous active at 75 mL/hr, Intravenous, Continuous, Starting Thu10/08/20 at 1500, Post-op [facility] Medication administered onsite cefazolin (ANCEF) injection 2 [...] this medication through syringe adapter set ref [phone]. Flush line after use
[facility] Perioperative Pharmacoprophylaxis Medication administered onsite Acetaminophen 500 MG Oral Tablet acetaminophen (TYLENO L) tablet 1,000 mg acetaminophen (TYLENOL) tablet 1,000 mg 10/08/2020 03:00:00 PM EST 1000 mg Oral active 1,000 mg, Oral , Every 6 hours (scheduled), First dose on Thu10/08/20 at 1500, Post-op [facility] Medication administered onsite Methocarbamol 500 MG Oral Tablet methocarbamol (ROBAXI N) tablet 500 mg methocarbamol (ROBAXIN) tablet 500 mg 10/08/2020 02:21:33 PM EST 50 0 mg Oral active 500 mg, Oral, 4 times daily PRN, muscle spasms, Starting Thu10/08/20 at 1421, Post-op [facility] Medication administered onsite Mineral Oil 1000 MG/ML Enema mineral oil enema 1 enema mineral oil enema 1 enema 10/08/2020 02:21:33 PM EST 1 {enema} Rectal active 1 enema, Rectal, Daily PRN, constipation, Starting Thu10/08/20 at 1421, Post-op
hold for loose stools
[facility] Medication administered onsite Ondansetron 4 MG Disintegrating Oral Tab let ondansetron (ZOFRAN-ODT) disintegrating tablet 4 mg ondansetron (ZOFRAN-ODT) disintegrating tablet 4 mg 10/08/2020 02:21:33 PM EST 4 mg Oral active 4 mg, Oral, Every 4 hours PRN, nausea, vomiting, Starting Thu10/08/20 at 1421, Post-op [facility] Medication administered onsite 2 ML Metoclopramide 5 MG/ML Prefilled Sy ringe metoclopramide (REGLAN) injection 10 mg metoclopramide (REGLAN) injection 10 mg 10/08/2020 02:21:[address] 10 mg Intravenous active 10 mg, I ntravenous, Every 6 hours PRN, nausea not relieved by Zofran, Starting Thu10/08/20 at 1421, For 24 hours, Post-op
If nausea not relieved by Zofran; Renal dosing per pharmacy
[facility] Medication administered onsite ondansetron (ZOFRAN) injection 4 mg [id number] 10/08/2020 02:21:3 3 PM EST 4 mg Intravenous active 4 mg, In travenous, Every 4 hours PRN, nausea, vomiting, Starting Thu10/08/20 at 1421, Post-op [facility] Medication administered onsite Oxycodone Hydrochloride 10 MG Oral Tablet Oxycodone HC l TABS 10 mg Oxycodone HCl TABS 10 mg 10/08/2020 02:21:33 PM EST 10 mg Oral aborte d 10 mg, Oral, Every 4 hours PRN, severe pain (7-10), Starting Thu10/08/20 at 1421, For 7 days, Post-op [facility] Medication administered onsite fentaNYL Citrate (PF) (SUBLIMAZE) injection 50 mcg [id number] 10/08/2020 02:21:33 PM EST 50 ug Intravenous active 50 mcg, Intravenous, Every 3 hours PRN, for severe breakthrough pain (7-10) if oral opioid ineffective, Starting Thu10/08/20 at 1421, For 7 days, Post-op [facility] Medication administered onsite ondansetron (ZOFRAN) injection 4 mg [id number] 10/08/2020 12:35:1 7 PM EST 4 mg Intravenous completed 4 mg, In travenous, Once as needed, nausea, vomiting, Starting Thu10/08/20 at 1235, For 1 dose, PACU (only)
If not given in last 4 hours
[facility] Medication administered onsite HYDROmorphone (DILAUDID) injection 0.5 mg [id number] 10/08/2020 12:35:17 PM EST 0.5 mg Intravenous aborted 0.5 mg, Intravenous, Every 5 min PRN, severe pain (7-10), Starting Thu10/08/20 at 1235, For 5 doses, PACU (only) [facility] Medication administered onsite fentaNYL Citrate (PF) (SUBLIMAZE) injection 25 mcg [id number] 10/08/2020 12:35:17 PM EST 25 ug Intravenous aborted 25 mcg, Intravenous, Every 5 min PRN, moderate pain (4-6), moderate pain (4 to 6), Starting Thu10/08/20 at 1235, For 8 doses, PACU (only) [facility] Medication administered onsite ondansetron (ZOFRAN) injection 4 mg [id number] 10/08/2020 09:00:0 0 AM EST 4 mg Intravenous completed 4 mg, In travenous, yardage caller, Thu10/08/20 at 0900, For 1 dose, Pre-op
To be administered just prior to to transport to operating room
[facility] Medication administered onsite 2 ML Metoclopramide 5 MG/ML Prefilled Sy ringe metoclopramide (REGLAN) injection 10 mg metoclopramide (REGLAN) injection 10 mg 10/08/2020 09:00:[address] 10 mg Intravenous completed 10 mg, I ntravenous, yardage caller, Thu10/08/20 at 0900, For 1 dose, Pre-op
To be administered just prior to to transport to operating room
[facility] Medication administered onsite Magnesium Chloride 0.39163 MEQ/ML / Pota ssium Chloride 0.0497 MEQ/ML / Sodium Acetate 0.0163 MEQ/ML / Sodium Chloride 0.0899 MEQ/ML / Sodium gluconate 5.02 MG/ML Injectable Solution [Normosol-R] electrolyte-R (NORMOSOL-R/PLASMALYTE-R) solution electrolyte-R (NORMOSOL-R/PLASMALYTE-R) solution 10/08 09:00:00 AM EST Intravenous aborted at 1 00 mL/hr, Intravenous, Continuous, Starting Thu10/08/20 at 0900, Pre-op [facility] Medication administered onsite dexamethasone (DECADRON) injection 4 mg [id number] 10/08/19 09:00:00 AM EST 4 mg Intravenous completed 4 mg, Intr avenous, yardage caller, Thu10/08/20 at 0900, For 1 dose, Pre-op
To be administered just prior to to transport to operating room. Hold if patient is diabetic or if stress dose steroi ds are ordered
[facility] Medication administered onsite chlorhexidine gluconate 1.2 MG/ML Mouthw ofelia chlorhexidine (PERIDEX) 0.12 % oral solution 15 mL chlorhexidine (PERIDEX) 0.12 % oral solution 15 mL 09:00:00 AM EST 15 mL Mouth/Throat completed 15 mL, Mouth/Throat, yardage caller, Thu10/08/20 at 0900, For 1 dose, Pre-op
Swish for 30 seconds and spit in pre-induction unit
[facility] Medication administered onsite Acetaminophen 500 MG Oral Tablet acetaminophen (TYLENO L) tablet 1,000 mg acetaminophen (TYLENOL) tablet 1,000 mg 10/08/2020 09:00:00 AM EST 1000 mg Oral completed 1,000 mg, Oral , yardage caller, 10/08/20 at 0900, For 1 dose, Pre-op
To be administered just prior to to transport to operating room
[facility] Medication administered onsite Acetaminophen 325 MG / Oxycodone Hydroch loride 5 MG Oral Tablet [Percocet] Percocet 5-325 MG Percocet 5-325 MG 09/27/2020 12:00:00 AM EST active Percocet 5-325 MG eCW1 ([facility]) Acetaminophen 325 MG / Oxycodone Hydroch loride 5 MG Oral Tablet [Percocet] Percocet 5-325 MG Percocet 5-325 MG 09/27/2020 12:00:00 AM EST active Percocet 5-325 MG eCW1 ([facility]) Ciprofloxacin 500 MG Oral Tablet [Cipro] Cipro 09/16/2020 12:00:00 AM EST completed MEDENT ([facility]) Metronidazole 500 MG Oral Tablet [Flagyl] Flagyl 09/16/2020 12:00 :00 AM EST ORAL completed MEDENT ([facility]) Acetaminophen 325 MG / Oxycodone Hydroch loride 5 MG Oral Tablet [Percocet] Percocet 5-325 MG Percocet 5-325 MG 09/04/2020 12:00:00 AM EST 1 .0 {tablet_as_needed} active Percocet 5-32 5 MG eCW1 ([facility]) Acetaminophen 325 MG / Oxycodone Hydroch loride 5 MG Oral Tablet [Percocet] Percocet 5-325 MG Percocet 5-325 MG 09/04/2020 12:00:00 AM EST 1 .0 {tablet_as_needed} active Percocet 5-32 5 MG eCW1 ([facility]) Diazepam 5 MG Oral Tablet [Valium] Valium 08/22/2020 12:00:00 AM EST ORAL completed MEDENT ([facility]) Acetaminophen 325 MG / Oxycodone Hydroch loride 5 MG Oral Tablet [Percocet] Percocet 5-325 MG Percocet 5-325 MG 08/22/2020 12:00:00 AM EST 1 .0 {tablet_as_needed} active Percocet 5-32 5 MG eCW1 ([facility]) Acetaminophen 325 MG / Oxycodone Hydroch loride 5 MG Oral Tablet [Percocet] Percocet 5-325 MG Percocet 5-325 MG 08/22/2020 12:00:00 AM EST 1 .0 {tablet_as_needed} active Percocet 5-32 5 MG eCW1 ([facility]) Trazodone Hydrochloride 50 MG Oral Tablet Trazodone HCL 08/22/2020 12:00:00 AM EST completed MEDENT ([facility]) Acetaminophen 325 MG / Oxycodone Hydroch loride 5 MG Oral Tablet [Percocet] Percocet 5-325 MG Percocet 5-325 MG 08/22/2020 12:00:00 AM EST 1 .0 {tablet_as_needed} active Percocet 5-32 5 MG eCW1 ([facility]) Acetaminophen 325 MG / Oxycodone Hydroch loride 5 MG Oral Tablet [Percocet] Percocet 5-325 MG Percocet 5-325 MG 08/22/2020 12:00:00 AM EST 1 .0 {tablet_as_needed} active Percocet 5-32 5 MG eCW1 ([facility]) duloxetine 60 MG Delayed Release Oral Capsule [Cymbalta] Cym michelle 08/01/2020 12:00:00 AM EST ORAL active M EDENT ([facility]) Acetaminophen 325 MG / Oxycodone Hydroch loride 5 MG Oral Tablet [Percocet] Percocet 5-325 MG Percocet 5-325 MG 07/23/2020 12:00:00 AM EST 1 .0 {tablet_as_needed} active Percocet 5-32 5 MG eCW1 ([facility]) duloxetine 30 MG Delayed Release Oral Capsule [Cymbalta] Cym michelle 07/10/2020 12:00:00 AM EST ORAL completed MEDENT ([facility]) Ondansetron 4 MG Oral Tablet [Zofran] Zofran 06/01/2020 12:00:00 AM EDT ORAL active MEDENT ([facility]) Acetaminophen 325 MG / Hydrocodone Bitartrate 5 MG Oral Tabl et [[place]] [place] 06/01/2020 12:00:00 AM EDT completed MED[facility] ([facility]) Tramadol HCL Tramadol HCL 05/08/2020 12:00:00 AM EDT ORAL completed MED[facility] ([facility]) Rosuvastatin calcium 10 MG Oral Tablet [Crestor] Crestor 04/15/2020 12:00:00 AM EDT ORAL active MEDENT ([facility]) Ergocalciferol 36364 UNT Oral Capsule Vitamin D (Ergocalcife rol) 04/15/2020 12:00:00 AM EDT active M EDENT ([facility]) atorvastatin 40 MG Oral Tablet [Lipitor] Lipitor 04/09/2020 12:00: 00 AM EDT ORAL completed [facility] ([facility]) Trazodone Hydrochloride 100 MG Oral Tablet Trazodone HCL 04/09/2020 12:00:00 AM EDT ORAL completed MED[facility] ([facility]) tramadol hydrochloride 50 MG Oral Tablet Tramadol HCL 03/15/2020 12:00:00 AM EDT ORAL completed MED[facility] ([facility]) meloxicam 15 MG Oral Tablet meloxicam (MOBIC) 15 MG ta blet meloxicam (MOBIC) 15 MG tablet 15 mg Oral aborted Take 15 mg by mouth daily [facility] Acetaminophen 325 MG / Oxycodone Hydroch loride 5 MG Oral Tablet oxyCODONE- acetaminophen (PERCOCET) 5-325 MG per tablet oxyCODONE-acetaminophen (PERCOCET) 5-325 MG per tablet Oral aborted Take 1-2 tablets by mouth every 4 (four) hours as needed for pain [facility] Insurance Providers Payer name Policy type / Coverage type Policy ID Covered alliance party ID Covered alliance party's relationship to wiley Policy Wiley Plan Information BCBS [place] Ppo U/W Commercial [id number] Family Dependent V [id number] BCBS [place] PPO 302/307 [id number] [facility] Health Plans F [id number] SPOUSE [id number] [facility] Services F [id number] SPOUS E [id number] [facility] F [id number] SPOUSE [id number] [facility] [id number] Spo [id number] [facility] [id number] Spo [id number] [facility] [id number] xxxxxxxxxx [id number] INSURANCE COVID-19 COVID Lisandra C OVID BLUE CROSS BLUE SHIELD CL BS [id number] 01 [id number] BLUE CROSS BLUE SHIELD -O/P BS [id number] 01 [id number] Blue Cross Blue Shield CL Commercial [id number] Self VY [id number] ANSI-Commercial [id number] Blue Cross Blue Shield CL Commercial [id number] Self VY [id number] BCBS/[place] Medigap Part B [id number] Family Dependent [id number] [place] [employer] Commercial [id number] Self [id number] [facility] Commercial [id number] Self 500 ANSI-Commercial [id number] Blue Cross Blue Shield CL Commercial [id number] Self VY [id number] Blue Cross Blue Shield CL Commercial [id number] Self VY [id number] [place] PPO 302/307 [id number] [place] [id number] BCBS [place] 306/806 [id number] [place] [id number] BLUE CROSS BLUE SHIELD-CLINIC [id number] 01 [id number] BLUE CROSS BLUE SHIELD-CLINIC [id number] 01 [id number] Blue Cross Blue Shield CL Commercial [id number] Self BCBS Federal Plan Medigap Part B 950[address] Family Dependent [place] Commercial [id number] Self [facility] Commercial Self BS/W/Id#Prefix/W ALL #'S Commercial [id number] Family Depende nt SELF PAY UNAVAILABLE SP UNAVAILA BLE PGBA [place] [id number] [place]2 [id number] PGBA [place] [id number] [facility] [id number] [place]2 [id number] BCBS EMPIRE FRANCINE DIV [id number] SP [id number] ACTIVE DUTY [id number] SP [id number] UNHC [place] CHOICE PLUS [id number] SP [id number] [employer] PLAN O [id number] S [id number] STATE INSURANCE FUND [id number] SP [id number] EXCELLUS BCBS B [id number] P VYS [id number] [facility] COMMERCIAL [id number] BCBS OF [place] 306/806 [id number] [place]2 [id number] [facility] Commercial Health Maintenance Organization (HMO) [id number] Self [id number] Blue Cross Blue Shield CL Commercial [id number] Family Dependent [id number] Problems, Conditions, and Diagnoses Code Display Name Description Problem Type Effective Dates Data Source(s) M48.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, lumbar region with neur ogenic claudication Spinal stenosis, lumbar region with neur Diagnosis 10/08/2020 08:06:00 AM [facility] M54.5 Low back pain Low back pain Diagnosis 10/08/2020 08:06:00 AM [facility] M51.27 Other intervertebral disc displacement, lumbosacral region Other intervertebral disc displacement, Diagnosis 10/08/2020 08:06:00 AM [facility] U07.1 COVID-19 COVID-19 Diagnosis 10/03/2020 11:29:59 AM [facility] G47.30 Sleep apnea Sleep apnea [id number] 10/08/2020 12:00:00 AM [facility] I10 Hypertension Hypertension [id number] 10/08/2020 12:00:00 A M [facility] E78.5 Hyperlipidemia Hyperlipidemia [id number] 10/08/2020 12:00: 00 AM [facility] F32.9 Depression Depression [id number] 10/08/2020 12:00:00 AM [facility] M51.27 Herniated nucleus pulposus, L5-S1 Herniated nucl eus pulposus, L5-S1 [id number] 10/08/2020 12:00:00 AM [facility] G89.29 Chronic pain Other chronic pain Problem 09/04/2020 12:0 0:00 AM EST eCW1 ([facility]) M51.24 [id number] Protrusion of thoracic intervertebral dis c Problem 09/04/2020 12:00:00 AM EST eCW1 ([facility]) M51.26 [id number] Protrusion of lumbar intervertebral disc Problem 07/23/2020 12:00:00 AM EST eCW1 ([facility]) F41.1 Generalized anxiety disorder Generalized anxiety disor alexei Problem 07/10/2020 12:00:00 AM EST [facility] ([facility]) Surgeries/Procedures Procedure Description Date Indications Data Source(s) OFFICE OUTPATIENT VISIT 25 MINUTES 04/10/2021 12:00:00 AM EDT [facility] ([facility]) OFFICE OUTPATIENT NEW 30 MINUTES 02/04/2021 12:00:00 A M EDT [facility] ([facility] ) OFFICE OUTPATIENT VISIT 15 MINUTES 02/01/2021 12:00:00 AM EDT [facility] ([facility]) OFFICE OUTPATIENT VISIT 15 MINUTES 12/11/2020 12:00:00 AM EDT [facility] ([facility]) OFFICE OUTPATIENT VISIT 25 MINUTES 10/25/2020 12:00:00 AM EST [facility] ([facility]) BLOOD COUNT COMPLETE AUTOMATED <td>CBC</td><td>Routine </td><td>10/09/2020 5:34 AM EST</td><td></td><td> </td> 10/09/2020 10:34:00 AM EST [facility] BASIC METABOLIC PANEL CALCIUM TOTAL <td>BASIC METABOLI C PANEL</td><td>Routine</td><td>10/09/2020 5:34 AM EST</td><td></td><td> </td> 10/09/2020 10:34:00 AM EST [facility] RADEX SPINE 1 VIEW SPECIFY LEVEL <td>XR OR SPINE LUMBA R CONTINUATION</td><td>STAT</td><td>10/08/2020 11:08 AM EST</td><td></td><td> </td> 10/08/2020 04:08:03 PM EST [facility] XR OR SPINE LUMBAR <td>XR OR SPINE LUMBAR</td>< td>STAT</td><td>10/08/2020 10:54 AM EST</td><td></td><td> </td> 10/08/2020 03:54:21 PM EST [facility] LAMNOTMY INCL W/DCMPRSN NRV ROOT 1 INTRSPC LUMBR <td>L AMINECTOMY, SPINE, THORACOLUMBAR, 2 LEVELS, WITH DECOMPRESSION</td><td></td><td>10/08/2020 10:07 AM EST</td><td> Herniated nucleus pulposus, L5-S1 Low back pain Spinal stenosis of lumbar region with neurogenic claudication</td><td></td> 10/08/2020 03:07:00 PM EST - 10/08/2020 05:56:00 PM EST Spinal stenosis of lumbar region with neurogenic claudicationLow back painHerniated nucleus pulposus, L5-S1 [facility] Spinal stenosis of lumbar region with ne [...] unspecified whether sciatica presentHerniated nucleus pulposus, L5-S1 [facility] Spinal stenosis of lumbar region with ne [...] unspecified whether sciatica presentHerniated nucleus pulposus, L5-S1 [facility] Spinal stenosis of lumbar region with ne urogenic claudication Low back pain, unspecified back pain lat erality, unspecified chronicity, unspecified whether sciatica present Herniated nucleus pulposus, L5-S1 Electrocardiogram Complete 09/27/2020 12:00:00 AM EST [facility] ([facility]) Pain Procedure Log 09/04/2020 12:00:00 AM EST eCW1 ([facility]) Medication: Oxycodone HCL Tab 10mg Orally 08/30/2020 1 2:00:00 AM EST eCW1 ([facility]) Unclassified drugs 08/30/2020 12:00:00 AM EST eCW1 ([facility]) Results ID Date Data Source [id number] 04/07/2021 10:03:45 AM EDT [facility] PCName: Linda KentDOB: 1985Provider: Verena Bay: 04/05/2021 Reason For VisitMattsung Kent is here [...] of Present IllnessChronic low back painRecent exacerbation Januarylso with radiation left lateral thigh areaAlso with new onset of episodic left foot numbnessDoes have chronic right lateral thigh numbnessPrevious Medrol Dosepak-not helpfulPreviously treated at [facility] pain clinic The patient complains of pain [...] lateral thigh(s). The numbness is constant. Results/Data OtherMRI lumbar [facility] 03/07/2020: L3-4 DDD with small right [...] Management (SOS) Referral Treatment Treatment Status: Complete Done:[id number] Ordered;For: Aftercare following surgery of the musculoskeletal system, Low back pain; Ordered By: Mohan Bay Performed: Order Comments: Releasing patient to pain management Due: 19Apr2021; Last Updated By: Mireya Abel; 04/05/2021 1:48:41 PMLaterality: : _Not Applicable Physical Therapy (SOS) - Spinal Physical Therapy Evaluation and Treatment Status:Complete Done: 10Byt8261 Ordered;For: Low back pain; Ordered By: Mohan Bay Performed: Due: 19Apr2021; Last Updated By: Mireya Abel; 04/05/2021 1:44:32 PMDuration: : Four WeeksPT Frequency : Two or three times a weekSOS ROM and Strength : Range of motion and strengthening exercises.Heat Ultra and Modalities : Heat Ultrasound and modalities as indic atedEvaluate and Treat: : Please evaluate and treat as indicated. Work Note (SOS) Treatment Treatment Status: Complete Done: 05Apr2021 Ordered;For: Examination; Ordered By: Mohan Bay Performed: Due: 19Apr2021; Last Updated By: [...] different treatment conservative options(observation, medication(s), physical therapy, home care chaplain, acupuncture, pain clinic, home exercise program, etc.)--- [...] to physical therapyPain management-he will reestablish with [facility] pain clinic This document was dictated and electronically signed using [employer] Speaking software. A reasonable attempt at proof reading has been made to minimize errors. Please call with any questions. Signatures Electronically signed by : Mohan Bay M.D.; Apr 07 2021 10:03AM EST (Author) Name Value Range Interpretation Code Description Data Lorri rce(s) Supporting Document(s) ID Date Data Source [id number] 04/05/2021 12:27:00 PM EDT [facility] PATIENT MR#: [id number] NAME: LINDA CHOU DATE OF : 1985REFERRING PHYSICIAN: Mohan BayEXFARAZ DATE: 1EXAM: LUMBAR SPINE MRI WITHOUT AND [...] similar to prior. The conus terminates at kbiL64-V9 level.L1-L2: Mild bilateral facet joint hypertrophy. Minimal [...] rce(s) Supporting Document(s) ID Date Data Source [id number] 04/01/2021 02:03:00 PM EDT [facility] ([facility]) Name Value Range Interpretation Code Description Data Lorri rce(s) Supporting Document(s) Creatinine For GFR 0.87 mg/dL 0.70-1.30 Normal (applies to non -numeric results) [facility] ([facility]) Glomerular Filtration Rate Laboratory test result Normal (applies to non- numeric results) [facility] ([facility]) <content>Units are mL/min/1.73 m2</content>
<content></content>
<content>Chronic Kidney Disease Staging per NKF:</content>
<content></content>
<content>Stage I & II GFR >=60 Normal to Mildly Decreased</content>
<content>Stage III GFR 30- 59 Moderately Decreased</content>
<content>Stage IV GFR 15-29 Severely Decreased</content>
<content>Stage V GFR <15 Very Little GFR Left</content>
<content>ESRD GFR <15 on HAM STRIPPER</content>
<content></content> ID Date Data Source [id number] 04/01/2021 02:03:00 PM [facility]T [facility] Name Value Range Interpretation Code Description Data Lorri rce(s) Supporting Document(s) Urea nitrogen [Mass/volume] in Serum or Plasma 12 mg/dL 7 -18 Normal (applies to non-numeric results) [facility] ([facility]) ID Date Data Source [id number] 02/28/2021 02:01:41 PM EDT [facility] PCName: Linda KentDOB: 1985Provider: Shaila [...] about 3 weeks ago after driving to [place]. Denies any specific injury. Pain has been [...] pain; JAMAR = N; Verified Transmission to [employer]; Last Updated By: Dain Hollins; 02/28/2021 11:42:48 AM Start: oxyCODONE HCl - 10 MG Oral Tablet; 1 tab po Q 6 hours PRN PAIN Reference #:[id number] MDD:4 Rx By: Julius Carroll; Dispense: 0 Days ; #:20 Tablet; Refill: 0;For: Aftercare following surgery of the musculoskeletal system, Low back pain; JAMAR = N; Sent To: [employer]; Last Updated By: Nicole Rider; 02/28/2021 11:44:07 AM BUN ( Blood Urea Nitrogen ); Status:Active; Requested for:87Bjc2441; Perform:Outside Facility; Order Comments:Please Fax results to [facility] at [phone]; Due:07Tmy9251; Last Updated By:Nicole Rider; 02/28/2021 11:35:23 AM;Ordered; For:Health Maintenance, Low back pain; Ordered By:Julius Carroll; Creatinine (CREATININE, GFR, GFR ( AMER), GFR INTERPRETATION);Status:Active; Requested for:06Ieu9210; Perform:Outside Facility; Order Comments:Please Fax results to [facility] at [phone]; Due:82Kfb6957; Last Updated By:Nicole Rider; 02/28/2021 11:35:23 AM;Ordered; For:Health Maintenance, Low back pain; Ordered By:Julius Carroll; X-Ray I Lumbosacral - 2 views (XRays were ordered, obtained and interpreted today inthe office. Indication: pain/dysfunction.); Status:Complete; Done: 11Dkp3702 Perform:SOS22; Due:05Ejx1795; Last Updated By:Em Jenkins; 02/28/2021 11:09:21 AM;Ordered; For:Low back pain; Ordered By:Julius Carroll; MRI ([facility]) Referral Diagnostic Diagnostic Status: Need Information - FinancialAuthori zation Requested for: [id number] Ordered;For: Low back pain; Ordered By: Mohan Bay Performed: Order Comments: Same Day Follow Up, STAT wet read. Due: 50Npe1650; Last Updated By: Nicole Rider; 02/28/2021 11:34:40 AMPatient will follow up with: : Dr. Bay---same day follow up, STAT wet read.MRI Ordered Contrast : 02: without and with Gado IVLaterality: : _Not Applicable Work Note (SOS) Treatment Treatment Status: Complete Done: 09Luy7425 Ordered;For: Health Maintenance; Ordered By: Julius Carroll Performed: Due: 29Hxs9952; Last Updated By: Nicole Rider; 02/28/2021 11:37:06 [...] document was dictated and electronically signed using [employer] software. A reasonable attempt at proof reading has been made to minimize errors. Please call with any questions. Signatures Electronically signed by : Mario Moreno; Feb 28 2021 1:52PM EST (Author) Electronically signed by : Mohan Bay M.D.; Feb 28 2021 2:01PM EST Name Value Range Interpretation Code Description Data Lorri rce(s) Supporting Document(s) ID Date Data Source [id number] 11/23/2020 11:18:02 AM EDT [facility] PCName: Linda KentDOB: 1985Provider: Mohan BayDOS: 11/23/2020 Reason For VisitMattheyomaira Kent is here today for Lumbar spine. [...] as reviewed the official corresponding reports:MRI thoracic [facility] 08/22/2020: Small T8-9 and T9-10 protrusions. No significant stenosis to my review.MRI lumbar [facility] 08/22/2020: L3-4 moderate stenosis. L4-5 central protrusion with moderate to severe stenosis; large left L5-S1 protrusion Assessment 1. Low back pain (724.2) (M54.5) Condition: Chronicetiology: age- related spine/joint degenerationlevels: L3-4, L4-5 and L5-S1 Plan Work Note (SOS) Treatment Treatment Status: Complete Done: 23Nov2020 Ordered;For: Health Maintenance; Ordered By: Mohan Bay Performed: Due: 07Dec2020; Last Updated By: aJrod Robertson; 11/23/2020 11:13:12 AMResume : 11/26/2020Notify Employer [...] different treatment conservative options(observation, medication(s), physical therapy, home care chaplain, acupuncture, pain clinic, home exercise program, etc.)--- [...] document was dictated and electronically signed using [employer] software. A reasonable attempt at proof reading has been made to minimize errors. Please call with any questions. Signatures Electronically signed by : Mohan Bay M.D.; Nov 23 2020 11:18AM EST (Author) Name Value Range Interpretation Code Description Data Lorri rce(s) Supporting Document(s) ID Date Data Source [id number] 10/29/2020 01:16:33 PM EDT [facility] PCName: Linda KentDOB: 1985Provider: Zaid Ty JuliusDOS: 10/19/2020 Reason For VisitMatthew had his second Covid vaccine on 09-12-2020. Linda Kent is an established patient here for follow up. The patient is currently residing at home. Other DOI/DOO: 2008. Surgery DOS: 10-08-2020. Surgery Description: Bilateral L4-L5 [...] pain; JAMAR = N; Verified Transmission to [employer]; Last Updated By: Addepar; 10/19/2020 12:35:17 PM Start: oxyCODONE HCl - 5 MG Oral Tablet; 1 po tid x 7days then 1 po bid x 7 daysthen 1 po qd x 7 days Rx By: Julius Carroll; Dispense: 0 Days ; #:42 Tablet; Refill: 0;For: Aftercare following surgery of the musculoskeletal system, Low back pain; JAMAR = N; Verified Transmission to [employer]; Last Updated By: [employer] (deja mi); 10/19/2020 12:35:16 PM Work Note (SOS) Treatment [...] document was dictated and electronically signed using [employer] Speaking software. A reasonable attempt at proof reading has been made to minimize errors. Please call with any questions. Signatures Electronically signed by : Mario Moreno; Oct 28 2020 10:33PM EST (Author) Electronically signed by : Mohan Bay M.D.; Oct 29 2020 1:16PM EST Name Value Range Interpretation Code Description Data Lorri rce(s) Supporting Document(s) ID Date Data Source [id number] 10/10/2020 04:50:51 PM EST [facility] NT INFORMATIONPatient MRN Name Date of Age Gend*PT [id number] Linda Kent 1985 35 years M SDCXPT Location Admission Date/Time Visit ID Attending [id number] 10/08/20 0806 --- --- EPI ID CSN Admitting Provider [id number] Mohan Bay MD([id number])Operative ReportPatient Name: Linda Kent of : 1985 Age 35 yearsPrimary Physician: PANKAJ De Santiago PCP Qxat of Surgery: 10/08/2020iagnostic InformationPre- Op Diagnosis: Bilateral L4-5 lateral recess stenosis; bilateral H8cgowkwvccrawy; left L5-S1 disc herniation; left S1 radiculopathyPost-Op Diagnosis: SameProcedure(s) Procedure(s):BILATERAL LUMBAR 4 5 LAMINOTOMY DISCECTOMY LEFT LUMBAR 5 SACRAL 1 DISCECTOMY(Bilateral)Surgical StaffSurgeon: YESI Diazurgical Staff: OR Deliverer Pharmacy: Edil Funes RNOR Relief Deliverer Pharmacy: Shiela Bolaños RNOR Relief Scrub: Avery Garza Scrub Person: Braden Raines Assist: Elizabeth Swanson Centrifugal Spinner is a Physician's Corrections Identification Technician (PANKAJ), the Orthopedic Resident wasnot availableAnesthesiaAnesthesia Staff: [...] hemostatic. Fascia closed using #1Vicryl in a bsucke-xt-segvw, interrupted fashion. Subcutaneous tissuesinjected with 30 cc 1/2 percent marcaine with epinephrine. Subcutaneous softtissue closed using 2-0 Vicryl for subcu and 3-0 Monocryl for skin. Sterile dressing applied. Patient rolled onto stretcher. Extubated. Movingall 4 extremities. Brought to recovery room stable condition.Operative InformationSpecimen(s): @ORSPECMN@Grafts/Implants: * No implants in log *All ta sks completed by the surgeonMohan Bay MD Name Value Range Interpretation Code Description Data Lorri rce(s) Supporting Document(s) ID Date Data Source [id number] 10/09/2020 09:10:28 AM EST [facility] NT INFORMATIONPatient MRN Name Date of Age Gend*PT [id number] Linda Kent 1985 35 years M SDCXPT Location Admission Date/Time Visit ID Attending [id number] 10/08/20 0806 --- Mohan Bay MD([id number]) EPI ID CSN Admitting Provider [id number] Mohan Bay MD([id number]) Attestation signed by Mohan Bay MD at 10/09/2020 9:10 AMSignature: KISHAN Diazate: October 09, 2020Time: 9:10 AM --ORTHOPEDIC DISCHARGE SUMMARYPatient Name: Linda Kent of : 1985 Age 35 yearsPrimary Physician: PANKAJ De Santiago PCP Xpdumiajr Date: 10/08/2020 Discharge Date: 10/09/2020dmission Provider: Mohan Bay MD Discharge Provider: Danna Cruz Diagnoses:Principal Problem: Herniated nucleus pulposus, L5- D6Dttnfg Problems: Depression Hyperlipidemia Hypertension Sleep apneaResolved Problems: [...] details.Discharge disposition: [facility] will be [facility] to home in stable condition.Discharge Weight [...] by mouth nightlyvitamin D, Ergocalciferol, 1.25 MG (39977 UT) CAPS Take 1 capsule by mouth [...] 104 (H) 10/09/2020ignificant Imaging:noneConsults:noneSignature: [phone]: October 09, 2020Time: 8:15 AM Name Value Range Interpretation Code Description Data Lorri rce(s) Supporting Document(s) ID Date Data Source [id number] 10/09/2020 08:14:44 AM EST [facility] Name Value Range Interpretation Code Description Data Lorri rce(s) Supporting Document(s) SODIUM 139 mmol/L (136-145) [facility] POTASSIUM 4.3 mmol/L (3.6-5.2) [facility] CHLORIDE 105 mmol/L (100-108) [facility] CO2 25 mmol/L (22-31) [facility] ANION GAP 9 mmol/L (7-16) [facility] UREA NITROGEN 12 mg/dL (7-24) [facility] CREATININE 0.80 mg/dL (0.80-1.30) [facility] BUN/CREAT RATIO 15.0 RATIO (10.0-20.0) [facility] GLUCOSE 104 mg/dL (70-99) H [facility] CALCIUM 8.8 mg/dL (8.4-10.2) [facility] GFR >60 ml/min/1.73m2 (>59) [facility] GFR ( AMER) >60 ml/min/1.73m2 (>59) [facility] GFR INTERPRETATION [facility] --NORMAL KIDNEY FUNCTION OR MILD DISEASE - GFR >OR= 60CHRONIC KIDNEY DISEASE - GFR 15 - 59RENAL FAILURE - GFR <15 Est. GFR calculation based on the MDRDstudy equation, which assumes a steadystate for creatinine. Est. GFR should notbe used for medication dosing. ID Date Data Source [id number] 10/09/2020 07:35:36 AM EST [facility] Name Value Range Interpretation Code Description Data Lorri rce(s) Supporting Document(s) WBC 13.4 10*3/uL (4.1-11.0) H [facility] RBC 4.37 10*6/uL (4.60-6.10) L [facility] HGB 12.7 g/dL (13.5-18.0) L [facility] HCT 38.4 % (41.0-53.0) L [facility] PERFORMED AT [address] [place] [address] N [place] [address] MCV 87.9 fL (80.0-95.0) [facility] MCH 29.1 pg (27.0-32.0) [facility] MCHC 33.1 g/dL (32.0-36.0) [facility] RDW 14.0 % (10.5-14.5) [facility] PLT 289 10*3/uL (150-450) [facility] MPV 8.2 fL (7.1-10.7) [facility] ID Date Data Source [id number] 10/08/2020 11:11:02 AM [place] [id number] Name: LINDA KENTAYESHA: 1985Sex: MOrdering Provider: MOHAN Reid Prov: MOHAN Pena Provider: Procedure Performed: XR OR SPINE LUMBAR CONTINUATIONExam Date: 10/08/2020 11:08MRN: [id number] Number: [id number] Class: InpatientAccount #: [id number] for Exam: Herniated nucleus pulposus, L5-S1 [M51.27]Low back pain [M54.5]Spinal stenosis of lumbar region with neurogenic claudication [M48.062]Technique: Lateral view obtained.Comparison: NoneFindings: Metallic probes positioned posteriorly at the L4-5 and L5 1 disc interspace.IMPRESSION: Metallic probes positioned as above.Report electronically signed by: NICOLE HOLLEY On 10/08/2020 11:11 AMWorkstation ID: [id number] Name Value Range Interpretation Code Description Data Lorri rce(s) Supporting Document(s) ID Date Data Source [id number] 10/08/2020 11:04:[address] [address]Zmdksyz Name: LINDA KENTAYESHA: 1985Sex: MOrdering Provider: MOHAN Reid Prov: MOHAN Pena Provider: Procedure Performed: XR OR SPINE LUMBARExam Date: 10/08/2020 10:54MRN: [id number] Number: [id number] Class: InpatientAccount #: [id number] for Exam: Herniated nucleus pulposus, L5-S1 [M51.27]Low back pain [M54.5]Spinal stenosis of lumbar region with neurogenic claudication [M48.062]Technique: Lateral view obtained.Comparison: NoneFindings: Tip of needles positioned posteriorly at the level of the posterior elements L4 and at the L5-S1 disc interspace.IMPRESSION: Needle markers positioned as above.Report electronically signed by: NICOLE HOLLEY On 10/08/2020 11:04 AMWorkstation ID: [id number] Name Value Range Interpretation Code Description Data Lorri rce(s) Supporting Document(s) ID Date Data Source [id number] 10/08/2020 10:27:22 AM EST [facility] NT INFORMATIONPatient MRN Name Date of Age Gend*PT [id number] Linda Kent 1985 35 years M SDCXPT Location Admission Date/Time Visit ID Attending Provider --- --- --- --- EPI ID CSN Admitting Provider [id number] ---AirwayPatient location during procedure: ORUrgency: electiveDifficult airway: [...] to lips: 22 cmPlacement verified by: + [id number] view: grade I - full view of glottis Name Value Range Interpretation Code Description Data Lorri rce(s) Supporting Document(s) ID Date Data Source [id number] 10/08/2020 09:54:19 AM EST [facility] NT INFORMATIONPatient MRN Name Date of Age Gend*PT [id number] Alex 1985 35 years M SDCXPT Location Admission Date/[facility]20 [facility] --- Mohan Bay MD([id number]) EPI ID CSN Admitting Provider [id number] Mohan Bay MD([id number])Pre-op note/discusson/H&P review:Long discussion today.Options were reviewedProcedure was reviewedRisks/potential complications were reviewedMatthew Yesika Kent wishes to proceed with surgeryNo guarantees givenPlease refer to the patient's H&P completed within 30 days prior to admissionfor details.I have reviewed the patient's H&P and there are no significant changes in thepatient's history nor physical exam.--Mohan Bay MD Name Value Range Interpretation Code Description Data Lorri rce(s) Supporting Document(s) ID Date Data Source [id number] 10/03/2020 02:41:05 PM EST [facility] PCName: Linda KentDOB: 1985Provider: Julius CarrollDOS: 10/03/2020 Reason For VisitMatthew had his second [...] as reviewed the official corresponding reports:MRI thoracic [facility] 08/22/2020: Small T8-9 and T9-10 protrusions. No significant stenosis to my review.MRI lumbar [facility] 08/22/2020: L3-4 moderate stenosis. L4-5 central protrusion with moderate to severe stenosis; large left L5-S1 protrusion AssessmentL4-5 HNP with stenosisLeft L5-S1 HNP PlanPatient is scheduled for bilateral L4-5 laminotomy/discectomy with left L5-S1 discectomy on 10/08/2020. He will follow-up postoperatively. Work / School NoteThe patient is working at this time. This document was dictated and electronically signed using [employer] software. A reasonable attempt at proof reading has been made to minimize errors. Please call with any questions. Signatures Electronically signed by : Mario Moreno; Oct 03 2020 1:16PM EST (Author) Electronically signed by : Mohan Bay M.D.; Oct 03 2020 2:41PM EST Name Value Range Interpretation Code Description Data Lorri rce(s) Supporting Document(s) ID Date Data Source [id number] 10/03/2020 11:53:[address] INFORMATIONPatient MRN Name Date of Age Gend*PT [id number] Linda Kent 1985 35 years M OPPT Location Admission Date/Time Visit ID Attending Provider --- --- --- Mohan Bay MD([id number]) EPI ID CSN Admitting Provider [id number] Mohan Bay MD([id number])OUTPATIENT / OBSERVATIONAL SURGICAL OR INVASIVE PROCEDUREName: Linda [...] capsule Take 60 mg by mouth nightly HistoricalProviMD alexeienalapril (VASOTEC) 10 MG tablet Take 10 mg [...] tablet Take 10 mg by mouth daily HistoricalProMD gilmartiZANidine (MICHELLE AFLEX) 4 MG tablet Take 4 mg by mouth daily as needed (for musclespasms) Historical Provider, traZODone (DESYREL) 100 MG tablet Take 100 mg by mouth nightly MD Lonnievitamin D, Ergocalciferol, 1.25 MG ([id number] UT) CAPS Take 1 capsule by mouth oncea week On Thursday Historical Provider, Milo HistoryTobacco Use Smoking status: Former Smoker Packs/day: 0.50 Years: 1.00 Pack years: 0.50 Last attempt to quit: 2005 Years since quittin.1 Smokeless tobacco: Never UsedSubstance [...] thyromegaly. No carotid bruits.MENTAL / NEUROLOGICAL STATUS: [id number]: Clear to auscultation. No wheezes, rhonchi or [...] parts of this document, were dictated using [employer] speaking software. A reasonable attempt at proofreading has beenmade to minimize errors. Please call with any questions or corrections.* Name Value Range Interpretation Code Description Data Lorri rce(s) Supporting Document(s) ID Date Data Source [id number] 10/04/2020 10:29:54 AM EST [facility] Name Value Range Interpretation Code Description Data Lorri rce(s) Supporting Document(s) SPECIMEN DESCRIPTION [facility] STAPH SCREEN RESULTS (ONEGSA) [facility] COMMENT [facility] GENE TO DETECT STAPH AUREUS. (2) RT-P CR WAS PERFORMED FOR THE mecA AND SCCmec GENES TO DETECT METHICILLIN RESISTANCE IN STAPH AUREUS. ID Date Data Source [id number] 10/03/2020 10:31:07 PM EST [facility] SPEC EXP DATE 10/09/2020ATI ENT ABO/Rh AB POSITIVEANTIBODY SCREEN NEGATIVETESTING SITE PERFORMED AT [address] [place] [address] Name Value Range Interpretation Code Description Data Lorri rce(s) Supporting Document(s) TYPE AND SCREEN [facility] ID Date Data Source [id number] 10/03/2020 03:51:02 PM EST [facility] Name Value Range Interpretation Code Description Data Lorri rce(s) Supporting Document(s) HEMOGLOBIN A1C @ 5.9 % (4.0-6.0) [facility] Performed using Siemens Southbridge immunoassa y.Care must be taken when interpreting HoV2ytribpas in patients with a hemoglobin variantor decreased erythrocyte lifespan. Values 5.7 - 6.4% suggest prediabetes.Values >=6.5% are diagnostic for diabetes.REFERENCE: DIABETES CARE 2018: 41(S13-S27). EST AVERAGE GLUCOSE 123 mg/dL [facility] ID Date Data Source [id number] 10/03/2020 09:40:00 AM EST [facility] Name Value Range Interpretation Code Description Data Lorri rce(s) Supporting Document(s) SARS coronavirus 2 RNA Not Detected [facility] [place] This lab was ordered by [facility] and reported by [employer]. ID Date Data Source [id number] 10/04/2020 04:10:28 PM EST Lab [facility] Name Value Range Interpretation Code Description Data Lorri rce(s) Supporting Document(s) SARS-COV-2 [facility] Not DetectedReference range: Not Detecte d This nucleic acid amplification test was developed and its performance characteristics determined by [employer]. Nucleic acid amplification tests include RT-PCR and [...] detected) result in this assay. Performed At: [facility] [address] [place], [place] [id number] Nico Galvez PhD Ph:[phone] ID Date Data Source [id number] 09/27/2020 12:08:00 PM EST [facility] ([facility] Name Value Range Interpretation Code Description Data Lorri rce(s) Supporting Document(s) Appearance, Urine Laboratory test result Normal (applies to non-numeric results) [facility] ([facility]) Color, Urine Laboratory test result Normal (applies to non -numeric results) [facility] ([facility]) PH,Urine 5.0 units 5.0-9.0 Normal (applies to non-numeric resul ts) [facility] ([facility]) Protein, Urine Auto Laboratory test result Regi l (applies to non-numeric results) [facility] ([facility]) Specific [place] Urine Auto 1.009 1.002-1.035 Norm al (applies to non-numeric results) [facility] ([facility]) Glucose, Urine (Ua) Auto Laboratory test result Normal (applies to non-numeric results) [facility] ([facility]) Ketone, Urine Auto Laboratory test result Normal (applies to non-numeric results) [facility] Urobilinogen, Urine Auto 0.2 mg/dL 0.0-2.0 Normal (applies to non-numeric results) [facility] ([facility]) Bilirubin, Urine Auto Laboratory test result Nor mal (applies to non-numeric results) [facility] Leukocyte Esterase, Urine Auto Laboratory test result Abov e high normal [facility] ([facility]) Blood, Urine Blood Laboratory test result Normal (applies to non-numeric results) [facility]) Nitrite, Urine Auto Laboratory test result Regi l (applies to non-numeric results) [facility] ([facility]) RBC, Urine Auto 0 /HPF 0-3 Normal (applies to non-numeric results) [facility] WBC, Urine Auto 1 /HPF 0-3 Normal (applies to non-numeric results) [facility] ([facility]) Bacteria, Urine Auto Laboratory test result Norm al (applies to non-numeric results) [facility]) Mucus, Urine Laboratory test result Normal (applies to non -numeric results) [facility]) Squamous Epithelial Cell Ur AU 0 /HPF 0-6 N ormal (applies to non-numeric results) [facility]) Hyaline Cast, Urine Auto 0 /LPF 0-1 Normal (applies to non -numeric results) [facility]) ID Date Data Source [id number] 09/27/2020 12:04:00 PM EST [facility] ([facility]) Name Value Range Interpretation Code Description Data Lorri rce(s) Supporting Document(s) Red Blood Count 5.31 10 4.30-6.10 Normal (applies to non-numeric results) [facility] ([facility]) Hemoglobin 15.6 g/dL 13.5-17.5 Normal (applies to non-numeric resul ts) [facility] ([facility]) White Blood Count 8.7 10 4.0-10.0 Normal (applies to non-numeri c results) [facility] ([facility]) Hematocrit 45.6 % 42.0-52.0 Normal (applies to non-numeric resul ts) [facility] ([facility]) Mean Corpuscular Volume 85.9 fl 80.0-96.0 Normal ( applies to non-numeric results) [facility] ([facility]) Mean Corpuscular HGB Conc 34.2 g/dL 32.0-36.5 Normal (applies to non-numeric results) [facility] ([facility]) Mean Corpuscular Hemoglobin 29.4 pg 27.0-33.0 Norm al (applies to non-numeric results) [facility] ([facility]) Red Cell Distribution Width 13.1 % 11.5-14.5 Norm al (applies to non-numeric results) [facility] ([facility]) Platelet Count, Automated 347 10 150-450 Normal (applies to non-numeric results) [facility] ([facility]) Lymph % 28.3 % 24.0-44.0 Normal (applies to non-numeric resul ts) [facility] ([facility]) Stephens % 8.8 % 0.0-5.0 Above high normal [facility] ([facility]) Neutrophils % 60.8 % 36.0-66.0 Normal (applies to non-numeric re sults) [facility] ([facility]) Eos % 0.9 % 0.0-3.0 Normal (applies to non-numeric resul ts) [facility] ([facility]) Baso % 0.9 % 0.0-1.0 Normal (applies to non-numeric resul ts) [facility] ([facility]) Immature Granulocyte % 0.3 % 0-3.0 Normal (applies to non-n umeric results) [facility] ([facility]) Nucleated Red Blood Cell % 0.0 % 0-0 Normal (applies to n on-numeric results) [facility] ([facility]) Neutrophils # 5.3 10 1.5-8.5 Normal (applies to non-numeric re sults) [facility] ([facility]) Lymph # 2.5 10 1.5-5.0 Normal (applies to non-numeric resul ts) [facility] ([facility]) Stephens # 0.8 10 0.0-0.8 Normal (applies to non-numeric resul ts) [facility] ([facility]) Eos # 0.1 10 0.0-0.5 Normal (applies to non-numeric resul ts) [facility] ([facility]) Baso # 0.1 10 0.0-0.2 Normal (applies to non-numeric resul ts) [facility] ([facility]) ID Date Data Source [id number] 09/27/2020 12:04:00 PM EST [facility] ([facility]) Name Value Range Interpretation Code Description Data Lorri rce(s) Supporting Document(s) Inr 0.96 Normal (applies to non-numeric resul ts) [facility] ([facility]) THERAPUTIC HUMAN INR VALUES INDICATIONS NORMAL RANGES PROPHYLAXIS/TREATMENT OF: VENOUS THROMBOSIS 2.0-3.0 PULMONARY EMBOLISM 2.0-3.0 PREVENTION OF SYSTEMIC EMBOLISM FROM: TISSUE HEART VALVES 2.0-3.0 ACUTE MYOCARDIAL INFARCTION 2.0-3.0 VALVULAR HEART DISEASE 2.0-3.0 ATRIAL FIBRILLATION 2.0-3.0 MECHANICAL VALVES(HIGH RISK) 2.5-3.5 RECURRENT MYOCARDIAL INFARCTION 2.5-3.5 Prothrombin Time 13.0 s 12.5-14.3 Normal (applies to non-numeric results) [facility] ([facility]) Partial Thromboplastin Time 27.3 s 24.2-38.5 Norm al (applies to non-numeric results) [facility] ([facility]) ID Date Data Source [id number] 09/27/2020 12:04:00 PM EST [facility] ([facility]) Name Value Range Interpretation Code Description Data Lorri rce(s) Supporting Document(s) Glucose, Fasting 110 mg/dL 70-100 Above high normal [facility] ([facility]) Creatinine For GFR 0.88 mg/dL 0.70-1.30 Normal (applies to non -numeric results) [facility] ([facility]) Blood Urea Nitrogen 14 mg/dL 7-18 Normal (applies to non-nume usama results) [facility] ([facility]) Glomerular Filtration Rate Laboratory test result Normal (applies to non- numeric results) [facility] ([facility]) <content>Units are mL/min/1.73 m2</content>
<content></content>
<content>Chronic Kidney Disease Staging per NKF:</content>
<content></content>
<content>Stage I & II GFR >=60 Normal to Mildly Decreased</content>
<content>Stage III GFR 30- 59 Moderately Decreased</content>
<content>Stage IV GFR 15-29 Severely Decreased</content>
<content>Stage V GFR <15 Very Little GFR Left</content>
<content>ESRD GFR <15 on HAM STRIPPER</content>
<content></content> Sodium Level 137 meq/L 136-145 Normal (applies to non-numeric res ults) [facility] ([facility]) Potassium Serum 4.4 meq/L 3.5-5.1 Normal (applies to non-numeric results) [facility] ([facility]) Chloride Level 104 meq/L 98-107 Normal (applies to non-numeric r esults) [facility] ([facility]) Carbon Dioxide Level 26 meq/L 21-32 Normal (applies to non-num keon results) [facility] ([facility]) Anion Gap 7 meq/L 8-16 Below low [facility] Ast/Sgot 26 U/L 7-37 Normal (applies to non-numeric resul ts) [facility]) Calcium Level 8.9 mg/dL 8.5-10.1 Normal (applies to non-numeric re sults) [facility] ([facility]) Alt/SGPT 61 U/L 12-78 Normal (applies to non-numeric resul ts) [facility] ([facility]) Alkaline Phosphatase 83 U/L 45-117 Normal (applies to non-num keon results) [facility] ([facility]) Total Protein 7.1 GM/DL 6.4-8.2 Normal (applies to non-numeric re sults) [facility] ([facility]) Bilirubin,Total 0.4 mg/dL 0.2-1.0 Normal (applies to non-numeric results) [facility] ([facility]) Albumin 4.4 GM/DL 3.2-5.2 Normal (applies to non-numeric resul ts) [facility] ([facility]) Albumin/Globulin Ratio 1.6 Normal (applies to non-n umeric results) [facility] ([facility]) ID Date Data Source [id number] 09/27/2020 12:04:00 PM EST [facility] ([facility]) Name Value Range Interpretation Code Description Data Lorri rce(s) Supporting Document(s) Blood Type Laboratory test result Normal (applies to non-n umeric results) [facility] AB Screen (Indirect Jae)Vis Laboratory test result Normal (applies to non- numeric results) [facility] ([facility]) ID Date Data Source [id number] 09/27/2020 12:04:00 PM EST [facility] ([facility]) Name Value Range Interpretation Code Description Data Lorri rce(s) Supporting Document(s) Triglycerides Level 184 mg/dL Above high normal [facility] ([facility]) HDL Cholesterol 45 mg/dL Normal (applies to non-numeric results) [facility] ([facility]) Cholesterol Level 150 mg/dL Normal (applies to non-numeri c results) [facility] ([facility]) Non-HDL-C 105 mg/dL Normal (applies to non-numeric resul ts) [facility] ([facility]) LDL Cholesterol 68 mg/dL Normal (applies to non-numeric results) [facility] ([facility]) Cholesterol Risk Ratio 3.333 Normal (applies to non-n umeric results) [facility]) ID Date Data Source [id number] 09/27/2020 10:45:00 AM EST [facility] ([facility] Name Value Range Interpretation Code Description Data Lorri rce(s) Supporting Document(s) EKG Laboratory test result [facility] ID Date Data Source [id number] 09/15/2020 07:53:00 PM EST [facility] ([facility]) Name Value Range Interpretation Code Description Data Lorri rce(s) Supporting Document(s) Lipase [Enzymatic activity/volume] in Serum or Plasma 161 U/L 73-393 Normal (applies to non-numeric results) [facility] ID Date Data Source [id number] 09/15/2020 07:53:00 PM EST [facility] ([facility] Name Value Range Interpretation Code Description Data Lorri rce(s) Supporting Document(s) Glucose, Fasting 94 mg/dL 70-100 Normal (applies to non-numeric results) [facility] ([facility]) Blood Urea Nitrogen 18 mg/dL 7-18 Normal (applies to non-nume usama results) [facility] ([facility]) Glomerular Filtration Rate Laboratory test result Normal (applies to non- numeric results) [facility] ([facility]) <content>Units are mL/min/1.73 m2</content>
<content></content>
<content>Chronic Kidney Disease Staging per NKF:</content>
<content></content>
<content>Stage I & II GFR >=60 Normal to Mildly Decreased</content>
<content>Stage III GFR 30-59 Moderately Decreased</content>
<content>Stage IV GFR 15-29 Severely Decreased</content>
<content>Stage V GFR <15 Very Little GFR Left</content>
<content>ESRD GFR <15 on HAM STRIPPER</content>
<content></content> Creatinine For GFR 1.00 mg/dL 0.70-1.30 Normal (applies to non -numeric results) [facility] ([facility]) Sodium Level 138 meq/L 136-145 Normal (applies to non-numeric res ults) [facility]) Chloride Level 103 meq/L 98-107 Normal (applies to non-numeric r esults) [facility] ([facility]) Potassium Serum 4.4 meq/L 3.5-5.1 Normal (applies to non-numeric results) [facility] ([facility]) Carbon Dioxide Level 28 meq/L 21-32 Normal (applies to non-num keon results) [facility] ([facility]) Anion Gap 7 meq/L 8-16 Below low normal [facility]) Calcium Level 9.4 mg/dL 8.5-10.1 Normal (applies to non-numeric re sults) [facility] ([facility]) ID Date Data Source [id number] 09/15/2020 07:53:00 PM EST [facility] ([facility] Name Value Range Interpretation Code Description Data Lorri rce(s) Supporting Document(s) Ast/Sgot 42 U/L 7-37 Above high normal [facility] Alt/SGPT 63 U/L 12-78 Normal (applies to non-numeric resul ts) [facility] ([facility]) Alkaline Phosphatase 104 U/L 45-117 Normal (applies to non-num keon results) [facility] ([facility]) Bilirubin,Total 0.4 mg/dL 0.2-1.0 Normal (applies to non-numeric results) [facility] ([facility]) Bilirubin,Direct Laboratory test result 0.0-0.2 Normal ( applies to non-numeric results) [facility] ([facility]) Total Protein 7.5 GM/DL 6.4-8.2 Normal (applies to non-numeric re sults) [facility] ([facility]) Albumin 4.4 GM/DL 3.2-5.2 Normal (applies to non-numeric resul ts) [facility] ([facility]) Albumin/Globulin Ratio 1.4 Normal (applies to non-n umeric results) [facility] ([facility]) ID Date Data Source [id number] 09/15/2020 07:53:00 PM EST [facility] ([facility]) Name Value Range Interpretation Code Description Data Lorri rce(s) Supporting Document(s) CPK Creatine Phosphokinase 136 U/L 39-308 Regi l (applies to non-numeric results) [facility] ([facility]) CK-MB Value Mass 1.5 ng/mL Normal (applies to non-numeric results) [facility] ([facility]) MB/CK Relative Index 1.10 Normal (applies to non-num keon results) [facility] ([facility]) <content>DIAGNOSIS CRITERIA</content>
<content>MMB ng/ml Relative Index (RI)</content>
<content>NON-AMI < or = 5 N/A</content>
<content>CRAWFORD ZONE > 5 < or = 4</content>
<content>AMI > 5 > 4</content>
<content></content> Troponin I Laboratory test result Normal (applies to non-n umeric results) [facility] ([facility]) <content>Troponin I Reference Interval f or Siemens Southbridge LOCI:</content>
<content></content>
<content>99th Percentile= 0.00-0.045 ng/ml</content>
<content></content>
<content>Risk Stratification:</content>
<content><= 0.10 ng/ml Decreased Risk for Adverse Clinical</content>
<content>Events.</content>
<content>0.10-1.50 ng/ml Increased Risk for Adverse Clinical</content>
<content>Events. Evaluation of additional</content>
<content>criterion and/or repeat testing in 2-6</content>
<content>hours is suggested to rule out myocardial</content>
<content>damage.</content>
<content>>= 1.50 ng/ml Indicative of Myocardial Injury.</content>
<content></content> ID Date Data Source [id number] 09/15/2020 07:53:00 PM EST [facility] Name Value Range Interpretation Code Description Data Lorri rce(s) Supporting Document(s) White Blood Count 10.6 10 4.0-10.0 Above high normal [facility] ([facility]) Red Blood Count 5.46 10 4.30-6.10 Normal (applies to non-numeric results) [facility] ([facility]) Hemoglobin 15.5 g/dL 13.5-17.5 Normal (applies to non-numeric resul ts) [facility] ([facility]) Hematocrit 46.9 % 42.0-52.0 Normal (applies to non-numeric resul ts) [facility] ([facility]) Mean Corpuscular Volume 85.9 fl 80.0-96.0 Normal ( applies to non-numeric results) [facility] ([facility]) Mean Corpuscular Hemoglobin 28.4 pg 27.0-33.0 Norm al (applies to non-numeric results) [facility] ([facility]) Red Cell Distribution Width 12.9 % 11.5-14.5 Norm al (applies to non-numeric results) [facility] ([facility]) Mean Corpuscular HGB Conc 33.0 g/dL 32.0-36.5 Normal (applies to non-numeric results) [facility] ([facility]) Neutrophils % 54.6 % 36.0-66.0 Normal (applies to non-numeric re sults) [facility] ([facility]) Platelet Count, Automated 305 10 150-450 Normal (applies to non-numeric results) [facility] ([facility]) Lymph % 31.7 % 24.0-44.0 Normal (applies to non-numeric resul ts) [facility] ([facility]) Stephens % 10.1 % 0.0-5.0 Above high normal [facility] ([facility]) Eos % 2.3 % 0.0-3.0 Normal (applies to non-numeric resul ts) [facility] ([facility]) Baso % 0.8 % 0.0-1.0 Normal (applies to non-numeric resul ts) [facility] ([facility]) Immature Granulocyte % 0.5 % 0-3.0 Normal (applies to non-n umeric results) [facility] ([facility]) Neutrophils # 5.8 10 1.5-8.5 Normal (applies to non-numeric re sults) [facility] ([facility]) Nucleated Red Blood Cell % 0.0 % 0-0 Normal (applies to n on-numeric results) [facility] ([facility]) Lymph # 3.4 10 1.5-5.0 Normal (applies to non-numeric resul ts) [facility] ([facility]) Stephens # 1.1 10 0.0-0.8 Above high normal [facility] ([facility]) Eos # 0.2 10 0.0-0.5 Normal (applies to non-numeric resul ts) [facility] ([facility]) Baso # 0.1 10 0.0-0.2 Normal (applies to non-numeric resul ts) [facility] ([facility]) ID Date Data Source [id number] 09/06/2020 05:17:31 PM EST [facility] PCName: Linda Schulz: 1985Provider: Verena Bay: 09/06/2020 Reason For VisitMattsung Kent is an established patient here for follow up and Linda Kent is here for evaluation of MRI results. MRI's and Xrays were transferred from [facility]. Other DOI/DOO: 2007. Patient states the [...] as reviewed the official corresponding reports:MRI thoracic [facility] 08/22/2020: Small T8-9 and T9-10 protrusions. No significant stenosis to my review.MRI lumbar [facility] 08/22/2020: L3-4 moderate stenosis. L4-5 central [...] different treatment conservative options(observation, medication(s), physical therapy, home care chaplain, acupuncture, pain clinic, home exercise program, another [...] document was dictated and electronically signed using [employer] software. A reasonable attempt at proof reading has been made to minimize errors. Please call with any questions. Signatures Electronically signed by : Mohan Bay M.D.; Sep 06 2020 5:17PM EST (Author) Name Value Range Interpretation Code Description Data Lorri rce(s) Supporting Document(s) ID Date Data Source [id number] 08/25/2020 12:00:00 PM EST [facility] Name Value Range Interpretation Code Description Data Lorri rce(s) Supporting Document(s) SARS coronavirus 2 RNA Not Detected [facility] This lab was ordered by [facility] and reported by [facility]. ID Date Data Source [id number] 06/08/2020 07:49:33 AM EDT [facility], PCName: Linda KentDOB: 1985Provider: Mohan BayDOS: 06/07/2020 Reason For VisitMattsung Kent is here [...] --Heel and sole of the foot [facility] DDD with small right L3-4 [...] document was dictated and electronically signed using [employer] software. A reasonable attempt at proof reading has been made to minimize errors. Please call with any questions. Signatures Electronically signed by : Mohan Bay M.D.; Jun 08 2020 7:49AM EST (Author) Name Value Range Interpretation Code Description Data Lorri rce(s) Supporting Document(s) ID Date Data Source [id number] 05/26/2020 07:37:00 AM EDT [facility] Name Value Range Interpretation Code Description Data Lorri rce(s) Supporting Document(s) Laboratory test finding (navigational concept) 46.0 % 3 8.0-51.0 Normal (applies to non-numeric results) [facility] Laboratory test finding (navigational concept) 131 mg/dL 7 0-105 Above high normal [facility] ([facility]) Laboratory test finding (navigational concept) 137 meq/L 1 36-145 Normal (applies to non-numeric results) [facility] ([facility]) Laboratory test finding (navigational concept) 4.2 meq/L 3 .5-5.1 Normal (applies to non-numeric results) [facility] ([facility]) Laboratory test finding (navigational concept) 4.9 mg/dL 4 .5-5.3 Normal (applies to non-numeric results) [facility] ([facility]) Laboratory test finding (navigational concept) 101 meq/L 9 8-109 Normal (applies to non-numeric results) [facility] ([facility]) Laboratory test finding (navigational concept) 22.0 MM/L 2 3.0-27.0 Below low normal [facility] ([facility]) Laboratory test finding (navigational concept) 0.9 mg/dL 0 .6-1.3 Normal (applies to non-numeric results) [facility] ([facility]) Laboratory test finding (navigational concept) 14 mg/dL 8 -26 Normal (applies to non-numeric results) [facility] ([facility]) Procedure Social History Code Duration Value Status Description Data Source(s ) Alcohol intake 10/09/2020 12:00:00 AM EST Yes completed [facility] Cigarette pack-years 10/09/2020 12:00:00 AM EST UNK completed [facility] Cigarettes smoked current (pack per day) - Reported 10/09/19 12:00:00 AM EST UNK completed [facility] Smoking 10/09/2020 12:00:00 AM EST Former smoker completed Former smoker [facility] Alcohol intake 10/03/2020 12:00:00 AM EST Yes completed [facility] Cigarette pack-years 10/03/2020 12:00:00 AM EST UNK completed [facility] Cigarettes smoked current (pack per day) - Reported 10/03/19 12:00:00 AM EST UNK completed [facility] Smoking 10/03/2020 12:00:00 AM EST Former smoker completed Former smoker [facility] Smoking 09/04/2020 12:00:00 AM EST UNK completed [facility] ([facility]) Smoking 09/04/2020 12:00:00 AM EST UNK completed eCW1 ([facility]) Smoking 09/04/2020 12:00:00 AM EST UNK completed eCW1 ([facility]) Smoking 09/04/2020 12:00:00 AM EST UNK completed eCW1 ([facility]) Smoking 08/30/2020 12:00:00 AM EST UNK completed eCW1 ([facility]) Smoking 08/30/2020 12:00:00 AM EST UNK completed eCW1 ([facility]) Smoking 07/23/2020 12:00:00 AM EST UNK completed eCW1 ([facility]) Smoking 07/23/2020 12:00:00 AM EST UNK completed eCW1 ([facility]) Smoking 07/23/2020 12:00:00 AM EST UNK completed eCW1 ([facility]) Vital Signs ID Date Data Source UNK Name Value Range Interpretation Code Description Data Source(s) Systolic blood pressure 130 mm[Hg] 130 mm[Hg] [facility] ([facility]) Diastolic blood pressure 78 mm[Hg] 78 mm[Hg] [facility] ([facility]) Body height 74.6 [in_i] 74.6 [in_i] [facility] ([facility]) 6'2.60" Body weight 296.25 [lb_av] 296.25 [lb_av] [facility] ([facility]) Body mass index (BMI) [Ratio] 37.4 kg/m2 37.4 k g/m2 [facility] ([facility]) Heart rate 82 /min 82 /min [facility] ([facility]) Respiratory rate 14 /min 14 /min [facility] Body temperature 97.2 [degF] 97.2 [degF] [facility] Oxygen saturation in Arterial blood by Pulse oximetry 96 % 96 % [facility] ([facility]) [place] body weight 190 [lb_av] 190 [lb_av] [facility] ([facility]) Body mass index (BMI) [Ratio] 37.1 kg/m2 37.1 k g/m2 [facility] ([facility]) Heart rate 94 /min 94 /min [facility] ([facility]) Respiratory rate 18 /min 18 /min [facility] Oxygen saturation in Arterial blood by Pulse oximetry 98 % 98 % [facility] ([facility]) Body weight 294.00 [lb_av] 294.00 [lb_av] [facility] ([facility]) Systolic blood pressure 128 mm[Hg] 128 mm[Hg] [facility] ([facility]) Diastolic blood pressure 74 mm[Hg] 74 mm[Hg] [facility] ([facility]) Body height 74.6 [in_i] 74.6 [in_i] [facility] ([facility]) 6'2.60" Body temperature 96.8 [degF] 96.8 [degF] [facility] ([facility]) [place] body weight 190 [lb_av] 190 [lb_av] [facility] ([facility]) Systolic blood pressure 132 mm[Hg] 132 mm[Hg] [facility] ([facility]) Diastolic blood pressure 76 mm[Hg] 76 mm[Hg] [facility] Body height 74.6 [in_i] 74.6 [in_i] [facility] ([facility]) 6'2.60" Body weight 292.25 [lb_av] 292.25 [lb_av] [facility] ([facility]) Body mass index (BMI) [Ratio] 36.9 kg/m2 36.9 k g/m2 [facility] ([facility]) Respiratory rate 18 /min 18 /min [facility] Body temperature 97.9 [degF] 97.9 [degF] [facility] Oxygen saturation in Arterial blood by Pulse oximetry 97 % 97 % [facility] ([facility]) [place] body weight 190 [lb_av] 190 [lb_av] [facility] ([facility]) Heart rate 77 /min 77 /min [facility] ([facility]) Systolic blood pressure 128 mm[Hg] 128 mm[Hg] [facility] ([facility]) Diastolic blood pressure 72 mm[Hg] 72 mm[Hg] [facility] ([facility]) Body height 74.6 [in_i] 74.6 [in_i] [facility] ([facility]) 6'2.60" Body weight 286.00 [lb_av] 286.00 [lb_av] [facility] ([facility]) Body mass index (BMI) [Ratio] 36.1 kg/m2 36.1 k g/m2 [facility] ([facility]) Heart rate 96 /min 96 /min [facility] ([facility]) Respiratory rate 16 /min 16 /min [facility] ( [facility]) Body temperature 97.3 [degF] 97.3 [degF] [facility] ([facility]) Oxygen saturation in Arterial blood by Pulse oximetry 98 % 98 % [facility] ([facility]) [place] body weight 190 [lb_av] 190 [lb_av] [facility] ([facility]) Oxygen saturation in Arterial blood by Pulse oximetry 95 % 95 % [facility] Systolic blood pressure 132 mm[Hg] 132 mm[Hg] [facility] Diastolic blood pressure 83 mm[Hg] 83 mm[Hg] [facility] Heart rate 92 /min 92 /min [facility] Body temperature 36.83 Kina 36.83 Kina [facility] Respiratory rate 16 /min 16 /min [facility] Body height 190.5 cm 190.5 cm [facility] Body weight 130.182 kg 130.182 kg [facility] Body mass index (BMI) [Ratio] 35.87 kg/m2 35.87 kg/m2 [facility] Systolic blood pressure 144 mm[Hg] 144 mm[Hg] [facility] Diastolic blood pressure 90 mm[Hg] 90 mm[Hg] [facility] Heart rate 109 /min 109 /min [facility] Body height 190.5 cm 190.5 cm [facility] Body weight 130.182 kg 130.182 kg [facility] Body mass index (BMI) [Ratio] 35.87 kg/m2 35.87 kg/m2 [facility] Oxygen saturation in Arterial blood by Pulse oximetry 95 % 95 % [facility] Body height 74.6 [in_i] 74.6 [in_i] [facility] ([facility]) 6'2.60" Heart rate 119 /min 119 /min [facility] ([facility]) Respiratory rate 18 /min 18 /min [facility] ( [facility]) Body temperature 98.5 [degF] 98.5 [degF] [facility] ([facility]) Oxygen saturation in Arterial blood by Pulse oximetry 95 % 95 % [facility] ([facility]) [place] body weight 190 [lb_av] 190 [lb_av] [facility] ([facility]) Body weight 285.38 [lb_av] 285.38 [lb_av] [facility] ([facility]) Body mass index (BMI) [Ratio] 36.0 kg/m2 36.0 k g/m2 [facility] ([facility]) Systolic blood pressure 134 mm[Hg] 134 mm[Hg] [facility] ([facility]) Diastolic blood pressure 74 mm[Hg] 74 mm[Hg] [facility] ([facility]) Body weight 291 [lb_av] 291 [lb_av] eCW1 ([facility]) Body height 76 [in_i] 76 [in_i] eCW1 ([facility]) Body mass index (BMI) [Ratio] 35.42 kg/m2 35.42 kg/m2 eCW1 ([facility]) Heart rate 89 /min 89 /min eCW1 ([facility]) Respiratory rate 16 /min 16 /min eCW1 ([facility]) Body temperature 97.6 [degF] 97.6 [degF] eCW1 ( [facility]) Systolic blood pressure 145 mm[Hg] 145 mm[Hg] e CW1 ([facility]) Diastolic blood pressure 80 mm[Hg] 80 mm[Hg] eCW1 ([facility]) Body weight 289.8 [lb_av] 289.8 [lb_av] eCW1 ([facility]) Body height 76 [in_i] 76 [in_i] eCW1 ([facility]) Body mass index (BMI) [Ratio] 35.27 kg/m2 35.27 kg/m2 eCW1 ([facility]) Heart rate 103 /min 103 /min eCW1 ([facility]) Respiratory rate 16 /min 16 /min eCW1 ([facility]) Body temperature 97.5 [degF] 97.5 [degF] eCW1 ( [facility]) Systolic blood pressure 141 mm[Hg] 141 mm[Hg] e CW1 ([facility]) Diastolic blood pressure 95 mm[Hg] 95 mm[Hg] eCW1 ([facility]) Respiratory rate 18 /min 18 /min [facility] ( [facility]) Body height 74.6 [in_i] 74.6 [in_i] [facility] ([facility]) 6'2.60" Systolic blood pressure 132 mm[Hg] 132 mm[Hg] [facility] ([facility]) Diastolic blood pressure 84 mm[Hg] 84 mm[Hg] [facility] ([facility]) Body weight 256.06 [lb_av] 256.06 [lb_av] [facility] ([facility]) Body temperature 98.3 [degF] 98.3 [degF] [facility] ([facility]) Body mass index (BMI) [Ratio] 32.3 kg/m2 32.3 k g/m2 [facility] ([facility]) Heart rate 78 /min 78 /min [facility] ([facility]) Oxygen saturation in Arterial blood by Pulse oximetry 98 % 98 % [facility] ([facility]) [place] body weight 190 [lb_av] 190 [lb_av] [facility] ([facility]) Body weight 288 [lb_av] 288 [lb_av] eCW1 ([facility]) Body height 76 [in_i] 76 [in_i] eCW1 ([facility]) Body mass index (BMI) [Ratio] 35.05 kg/m2 35.05 kg/m2 eCW1 ([facility]) Heart rate 78 /min 78 /min eCW1 ([facility]) Respiratory rate 18 /min 18 /min eCW1 ([facility]) Body temperature 97.1 [degF] 97.1 [degF] eCW1 ( [facility]) Systolic blood pressure 143 mm[Hg] 143 mm[Hg] e CW1 ([facility]) Diastolic blood pressure 75 mm[Hg] 75 mm[Hg] eCW1 ([facility]) Body weight 284.25 [lb_av] 284.25 [lb_av] [facility] ([facility]) Systolic blood pressure 124 mm[Hg] 124 mm[Hg] [facility] ([facility]) Diastolic blood pressure 88 mm[Hg] 88 mm[Hg] [facility] ([facility]) Body height 74.6 [in_i] 74.6 [in_i] [facility] ([facility]) 6'2.60" Body mass index (BMI) [Ratio] 35.9 kg/m2 35.9 k g/m2 [facility] ([facility]) Heart rate 106 /min 106 /min [facility] ([facility]) Respiratory rate 18 /min 18 /min [facility] ( [facility]) Body temperature 97.8 [degF] 97.8 [degF] [facility] ([facility]) Oxygen saturation in Arterial blood by Pulse oximetry 98 % 98 % [facility] ([facility]) [place] body weight 190 [lb_av] 190 [lb_av] [facility] ([facility]) Systolic blood pressure 128 mm[Hg] 128 mm[Hg] [facility] ([facility]) Diastolic blood pressure 78 mm[Hg] 78 mm[Hg] [facility] ([facility]) Heart rate 86 /min 86 /min [facility] ([facility]) Body height 74.6 [in_i] 74.6 [in_i] [facility] ([facility]) 6'2.60" Body weight 285.38 [lb_av] 285.38 [lb_av] [facility] ([facility]) Body mass index (BMI) [Ratio] 36.0 kg/m2 36.0 k g/m2 [facility] ([facility]) Respiratory rate 18 /min 18 /min [facility] ( [facility]) Body temperature 98.0 [degF] 98.0 [degF] [facility] ([facility]) Oxygen saturation in Arterial blood by Pulse oximetry 98 % 98 % [facility] ([facility]) [place] body weight 190 [lb_av] 190 [lb_av] [facility] ([facility]) Patient Treatment Plan of Care Planned Activity Planned Date Details Description Data Source (s) Oxycodone Hydrochloride 10 MG Oral Tablet 10/09/2020 12:00:00 AM [facility] Acetaminophen 325 MG / Oxycodone Hydrochloride 5 MG Or al Tablet [Percocet] 09/27/2020 12:00:00 AM EST eCW1 ([facility]) Acetaminophen 325 MG / Oxycodone Hydrochloride 5 MG Or al Tablet [Percocet] 09/27/2020 12:00:00 AM EST eCW1 ([facility]) Acetaminophen 325 MG / Oxycodone Hydrochloride 5 MG Or al Tablet [Percocet] 09/04/2020 12:00:00 AM EST eCW1 ([facility]) Acetaminophen 325 MG / Oxycodone Hydrochloride 5 MG Or al Tablet [Percocet] 09/04/2020 12:00:00 AM EST eCW1 ([facility]) Acetaminophen 325 MG / Oxycodone Hydrochloride 5 MG Or al Tablet [Percocet] 08/22/2020 12:00:00 AM EST eCW1 ([facility]) Acetaminophen 325 MG / Oxycodone Hydrochloride 5 MG Or al Tablet [Percocet] 08/22/2020 12:00:00 AM EST eCW1 ([facility]) Acetaminophen 325 MG / Oxycodone Hydrochloride 5 MG Or al Tablet [Percocet] 07/23/2020 12:00:00 AM EST eCW1 ([facility]) meloxicam 15 MG Oral Tablet [facility] Acetaminophen 325 MG / Oxycodone Hydrochloride 5 MG Oral Tablet [facility]
--- NOTE | 2021-06-13 01:39 | REPVR ---
PROCEDURE INFORMATION: Exam: CT Head Without Contrast Exam date and time: 06/13/2021 1:11 AM Age: 36 years old Clinical indication: Pain; Headache not specified; Additional info: Headache, left facial numbness TECHNIQUE: Imaging protocol: Computed tomography of the head without contrast. Radiation optimization: All CT scans at this facility use at least one of these dose optimization techniques: automated exposure control; mA and/or kV adjustment per patient size (includes targeted exams where dose is matched to clinical indication); or iterative reconstruction. COMPARISON: CT Head without contrast 07/13/2016 9:18 PM FINDINGS: Brain: No intracranial hemorrhage or extra-axial fluid collection. No evidence of mass effect or midline shift. Waterman-white matter differentiation is intact. Cerebral ventricles: No ventriculomegaly. Paranasal sinuses: Visualized sinuses are unremarkable. No fluid levels. Mastoid air cells: Unremarkable. Bones/joints: No acute osseus lesion or fracture. Soft tissues: Unremarkable. IMPRESSION: No acute intracranial pathology. Electronically signed by: Pete Meier On 06/13/2021 01:38:10 AM
--- NOTE | 2021-06-13 01:39 | REPVR ---
PROCEDURE INFORMATION: Exam: CT Cervical Spine Without Contrast Exam date and time: 06/13/2021 1:11 AM Age: 36 years old Clinical indication: Neck pain; Additional info: Headache, left facial numbness TECHNIQUE: Imaging protocol: Computed tomography images of the cervical spine without contrast. Radiation optimization: All CT scans at this facility use at least one of these dose optimization techniques: automated exposure control; mA and/or kV adjustment per patient size (includes targeted exams where dose is matched to clinical indication); or iterative reconstruction. COMPARISON: CR Spine,LS wBENDING MIN 6 VIEWS 07/06/2020 2:45 PM FINDINGS: Bones/joints: Straightening of the cervical lordosis. Vertebral body heights are maintained. No locked or perched facets. No acute cervical spine fracture. The dens is intact. Atlantoaxial intervals are normal. Discs/Spinal canal/Neural foramina: Small posterior disc osteophyte complexes at C5-C6 and C6-C7 without significant osseous canal narrowing. Disc space heights are preserved. No significant osseous foraminal narrowing. Lungs: Lung apices are clear. Soft tissues: Unremarkable. IMPRESSION: No acute findings in the cervical spine. Electronically signed by: Pete Meier On 06/13/2021 01:39:15 AM
[2021-06-13] MEDS ORDERED: MEDR4PAK PO (01:54)
[2021-06-13 01:59] VITALS: BP 131/84
== END 2021-06-13 01:59 | disposition home or self-care (01) ==
LOC: M ED 21:37
DX: M54.12 Radiculopathy, cervical region (principal); Z91.030 Bee allergy status

== ENCOUNTER → 2021-09-13 | Outpatient (REF) | payer BC, OTHER ==
[~2021-09-13] MED LIST changes: +MEDR4PAK PO; +MORP-69 PO
== END ==
LOC: M LAB REF 14:49
PROVIDERS: ATTEND Nurse Practitioner Adult Health
DX: J06.9 Acute upper respiratory infection, unspecified (principal)
CPT/HCPCS: 87633; U0003

== ENCOUNTER → 2022-06-19 | Outpatient (CLI) | payer BC | LOC: M PLARAD 08:45 | PROVIDERS: ATTEND Physician Assistant | DX: M51.17 Intervertebral disc disorders with radiculopathy, lumbosacral region (principal) ==

== ENCOUNTER 2022-07-08 09:02 | Emergency (ER) | payer BC ==
[~2022-07-08] VITALS: Ht 193 cm; Wt 127.3 kg
[2022-07-08] MEDS ORDERED: OXYC10TA12 (09:11)
[2022-07-08] MEDS ORDERED: DOXY-443 (09:11)
[2022-07-08] MEDS ORDERED: IPRATROPIUM 0.5MG/ALBUTEROL 2.5MG INH SOL UD 3ML (DUONEB) NEB ONE ×2 (11:35→14:15)
[2022-07-08] MEDS ORDERED: methylPREDNISolone 125MG 2ML VIAL IV ONE (11:35)
[2022-07-08 12:20] LABS: BASO # 0.1 10^3/uL (0.0-0.2); BASO % 1.2 % (0.0-1.0); EOS # 0.2 10^3/uL (0.0-0.5); EOS % 2.9 % (0.0-3.0); HEMOGLOBIN 15.3 g/dl (13.5-17.5); LYMPH # 2.2 10^3/uL (1.5-5.0); MEAN CORPUSCULAR HEMOGLOBIN 29.1 pg (27.0-33.0); MEAN CORPUSCULAR HGB CONC 33.3 g/dl (32.0-36.5); MEAN CORPUSCULAR VOLUME 87.6 fl (80.0-96.0); MONO # 0.6 10^3/uL (0.0-0.8); MONO % 8.6 % (2.0-8.0); NEUTROPHILS # 4.1 10^3/uL (1.5-8.5); NEUTROPHILS % 56.9 % (36.0-66.0); PLATELET COUNT, AUTOMATED 297 10^3/uL (150-450); RED BLOOD COUNT 5.25 10^6/uL (4.30-6.10); WHITE BLOOD COUNT 7.2 10^3/uL (4.0-10.0)
[2022-07-08 12:56] LABS: ALBUMIN 4.2 G/DL (3.2-5.2); ALT/SGPT 48 U/L (7.0-40); BILIRUBIN,DIRECT 0.2 MG/DL (<0.4); BILIRUBIN,TOTAL 0.5 MG/DL (0.3-1.2); BLOOD UREA NITROGEN 11 MG/DL (9-23); CALCIUM LEVEL 9.2 MG/DL (8.5-10.1); CARBON DIOXIDE LEVEL 28 MMOL/L (20-31); CHLORIDE LEVEL 103 MMOL/L (98-107); CK-MB VALUE MASS 2.6 NG/ML (<3.6); CPK CREATINE PHOSPHOKINASE 304 U/L (46-171); CREATININE FOR GFR 0.85 MG/DL (0.70-1.30); GLOMERULAR FILTRATION RATE > 60.0 (>60); GLUCOSE, FASTING 98 MG/DL (60-100); MB/CK RELATIVE INDEX 0.85 (< OR =4); POTASSIUM SERUM 4.4 MMOL/L (3.5-5.1); SODIUM LEVEL 139 MMOL/L (136-145); TOTAL PROTEIN 6.8 G/DL (5.7-8.2)
[2022-07-08 14:17] LABS: CK-MB VALUE MASS 2.3 NG/ML (<3.6); MB/CK RELATIVE INDEX 0.78 (< OR =4)
[2022-07-08] MEDS ORDERED: MEDR4PAK PO (14:40)
[2022-07-08] MEDS ORDERED: PROA1AER2 INH (14:40)
[2022-07-08 14:45] VITALS: BP 145/77
[2022-07-08] MEDS ORDERED: BENZ200C70 PO (14:48)
== END 2022-07-08 15:23 | disposition home or self-care (01) ==
LOC: M ED 09:02
DX: J45.901 Unspecified asthma with (acute) exacerbation (principal); J00 Acute nasopharyngitis [common cold]; B34.1 Enterovirus infection, unspecified; B34.8 Other viral infections of unspecified site; I10 Essential (primary) hypertension; E78.5 Hyperlipidemia, unspecified; G89.29 Other chronic pain; M54.9 Dorsalgia, unspecified; F43.10 Post-traumatic stress disorder, unspecified; Z79.899 Other long term (current) drug therapy; Z91.030 Bee allergy status; Z91.048 Other nonmedicinal substance allergy status; Z87.19 Personal history of other diseases of the digestive system; Z98.890 Other specified postprocedural states
CPT/HCPCS: 71046; 80048; 80076; 82550; 82553; 84484; 85025; 85379; 87486; 87581; 87633; 87798; 93005; 93041; 94640; 94760; 96374; 99285; J2930

== ENCOUNTER → 2022-07-16 | Outpatient (CLI) | payer BC ==
[~2022-07-16] MED LIST changes: +BENZ200C70 PO; +DOXY-443; +OXYC10TA12; +PROA1AER2 INH
== END ==
LOC: M PLAIMG 07:06
PROVIDERS: ATTEND Physician Assistant
DX: M50.221 Other cervical disc displacement at C4-C5 level (principal); M50.222 Other cervical disc displacement at C5-C6 level; M50.223 Other cervical disc displacement at C6-C7 level; M51.34 Other intervertebral disc degeneration, thoracic region; M48.02 Spinal stenosis, cervical region

== ENCOUNTER → 2024-03-22 | Outpatient (REF) | payer BC ==
[~2024-03-22] MED LIST changes: +DOXY-323; -DOXY-443; -ENAL-36; +ENAL1TAB50; -ROSU10TA6; +ROSU10TA61
== END ==
LOC: M LAB REF 17:00
PROVIDERS: ATTEND Physician Assistant
DX: R39.12 Poor urinary stream (principal)

== ENCOUNTER → 2024-05-31 | Outpatient (CLI) | payer BC ==
[~2024-05-31] MED LIST changes: -DOXY-323; +DOXY-441; +GABA-1172; -GABA-282; +GASTROGRAFIN SOLUTION 30ML As Ordered ONE; +ISOVUE-370 76% 100ML VIAL As Ordered ONE
== END ==
LOC: M RAD 14:08
PROVIDERS: ATTEND Family Medicine
DX: R10.32 Left lower quadrant pain (principal)

== ENCOUNTER → 2024-06-10 | Outpatient (CLI) | payer BC ==
[~2024-06-10] MED LIST changes: -GASTROGRAFIN SOLUTION 30ML As Ordered ONE; -ISOVUE-370 76% 100ML VIAL As Ordered ONE
== END ==
LOC: M RAD 11:35
PROVIDERS: ATTEND Surgery
DX: Z87.19 Personal history of other diseases of the digestive system (principal)